=== PATIENT | female | born 1980 | race Caucasian/White ===

== ENCOUNTER → 2016-07-10 | Outpatient (CLI) | payer OTHER ==
[2016-05-03 14:41] VITALS: BP 107/65
[2016-07-10 12:18] LABS: BASOPHILS # (AUTO) 0.1 X10^3/uL (0.0-0.1); BASOPHILS % (AUTO) 0.8 % (0.2-1.0); EOSINOPHILS % (AUTO) 0.5 % (0.9-2.9); HEMOGLOBIN 12.8 g/dL (12.0-16.0); LYMPHOCYTES # (AUTO) 2.6 X10^3/uL (1.3-2.9); LYMPHOCYTES % (AUTO) 39.8 % (21.0-51.0); MEAN CORPUSCULAR HEMOGLOBIN 28.5 pg (27.0-34.0); MEAN CORPUSCULAR HGB CONC 33.6 g/dL (33.0-35.0); MEAN CORPUSCULAR VOLUME 84.9 fL (80.0-100.0); MEAN PLATELET VOLUME 6.7 fL (7.4-11.0); MONOCYTES # (AUTO) 0.6 x10^3/uL (0.3-0.8); MONOCYTES % (AUTO) 9.7 % (0.0-13.0); NEUTROPHILS # (AUTO) 3.2 x10^3/uL (2.2-4.8); NEUTROPHILS % (AUTO) 49.2 % (42.0-75.0); PLATELET COUNT 500 X10^3/uL (150.0-450.0); RED BLOOD COUNT 4.48 X10^6/uL (3.5-5.4); RED CELL DISTRIBUTION WIDTH 14.7 % (11.6-16.5); WHITE BLOOD COUNT 6.5 X10^3/uL (3.6-10.0)
[2016-07-10 12:34] LABS: ALANINE AMINOTRANSFERASE 23 Units/L (12-78); ALKALINE PHOSPHATASE 134 Units/L (46-116); ASPARTATE AMINO TRANSFERASE 22 Units/L (15-37); BLOOD UREA NITROGEN 9 mg/dL (7-18); CALCIUM 8.2 mg/dL (8.5-10.1); CARBON DIOXIDE 27.4 mmol/L (21-32); CHLORIDE 107 mmol/L (98-107); COR CA(FOR HYPOALB) 9.8 mg/dL (8.5-10.1); CREATININE 0.88 mg/dL (0.55-1.02); GLUCOSE 91 mg/dL (65-99); SODIUM 141 mmol/L (136-145); TOTAL PROTEIN 6.9 g/dL (6.4-8.2); eGFR BLACK RACES > 60 (>60); eGFR NON BLACK RACES > 60 (>60)
[2016-07-10 13:44] LABS: ERYTHROCYTE SEDIMENTATION RATE 21 MM/HOUR (0-20)
== END ==
LOC: LAB 12:00
PROVIDERS: ATTEND Internal Medicine Gastroenterology
DX: K50.10 Crohn's disease of large intestine without complications (principal); R63.4 Abnormal weight loss
CPT/HCPCS: 36415; 80053; 85025; 85652; 86140

== ENCOUNTER 2017-10-20 22:00 | Observation (INO) ==
[2017-10-20 22:17] VITALS: BMI 16.6
[2017-10-21] MEDS ORDERED: NS 1000 ML 1,000 ML IV ONE (01:43)
[2017-10-21] MEDS ORDERED: ZOFRAN INJ 4 MG VIAL IVP ONE (01:43)
[2017-10-21] MEDS ORDERED: TORADOL 30 MG VIAL IVP STA (01:45)
--- NOTE | 2017-10-21 01:46 | DR.GENAD ---
HPI - PCP Primary Care Physician: rao - Complaint/Symptoms Chief Complaint Doctors Comments: Patient is complaining or RLQ pain with persistent nausea and vomiting. States she had a colosotomy in 2011 and has had a deficiet since they close it. States she has crohns disease and it taking a shot weekly for it. states her last period was three weeks ago and she is not on any contraceptives. States her pain is 7 of 10. States she has taken ZOfran but is still not eating. States she had a small bowel movement today. Chief Complaint:: THROWING UP AND STOMACH PAINS AND SWELLING, HAS LUIS - Nurses notes reviewed Nurses Notes Review: Yes - Source History Provided: Patient - Mode of Arrival Mode of Arrival: Wheelchair - Timing Onset of Chief Complaint: 10/20/17 Came on: Gradually - Duration Duration: Constant How lon Duration: Days - Location Location: right lower abdominal pain - Severity Severity: Moderate - Modifying Factors Worsens:: nothing Improves:: nothing PMH - PMH Past Medical History: Yes Past Medical History: Arthritis, GERD, Kidney Stones Past Medical History Comment: LUIS Past Surgical History: Yes Surgical History: Cholecystectomy, Lithotripsy, Other Past Surgical History Comment: BOWEL SUGERY. CLOSTOMY PLACEMENT AND REMOVAL. GALLBLADDER REMOVED. KIDNEY STONE REMOVAL. - Family History History of Family Medical Conditions: No Family Medical History: Diabetes Mellitus, Cancer, [place], Coronary Artery Disease, Hypertension - Social History Does patient currently use any type of tobacco product: No Have you used tobacco products in the last 12 months: No Type of Tobacco Use: None Does any household member use tobacco: No Alcohol Use: None Do you use any recreational Drugs:: No Lives With: Spouse, Family Lives Where: Home - infectious screening In the last 2 months have you had wt loss of >10#?: NO Have you had fever, night sweats or hemotysis?: No Have you traveled outside the country in the last 6 months?: No Isolation: Standard ROS - Review of Systems Constitutional: No Symptoms Reported, Fever, Weakness, Loss of Appetite Eyes: No Symptoms Reported. negative: See HPI, Eye Pain, Blurred Vision, Tearing, Discharge, Photophobia, Diplopia, Other ENTM: No Symptoms Reported. negative: See HPI, Ear Pain, Ear Discharge, Pulling on Ears, Hearing Loss, Nose Pain, Nose Discharge, Epistaxis, Nose Congestion, Mouth Pain, Mouth Swelling, Loose Teeth, Drooling, Throat Pain, Throat Swelling, Ear Foreign Body, Tooth/Dental Pain Respiratoy: No Symptoms Reported Cardiovascular: No Symptoms Reported. negative: See HPI, Chest Pain, Edema, Palpitations, Syncope, Cyanosis, Skin Mottling, Other Gastrointestinal/Abdominal: No Symptoms Reported, Abdominal Pain, Nausea, Vomiting Genitourinary: No Symptoms Reported. negative: See HPI, Discharge, Dysuria, Frequency, Hematuria, Pain, Bleeding, Other Neurological: No Symptoms Reported Musculoskeletal: No Symptoms Reported Integumentary: No Symptoms Reported Hematologic/Lymphatic: No Symptoms Reported Endocrine: No Symptoms Reported Psychiatric: No Symptoms Reported. negative: See HPI, Anxiety, Depression, Hallucinations, Excessive crying, Suicidal, Other PE - General Limitations: No Limitations General Appearance: Alert, In Distress (moderate), Cachectic - Head Head Exam: Normal Inspection, Atraumatic, Normocephalic - Eyes Eye exam: Normal Appearance, PERRL, EOMI. negative: Scleral Icterus, Conjunctival Injection, Nystagmus, Miosis, Mydrasis, Periorbital Swelling, Periorbital Tenderness, Other - ENT ENT Exam: Normal Exam, Normal Oropharynx, Normal External Ear Exam, Mucous Membranes Moist, TM's Normal Bilaterally External Ear Exam: Normal External Inspection TM/Canal Exam: Bilateral Normal Nose Exam: Normal Nose Exam Mouth Exam: Normal Inspection. negative: Drooling, Trismus, Lip Swelling, Tongue Elevation, Tongue Swelling, Laceration, Other Throat Exam: Normal Inspection. negative: Tonsillar Erythema, Tonsillomegaly, Tonsillar Exudate, R Peritonsillar Mass, L Peritonsillar Mass, Muffled Voice, Other - Neck Neck Exam: Normal Inspection, Full ROM, Trachea Midline - Chest Chest Inspection: Normal Inspection, Symmetric Chest Wall Rise. negative: Tenderness, Rash, Abscess, Other - Respiratory Respiratory Exam: Normal Lung Sounds Bilat, Accessory Muscle Use. negative: Chest Wall Tenderness, Prolonged Expiratory Phase, Respiratory Distress, Stridor , Other Respiratory Exam: Bilateral Clear to Auscultation, Bilateral Decreased Breath Sounds - Cardiovascular Cardiovascular Exam: Regular Rate, Normal Rhythm, Normal Heart Sounds, Systolic Murmur - Abdominal Exam Abdominal Exam: Normal Inspection, Normal Bowel Sounds, Soft, Tenderness (RLQ tenderness), Guarding, Rebound, Dimnished Bowel Sounds Abdominal Tenderness: RLQ, Suprapubic, Moderate - Extremities Extremities Exam: Normal Inspection, Full ROM, Normal Capillary Refill. negative: Tenderness, Edema, Joint Swelling, Calf Tenderness, Other - Back Back Exam: Normal Inspection, Full ROM. negative: Tenderness, (R) CVA Tenderness, (L) CVA Tenderness, Muscle Spasm, Paraspinal Tenderness, Vertebral Tenderness, Rashes, (R) Sciatic Notch Tenderness, (L) Sciatic Notch Tendern, (R ) Straight Leg Raise, (L) Straight Leg Raise, Other - Neurologic Neurological Exam: Alert, Oriented X3, CN II-XII Intact, Normal Gait, Reflexes Normal - Psychiatric Psychiatric Exam: Normal Affect, Normal Mood. negative: Depressed, Agitated, Anxious, Flat Affect, Manic, Homicidal Ideation, Suicidal Ideation, Other - Skin Skin Exam: Warm, Dry, Intact, Normal Color - Vital Signs Vitals: Temperature 98.6 F Pulse Rate [Left] 84 Pulse Rate 97 Respiratory Rate 22 Blood Pressure [Right Arm] 104/71 Blood Pressure [Left Arm] 98/69 Blood Pressure 126/77 O2 Sat by Pulse Oximetry 99 Course - Consultation Called: 05:46 Call Returned: 05:46 (Dr. Flores to admit) - Education/Counseling Education/Counseling: Patient, Family Educated On: Treatment, Diagnosis, Needs for Follow Up ROR - Labs Reviewed Laboratory Results Reviewed?: Yes (All labs and x-ray results reviewed and discussed with patient) Result Diagrams: 10/21/17 01:53 10/21/17 01:53 - XRAY XRAY Interpreted by: Radiologist (CT abdomen and pelvis: Inflammator change involving the terminal ileum with marked wall thickening suggesting acute inflammatory enteritis likde Crohn's disease. Left ovarian cyst.) - Labs Reviewed Laboratory: WBC 11.4 X10^3/uL (3.6-10.0) H 10/21/17 01:53 RBC 3.93 X10^6/uL (3.5-5.4) 10/21/17 01:53 Hgb 10.9 g/dL (12.0-16.0) L 10/21/17 01:53 Hct 32.1 % (36.0-47.0) L 10/21/17 01:53 MCV 81.8 fL (80.0-100.0) 10/21/17 01:53 MCH 27.7 pg (27.0-34.0) 10/21/17 01:53 MCHC 33.9 g/dL (33.0-35.0) 10/21/17 01:53 RDW 13.6 % (11.6-16.5) 10/21/17 01:53 Plt Count 672 X10^3/uL (150.0-450.0) H 10/21/17 01:53 Plt Count Comment Increased (ADEQUATE) A 10/21/17 01:53 MPV 6.7 fL (7.4-11.0) L 10/21/17 01:53 Neut % (Auto) 65.6 % (42.0-75.0) 10/21/17 01:53 Lymph % (Auto) 28.7 % (21.0-51.0) 10/21/17 01:53 [place] % (Auto) 5.4 % (0.0-13.0) 10/21/17 01:53 Eos % (Auto) 0.1 % (0.9-2.9) L 10/21/17 01:53 Baso % (Auto) 0.2 % (0.2-1.0) 10/21/17 01:53 Neut # (Auto) 7.5 x10^3/uL (2.2-4.8) H 10/21/17 01:53 Lymph # (Auto) 3.3 X10^3/uL (1.3-2.9) H 10/21/17 01:53 [place] # (Auto) 0.6 x10^3/uL (0.3-0.8) 10/21/17 01:53 Eos # (Auto) 0.0 x10^3/uL (0.0-0.2) 10/21/17 01:53 Baso # (Auto) 0.0 X10^3/uL (0.0-0.1) 10/21/17 01:53 Absolute Nucleated RBC 0.0 /100WBC 10/21/17 01:53 Plt Morphology Comment Normal (NORMAL) 10/21/17 01:53 RBC Morphology Normal (NORMAL) 10/21/17 01:53 Sodium 143 mmol/L (136-145) 10/21/17 01:53 Corrected Sodium TNP 10/21/17 01:53 Potassium 3.0 mmol/L (3.5-5.1) L* 10/21/17 01:53 Chloride 105 mmol/L (98-107) 10/21/17 01:53 Carbon Dioxide 32.7 mmol/L (21-32) H 10/21/17 01:53 BUN 12 mg/dL (7-18) 10/21/17 01:53 Creatinine 1.11 mg/dL (0.55-1.02) H 10/21/17 01:53 Est GFR (MDRD) Af Amer > 60 (>60) 10/21/17 01:53 Est GFR (MDRD) Non-Af 59 (>60) 10/21/17 01:53 Glucose 101 mg/dL (65-99) H 10/21/17 01:53 Calcium 7.6 mg/dL (8.5-10.1) L 10/21/17 01:53 Corrected Calcium 9.5 mg/dL (8.5-10.1) 10/21/17 01:53 Total Bilirubin 0.20 mg/dL (0.2-1.0) 10/21/17 01:53 AST 13 Units/L (15-37) L 10/21/17 01:53 ALT 13 Units/L (12-78) 10/21/17 01:53 Alkaline Phosphatase 143 Units/L (46-116) H 10/21/17 01:53 Total Protein 6.7 g/dL (6.4-8.2) 10/21/17 01:53 Albumin 1.6 g/dL (3.4-5.0) L 10/21/17 01:53 Globulin 5.1 g/dL (2.5-4.5) H 10/21/17 01:53 Albumin/Globulin Ratio 0.3 Ratio (1.1-2.1) L 10/21/17 01:53 Amylase 34 Units/L (25-115) 10/21/17 01:53 Lipase 67 Units/L (73-393) L 10/21/17 01:53 HCG, Qual Negative <10 mIU/mL 10/21/17 01:53 Specimen Type Catherized urine 10/21/17 02:45 Urine Color Brown (YELLOW) 10/21/17 02:45 Urine Appearance Hazy (CLEAR) 10/21/17 02:45 Urine pH 6.0 (5.0 - 8.0) 10/21/17 02:45 Ur Specific B[place] 1.030 (1.000-1.030) 10/21/17 02:45 Urine Protein 3+ (NEGATIVE) 10/21/17 02:45 Urine Glucose (UA) Negative (NEGATIVE) 10/21/17 02:45 Urine Ketones Negative (NEGATIVE) 10/21/17 02:45 Urine Occult Blood 5+ (NEGATIVE) 10/21/17 02:45 Urine Nitrite Negative (NEGATIVE) 10/21/17 02:45 Urine Bilirubin 1+ (NEGATIVE) 10/21/17 02:45 Urine Urobilinogen 1+ (NORMAL) 10/21/17 02:45 Ur Leukocyte Esterase 1+ (NEGATIVE) 10/21/17 02:45 Urine RBC 5-10 /HPF (NONE SEEN) 10/21/17 02:45 Urine WBC 20-30 /HPF (NONE SEEN) 10/21/17 02:45 Ur Squamous Epith Cells Many /HPF (NEGATIVE) 10/21/17 02:45 Amorphous Sediment 2+ /HPF (NEGATIVE) 10/21/17 02:45 Urine Bacteria Negative /HPF (NEGATIVE) 10/21/17 02:45 Urine Mucus Few /HPF (NEGATIVE) 10/21/17 02:45 Ur Culture Indicated? No/not indicated 10/21/17 02:45 - Diagnosis Discharge Problem: Abdominal pain, Exacerbation of Crohn's disease, Nausea & vomiting, Hypokalemia , Intractable vomiting with nausea - Discharge Plan Disposition: ADMITTED INPATIENT Condition: Stable - Follow ups/Referrals Follow ups/Referrals: Jack Wright [Primary Care Provider] - 3 days - Instructions
[2017-10-21 02:02] LABS: BASOPHILS % (AUTO) 0.2 % (0.2-1.0); EOSINOPHILS % (AUTO) 0.1 % (0.9-2.9); HEMATOCRIT 32.1 % (36.0-47.0); HEMOGLOBIN 10.9 g/dL (12.0-16.0); LYMPHOCYTES # (AUTO) 3.3 X10^3/uL (1.3-2.9); LYMPHOCYTES % (AUTO) 28.7 % (21.0-51.0); MEAN CORPUSCULAR HEMOGLOBIN 27.7 pg (27.0-34.0); MEAN CORPUSCULAR HGB CONC 33.9 g/dL (33.0-35.0); MEAN CORPUSCULAR VOLUME 81.8 fL (80.0-100.0); MEAN PLATELET VOLUME 6.7 fL (7.4-11.0); MONOCYTES # (AUTO) 0.6 x10^3/uL (0.3-0.8); MONOCYTES % (AUTO) 5.4 % (0.0-13.0); NEUTROPHILS # (AUTO) 7.5 x10^3/uL (2.2-4.8); NEUTROPHILS % (AUTO) 65.6 % (42.0-75.0); PLATELET COUNT 672 X10^3/uL (150.0-450.0); RED BLOOD COUNT 3.93 X10^6/uL (3.5-5.4); RED CELL DISTRIBUTION WIDTH 13.6 % (11.6-16.5); WHITE BLOOD COUNT 11.4 X10^3/uL (3.6-10.0)
[2017-10-21] MEDS ORDERED: NS 1000 ML 1,000 ML ONE (02:07)
[2017-10-21] MEDS ORDERED: TORADOL 30 MG VIAL ONE (02:07)
[2017-10-21] MEDS ORDERED: ZOFRAN INJ 4 MG VIAL ONE (02:07)
[2017-10-21 02:09] LABS: BLOOD UREA NITROGEN 12 mg/dL (7-18); CALCIUM 7.6 mg/dL (8.5-10.1); CARBON DIOXIDE 32.7 mmol/L (21-32); CHLORIDE 105 mmol/L (98-107); CREATININE 1.11 mg/dL (0.55-1.02); SODIUM 143 mmol/L (136-145); eGFR NON BLACK RACES 59 (>60)
[2017-10-21 02:13] LABS: ALANINE AMINOTRANSFERASE 13 Units/L (12-78); ALBUMIN 1.6 g/dL (3.4-5.0); ALKALINE PHOSPHATASE 143 Units/L (46-116); AMYLASE 34 Units/L (25-115); ASPARTATE AMINO TRANSFERASE 13 Units/L (15-37); COR CA(FOR HYPOALB) 9.5 mg/dL (8.5-10.1); LIPASE 67 Units/L (73-393); TOTAL PROTEIN 6.7 g/dL (6.4-8.2)
[2017-10-21 02:14] LABS: SERUM PREGNANCY TEST, QUAL NEGATIVE <10 mIU/mL
[2017-10-21 02:18] LABS: PLATELET MORPHOLOGY COMMENT NORMAL (NORMAL)
[2017-10-21] MEDS ORDERED: K-LYTE EFFERVESCENT PO STA (02:27)
[2017-10-21 02:51] LABS: BILIRUBIN,URINE 1+ (NEGATIVE); BLOOD/HEMOGLOBIN,URINE 5+ (NEGATIVE); GLUCOSE, URINE NEGATIVE (NEGATIVE); KETONES,URINE NEGATIVE (NEGATIVE); LEUKOCYTE ESTERASE ,URINE 1+ (NEGATIVE); NITRITES,URINE NEGATIVE (NEGATIVE); PROTEIN,URINE 3+ (NEGATIVE); UROBILINOGEN,URINE 1+ (NORMAL)
[2017-10-21 02:56] LABS: COLOR,URINE BROWN (YELLOW)
[2017-10-21 02:57] LABS: APPEARANCE,URINE HAZY (CLEAR)
[2017-10-21 03:00] LABS: AMORPHOUS SEDIMENT,UR 2+ /HPF (NEGATIVE); BACTERIA,URINE NEGATIVE /HPF (NEGATIVE); MUCUS,URINE FEW /HPF (NEGATIVE); SQUAMOUS EPITHELIAL CELL,UR MANY /HPF (NEGATIVE)
[2017-10-21] MEDS ORDERED: BENADRYL INJ 50 MG VIAL IVP ONE (04:24)
[2017-10-21] MEDS ORDERED: REGLAN INJ 10 MG VIAL IVP STA (04:24)
[2017-10-21] MEDS ORDERED: REGLAN INJ 10 MG VIAL ONE (04:55)
[2017-10-21] MEDS ORDERED: BENADRYL INJ 50 MG VIAL ONE (04:55)
--- NOTE | 2017-10-21 05:15 | CT ---
CT abdomen and pelvis without contrast Indication: Abdominal pain and vomiting. History of Crohn's disease. History multiple bowel surgeries Comparison: 05/01/2016 Technique: Helical images through the abdomen and pelvis without contrast. Coronal and sagittal refor mats provided. Findings: Limited images the lower chest shows no acute abnormality. Review of bone windows shows no destructive osseous lesion. Postsurgical change at the hips from prior decompression noted. Abdomen: Gallbladder is absent. The liver is fatty. The spleen, pancreas, adrenal glands and stomach are normal. The kidneys are normal without hydronephrosis. Colon is relatively normal. Vasculature is normal. There is stranding in the right lower quadrant with terminal ileum wall thickening and free fluid in the pelvis and in the right lower quadrant. Bowel is mildly dilated. Broad-based abdominal wall herni a noted. Left ovarian cyst noted. Pelvis: Urinary bladder and rectum are normal. Uterus is normal. Right adnexa shows no acute abnormal ity. Left ovarian cyst noted. Impression: 1. Inflammatory change involving the terminal ileum with marked wall thickening and adjacent strandin g and fluid suggesting acute inflammatory enteritis, such as Crohn's disease given history. There is minimal dilatation, without high-grade obstruction. Developing obstruction is not completely excluded . 2. Moderate free fluid in the pericolic gutters and pelvis. Close clinical and imaging follow-up apolonia mmended to document resolution and exclude anastomotic leak is the source of the fluid as well. There is also left ovarian cyst. Cyst rupture could cause fluid as well. 3. Osteonecrosis of the hips and postsurgical change noted. Reported By:
[2017-10-21] MEDS ORDERED: FLAGYL IV PREMIX 500 MG BAG 500 MG/100 ML BAG IV ONE ×2 (05:31→05:46)
[2017-10-21] MEDS ORDERED: SOLU-Medrol 40 MG VIAL IVP ONE (05:32)
[2017-10-21] MEDS ORDERED: SOLU-Medrol 40 MG VIAL ONE (05:46)
[2017-10-21] MEDS: D5 1/2 NS + KCL 20 MEQ/L 1,000 ML IV SCH ×2 (05:57→14:00)
[2017-10-21] MEDS: FLAGYL IV PREMIX 500 MG BAG 500 MG/100 ML BAG IV SCH ×4 (07:51→21:00)
[2017-10-21] MEDS: PROTONIX TAB 40 MG PO SCH (08:02)
[2017-10-21] MEDS ORDERED: POTASSIUM CHLORIDE LIQ 20 MEQ UDC PO PRN (08:04)
[2017-10-21] MEDS ORDERED: K-RIDER 10 MEQ/NS 100 ML 10 MEQ/100 ML BAG IV PRN (08:04)
[2017-10-21] MEDS ORDERED: K-LYTE EFFERVESCENT PO PRN (08:04)
[2017-10-21] MEDS ORDERED: POTASSIUM CHL 40 MEQ/NS 0.45% 500 ML IV PRN (08:04)
[2017-10-21] MEDS: POTASSIUM CHL 60 MEQ/NS 0.45% 500 ML IV PRN (09:04)
[2017-10-21] MEDS: ZOFRAN INJ 4 MG VIAL IVP PRN ×2 (09:11→17:22)
[2017-10-21] MEDS: CIPRO IV 400 MG PREMIX* 400 MG/200 ML IV.SOLN. IV SCH ×2 (12:30→18:52)
--- NOTE | 2017-10-21 14:08 | DR.H&P ---
H&P - History & Physical for Day of: H&P Date: 10/21/17 - Chief Complaint Chief Complaint: ABDOMINAL PAIN, FEVER HX OF CROHNS - History of Present Illness History of Present Illness: 37 [facility] ER ADMISSION AFTER PRESENTING WITH CO RLQ pain with persistent nausea and vomiting. States she had a colosotomy in 2011, then reverse with non healing wound since. States she has crohns disease and it taking a shot weekly for it. PT STATES SHE IS UNDER THE CARE DR [place]. PT HAD CT IN ER WITH RESULTS:nflammatory change involving the terminal ileum with marked wall thickening and adjacent stranding and fluid suggesting acute inflammatory enteritis, such as Crohn's disease given history. There is minimal dilatation, without high-grade obstruction. Developing obstruction is not completely excluded. Moderate free fluid in the pericolic gutters and pelvis. Close clinical and imaging follow-up recommended to document resolution and exclude anastomotic leak is the source of the fluid as well. There is also left ovarian cyst. Cyst rupture could cause fluid as well. PT WAS ADMITTED FOR EVALUATION AND TREATMENT OF ACUTE ILLNESS, IV ATBX THERAPY PAIN CONTROL - Past Medical History Past Medical History: Arthritis, GERD, Kidney Stones Additional Medical History: Crohn's Disease, Abdominal Hernia 2011, Urinary Tract Infections, Ovarian Cysts, Previous Blood Transfusion - Past Surgical History Surgical History: Cholecystectomy, Lithotripsy, Other Additional Surgical History: Bilateral Hip Core Decompression; intestinal tears and had colostomy w reversal 1 year later (2010, 2011); abdominal hernia w mesh placement in 2011 - Family History Family Medical History: Diabetes Mellitus, Cancer, [place], Coronary Artery Disease, Hypertension - Social History Does patient currently use any type of tobacco product: No Have you used tobacco products in the last 12 months: No Type of Tobacco Use: None Does any household member use tobacco: No Alcohol Use: None - Medications Home Medications: No Known Drug Allergies Allergy (Verified 10/21/17 02:08) - Review of Systems Constitutional: Fever, Weakness Eyes: No Symptoms Reported ENT: No Symptoms Reported Respiratory: No Symptoms Reported Cardiovascular: No Symptoms Reported Gastrointestinal: Nausea, Vomiting, Abdominal Pain Genitourinary: No Symptoms Reported Musculoskeletal: No Symptoms Reported Skin: Wound Neurological: No Symptoms Reported - Physical Exam Vital Signs: Temperature 98.6 F Pulse Rate [Left] 65 Pulse Rate 97 Respiratory Rate 22 Blood Pressure [Right Arm] 97/64 Blood Pressure [Left Arm] 98/69 Blood Pressure 126/77 O2 Sat by Pulse Oximetry 97 Oriented: Normal Eyes: Normal Ear: Normal Nose: Normal Throat: Normal Respiratory: Clear Throughout Cardiovascular: Normal, Irregular Palpation: Normal Tenderness: Diffuse, RLQ Skin: Wound (TWO SF OPEN WOUNDS ALONG PERIUMBILCAL SURGICAL SCAR) Musculoskeletal: Normal Psychiatric: Anxiety Affect: Anxious Speech Pattern: Clear, Appropriate - Assessment/Plan (1) Exacerbation of Crohn's disease Status: Acute Plan: ADMIT, IV ATBX, IV HYDRATION ELECTROLYTE REPLACEMENT, PAIN AND NAUSEA CONTROL, WOUND CULTURE. LACTIC ACID LEVEL, ADMISSION LABS, STOOL STUDIES. VERIFY HOME MEDS (2) Hypokalemia Status: Acute (3) Intractable vomiting with nausea Status: Acute (4) Abdominal pain Status: Acute - Allergies Allergies/Adverse Reactions: Allergies Allergy/AdvReac Type Severity Reaction Status Date / Time No Known Drug Allergies Allergy Verified 10/21/17 02:08
[2017-10-21 15:00] LABS: LACTIC ACID 3.6 mmol/L (0.4-2.0)
[2017-10-21 18:20] LABS: STOOL FOR WBC POSITIVE (NEGATIVE)
[2017-10-22] MEDS: CIPRO IV 400 MG PREMIX* 400 MG/200 ML IV.SOLN. IV SCH ×3 (00:29→22:00)
[2017-10-22] MEDS: D5 1/2 NS + KCL 20 MEQ/L 1,000 ML IV SCH ×5 (01:36→22:09)
[2017-10-22] MEDS: ZOFRAN INJ 4 MG VIAL IVP PRN (01:48)
[2017-10-22] MEDS: FLAGYL IV PREMIX 500 MG BAG 500 MG/100 ML BAG IV SCH ×2 (03:03→09:09)
[2017-10-22 05:20] LABS: BASOPHILS % (AUTO) 0.3 % (0.2-1.0); EOSINOPHILS # (AUTO) 0.1 x10^3/uL (0.0-0.2); EOSINOPHILS % (AUTO) 0.8 % (0.9-2.9); HEMATOCRIT 22.8 % (36.0-47.0); HEMOGLOBIN 7.9 g/dL (12.0-16.0); LYMPHOCYTES # (AUTO) 3.2 X10^3/uL (1.3-2.9); LYMPHOCYTES % (AUTO) 34.7 % (21.0-51.0); MEAN CORPUSCULAR HEMOGLOBIN 28.5 pg (27.0-34.0); MEAN CORPUSCULAR HGB CONC 34.5 g/dL (33.0-35.0); MEAN CORPUSCULAR VOLUME 82.6 fL (80.0-100.0); MEAN PLATELET VOLUME 7.1 fL (7.4-11.0); MONOCYTES # (AUTO) 0.7 x10^3/uL (0.3-0.8); MONOCYTES % (AUTO) 7.8 % (0.0-13.0); NEUTROPHILS # (AUTO) 5.2 x10^3/uL (2.2-4.8); NEUTROPHILS % (AUTO) 56.4 % (42.0-75.0); PLATELET COUNT 460 X10^3/uL (150.0-450.0); RED BLOOD COUNT 2.77 X10^6/uL (3.5-5.4); RED CELL DISTRIBUTION WIDTH 13.5 % (11.6-16.5); WHITE BLOOD COUNT 9.2 X10^3/uL (3.6-10.0)
[2017-10-22 05:30] LABS: ALANINE AMINOTRANSFERASE 8 Units/L (12-78); ALBUMIN 1.2 g/dL (3.4-5.0); ALKALINE PHOSPHATASE 97 Units/L (46-116); ASPARTATE AMINO TRANSFERASE 10 Units/L (15-37); BLOOD UREA NITROGEN 12 mg/dL (7-18); CALCIUM 6.5 mg/dL (8.5-10.1); CARBON DIOXIDE 27.3 mmol/L (21-32); CHLORIDE 109 mmol/L (98-107); COR CA(FOR HYPOALB) 8.7 mg/dL (8.5-10.1); CREATININE 1.07 mg/dL (0.55-1.02); SODIUM 142 mmol/L (136-145); TOTAL PROTEIN 4.9 g/dL (6.4-8.2); eGFR NON BLACK RACES > 60 (>60)
[2017-10-22 05:59] LABS: PLATELET MORPHOLOGY COMMENT NORMAL (NORMAL)
[2017-10-22 06:00] LABS: HYPOCHROMASIA SLIGHT
[2017-10-22] MEDS: POTASSIUM CHL 60 MEQ/NS 0.45% 500 ML IV PRN (06:50)
[2017-10-22] MEDS: PROTONIX TAB 40 MG PO SCH (09:06)
[2017-10-22] MEDS ORDERED: NS 100 ML IV 100 ML IV ONE ×3 (11:21→17:37)
[2017-10-22] MEDS ORDERED: MAGNESIUM SULFATE 50% INJ ONE ×3 (11:22→17:37)
[2017-10-22] MEDS: MAGNESIUM SULFATE 1 GRAM/100 mL PREMIX 1 GM/100 ML BAG IV PRN ×2 (11:35→17:40)
[2017-10-22] MEDS ORDERED: MAGNESIUM SULFATE 1 GRAM/100 mL PREMIX 1 G/100 ML BAG IV ONE (14:09)
[2017-10-22] MEDS: VANCOMYCIN HCL PO SCH ×2 (14:29→21:15)
[2017-10-22] MEDS: FLAGYL TAB 500 MG PO SCH ×2 (17:40→22:10)
[2017-10-22] MEDS: PHENERGAN INJ 25 MG IV PRN (21:14)
[2017-10-23] MEDS: VANCOMYCIN HCL PO SCH ×4 (02:24→20:44)
[2017-10-23] MEDS: FLAGYL TAB 500 MG PO SCH ×3 (05:08→22:28)
[2017-10-23] MEDS: PHENERGAN INJ 25 MG IV PRN ×3 (05:08→23:03)
[2017-10-23 05:20] LABS: BASOPHILS % (AUTO) 0.4 % (0.2-1.0); EOSINOPHILS # (AUTO) 0.1 x10^3/uL (0.0-0.2); EOSINOPHILS % (AUTO) 1.1 % (0.9-2.9); HEMATOCRIT 24.2 % (36.0-47.0); HEMOGLOBIN 8.4 g/dL (12.0-16.0); LYMPHOCYTES # (AUTO) 2.2 X10^3/uL (1.3-2.9); LYMPHOCYTES % (AUTO) 28.9 % (21.0-51.0); MEAN CORPUSCULAR HEMOGLOBIN 28.7 pg (27.0-34.0); MEAN CORPUSCULAR HGB CONC 34.9 g/dL (33.0-35.0); MEAN CORPUSCULAR VOLUME 82.3 fL (80.0-100.0); MEAN PLATELET VOLUME 6.9 fL (7.4-11.0); MONOCYTES # (AUTO) 0.5 x10^3/uL (0.3-0.8); MONOCYTES % (AUTO) 6.7 % (0.0-13.0); NEUTROPHILS # (AUTO) 4.8 x10^3/uL (2.2-4.8); NEUTROPHILS % (AUTO) 62.9 % (42.0-75.0); PLATELET COUNT 506 X10^3/uL (150.0-450.0); RED BLOOD COUNT 2.94 X10^6/uL (3.5-5.4); RED CELL DISTRIBUTION WIDTH 13.7 % (11.6-16.5); WHITE BLOOD COUNT 7.6 X10^3/uL (3.6-10.0)
[2017-10-23 05:30] LABS: ALANINE AMINOTRANSFERASE 10 Units/L (12-78); ALBUMIN 1.3 g/dL (3.4-5.0); ALKALINE PHOSPHATASE 96 Units/L (46-116); ASPARTATE AMINO TRANSFERASE 9 Units/L (15-37); BLOOD UREA NITROGEN 4 mg/dL (7-18); CALCIUM 6.6 mg/dL (8.5-10.1); CHLORIDE 112 mmol/L (98-107); COR CA(FOR HYPOALB) 8.8 mg/dL (8.5-10.1); CREATININE 1.01 mg/dL (0.55-1.02); MAGNESIUM 2.1 mg/dL (1.7-2.9); SODIUM 142 mmol/L (136-145); TOTAL PROTEIN 5.1 g/dL (6.4-8.2); eGFR NON BLACK RACES > 60 (>60)
[2017-10-23] MEDS: D5 1/2 NS + KCL 20 MEQ/L 1,000 ML IV SCH ×3 (06:21→23:03)
[2017-10-23] MEDS: PROTONIX TAB 40 MG PO SCH (09:36)
[2017-10-23] MEDS: CIPRO IV 400 MG PREMIX* 400 MG/200 ML IV.SOLN. IV SCH ×2 (09:36→20:44)
[2017-10-23] MEDS ORDERED: PROCALAMINE 3 % 1,000 ML IV SCH (10:00)
[2017-10-23] MEDS: ALBUMIN HUMAN 25%- 100 ML 100 ML IV SCH (15:00)
--- NOTE | 2017-10-23 15:15 | CT ---
HISTORY: Persistent abdominal pain. History of Crohn's disease and partial colonic resection. Study: CT abdomen and pelvis without contrast. Comparison: 10/21/2017. Technique: Multiple axial images of the abdomen and pelvis were obtained from the lung bases to the p ubic symphysis without the administration of IV contrast. Findings: Included portions of the lung bases are clear. The gallbladder is surgically absent. The l iver, pancreas, spleen, adrenal glands and kidneys are unremarkable in their noncontrast CT appearanc e. There are postsurgical changes of the proximal right colon and sigmoid colon. Postsurgical changes of the anterior abdominal wall are noted as well. There is fatty infiltration of the wall of the asc ending colon. There is persistent wall thickening of a segment of the distal ileum with associated in flammatory change. An enteroenteric fistula cannot be excluded. There is no evidence of high-grade mechelle wel obstruction. There is a moderate amount of free fluid within the pelvis and layering within both pericolic gutters, left greater than right, which has slightly increased compared with 2 days earlier . There is no intraperitoneal free air. The uterus is present. There is a 5.5 cm left adnexal cyst w hich is likely ovarian in origin. The urinary bladder is grossly unremarkable. The abdominal aorta is nonaneurysmal. There is no acute bony abnormality. There are postsurgical changes of both hips. IMPRESSION: Limited evaluation of the abdomen and pelvis given the lack of IV and oral contrast. Persistent wall thickening and inflammatory changes within the region of the distal ileum likely refl ecting acute enteritis related to Crohn's disease given the clinical history. Enteroenteric fistula c annot be excluded. MR enterography may be of further diagnostic benefit. Interval increase in volume of free fluid layering within the pelvis and both pericolic gutters mariangel red with 2 days earlier. There is no intraperitoneal free air to suggest visceral perforation. No evidence of high-grade bowel obstruction. Approximately 5.5 cm left adnexal cyst which is likely ovarian in origin. Pelvic ultrasound is sugges bennett for further evaluation. Reported By:
--- NOTE | 2017-10-23 20:32 | PCM.PROG ---
Progress Note - Progress Note for Day of Date of Exam: 10/23/17 - Subjective Subjective: WAS ADMITTED FOR ENTERITIS, HYPOKALEMIA, AND A CROHNS EXACERBATION. SHE WAS ALSO FOUND TO BE POSITIVE FOR C-DIFF AND A URINARY TRACT INFECTION. TODAY, SHE IS ALERT AND ORIENTED, LYING IN BED ON MORNING ROUNDS. SHE CONTINUES WITH COMPLAINTS OF ABDOMINAL PAIN AND NAUSEA. ON EXAMINATION, HEART IS REGULAR IN RATE AND RHYTHM. BILATERAL LUNGS ARE NOTED WITH DIMINISHED LUNG SOUNDS THROUGHOUT. ABDOMEN IS ROUND, SOFT, AND NOTED WITH HYPERACTIVE BOWEL SOUNDS THROUGHOUT. HER VITALS THIS MORNING ARE 98.8-80-18-96%-108/69. LABS WERE OBTAINED. ABNORMAL LAB VALUES INCLUDE THE FOLLOWING: RBC 2.94, HGB 8.4 , HCT 24.2, PLT COUNT 506, CHLORIDE 112, BUN 4, GLUCOSE 105, CALCIUM 6.6, TOTAL BILI 0.10, AST 9, ALT 10, TOTAL PROTEIN 5.1, ALBUMIN 1.3. SHE IS SCHEDULED FOR A REPEAT ABDOMEN/PELVIS CT WITHOUT CONTRAST THIS MONRING. TODAY, WE WILL START ALBUIN, PROCALAMINE, AND OBTAIN A SED RATE AND CRP IN THE MORNING. OTHERWISE, WE WILL FOLLOW UP WITH AM LABS AND CONTINUE TO MONITOR PATIENT. - Past Medical Family Social History Past Med/Fam/Surg Hx: No changes since H&P Allergies: Allergies No Known Drug Allergies Allergy (Verified 10/21/17 02:08) - Review of Systems ROS: No change since H&P - Vital Signs and I&O's Vital Signs: Temperature 98.1 F Pulse Rate [Left Brachial] 82 Pulse Rate [Right Brachial] 82 Pulse Rate [Left] 65 Pulse Rate 97 Respiratory Rate 18 Blood Pressure [Right Arm] 108/69 Blood Pressure [Left Arm] 93/60 Blood Pressure 126/77 O2 Sat by Pulse Oximetry 99 Intake and Output: Intake & Output 10/21/17 10/22/17 10/23/17 10/24/17 11:59 11:59 11:59 11:59 Intake Total 2557 / 2557 3534 / 3534 480 / 480 Balance 2557 / 2557 3534 / 3534 480 / 480 - Physical Exam Oriented: Normal Eyes: Normal Ear: Normal Nose: Normal Throat: Normal Respiratory: Diminished Cardiovascular: Normal : Normal Auscultation: Bowel Sounds: Normal Palpation: Normal Tenderness: Diffuse, RLQ Skin: Wound (TWO SF OPEN WOUNDS ALONG PERIUMBILCAL SURGICAL SCAR) Musculoskeletal: Normal Psychiatric: Anxiety Affect: Anxious Speech Pattern: Clear, Appropriate - Laboratory and Diagnostics Result Diagrams: 10/23/17 04:31 10/23/17 04:31 Labs: 10/21/17 17:50 Stool Stool Culture - Preliminary 10/21/17 17:50 Stool - Final Laboratory WBC 7.6 X10^3/uL (3.6-10.0) 10/23/17 04:31 RBC 2.94 X10^6/uL (3.5-5.4) L 10/23/17 04:31 Hgb 8.4 g/dL (12.0-16.0) L 10/23/17 04:31 Hct 24.2 % (36.0-47.0) L 10/23/17 04:31 MCV 82.3 fL (80.0-100.0) 10/23/17 04:31 MCH 28.7 pg (27.0-34.0) 10/23/17 04:31 MCHC 34.9 g/dL (33.0-35.0) 10/23/17 04:31 RDW 13.7 % (11.6-16.5) 10/23/17 04:31 Plt Count 506 X10^3/uL (150.0-450.0) H 10/23/17 04:31 Plt Count Comment Increased (ADEQUATE) A 10/22/17 04:10 MPV 6.9 fL (7.4-11.0) L 10/23/17 04:31 Neut % (Auto) 62.9 % (42.0-75.0) 10/23/17 04:31 Lymph % (Auto) 28.9 % (21.0-51.0) 10/23/17 04:31 [place] % (Auto) 6.7 % (0.0-13.0) 10/23/17 04:31 Eos % (Auto) 1.1 % (0.9-2.9) 10/23/17 04:31 Baso % (Auto) 0.4 % (0.2-1.0) 10/23/17 04:31 Neut # (Auto) 4.8 x10^3/uL (2.2-4.8) 10/23/17 04:31 Lymph # (Auto) 2.2 X10^3/uL (1.3-2.9) 10/23/17 04:31 [place] # (Auto) 0.5 x10^3/uL (0.3-0.8) 10/23/17 04:31 Eos # (Auto) 0.1 x10^3/uL (0.0-0.2) 10/23/17 04:31 Baso # (Auto) 0.0 X10^3/uL (0.0-0.1) 10/23/17 04:31 Absolute Nucleated RBC 0.0 /100WBC 10/23/17 04:31 Plt Morphology Comment Normal (NORMAL) 10/22/17 04:10 RBC Morphology Abnormal (NORMAL) A 10/22/17 04:10 Hypochromasia Slight A 10/22/17 04:10 ESR 38 MM/HOUR (0-20) H 10/21/17 14:28 Sodium 142 mmol/L (136-145) 10/23/17 04:31 Corrected Sodium TNP 10/23/17 04:31 Potassium 3.7 mmol/L (3.5-5.1) 10/23/17 04:31 Chloride 112 mmol/L (98-107) H 10/23/17 04:31 Carbon Dioxide 25.0 mmol/L (21-32) 10/23/17 04:31 BUN 4 mg/dL (7-18) L 10/23/17 04:31 Creatinine 1.01 mg/dL (0.55-1.02) 10/23/17 04:31 Est GFR (MDRD) Af Amer > 60 (>60) 10/23/17 04:31 Est GFR (MDRD) Non-Af > 60 (>60) 10/23/17 04:31 Glucose 105 mg/dL (65-99) H 10/23/17 04:31 Lactic Acid 3.6 mmol/L (0.4-2.0) H 10/21/17 14:28 Calcium 6.6 mg/dL (8.5-10.1) L 10/23/17 04:31 Corrected Calcium 8.8 mg/dL (8.5-10.1) 10/23/17 04:31 Magnesium 2.1 mg/dL (1.7-2.9) 10/23/17 04:31 Total Bilirubin 0.10 mg/dL (0.2-1.0) L 10/23/17 04:31 AST 9 Units/L (15-37) L 10/23/17 04:31 ALT 10 Units/L (12-78) L 10/23/17 04:31 Alkaline Phosphatase 96 Units/L (46-116) 10/23/17 04:31 C-Reactive Protein 55.40 mg/L (0-3.0) H 10/21/17 14:28 Total Protein 5.1 g/dL (6.4-8.2) L 10/23/17 04:31 Albumin 1.3 g/dL (3.4-5.0) L 10/23/17 04:31 Globulin 3.8 g/dL (2.5-4.5) 10/23/17 04:31 Albumin/Globulin Ratio 0.3 Ratio (1.1-2.1) L 10/23/17 04:31 Amylase 34 Units/L (25-115) 10/21/17 01:53 Lipase 67 Units/L (73-393) L 10/21/17 01:53 HCG, Qual Negative <10 mIU/mL 10/21/17 01:53 Specimen Type Catherized urine 10/21/17 02:45 Urine Color Brown (YELLOW) 10/21/17 02:45 Urine Appearance Hazy (CLEAR) 10/21/17 02:45 Urine pH 6.0 (5.0 - 8.0) 10/21/17 02:45 Ur Specific [place] 1.030 (1.000-1.030) 10/21/17 02:45 Urine Protein 3+ (NEGATIVE) 10/21/17 02:45 Urine Glucose (UA) Negative (NEGATIVE) 10/21/17 02:45 Urine Ketones Negative (NEGATIVE) 10/21/17 02:45 Urine Occult Blood 5+ (NEGATIVE) 10/21/17 02:45 Urine Nitrite Negative (NEGATIVE) 10/21/17 02:45 Urine Bilirubin 1+ (NEGATIVE) 10/21/17 02:45 Urine Urobilinogen 1+ (NORMAL) 10/21/17 02:45 Ur Leukocyte Esterase 1+ (NEGATIVE) 10/21/17 02:45 Urine RBC 5-10 /HPF (NONE SEEN) 10/21/17 02:45 Urine WBC 20-30 /HPF (NONE SEEN) 10/21/17 02:45 Ur Squamous Epith Cells Many /HPF (NEGATIVE) 10/21/17 02:45 Amorphous Sediment 2+ /HPF (NEGATIVE) 10/21/17 02:45 Urine Bacteria Negative /HPF (NEGATIVE) 10/21/17 02:45 Urine Mucus Few /HPF (NEGATIVE) 10/21/17 02:45 Ur Culture Indicated? No/not indicated 10/21/17 02:45 Stool Description 150g,loose,brown 10/21/17 17:50 Stl Occult Blood (IFOB) Positive (NEGATIVE) A 10/21/17 17:50 Stool for White Cells Positive (NEGATIVE) A 10/21/17 17:50 Stl C. diff Tox B Gene Positive (NEGATIVE) A 10/21/17 17:50 Stl C. diff 027-NAP1-BI Negative (NEGATIVE) 10/21/17 17:50 - Plan (1) Exacerbation of Crohn's disease Status: Acute Plan: IV ATBX, IV HYDRATION ELECTROLYTE REPLACEMENT, PAIN AND NAUSEA CONTROL, WOUND CULTURE. LACTIC ACID LEVEL, ADMISSION LABS, STOOL STUDIES. VERIFY HOME MEDS (2) Abdominal pain Status: Acute Qualifiers: Abdominal location: generalized Qualified Code(s): R10.84 - Generalized abdominal pain Plan: REPEAT ABD/PELVIS CT THIS MORNING (3) Intractable vomiting with nausea Status: Acute Qualifiers: Vomiting type: unspecified Qualified Code(s): R11.2 - Nausea with vomiting , unspecified Plan: ZOFRAN IV, PHENERGAN IV, CONTINUE TO MONITOR (4) C. difficile enteritis Status: Acute Plan: VANCOMYCIN PO, CONTINUE TO MONITOR (5) Urinary tract infection Status: Acute Qualifiers: Urinary tract infection type: acute cystitis Hematuria presence: without hematuria Qualified Code(s): N30.00 - Acute cystitis without hematuria Plan: CONTINUE IV ANTIBIOTICS, CONTINUE TO MONITOR
[2017-10-24] MEDS: VANCOMYCIN HCL PO SCH ×3 (02:02→14:54)
[2017-10-24 05:05] LABS: BASOPHILS % (AUTO) 0.4 % (0.2-1.0); EOSINOPHILS # (AUTO) 0.1 x10^3/uL (0.0-0.2); EOSINOPHILS % (AUTO) 0.9 % (0.9-2.9); HEMATOCRIT 23.4 % (36.0-47.0); LYMPHOCYTES # (AUTO) 2.2 X10^3/uL (1.3-2.9); LYMPHOCYTES % (AUTO) 27.5 % (21.0-51.0); MEAN CORPUSCULAR HEMOGLOBIN 28.2 pg (27.0-34.0); MEAN CORPUSCULAR HGB CONC 34.2 g/dL (33.0-35.0); MEAN CORPUSCULAR VOLUME 82.6 fL (80.0-100.0); MEAN PLATELET VOLUME 6.8 fL (7.4-11.0); MONOCYTES # (AUTO) 0.5 x10^3/uL (0.3-0.8); MONOCYTES % (AUTO) 6.3 % (0.0-13.0); NEUTROPHILS # (AUTO) 5.2 x10^3/uL (2.2-4.8); NEUTROPHILS % (AUTO) 64.9 % (42.0-75.0); PLATELET COUNT 484 X10^3/uL (150.0-450.0); RED BLOOD COUNT 2.84 X10^6/uL (3.5-5.4); RED CELL DISTRIBUTION WIDTH 13.8 % (11.6-16.5)
[2017-10-24 05:09] LABS: ALANINE AMINOTRANSFERASE 9 Units/L (12-78); ALBUMIN 1.7 g/dL (3.4-5.0); ALKALINE PHOSPHATASE 81 Units/L (46-116); ASPARTATE AMINO TRANSFERASE 8 Units/L (15-37); BLOOD UREA NITROGEN 2 mg/dL (7-18); CALCIUM 7.3 mg/dL (8.5-10.1); CHLORIDE 110 mmol/L (98-107); COR CA(FOR HYPOALB) 9.1 mg/dL (8.5-10.1); CREATININE 0.96 mg/dL (0.55-1.02); SODIUM 140 mmol/L (136-145); TOTAL PROTEIN 5.4 g/dL (6.4-8.2); eGFR NON BLACK RACES > 60 (>60)
[2017-10-24] MEDS: D5 1/2 NS + KCL 20 MEQ/L 1,000 ML IV SCH (05:17)
[2017-10-24] MEDS: FLAGYL TAB 500 MG PO SCH ×2 (05:18→14:54)
[2017-10-24 05:57] LABS: ERYTHROCYTE SEDIMENTATION RATE 40 MM/HOUR (0-20)
[2017-10-24] MEDS: ALBUMIN HUMAN 25%- 100 ML 100 ML IV SCH (09:21)
[2017-10-24] MEDS: PROTONIX TAB 40 MG PO SCH (09:24)
[2017-10-24] MEDS: CIPRO IV 400 MG PREMIX* 400 MG/200 ML IV.SOLN. IV SCH (11:01)
[2017-10-24] MEDS: PHENERGAN INJ 25 MG IV PRN (12:18)
[2017-10-24 14:11] VITALS: BP 104/69
--- NOTE | 2017-11-12 11:48 | PCM.PROG ---
Progress Note - Progress Note for Day of Date of Exam: 10/22/17 - Subjective Subjective: WAS ADMITTED FOR ENTERITIS, HYPOKALEMIA, AND A CROHNS EXACERBATION. SHE WAS ALSO FOUND TO BE POSITIVE FOR C-DIFF AND A URINARY TRACT INFECTION. CONTINUES WITH COMPLAINTS OF ABDOMINAL PAIN AND NAUSEA. - Past Medical Family Social History Past Med/Fam/Surg Hx: No changes since H&P Allergies: Allergies No Known Drug Allergies Allergy (Verified 10/21/17 02:08) - Review of Systems ROS: No change since H&P - Vital Signs and I&O's Vital Signs: Temperature 98.4 F Pulse Rate [Left Brachial] 81 Pulse Rate [Right Brachial] 86 Pulse Rate [Left] 65 Pulse Rate 97 Respiratory Rate 18 Blood Pressure [Right Arm] 104/69 Blood Pressure [Left Arm] 93/60 Blood Pressure 126/77 O2 Sat by Pulse Oximetry 99 - Physical Exam Oriented: Normal Eyes: Normal Ear: Normal Nose: Normal Throat: Normal Respiratory: Diminished Cardiovascular: Normal : Normal Auscultation: Bowel Sounds: Normal Palpation: Normal Tenderness: Diffuse, RLQ Skin: Wound (TWO SF OPEN WOUNDS ALONG PERIUMBILCAL SURGICAL SCAR) Musculoskeletal: Normal Psychiatric: Anxiety Affect: Anxious Speech Pattern: Clear, Appropriate - Laboratory and Diagnostics Result Diagrams: 10/24/17 04:29 10/24/17 04:29 Labs: 10/21/17 17:50 Stool Stool Culture - Final 10/21/17 17:50 Stool - Final Laboratory WBC 8.0 X10^3/uL (3.6-10.0) 10/24/17 04:29 RBC 2.84 X10^6/uL (3.5-5.4) L 10/24/17 04:29 Hgb 8.0 g/dL (12.0-16.0) L 10/24/17 04:29 Hct 23.4 % (36.0-47.0) L 10/24/17 04:29 MCV 82.6 fL (80.0-100.0) 10/24/17 04:29 MCH 28.2 pg (27.0-34.0) 10/24/17 04:29 MCHC 34.2 g/dL (33.0-35.0) 10/24/17 04:29 RDW 13.8 % (11.6-16.5) 10/24/17 04:29 Plt Count 484 X10^3/uL (150.0-450.0) H 10/24/17 04:29 Plt Count Comment Increased (ADEQUATE) A 10/22/17 04:10 MPV 6.8 fL (7.4-11.0) L 10/24/17 04:29 Neut % (Auto) 64.9 % (42.0-75.0) 10/24/17 04:29 Lymph % (Auto) 27.5 % (21.0-51.0) 10/24/17 04:29 [place]er % (Auto) 6.3 % (0.0-13.0) 10/24/17 04: Eos % (Auto) 0.9 % (0.9-2.9) 10/24/17 04: Baso % (Auto) 0.4 % (0.2-1.0) 10/24/17 04:29 Neut # (Auto) 5.2 x10^3/uL (2.2-4.8) H 10/24/17 04:29 Lymph # (Auto) 2.2 X10^3/uL (1.3-2.9) 10/24/17 04:29 Greer # (Auto) 0.5 x10^3/uL (0.3-0.8) 10/24/17 04:29 Eos # (Auto) 0.1 x10^3/uL (0.0-0.2) 10/24/17 04:29 Baso # (Auto) 0.0 X10^3/uL (0.0-0.1) 10/24/17 04:29 Absolute Nucleated RBC 0.0 /100WBC 10/24/17 04:29 Plt Morphology Comment Normal (NORMAL) 10/22/17 04:10 RBC Morphology Abnormal (NORMAL) A 10/22/17 04:10 Hypochromasia Slight A 10/22/17 04:10 ESR 40 MM/HOUR (0-20) H 10/24/17 04:29 Sodium 140 mmol/L (136-145) 10/24/17 04:29 Corrected Sodium TNP 10/24/17 04:29 Potassium 4.3 mmol/L (3.5-5.1) 10/24/17 04:29 Chloride 110 mmol/L (98-107) H 10/24/17 04:29 Carbon Dioxide 26.0 mmol/L (21-32) 10/24/17 04:29 BUN 2 mg/dL (7-18) L 10/24/17 04:29 Creatinine 0.96 mg/dL (0.55-1.02) 10/24/17 04:29 Est GFR (MDRD) Af Amer > 60 (>60) 10/24/17 04:29 Est GFR (MDRD) Non-Af > 60 (>60) 10/24/17 04:29 Glucose 106 mg/dL (65-99) H 10/24/17 04:29 Lactic Acid 3.6 mmol/L (0.4-2.0) H 10/21/17 14:28 Calcium 7.3 mg/dL (8.5-10.1) L 10/24/17 04:29 Corrected Calcium 9.1 mg/dL (8.5-10.1) 10/24/17 04:29 Magnesium 2.1 mg/dL (1.7-2.9) 10/23/17 04:31 Total Bilirubin 0.20 mg/dL (0.2-1.0) 10/24/17 04:29 AST 8 Units/L (15-37) L 10/24/17 04:29 ALT 9 Units/L (12-78) L 10/24/17 04:29 Alkaline Phosphatase 81 Units/L (46-116) 10/24/17 04:29 C-Reactive Protein 16.60 mg/L (0-3.0) H 10/24/17 04:29 Total Protein 5.4 g/dL (6.4-8.2) L 10/24/17 04:29 Albumin 1.7 g/dL (3.4-5.0) L 10/24/17 04:29 Globulin 3.7 g/dL (2.5-4.5) 10/24/17 04:29 Albumin/Globulin Ratio 0.5 Ratio (1.1-2.1) L 10/24/17 04:29 Amylase 34 Units/L (25-115) 10/21/17 01:53 Lipase 67 Units/L (73-393) L 10/21/17 01:53 HCG, Qual Negative <10 mIU/mL 10/21/17 01:53 Specimen Type Catherized urine 10/21/17 02:45 Urine Color Brown (YELLOW) 10/21/17 02:45 Urine Appearance Hazy (CLEAR) 10/21/17 02:45 Urine pH 6.0 (5.0 - 8.0) 10/21/17 02:45 Ur Specific [place] 1.030 (1.000-1.030) 10/21/17 02:45 Urine Protein 3+ (NEGATIVE) 10/21/17 02:45 Urine Glucose (UA) Negative (NEGATIVE) 10/21/17 02:45 Urine Ketones Negative (NEGATIVE) 10/21/17 02:45 Urine Occult Blood 5+ (NEGATIVE) 10/21/17 02:45 Urine Nitrite Negative (NEGATIVE) 10/21/17 02:45 Urine Bilirubin 1+ (NEGATIVE) 10/21/17 02:45 Urine Urobilinogen 1+ (NORMAL) 10/21/17 02:45 Ur Leukocyte Esterase 1+ (NEGATIVE) 10/21/17 02:45 Urine RBC 5-10 /HPF (NONE SEEN) 10/21/17 02:45 Urine WBC 20-30 /HPF (NONE SEEN) 10/21/17 02:45 Ur Squamous Epith Cells Many /HPF (NEGATIVE) 10/21/17 02:45 Amorphous Sediment 2+ /HPF (NEGATIVE) 10/21/17 02:45 Urine Bacteria Negative /HPF (NEGATIVE) 10/21/17 02:45 Urine Mucus Few /HPF (NEGATIVE) 10/21/17 02:45 Ur Culture Indicated? No/not indicated 10/21/17 02:45 Stool Description 150g,loose,brown 10/21/17 17:50 Stl Occult Blood (IFOB) Positive (NEGATIVE) A 10/21/17 17:50 Stool for White Cells Positive (NEGATIVE) A 10/21/17 17:50 Stl C. diff Tox B Gene Positive (NEGATIVE) A 10/21/17 17:50 Stl C. diff [id number] Negative (NEGATIVE) 10/21/17 17:50 - Plan (1) Nausea & vomiting Status: Acute Qualifiers: (2) Exacerbation of Crohn's disease Status: Acute Qualifiers: Digestive disease complication type: unspecified complication Qualified Code(s): K50.919 - Crohn's disease, unspecified, with unspecified complications Plan: IV ATBX, IV HYDRATION ELECTROLYTE REPLACEMENT, PAIN AND NAUSEA CONTROL, WOUND CULTURE. LACTIC ACID LEVEL, ADMISSION LABS, STOOL STUDIES. VERIFY HOME MEDS (3) Hypokalemia Status: Acute Plan: Supplement as needed (4) Intractable vomiting with nausea Status: Acute Qualifiers: Vomiting type: unspecified Plan: ZOFRAN IV, PHENERGAN IV, CONTINUE TO MONITOR (5) C. difficile enteritis Status: Acute Plan: VANCOMYCIN PO, CONTINUE TO MONITOR
--- NOTE | 2017-12-13 00:09 | DR.CARTERD ---
- Discharge Summary for: Discharge Summary for Date of:: 10/24/17 - Admission Date Date of Admission: 10/21/17 - Admission Diagnoses Admission Diagnosis: (1) Exacerbation of Crohn's disease (2) Abdominal pain (3) Intractable vomiting with nausea (4) C. difficile enteritis (5) Urinary tract infection - Discharge Date Discharge Date: 10/24/17 - Discharge Diagnoses Discharge Diagnosis: (1) Exacerbation of Crohn's disease (2) Abdominal pain (3) Intractable vomiting with nausea (4) C. difficile enteritis (5) Urinary tract infection - Hospital Course Hospital Course: Day one, Ms. Pillai is a 37-year-old white female who presented to the [facility] emergency room with complaints of RLQ pain with persistent nausea and vomiting. She stated she had a colostomy in 2011, then a reversal with a non-healing wound. She stated she had Crohns disease and was taking a shot weekly for it. Patient stated she was under the care of Dr. De La Cruz in [place]. Pt had A CT in the emergency room which revealed: inflammatory change involving the terminal ileum with marked wall thickening and adjacent stranding and fluid suggesting acute inflammatory enteritis, such as Crohn's disease given history. There is minimal dilatation, without high-grade obstruction. Developing obstruction is not completely excluded. Moderate free fluid in the pericolic gutters and pelvis. Close clinical and imaging follow-up recommended to document resolution and exclude anastomotic leak is the source of the fluid as well. There is also left ovarian cyst. Cyst rupture could cause fluid as well. Patient given NS 1000 MLS IV @ 999 MLS/HR once, Zofran 4 MG IVP once, Toradol 30 MG IVP once, and Reglan 10 MG IVP once without success. Pt was admitted for evaluation and treatment of acute illness, IV antibiotic therapy and pain control. We continued to monitor patient. Medical HX: Arthritis, GERD, Kidney Stones, Crohn's Disease, Abdominal Hernia 2011, Urinary Tract Infections, Ovarian Cysts, Previous Blood Transfusion, Cholecystectomy, Lithotripsy, Bilateral Hip Core Decompression; intestinal tears and had colostomy w reversal 1 year later (2010, 2011); abdominal hernia w mesh placement in 2011. Abnormal Labs: WBC 11.4, HGB 10.9, HCT 32.1, PLT Count 672, Carbon Dioxide 32.7, Creatinine 1.11, Glucose 101, Calcium 7.6, AST 13, Alkaline Phosphatase 143, Albumin 1.6, Globulin 5.1, A/G ratio 0.3, Lipase 67, Lactic Acid 3.6, Magnesium 1.1, CRP 55.40, STL C. DIFF TOX B GENE Positive A, STL Occult Blood Positive A, STL for White Cells Positive A. Urinalysis: Appearance Hazy, Protein 3+, Occult Blood 5+, Bilirubin 1+, Urobilinogen 1+, Leukocyte Esterase 1+, RBC 5-10, WBC 20-30, Squamous Epith Cells Many, Amorphous Sediment 2+, Mucous Few. Abdomen/Pelvis CT: 1. Inflammatory change involving the terminal ileum with marked wall thickening and adjacent stranding and fluid suggesting acute inflammatory enteritis, such as Crohn's disease given history. There is minimal dilatation, without high-grade obstruction. Developing obstruction is not completely excluded. 2. Moderate free fluid in the pericolic gutters and pelvis. Close clinical and imaging follow-up recommended to document resolution and exclude anastomotic leak is the source of the fluid as well. There is also left ovarian cyst. Cyst rupture could cause fluid as well. 3. Osteonecrosis of the hips and postsurgical change noted. Day two, stool specimen was collected due to diarrhea and was found to be positive for c-diff. She continued treatment for UTI and was started on flagyl for c- diff. Patient reported abdominal pain and nausea. We continued to monitor. Day three, patient continued with abdominal pain and nausea. She was noted with a poor appetite. We started Albumin and Procalamine. Day four, CT of abd/pelvis was repeated and reported: persistent wall thickening and inflammatory changes within the region of the distal ileum likely reflecting acute enteritis related to Crohn's disease. Enteroenteric fistula cannot be excluded. Interval increase in volume of free fluid layering within the pelvis and both pericolic gutters compared with 2 days earlier. There is no intraperitoneal free air to suggest visceral perforation. No evidence of high-grade bowel obstruction. Patient reported she was feeling better. She reported abdominal pain had improved. Diarrhea slowed. Vital signs stable. Labs wnl. We planned for discharge. Instructions for medications and follow up were discussed with patient and family, both voiced understanding. Patient discharged home in stable condition with family. - Discharge Medications Discharge Medications: Prescriptions: Ambulatory Orders adalimumab [Humira Pen] 40 mg SUBCUT WEEKLY 02/07/14 magnesium citrate 14 g PO QDAY PRN #296 ml 11/04/17 ciprofloxacin HCl 750 mg PO QDAY #7 tab 11/08/17 metronidazole 500 mg PO TID #42 tab 11/08/17 prednisone 20 mg PO BID #60 tab 11/08/17 - Discharge Disposition Discharge Disposition: Patient is to follow up in our office in one week.
== END 2017-10-24 17:20 | disposition home or self-care (01) ==
LOC: ER 22:00 → MED/SURG 22:00
PROVIDERS: ADMIT Internal Medicine; ATTEND Internal Medicine
DX: K21.9 Gastro-esophageal reflux disease without esophagitis; E87.6 Hypokalemia; R10.31 Right lower quadrant pain; R10.84 Generalized abdominal pain; R11.2 Nausea with vomiting, unspecified; R79.82 Elevated C-reactive protein (CRP); A04.72 Enterocolitis due to Clostridium difficile, not specified as recurrent; K50.918 Crohn's disease, unspecified, with other complication; N30.00 Acute cystitis without hematuria
CPT/HCPCS: 36415; 74176; 80053; 81001; 82150; 82270; 83605; 83630; 83690; 83735; 84132; 84703; 85025; 85652; 86140; 87045; 87075; 87427; 87449; 87493; 87899; 96365; 96374; 96375; 99218; 99283; 99284; A4216; A4222; B5200; P9047; S0030; G0378; J0744; J1200; J1885; J2405; J2550; J2765; J2920; J3475; J3480; J7030; J7050

== ENCOUNTER 2017-11-05 12:40 | Inpatient (IN) ==
[2017-11-05 15:34] LABS: BASOPHILS % (AUTO) 0.2 % (0.2-1.0); EOSINOPHILS # (AUTO) 0.1 x10^3/uL (0.0-0.2); EOSINOPHILS % (AUTO) 0.5 % (0.9-2.9); HEMATOCRIT 32.4 % (36.0-47.0); HEMOGLOBIN 10.9 g/dL (12.0-16.0); LYMPHOCYTES # (AUTO) 2.4 X10^3/uL (1.3-2.9); LYMPHOCYTES % (AUTO) 21.9 % (21.0-51.0); MEAN CORPUSCULAR HEMOGLOBIN 28.7 pg (27.0-34.0); MEAN CORPUSCULAR HGB CONC 33.7 g/dL (33.0-35.0); MEAN CORPUSCULAR VOLUME 85.1 fL (80.0-100.0); MEAN PLATELET VOLUME 6.8 fL (7.4-11.0); MONOCYTES # (AUTO) 0.8 x10^3/uL (0.3-0.8); MONOCYTES % (AUTO) 7.4 % (0.0-13.0); NEUTROPHILS # (AUTO) 7.7 x10^3/uL (2.2-4.8); PLATELET COUNT 531 X10^3/uL (150.0-450.0); RED CELL DISTRIBUTION WIDTH 16.4 % (11.6-16.5)
[2017-11-05 15:47] LABS: ALANINE AMINOTRANSFERASE 16 Units/L (12-78); ALBUMIN 2.6 g/dL (3.4-5.0); ALKALINE PHOSPHATASE 63 Units/L (46-116); ASPARTATE AMINO TRANSFERASE 13 Units/L (15-37); BLOOD UREA NITROGEN 23 mg/dL (7-18); CARBON DIOXIDE 35.1 mmol/L (21-32); CHLORIDE 103 mmol/L (98-107); COR CA(FOR HYPOALB) 10.1 mg/dL (8.5-10.1); CREATININE 0.91 mg/dL (0.55-1.02); SODIUM 141 mmol/L (136-145); TOTAL PROTEIN 6.9 g/dL (6.4-8.2); eGFR NON BLACK RACES > 60 (>60)
[2017-11-05 15:49] LABS: BILIRUBIN,URINE 1+ (NEGATIVE); BLOOD/HEMOGLOBIN,URINE 5+ (NEGATIVE); GLUCOSE, URINE NEGATIVE (NEGATIVE); KETONES,URINE 1+ (NEGATIVE); LEUKOCYTE ESTERASE ,URINE 2+ (NEGATIVE); NITRITES,URINE NEGATIVE (NEGATIVE); PROTEIN,URINE 4+ (NEGATIVE); UROBILINOGEN,URINE 1+ (NORMAL)
[2017-11-05 16:19] LABS: APPEARANCE,URINE SLIGHTLY HAZY (CLEAR); COLOR,URINE BROWN (YELLOW)
[2017-11-05 16:20] LABS: AMORPHOUS SEDIMENT,UR 2+ /HPF (NEGATIVE); BACTERIA,URINE 2+ /HPF (NEGATIVE); RBC,URINE TNTC /HPF (NONE SEEN); SQUAMOUS EPITHELIAL CELL,UR FEW /HPF (NEGATIVE)
[2017-11-05] MEDS: NS 1000 ML 1,000 ML IV SCH (16:21)
[2017-11-05] MEDS: FLAGYL IV PREMIX 500 MG BAG 500 MG/100 ML BAG IV SCH ×2 (16:21→22:13)
[2017-11-05] MEDS: ZOFRAN INJ 4 MG VIAL IVP PRN (17:07)
[2017-11-05] MEDS ORDERED: NS 100 ML IV 100 ML IV ONE ×2 (19:04→20:37)
--- NOTE | 2017-11-05 20:05 | CT ---
CT abdomen and pelvis with contrast Indication: Abdominal pain, vomiting, obstruction, history of Crohn's disease Technique: Helical CT images of the abdomen and pelvis were obtained with IV contrast. Reformatted im ages in the coronal and sagittal planes were also generated for review. Comparison: 10/23/2017 Findings: Lung bases are clear. There is stable osteonecrosis of the bilateral femoral heads without evidence for subchondral collapse or significant secondary DJD of either hip. Prior bilateral core de compressions also noted. No aggressive osseous lesions are identified. The gallbladder is surgically absent. The liver, spleen, pancreas, adrenals and kidneys are unremarka ble. Postsurgical changes of the proximal and distal colon again noted. There is marked thickening an d inflammation of the distal ileum, compatible with active Crohn's disease/terminal ileitis. There is also suspected enteroenteric fistula formation within the right lower quadrant, best appreciated on image [id number] series 4 and images 31-35 series 7. There is also wall thickening, edema and mucosal enha ncement of the descending and sigmoid colon as well as rectum. There is no bowel obstruction or free air to suggest hollow viscus perforation. There is small volume abdominal pelvic ascites, unchanged since the prior exam. The IVC, abdominal ao rta and collapsed urinary bladder are normal. The uterus and ovaries are present. No bulky lymphadeno stephen is identified. Impression: Imaging findings compatible with active Crohn's disease, including marked inflammation of the distal ileum, compatible with terminal ileitis with suspected entero-enteric fistula formation within the ri ght lower quadrant as well as colitis of the descending/sigmoid colon and rectum. MR enterography is recommended for further evaluation. Stable likely reactive small volume abdominal pelvic ascites and additional unchanged findings as abo ve. Reported By:
[2017-11-05] MEDS: ROCEPHIN VIAL 1 GRAM IVP SCH (20:41)
[2017-11-05] MEDS: PREDNISONE TAB 10 MG PO SCH (20:41)
[2017-11-06 04:11] VITALS: BMI 15.7
[2017-11-06 06:08] LABS: BASOPHILS % (AUTO) 0.2 % (0.2-1.0); EOSINOPHILS % (AUTO) 0.2 % (0.9-2.9); HEMATOCRIT 28.7 % (36.0-47.0); LYMPHOCYTES % (AUTO) 11.1 % (21.0-51.0); MEAN CORPUSCULAR HEMOGLOBIN 29.6 pg (27.0-34.0); MEAN CORPUSCULAR HGB CONC 34.7 g/dL (33.0-35.0); MEAN CORPUSCULAR VOLUME 85.2 fL (80.0-100.0); MEAN PLATELET VOLUME 7.1 fL (7.4-11.0); MONOCYTES # (AUTO) 0.3 x10^3/uL (0.3-0.8); MONOCYTES % (AUTO) 3.1 % (0.0-13.0); NEUTROPHILS # (AUTO) 7.5 x10^3/uL (2.2-4.8); NEUTROPHILS % (AUTO) 85.4 % (42.0-75.0); PLATELET COUNT 460 X10^3/uL (150.0-450.0); RED BLOOD COUNT 3.37 X10^6/uL (3.5-5.4); RED CELL DISTRIBUTION WIDTH 16.3 % (11.6-16.5); WHITE BLOOD COUNT 8.7 X10^3/uL (3.6-10.0)
[2017-11-06] MEDS: NS 1000 ML 1,000 ML IV SCH (06:32)
[2017-11-06 06:38] LABS: ALANINE AMINOTRANSFERASE 13 Units/L (12-78); ALBUMIN 2.3 g/dL (3.4-5.0); ALKALINE PHOSPHATASE 56 Units/L (46-116); ASPARTATE AMINO TRANSFERASE 12 Units/L (15-37); BLOOD UREA NITROGEN 18 mg/dL (7-18); CARBON DIOXIDE 27.9 mmol/L (21-32); CHLORIDE 104 mmol/L (98-107); COR CA(FOR HYPOALB) 9.4 mg/dL (8.5-10.1); CREATININE 0.83 mg/dL (0.55-1.02); SODIUM 139 mmol/L (136-145); TOTAL PROTEIN 6.2 g/dL (6.4-8.2); eGFR NON BLACK RACES > 60 (>60)
[2017-11-06] MEDS ORDERED: NS 100 ML IV + SPIKE MINIBAG* 100 ML IV ONE ×2 (08:23→13:28)
[2017-11-06] MEDS: FLAGYL IV PREMIX 500 MG BAG 500 MG/100 ML BAG IV SCH ×3 (09:01→22:00)
[2017-11-06] MEDS: PREDNISONE TAB 10 MG PO SCH (09:02)
[2017-11-06] MEDS ORDERED: DEMEROL INJ IVP PRN (09:22)
[2017-11-06] MEDS ORDERED: CITROMA PO PRN (10:04)
--- NOTE | 2017-11-06 10:15 | DR.UPDATE ---
H&P Update History and Physical Update: was seen in the office today. A h&p was completed prior to admission. Patient has been seen and examined with no changes noted to h&p. Changes noted: NO Yes with the following:
[2017-11-06] MEDS: ROCEPHIN VIAL 1 GRAM IVP SCH (10:30)
[2017-11-06] MEDS: SOLU-Medrol 40 MG VIAL IVP SCH ×3 (10:53→22:00)
[2017-11-06] MEDS: ZOFRAN INJ 4 MG VIAL IVP PRN (11:16)
[2017-11-06] MEDS: PROCALAMINE 3 % 1,000 ML IV SCH (11:29)
[2017-11-06] MEDS: ALBUMIN HUMAN 25%- 100 ML 100 ML IV SCH (11:35)
--- NOTE | 2017-11-06 11:55 | DR.CONSULT ---
Consult - Consultation for Day of: Date: 11/06/17 - Chief Complaint Chief Complaint: Patient referred for Crohns exacerbation. Patient with complaints fo abdominal pain and nausea. - History of Present Illness History of Present Illness: Patient is a 37yo female who was referred for Crohns exacerbation. Patient with complaints of lower abdominal pain that started on sunday, nausea x 1 week, she states she vomited on Sunday but has not anymore since. Patient denies dysphagia, dyspepsia, constipation, diarrhea, melena and hematochezia. She states her last colon was over 5 years ago. She had a colon resection wiht colostomy in 2010 and was reversed 1 year later. She has been on humira since 2011. She states she normally see Dr. De La Cruz director of student life in [place] but it has been a year since she has seen him. She states 2 weeks ago she came to the hospital with same complaints but got better and now has reoccured. Hgb is stable at10.0, Hct 28.7, Sedrate 47, CRP 30.70. 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 MR enterography is recommended for further evaluation. - Past Medical History Past Medical History: GERD, Arthritis, Kidney Stones Additional Medical History: Crohn's Disease, Abdominal Hernia 2011, Urinary Tract Infections, Ovarian Cysts, Previous Blood Transfusion - Past Surgical History Surgical History: Cholecystectomy, Lithotripsy, Other Additional Surgical History: Bilateral Hip Core Decompression; intestinal tears and had colostomy w reversal 1 year later (2010, 2011); abdominal hernia w mesh placement in 2011 - Family History Family Medical History: Diabetes Mellitus, Cancer, [place], Coronary Artery Disease, Hypertension - Social History Does any household member use tobacco: No Alcohol Use: None Drug Use: Prescription Drugs - Medications Home Medications: No Known Drug Allergies Allergy (Verified 10/21/17 02:08) - Review of Systems Gastrointestinal: Nausea, Vomiting, Abdominal Pain (lower). denies: Diarrhea, Constipation, Melena, Hematochezia - Physical Exam Vital Signs: Temperature 97.7 F Pulse Rate [Left Brachial] 79 Respiratory Rate 16 Blood Pressure [Right Arm] 149/89 Blood Pressure [Left Arm] 110/68 Blood Pressure 132/83 O2 Sat by Pulse Oximetry 97 Oriented: Normal, Time, Person, Place Eyes: Normal Ear: Normal Nose: Normal Throat: Normal Respiratory: Clear Throughout Cardiovascular: Normal Auscultation: Bowel Sounds: Normal Palpation: Normal, Other (no distention). negative: Spleen Enlarged, Liver Enlarged, Mass Pulsatile Tenderness: RLQ, LLQ, Moderate Skin: Normal Musculoskeletal: Normal Psychiatric: Normal Mood Description: Calm Affect: Normal Speech Pattern: Clear, Appropriate - Plan Plan: Assessment. 1. Crohns exacerbation, Lower abdominal pain, Abn CT imaging. Plan. 1. Cont solumedrol, Stool studies for O&P, C-Diff, Culture, and calprotectin, After solumedrol patient should be started on prednisone 20mg BID, patient needs colonoscopy and may need to change biologic treatment due to multiple exacerbations of crohns. Patient also need to follow up with gas troenterologist after discharge. Plan reviewed with Dr. De Leon - Allergies Allergies/Adverse Reactions: Allergies Allergy/AdvReac Type Severity Reaction Status Date / Time No Known Drug Allergies Allergy Verified 10/21/17 02:08
[2017-11-06] MEDS: ZOSYN VIAL 3.375 GRAMS IV SCH ×2 (14:14→22:00)
[2017-11-06] MEDS ORDERED: PROCALAMINE 3 % 1,000 ML IV SCH (15:00)
[2017-11-06 20:34] LABS: CRYPTOSPORIDIUM PARVUM ANTIGEN NEGATIVE (NEGATIVE); GIARDIA LAMBLIA ANTIGEN NEGATIVE (NEGATIVE)
[2017-11-06 20:35] LABS: STOOL FOR WBC POSITIVE (NEGATIVE)
[2017-11-06] MEDS ORDERED: NS 100 ML IV 100 ML IV ONE (21:38)
[2017-11-07] MEDS ORDERED: NS 100 ML IV 100 ML IV ONE (05:24)
[2017-11-07 06:14] LABS: BASOPHILS % (AUTO) 0.1 % (0.2-1.0); HEMOGLOBIN 8.3 g/dL (12.0-16.0); LYMPHOCYTES # (AUTO) 1.3 X10^3/uL (1.3-2.9); LYMPHOCYTES % (AUTO) 8.9 % (21.0-51.0); MEAN CORPUSCULAR HEMOGLOBIN 29.6 pg (27.0-34.0); MEAN CORPUSCULAR HGB CONC 34.7 g/dL (33.0-35.0); MEAN CORPUSCULAR VOLUME 85.2 fL (80.0-100.0); MEAN PLATELET VOLUME 7.2 fL (7.4-11.0); MONOCYTES # (AUTO) 0.3 x10^3/uL (0.3-0.8); MONOCYTES % (AUTO) 2.3 % (0.0-13.0); NEUTROPHILS % (AUTO) 88.7 % (42.0-75.0); PLATELET COUNT 385 X10^3/uL (150.0-450.0); RED BLOOD COUNT 2.82 X10^6/uL (3.5-5.4); RED CELL DISTRIBUTION WIDTH 16.5 % (11.6-16.5); WHITE BLOOD COUNT 14.7 X10^3/uL (3.6-10.0)
[2017-11-07] MEDS: SOLU-Medrol 40 MG VIAL IVP SCH ×3 (06:16→21:28)
[2017-11-07] MEDS: FLAGYL IV PREMIX 500 MG BAG 500 MG/100 ML BAG IV SCH ×3 (06:16→21:32)
[2017-11-07] MEDS: ZOSYN VIAL 3.375 GRAMS IV SCH ×3 (06:16→21:31)
[2017-11-07 06:18] LABS: ALANINE AMINOTRANSFERASE 11 Units/L (12-78); ALBUMIN 2.5 g/dL (3.4-5.0); ALKALINE PHOSPHATASE 46 Units/L (46-116); ASPARTATE AMINO TRANSFERASE 8 Units/L (15-37); BLOOD UREA NITROGEN 18 mg/dL (7-18); CALCIUM 8.1 mg/dL (8.5-10.1); CARBON DIOXIDE 25.8 mmol/L (21-32); CHLORIDE 106 mmol/L (98-107); COR CA(FOR HYPOALB) 9.3 mg/dL (8.5-10.1); COR NA(FOR HYPERGLY) 140 mmol/L (136-145); CREATININE 0.83 mg/dL (0.55-1.02); SODIUM 139 mmol/L (136-145); TOTAL PROTEIN 5.7 g/dL (6.4-8.2); eGFR NON BLACK RACES > 60 (>60)
[2017-11-07] MEDS: NS 1000 ML 1,000 ML IV SCH ×2 (06:33→21:27)
[2017-11-07] MEDS ORDERED: ADALIMUMAB 40 MG SUBCUT SCH (09:00)
[2017-11-07] MEDS: ALBUMIN HUMAN 25%- 100 ML 100 ML IV SCH (09:23)
--- NOTE | 2017-11-07 11:37 | PCM.PROG ---
Progress Note - Progress Note for Day of Date of Exam: 11/06/17 - Subjective Subjective: WAS ADMITTED FOR INTRACTABLE NAUSEA, VOMITING, AND A CROHNS EXACERBATION. TODAY, SHE IS ALERT AND ORIENTED, LYING IN BED ON MORNING ROUNDS. SHE CONTINUES WITH COMPLAINTS OF ABDOMINAL PAIN, NAUSEA, AND DIARRHEA. ON EXAMINATION, HEART IS REGULAR IN RATE AND RHYTHM. BILATERAL LUNGS ARE CLEAR TO AUSCULTATION. ABDOMEN IS ROUND, SOFT, AND NOTED WITH DIFFUSE TENDERNESS THROUGHOUT. HYPERACTIVE BOWEL SOUNDS ARE NOTED IN ALL QUADRANTS. HER VITALS THIS MORNING ARE 97.9-86-18-98%-165/67. LABS WERE OBTAINED. ABNORMAL LAB VALUES INCLUDE THE FOLLOWING: RBC 3.37, HGB 10.0, HCT 28.7, CALCIUM 8.0, AST 12, CRP 30.70, TOTAL PROTEIN 6.2, ALBUMIN 2.3. ON ADMISSION, AN ABDOMEN/PELVIS CT WITH CONTRAST WAS OBTAINED AND REVEALED: Imaging findings compatible with active Crohn's disease, including marked inflammation of the distal ileum, compatible with terminal ileitis with suspected entero-enteric fistula formation within the right lower quadrant as well as colitis of the descending/sigmoid colon and rectum. MR enterography is recommended for further evaluation. Stable likely reactive small volume abdominal pelvic ascites and additional unchanged findings as above. TODAY, WE PLAN TO START SOLU-MEDROL 40MG IV Q8H, PROCALAMINE , ALBUMIN 25% IV DIALY, AND ZOSYN 3.375GM IV TID. WE WILL OBTAIN STOOL STUDIES AND CONSULT WITH , SHIP LABORER. OTHERWISE, WE WILL FOLLOW UP WITH AM LABS AND CONTINUE TO MONITOR PATIENT. - Past Medical Family Social History Past Med/Fam/Surg Hx: No changes since H&P Allergies: Allergies No Known Drug Allergies Allergy (Verified 10/21/17 02:08) - Review of Systems ROS: No change since H&P - Vital Signs and I&O's Vital Signs: Temperature 97.7 F Pulse Rate [Left Brachial] 69 Respiratory Rate 20 Blood Pressure [Right Arm] 149/89 Blood Pressure [Left Arm] 90/58 Blood Pressure 132/83 O2 Sat by Pulse Oximetry 98 Intake and Output: Intake & Output 11/04/17 11/05/17 11/06/17 11/07/17 11:59 11:59 11:59 11:59 Intake Total 620 / 620 840 / 840 Output Total 40 / 40 Balance 580 / 580 840 / 840 - Physical Exam Oriented: Normal Eyes: Normal Ear: Normal Nose: Normal Throat: Normal Respiratory: Normal Cardiovascular: Normal Auscultation: Bowel Sounds: Normal Palpation: Normal Tenderness: Diffuse, RLQ, LLQ, Moderate Skin: Normal Musculoskeletal: Normal Psychiatric: Normal Mood Description: Calm Affect: Normal Speech Pattern: Clear, Appropriate - Laboratory and Diagnostics Result Diagrams: 11/07/17 05:20 11/07/17 05:20 Labs: 11/06/17 18:51 Stool Stool Culture - Preliminary 11/06/17 18:51 Stool - Final 11/05/17 15:37 Urine,Clean Catch Urine Culture - Final Laboratory WBC 14.7 X10^3/uL (3.6-10.0) H 11/07/17 05:20 RBC 2.82 X10^6/uL (3.5-5.4) L 11/07/17 05:20 Hgb 8.3 g/dL (12.0-16.0) L 11/07/17 05:20 Hct 24.0 % (36.0-47.0) L 11/07/17 05:20 MCV 85.2 fL (80.0-100.0) 11/07/17 05:20 MCH 29.6 pg (27.0-34.0) 11/07/17 05:20 MCHC 34.7 g/dL (33.0-35.0) 11/07/17 05:20 RDW 16.5 % (11.6-16.5) 11/07/17 05:20 Plt Count 385 X10^3/uL (150.0-450.0) 11/07/17 05:20 MPV 7.2 fL (7.4-11.0) L 11/07/17 05:20 Neut % (Auto) 88.7 % (42.0-75.0) H 11/07/17 05:20 Lymph % (Auto) 8.9 % (21.0-51.0) L 11/07/17 05:20 [place] % (Auto) 2.3 % (0.0-13.0) 11/07/17 05:20 Eos % (Auto) 0.0 % (0.9-2.9) L 11/07/17 05:20 Baso % (Auto) 0.1 % (0.2-1.0) L 11/07/17 05:20 Neut # (Auto) 13.0 x10^3/uL (2.2-4.8) H 11/07/17 05:20 Lymph # (Auto) 1.3 X10^3/uL (1.3-2.9) 11/07/17 05:20 [place] # (Auto) 0.3 x10^3/uL (0.3-0.8) 11/07/17 05:20 Eos # (Auto) 0.0 x10^3/uL (0.0-0.2) 11/07/17 05:20 Baso # (Auto) 0.0 X10^3/uL (0.0-0.1) 11/07/17 05:20 Absolute Nucleated RBC 0.0 /100WBC 11/07/17 05:20 ESR 47 MM/HOUR (0-20) H 11/06/17 05:08 Sodium 139 mmol/L (136-145) 11/07/17 05:20 Corrected Sodium 140 mmol/L (136-145) 11/07/17 05:20 Potassium 4.4 mmol/L (3.5-5.1) 11/07/17 05:20 Chloride 106 mmol/L (98-107) 11/07/17 05:20 Carbon Dioxide 25.8 mmol/L (21-32) 11/07/17 05:20 BUN 18 mg/dL (7-18) 11/07/17 05:20 Creatinine 0.83 mg/dL (0.55-1.02) 11/07/17 05:20 Est GFR (MDRD) Af Amer > 60 (>60) 11/07/17 05:20 Est GFR (MDRD) Non-Af > 60 (>60) 11/07/17 05:20 Glucose 130 mg/dL (65-99) H 11/07/17 05:20 Calcium 8.1 mg/dL (8.5-10.1) L 11/07/17 05:20 Corrected Calcium 9.3 mg/dL (8.5-10.1) 11/07/17 05:20 Total Bilirubin 0.30 mg/dL (0.2-1.0) 11/07/17 05:20 AST 8 Units/L (15-37) L 11/07/17 05:20 ALT 11 Units/L (12-78) L 11/07/17 05:20 Alkaline Phosphatase 46 Units/L (46-116) 11/07/17 05:20 C-Reactive Protein 30.70 mg/L (0-3.0) H 11/06/17 05:08 Total Protein 5.7 g/dL (6.4-8.2) L 11/07/17 05:20 Albumin 2.5 g/dL (3.4-5.0) L 11/07/17 05:20 Globulin 3.2 g/dL (2.5-4.5) 11/07/17 05:20 Albumin/Globulin Ratio 0.8 Ratio (1.1-2.1) L 11/07/17 05:20 Prealbumin 33.8 mg/dL (18-35.7) 11/06/17 05:08 Specimen Type Clean catch urine 11/05/17 15:37 Urine Color Brown (YELLOW) 11/05/17 15:37 Urine Appearance Slightly hazy (CLEAR) 11/05/17 15:37 Urine pH 5.0 (5.0 - 8.0) 11/05/17 15:37 Ur Specific [place] 1.025 (1.000-1.030) 11/05/17 15:37 Urine Protein 4+ (NEGATIVE) 11/05/17 15:37 Urine Glucose (UA) Negative (NEGATIVE) 11/05/17 15:37 Urine Ketones 1+ (NEGATIVE) 11/05/17 15:37 Urine Occult Blood 5+ (NEGATIVE) 11/05/17 15:37 Urine Nitrite Negative (NEGATIVE) 11/05/17 15:37 Urine Bilirubin 1+ (NEGATIVE) 11/05/17 15:37 Urine Urobilinogen 1+ (NORMAL) 11/05/17 15:37 Ur Leukocyte Esterase 2+ (NEGATIVE) 11/05/17 15:37 Urine RBC Tntc /HPF (NONE SEEN) 11/05/17 15:37 Urine WBC 5-10 /HPF (NONE SEEN) 11/05/17 15:37 Ur Squamous Epith Cells Few /HPF (NEGATIVE) 11/05/17 15:37 Amorphous Sediment 2+ /HPF (NEGATIVE) 11/05/17 15:37 Urine Bacteria 2+ /HPF (NEGATIVE) 11/05/17 15:37 Ur Culture Indicated? Yes/culture set up 11/05/17 15:37 Stool Description 80g green mucoid 11/06/17 18:51 Stl Occult Blood (IFOB) Negative (NEGATIVE) 11/06/17 18:51 Stool for White Cells Positive (NEGATIVE) A 11/06/17 18:51 Stl C. diff Tox B Gene Negative (NEGATIVE) 11/06/17 18:51 Stl C. diff [id number]-[id number] Negative (NEGATIVE) 11/06/17 18:51 Cryptosporid parvum Ag Negative (NEGATIVE) 11/06/17 18:51 Giardia lamblia Ag Negative (NEGATIVE) 11/06/17 18:51 - Plan (1) Exacerbation of Crohn's disease Status: Acute Qualifiers: Digestive disease complication type: unspecified complication Qualified Code(s): K50.919 - Crohn's disease, unspecified, with unspecified complications Plan: IV ANTIBIOTICS, STEROIDS, IV FLUIDS, OBTAIN STOOL STUDIES, CONSULT GI, CONTINUE TO MONITOR (2) Abdominal pain Status: Acute Qualifiers: Abdominal location: generalized (3) Intractable vomiting with nausea Status: Acute Qualifiers: Vomiting type: unspecified
[2017-11-07] MEDS ORDERED: NS 100 ML IV + SPIKE MINIBAG* 100 ML IV ONE ×2 (15:04→21:22)
[2017-11-07] MEDS: PROCALAMINE 3 % 1,000 ML IV SCH (21:33)
[2017-11-08] MEDS ORDERED: NS 100 ML IV + SPIKE MINIBAG* 100 ML IV ONE (05:18)
[2017-11-08] MEDS: SOLU-Medrol 40 MG VIAL IVP SCH (05:30)
[2017-11-08] MEDS: ZOSYN VIAL 3.375 GRAMS IV SCH (05:30)
[2017-11-08] MEDS: FLAGYL IV PREMIX 500 MG BAG 500 MG/100 ML BAG IV SCH (05:30)
[2017-11-08 06:25] LABS: BASOPHILS % (AUTO) 0.1 % (0.2-1.0); HEMOGLOBIN 8.3 g/dL (12.0-16.0); LYMPHOCYTES # (AUTO) 1.6 X10^3/uL (1.3-2.9); LYMPHOCYTES % (AUTO) 13.2 % (21.0-51.0); MEAN CORPUSCULAR HEMOGLOBIN 29.8 pg (27.0-34.0); MEAN CORPUSCULAR HGB CONC 34.6 g/dL (33.0-35.0); MEAN PLATELET VOLUME 7.4 fL (7.4-11.0); MONOCYTES # (AUTO) 0.3 x10^3/uL (0.3-0.8); MONOCYTES % (AUTO) 2.4 % (0.0-13.0); NEUTROPHILS # (AUTO) 10.1 x10^3/uL (2.2-4.8); NEUTROPHILS % (AUTO) 84.3 % (42.0-75.0); PLATELET COUNT 354 X10^3/uL (150.0-450.0); RED BLOOD COUNT 2.79 X10^6/uL (3.5-5.4); RED CELL DISTRIBUTION WIDTH 16.9 % (11.6-16.5)
[2017-11-08 06:49] LABS: ALANINE AMINOTRANSFERASE 12 Units/L (12-78); ALBUMIN 2.7 g/dL (3.4-5.0); ALKALINE PHOSPHATASE 39 Units/L (46-116); ASPARTATE AMINO TRANSFERASE 7 Units/L (15-37); BLOOD UREA NITROGEN 18 mg/dL (7-18); CALCIUM 8.1 mg/dL (8.5-10.1); CARBON DIOXIDE 24.2 mmol/L (21-32); CHLORIDE 107 mmol/L (98-107); COR CA(FOR HYPOALB) 9.1 mg/dL (8.5-10.1); COR NA(FOR HYPERGLY) 141 mmol/L (136-145); CREATININE 0.82 mg/dL (0.55-1.02); SODIUM 140 mmol/L (136-145); TOTAL PROTEIN 5.6 g/dL (6.4-8.2); eGFR NON BLACK RACES > 60 (>60)
[2017-11-08 08:40] LABS: ERYTHROCYTE SEDIMENTATION RATE 15 MM/HOUR (0-20)
[2017-11-08] MEDS: NS 1000 ML 1,000 ML IV SCH (09:01)
[2017-11-08] MEDS: ALBUMIN HUMAN 25%- 100 ML 100 ML IV SCH (09:02)
[2017-11-08 10:15] VITALS: BP 107/66
[2017-11-09] MEDS ORDERED: PREDNISONE TAB 10 MG PO SCH (09:00)
--- NOTE | 2017-12-18 21:03 | DR.CARTERD ---
- Discharge Summary for: Discharge Summary for Date of:: 11/08/17 - Admission Date Date of Admission: 11/05/17 - Admission Diagnoses Admission Diagnosis: (1) Exacerbation of Crohn's disease (2) Abdominal pain (3) Intractable vomiting with nausea - Discharge Date Discharge Date: 11/08/17 - Discharge Diagnoses Discharge Diagnosis: (1) Exacerbation of Crohn's disease (2) Abdominal pain (3) Intractable vomiting with nausea - Hospital Course Hospital Course: Day one, Ms. Pillai was a direct admit from our office with complaints of nausea, vomiting, abdominal pain. Patient was last seen in ER on 11/04/17 for abdominal pain, and nausea with stomach pressure. Patient also was in hospital 10/21/17-10/24/17 for enteritis: Crohns exacerbation, Hypokalemia. Patient failed out patient treatment. Patient noted with diffuse abdominal pain to right lower quadrant as well as left lower quadrant pain and hyperactive bowel sounds. Stool collected revealed positive for WBC. Urinalysis positive for bacteria, WBC 5- 10, as well as occult blood. Abdominal CT revealed marked thickening and inflammation of the distal ileum, compatible with active Crohn's disease/terminal ileitis as well as fistula. Patient received two doses of Zofran 4 mg IV for nausea as well as started on aggressive IV antibiotic therapy and IV solumedrol. Patient hydrated with Normal Saline and started on parental nutrition with Procalimine and Albumin daily. Labs revealed elevated WBC @ 11.0 decreased HGB of 10.9. Patient was very malnourished with a weight of 114 and was 55. We obtained a consult with GI for further evaluation. Medical HX: Crohns Disease, Colostomy with reversal, GERDS, UTIS, Kidney Stones, Arthritis, Anemia. Medications: Flagil 500mg IV Q 8H, Normal Saline 1000mls @ 75 mls IV, Zofran 4mg IVP Q 6H PRN, Rocephin 1gm IVP Daily, Prednisone 10mg PO BID, Demerol 25mg IVP Q 6H PRN Pain, Albumin 25% IV Daily, Procalamine 3% 1000mls @ 40 mls/hr Q 24H, Solumedrol 40mg IVPQ 8h, Zosyn 3.375mg IV TID. Abnormal Labs: WBC 11.0, HGB 10.9, HCT 32.4, Plt Count 531, MVP 6.8, EOS 0.5, Neut 7.7, Carbon Dioxide 35.1, BUN 23, AST 13, Albumin 2.6. C-Reative Protein 30.70. Urine: Spec Clean Catch, Appearance Slightly Hazy, PH 5.0, Specific [place] 1.025, Protein 4+, Ketones 1+, Occult Blood, 5+, Bilirubin 1+, Urobili 1+, Leukocyte Esterase 2+, RBC TNTC, WBC 5-10, Amorphous Sediment 2+, Bacteria 2+. Day two and three, She was alert and oriented. She continued with complaints of abdominal pain, nausea, and diarrhea. GI consulted and recommended to continue Solumedrol while in hospital and collect stool studies. Her vitals were 97.9-86-18-98%-165/67. Abnormal lab values included: RBC 3.37, HGB 10.0, HCT 28.7, CALCIUM 8.0, AST 12, CRP 30.70, TOTAL PROTEIN 6.2, ALBUMIN 2.3. We started Solumedrol 40mg IV q8h, Procalamine, Albumin, and Zosyn 3.375gm IV tid. Day three, Patient reported she was feeling better. Final stool culture was negative for growth. Patient reported improvement in abdominal pain. She denied vomiting or nausea. On examination, abdomen was noted with only mild tenderness upon palpation. We planned for discharge with po cipro, flagyl, and prednisone. Instructions for medications and follow up were discussed with patient and family, both voiced understanding. Patient discharged home in stable condition with family. - Discharge Medications Discharge Medications: Home Medication List ciprofloxacin HCl 750 mg PO QDAY #7 tab 11/08/17 [Rx] metronidazole 500 mg PO TID #42 tab 11/08/17 [Rx] prednisone 20 mg PO BID #60 tab 11/08/17 [Rx] Prescriptions: ciprofloxacin HCl Jack Wrigth metronidazole Jack Wright prednisone Jack Wright adalimumab [Humira Pen] 40 mg SUBCUT WEEKLY 02/07/14 magnesium citrate 14 g PO QDAY PRN #296 ml 11/04/17 - Discharge Disposition Discharge Disposition: Patient is to follow up in our office in one week and with Dr. Gonzalo De La Cruz in one week.
== END 2017-11-08 12:25 | disposition home or self-care (01) | DRG 386 ==
LOC: MED/SURG → OBSVTOIN 14:11
PROVIDERS: ADMIT Internal Medicine; ATTEND Internal Medicine
DX: R11.2 Nausea with vomiting, unspecified; N39.0 Urinary tract infection, site not specified; R79.82 Elevated C-reactive protein (CRP); R10.84 Generalized abdominal pain; K50.90 Crohn's disease, unspecified, without complications
CPT/HCPCS: 36415; 74177; 80053; 81001; 82270; 83630; 83993; 84134; 85025; 85652; 86140; 87045; 87086; 87328; 87329; 87427; 87449; 87493; 87899; A4216; A4222; B5200; P9047; S0030; J0696; J2405; J2543; J2920; J7030; J7050; J7512

== ENCOUNTER 2018-12-27 10:56 | Observation (INO) ==
--- NOTE | 2018-12-27 11:11 | ED.ABDFE ---
HPI Time Seen Time Seen by Provider: 12/27/18 11:11 PCP Primary Care Physician: MALIHA HPI Comment HPI Comment: PATIENT IS 38YR OLD WHITE FEMALE IN THE EMERGENCY ROOM WITH ABDOMINAL PAIN , NAUSEA AND VOMITING THAT IS WORSE TODAY. PERSISTENT NAUSEA AND VOMITING, NOT HOLDING DOWN FOOD OR MEDICATIONS. NO FEVER OR DYSURIA. HISTORY CHRONS DISEASE. PATIENT PAIN SHARP AND CRAMPING AND DIFFUSE INTERMITTENT 8/10 RADIATING TO THE BACK. NO DIARRHEA. Complaint Doctors Chief Complaint Comments: ABDOMINAL PAIN, NAUSEA AND VOMITING TIMES ONE DAY, Chief Complaint:: PT. C/O ABDOMINAL PAIN THAT BEGAN YESTERDAY ALONG WITH N/V. Reviewed Nurses Notes Review: Yes Source History Provided: Patient Mode of arrival Mode of Arrival: Wheelchair Timing Onset of Chief Complaint: 12/26/18 Came on: Suddenly Duration Since Onset: Constant Duration: Days Location Location: Diffuse Severity Severity: Severe Quality Quality: Cramping, Sharp and Generalized Context History of: Abdominal surgery (BOWEL RESECTION, COLOSTMY AND REVERSE OF COLOSTOLMY.) Modifying factors Worsening Factors: Exertion and Food Improving Factors: Lying Still Associated signs and symptoms Associated Signs and Symptoms: Nausea and Vomiting Other history Other History: HISTORY CROHNS DISEASE. PMH PMH Past Medical History: Yes Past Medical History: Arthritis, GERD and Kidney Stones Past Medical History Comment: CHRON'S Past Surgical History: Yes Surgical History: Cholecystectomy, Lithotripsy and Other Family History History of Family Medical Conditions: Yes Family Medical History: Diabetes Mellitus, Cancer, [place], Coronary Artery Disease and Hypertension Social History Does patient currently use any type of tobacco product: No Have you used tobacco products in the last 12 months: No Type of Tobacco Use: None Does any household member use tobacco: No Alcohol Use: None Do you use any recreational Drugs:: No Lives With: Family Lives Where: Home infectious screening In the last 2 months have you had wt loss of >10#?: NO Have you had fever, night sweats or hemotysis?: No Have you traveled outside the country in the last 6 months?: No Isolation: Standard ROS Review of Systems Constitutional: See HPI, Weakness and Fatigue; negative Fever Eyes: No Symptoms Reported and See HPI ENTM: No Symptoms Reported and See HPI Respiratoy: No Symptoms Reported and See HPI; negative Moist Cough, Short of Breath and Wheezing Cardiovascular: No Symptoms Reported and See HPI; negative Chest Pain and Edema Gastrointestinal/Abdominal: See HPI, Abdominal Pain, Nausea and Vomiting; negative Constipation and Diarrhea Genitourinary: No Symptoms Reported and See HPI; negative Dysuria, Frequency and Hematuria Neurological: See HPI and Weakness; negative Headache and Dizziness Musculoskeletal: See HPI and Muscle Pain; negative Back Pain Integumentary: No Symptoms Reported and See HPI; negative Change in Color, Rash and Juandice Hematologic/Lymphatic: No Symptoms Reported and See HPI; negative Easy Bruising and Swollen Glands Endocrine: See HPI, Increased Thirst and Decreased Appetite; negative Increased Urine Psychiatric: No Symptoms Reported and See HPI All Other Systems: Reviewed and Negative PE Vital Signs Vitals: Temperature 98.2 F Pulse Rate [Left Brachial] 71 Pulse Rate 115 Respiratory Rate 16 Blood Pressure [Right Arm] 113/73 Blood Pressure [Left Arm] 111/73 Blood Pressure 118/81 O2 Sat by Pulse Oximetry 99 General Limitations: No Limitations and Language Barrier General Appearance: Alert and In No Apparent Distress Head Head Exam: Normal Inspection and Atraumatic Eyes Eye exam: Normal Appearance and PERRL; negative Scleral Icterus and Conjunctival Injection ENT ENT Exam: Normal Exam, Normal Oropharynx, Normal External Ear Exam and TM's Normal Bilaterally Neck Neck Exam: Normal Inspection and Trachea Midline; negative Tenderness and Lymphadenopathy Chest Chest Inspection: Normal Inspection and Symmetric Chest Wall Rise; negative Tenderness Respiratory Respiratory Exam: Normal Lung Sounds Bilat; negative Accessory Muscle Use, Chest Wall Tenderness and Respiratory Distress Respiratory Exam: Bilateral: Clear to Auscultation Cardiovascular Cardiovascular Exam: Regular Rate, Normal Rhythm and Normal Heart Sounds; negative Systolic Murmur and Diastolic Murmur Abdominal Exam Abdominal Exam: Normal Bowel Sounds, Soft and Tenderness; negative Organomegaly and Mass Abdominal Tenderness: Diffuse and Moderate Rectal Rectal Exam: Deferred Back Back Exam: Normal Inspection Extremeties Extremities Exam: Normal Inspection and Normal Capillary Refill; negative Tender ness, Edema and Calf Tenderness External Exam: Female: Deferred : Speculum Exam (Female): Deferred : Bimanual Exam (female): Deferred Neurologic Neurological Exam: Alert, Oriented X3 and CN II-XII Intact; negative Motor Sensory Deficit Psychiatric Psychiatric Exam: Normal Affect and Normal Mood Skin Skin Exam: Dry MDM Differential Diagnosis Differential Diagnosis- Considerations may include:: Bowel Obstruction, Constipation, Gastritus/PUD, Gastroenteritis, Hernia, Inflammatory BD, Pancreatitis, Urinary tract infection and Urolithiasis COURSE Treatment Treatment: NS 1L IV BOLUS, DEMOROL 25MG IV AND ZOFRAN 4MG IV. Consultation Consultation Comments: DISCUSSED PATIENT WITH DR. CAZARES AND HE ACCEPTED PATIENT FOR ADMISSION. Education/Counseling Education/Counseling: Patient and Family Educated On: Diagnosis ROR Labs Reviewed Laboratory Results Reviewed?: Yes Result Diagrams: 12/28/18 04:15 12/28/18 08:31 Laboratory: WBC 11.3 X10^3/uL (3.6-10.0) H 12/27/18 11:42 RBC 4.75 X10^6/uL (3.5-5.4) 12/27/18 11:42 Hgb 14.1 g/dL (12.0-16.0) 12/27/18 11:42 Hct 41.4 % (36.0-47.0) 12/27/18 11:42 MCV 87.1 fL (80.0-100.0) 12/27/18 11:42 MCH 29.6 pg (27.0-34.0) 12/27/18 11:42 MCHC 34.0 g/dL (33.0-35.0) 12/27/18 11:42 RDW 15.9 % (11.6-16.5) 12/27/18 11:42 Plt Count 582 X10^3/uL (150.0-450.0) H 12/27/18 11:42 MPV 6.8 fL (7.4-11.0) L 12/27/18 11:42 Neut % (Auto) 72.1 % (42.0-75.0) 12/27/18 11:42 Lymph % (Auto) 21.4 % (21.0-51.0) 12/27/18 11:42 [place] % (Auto) 6.2 % (0.0-13.0) 12/27/18 11:42 Eos % (Auto) 0.0 % (0.9-2.9) L 12/27/18 11:42 Baso % (Auto) 0.3 % (0.2-1.0) 12/27/18 11:42 Neut # (Auto) 8.2 x10^3/uL (2.2-4.8) H 12/27/18 11:42 Lymph # (Auto) 2.4 X10^3/uL (1.3-2.9) 12/27/18 11:42 [place] # (Auto) 0.7 x10^3/uL (0.3-0.8) 12/27/18 11:42 Eos # (Auto) 0.0 x10^3/uL (0.0-0.2) 12/27/18 11:42 Baso # (Auto) 0.0 X10^3/uL (0.0-0.1) 12/27/18 11:42 Absolute Nucleated RBC 0.0 /100WBC 12/27/18 11:42 Sodium 141 mmol/L (136-145) 12/27/18 11:42 Corrected Sodium TNP 12/27/18 11:42 Potassium 3.5 mmol/L (3.5-5.1) 12/27/18 11:42 Chloride 104 mmol/L (98-107) 12/27/18 11:42 Carbon Dioxide 28.1 mmol/L (21-32) 12/27/18 11:42 BUN 12 mg/dL (7-18) 12/27/18 11:42 Creatinine 1.01 mg/dL (0.55-1.02) 12/27/18 11:42 Est GFR (MDRD) Af Amer > 60 (>60) 12/27/18 11:42 Est GFR (MDRD) Non-Af > 60 (>60) 12/27/18 11:42 Glucose 101 mg/dL (65-99) H 12/27/18 11:42 Calcium 7.7 mg/dL (8.5-10.1) L 12/27/18 11:42 Corrected Calcium 9.4 mg/dL (8.5-10.1) 12/27/18 11:42 Total Bilirubin 0.40 mg/dL (0.2-1.0) 12/27/18 11:42 AST 27 Units/L (15-37) 12/27/18 11:42 ALT 25 Units/L (12-78) 12/27/18 11:42 Alkaline Phosphatase 186 Units/L (46-116) H 12/27/18 11:42 Total Protein 6.6 g/dL (6.4-8.2) 12/27/18 11:42 Albumin 1.9 g/dL (3.4-5.0) L 12/27/18 11:42 Globulin 4.7 g/dL (2.5-4.5) H 12/27/18 11:42 Albumin/Globulin Ratio 0.4 Ratio (1.1-2.1) L 12/27/18 11:42 Amylase 26 Units/L (25-115) 12/27/18 11:42 Lipase 34 Units/L (73-393) L 12/27/18 11:42 Specimen Type Clean catch urine 12/27/18 11:41 Urine Color Yellow (YELLOW) 12/27/18 11:41 Urine Appearance Cloudy (CLEAR) 12/27/18 11:41 Urine pH 6.0 (5.0 - 8.0) 12/27/18 11:41 Ur Specific [place] 1.025 (1.000-1.030) 12/27/18 11:41 Urine Protein 2+ (NEGATIVE) 12/27/18 11:41 Urine Glucose (UA) Negative (NEGATIVE) 12/27/18 11:41 Urine Ketones 3+ (NEGATIVE) 12/27/18 11:41 Urine Occult Blood 1+ (NEGATIVE) 12/27/18 11:41 Urine Nitrite Negative (NEGATIVE) 12/27/18 11:41 Urine Bilirubin 1+ (NEGATIVE) 12/27/18 11:41 Urine Urobilinogen Normal (NORMAL) 12/27/18 11:41 Ur Leukocyte Esterase 2+ (NEGATIVE) 12/27/18 11:41 Urine RBC 3-5 /HPF (0-3) A 12/27/18 11:41 Urine WBC 30-50 /HPF (0-5) A 12/27/18 11:41 Ur Squamous Epith Cells Few /HPF (NEGATIVE) 12/27/18 11:41 Urine Bacteria 1+ /HPF (NEGATIVE) 12/27/18 11:41 Ur Culture Indicated? Yes/culture set up 12/27/18 11:41 XRAY XRAY Interpreted by: Radiologist XRAY Findings: REPORT NOTED AND DISCUSSED WITH PATIENT. Opioid Opioid Risk Tool Age (Gonzalo box if 16-45): Yes History of Preadolescent Sexual Abuse: No Total: 1 Total Score Risk Category: Low Risk Copyright: Donavon MENDIOLA predicting aberrant behaviors Diagnosis Discharge Problem: Bowel disease, inflammatory Abdominal pain Qualifiers: Abdominal location: generalized Qualified Code(s): R10.84 - Generalized abdominal pain Crohn disease Qualifiers: Gastrointestinal tract location: small and large intestine Digestive disease complication type: without complication Qualified Code(s): K50.80 - Crohn's disease of both small and large intestine without complications UTI (urinary tract infection) Qualifiers: Urinary tract infection type: site unspecified Hematuria presence: with hematuria Qualified Code(s): N39.0 - Urinary tract infection, site not specified
[2018-12-27] MEDS ORDERED: NS 1000 ML 1,000 ML IV ONE (11:32)
[2018-12-27] MEDS ORDERED: ZOFRAN INJ 4 MG VIAL IVP ONE ×2 (11:35→12:13)
[2018-12-27] MEDS ORDERED: DEMEROL INJ IVP ONE (11:35)
[2018-12-27] MEDS ORDERED: NS 1000 ML 1,000 ML ONE ×2 (11:36→19:55)
[2018-12-27] MEDS ORDERED: ZOFRAN INJ 4 MG VIAL ONE ×2 (11:37→12:26)
[2018-12-27] MEDS ORDERED: DEMEROL INJ ONE (11:38)
[2018-12-27 11:52] LABS: BASOPHILS % (AUTO) 0.3 % (0.2-1.0); HEMATOCRIT 41.4 % (36.0-47.0); HEMOGLOBIN 14.1 g/dL (12.0-16.0); LYMPHOCYTES # (AUTO) 2.4 X10^3/uL (1.3-2.9); LYMPHOCYTES % (AUTO) 21.4 % (21.0-51.0); MEAN CORPUSCULAR HEMOGLOBIN 29.6 pg (27.0-34.0); MEAN CORPUSCULAR VOLUME 87.1 fL (80.0-100.0); MEAN PLATELET VOLUME 6.8 fL (7.4-11.0); MONOCYTES # (AUTO) 0.7 x10^3/uL (0.3-0.8); MONOCYTES % (AUTO) 6.2 % (0.0-13.0); NEUTROPHILS # (AUTO) 8.2 x10^3/uL (2.2-4.8); NEUTROPHILS % (AUTO) 72.1 % (42.0-75.0); PLATELET COUNT 582 X10^3/uL (150.0-450.0); RED BLOOD COUNT 4.75 X10^6/uL (3.5-5.4); RED CELL DISTRIBUTION WIDTH 15.9 % (11.6-16.5); WHITE BLOOD COUNT 11.3 X10^3/uL (3.6-10.0)
[2018-12-27 11:53] LABS: BILIRUBIN,URINE 1+ (NEGATIVE); BLOOD/HEMOGLOBIN,URINE 1+ (NEGATIVE); GLUCOSE, URINE NEGATIVE (NEGATIVE); KETONES,URINE 3+ (NEGATIVE); LEUKOCYTE ESTERASE ,URINE 2+ (NEGATIVE); NITRITES,URINE NEGATIVE (NEGATIVE); PROTEIN,URINE 2+ (NEGATIVE); UROBILINOGEN,URINE NORMAL (NORMAL)
[2018-12-27 12:00] LABS: APPEARANCE,URINE CLOUDY (CLEAR); COLOR,URINE YELLOW (YELLOW); SQUAMOUS EPITHELIAL CELL,UR FEW /HPF (NEGATIVE)
[2018-12-27 12:01] LABS: BACTERIA,URINE 1+ /HPF (NEGATIVE)
[2018-12-27 12:09] LABS: ALANINE AMINOTRANSFERASE 25 Units/L (12-78); ALBUMIN 1.9 g/dL (3.4-5.0); ALKALINE PHOSPHATASE 186 Units/L (46-116); AMYLASE 26 Units/L (25-115); ASPARTATE AMINO TRANSFERASE 27 Units/L (15-37); BLOOD UREA NITROGEN 12 mg/dL (7-18); CALCIUM 7.7 mg/dL (8.5-10.1); CARBON DIOXIDE 28.1 mmol/L (21-32); CHLORIDE 104 mmol/L (98-107); COR CA(FOR HYPOALB) 9.4 mg/dL (8.5-10.1); CREATININE 1.01 mg/dL (0.55-1.02); LIPASE 34 Units/L (73-393); SODIUM 141 mmol/L (136-145); TOTAL PROTEIN 6.6 g/dL (6.4-8.2); eGFR NON BLACK RACES > 60 (>60)
--- NOTE | 2018-12-27 15:27 | CT ---
CT abdomen and pelvis with contrast Indication: Abdominal pain, nausea, vomiting, history of Crohn's disease Technique: Helical CT images of the abdomen and pelvis were obtained with IV contrast. Reformatted images in the coronal and sagittal planes were also generated for review. Comparison: 11/05/2017 Findings: Lung bases are clear. Osteonecrosis of the bilateral femoral heads and previous bilateral core decompressions noted. No acute osseous abnormality. Gallbladder is absent. The liver, spleen, pancreas, adrenals and kidneys are unremarkable apart from a tiny probable cyst within the upper pole the right kidney. Evaluation of the GI tract is slightly limited without IV contrast. Accounting for this, previous postsurgical changes of the proximal and distal colon noted. There is moderate mural thickening and mucosal enhancement of the distal ileum, compatible with active Crohn's disease/terminal ileitis. There is also mild mural thickening and mucosal enhancement of the distal rectum. There are borderline dilated loops of small bowel within the mid lower abdomen with no definite transition point identified. The IVC and abdominal aorta are normal. Urinary bladder is collapsed, limiting evaluation. Uterus and ovaries are present. Bilateral adnexal cysts noted and are likely physiologic. There is small volume lower abdominal pelvic ascites, unchanged since prior. No free air or bulky lymphadenopathy identified Impression: Findings compatible with active inflammatory bowel disease involving the distal ileum and possibly distal rectum as above. Borderline dilated small bowel loops throughout the mid lower abdomen with no definite transition point identified. Findings are favored to be reactive from underlying enteritis, although low-grade distal small bowel obstruction not excluded. Correlate clinically with patient's bowel habits. Stable likely reactive small volume abdominal pelvic ascites. Additional unchanged findings as above. Reported By:
[2018-12-27] MEDS ORDERED: ADALIMUMAB 40 MG SUBCUT SCH (19:51)
[2018-12-27] MEDS ORDERED: SOLU-Medrol 125 MG VIAL IVP ONE (19:51)
[2018-12-27] MEDS ORDERED: CITROMA PO PRN (19:51)
[2018-12-27] MEDS ORDERED: CIPRO IV 400 MG PREMIX* 400 MG/200 ML IV.SOLN. IV ONE (19:51)
[2018-12-27] MEDS ORDERED: PEPCID 20 MG IV PREMIX* 20 MG/50 ML BAG IV PRN (19:51)
[2018-12-27] MEDS: DEMEROL INJ IVP PRN (19:53)
[2018-12-27] MEDS ORDERED: NS 1000 ML 1,000 ML IV SCH (20:00)
[2018-12-27] MEDS: FLAGYL IV PREMIX 500 MG BAG 500 MG/100 ML BAG IV SCH (20:34)
[2018-12-27] MEDS: ZOFRAN INJ 4 MG VIAL IVP PRN (20:35)
[2018-12-27 21:17] VITALS: BMI 16.2
[2018-12-27] MEDS ORDERED: POTASSIUM CHLORIDE LIQ 20 MEQ UDC PO PRN (22:11)
[2018-12-27] MEDS ORDERED: K-RIDER 10 MEQ/NS 100 ML 10 MEQ/100 ML BAG IV PRN (22:11)
[2018-12-27] MEDS ORDERED: KLOR-CON PO PRN (22:11)
[2018-12-27] MEDS ORDERED: POTASSIUM CHL 40 MEQ/NS 0.45% 500 ML IV PRN (22:11)
[2018-12-27] MEDS ORDERED: POTASSIUM CHL 60 MEQ/NS 0.45% 500 ML IV PRN (22:11)
[2018-12-27] MEDS: SOLU-Medrol 40 MG VIAL IVP SCH (23:57)
[2018-12-28] MEDS: FLAGYL IV PREMIX 500 MG BAG 500 MG/100 ML BAG IV SCH ×4 (02:55→20:50)
[2018-12-28] MEDS: ZOFRAN INJ 4 MG VIAL IVP PRN ×2 (02:55→12:06)
[2018-12-28] MEDS: DEMEROL INJ IVP PRN ×2 (02:55→21:10)
[2018-12-28] MEDS: SOLU-Medrol 40 MG VIAL IVP SCH (05:22)
[2018-12-28 05:38] LABS: BASOPHILS % (AUTO) 0.1 % (0.2-1.0); HEMATOCRIT 34.9 % (36.0-47.0); LYMPHOCYTES # (AUTO) 1.1 X10^3/uL (1.3-2.9); LYMPHOCYTES % (AUTO) 20.2 % (21.0-51.0); MEAN CORPUSCULAR HEMOGLOBIN 29.7 pg (27.0-34.0); MEAN CORPUSCULAR HGB CONC 33.6 g/dL (33.0-35.0); MEAN CORPUSCULAR VOLUME 88.5 fL (80.0-100.0); MEAN PLATELET VOLUME 7.5 fL (7.4-11.0); MONOCYTES # (AUTO) 0.1 x10^3/uL (0.3-0.8); MONOCYTES % (AUTO) 1.6 % (0.0-13.0); NEUTROPHILS # (AUTO) 4.1 x10^3/uL (2.2-4.8); NEUTROPHILS % (AUTO) 78.1 % (42.0-75.0); PLATELET COUNT 443 X10^3/uL (150.0-450.0); RED BLOOD COUNT 3.95 X10^6/uL (3.5-5.4); RED CELL DISTRIBUTION WIDTH 15.5 % (11.6-16.5); WHITE BLOOD COUNT 5.2 X10^3/uL (3.6-10.0)
[2018-12-28 05:48] LABS: ALANINE AMINOTRANSFERASE 14 Units/L (12-78); ALBUMIN 1.4 g/dL (3.4-5.0); ALKALINE PHOSPHATASE 134 Units/L (46-116); ASPARTATE AMINO TRANSFERASE 15 Units/L (15-37); BLOOD UREA NITROGEN 10 mg/dL (7-18); CALCIUM 6.9 mg/dL (8.5-10.1); CARBON DIOXIDE 25.7 mmol/L (21-32); CHLORIDE 105 mmol/L (98-107); COR NA(FOR HYPERGLY) 141 mmol/L (136-145); CREATININE 0.78 mg/dL (0.55-1.02); SODIUM 140 mmol/L (136-145); TOTAL PROTEIN 5.2 g/dL (6.4-8.2); eGFR NON BLACK RACES > 60 (>60)
[2018-12-28 06:15] LABS: HEMOGLOBIN 11.7 g/dL (12.0-16.0)
[2018-12-28] MEDS: K-DUR TAB 20 MEQ PO PRN ×2 (06:33→10:12)
[2018-12-28] MEDS: MAGNESIUM SULFATE 1 GRAM/100 mL PREMIX 1 GM/100 ML BAG IV PRN ×4 (06:34→15:57)
[2018-12-28] MEDS ORDERED: SOLU-Medrol 40 MG VIAL IVP SCH (09:00)
[2018-12-28] MEDS ORDERED: SOLU-Medrol 125 MG VIAL IVP SCH (10:00)
[2018-12-28] MEDS ORDERED: NS 1000 ML 1,000 ML ONE (11:16)
[2018-12-28] MEDS ORDERED: ALBUMIN HUMAN 25%- 100 ML 100 ML ONE (11:17)
[2018-12-28] MEDS ORDERED: PROTONIX INJ 40 MG VIAL ONE (11:17)
[2018-12-28] MEDS: ALBUMIN HUMAN 25%- 100 ML 100 ML IV SCH (11:40)
[2018-12-28] MEDS: NS 1000 ML 1,000 ML IV SCH ×2 (11:40→21:10)
[2018-12-28] MEDS: PROTONIX INJ 40 MG VIAL IVP SCH ×2 (11:42→20:58)
[2018-12-28] MEDS: BENTYL CAP 10 MG PO SCH ×3 (13:22→20:57)
[2018-12-28] MEDS: SOLU-Medrol 125 MG VIAL IVP SCH ×2 (13:26→21:01)
[2018-12-29] MEDS: FLAGYL IV PREMIX 500 MG BAG 500 MG/100 ML BAG IV SCH ×4 (02:39→21:15)
[2018-12-29 05:31] LABS: BASOPHILS % (AUTO) 0 % (0.2-1.0); HEMATOCRIT 31.8 % (36.0-47.0); HEMOGLOBIN 10.6 g/dL (12.0-16.0); LYMPHOCYTES # (AUTO) 1.4 X10^3/uL (1.3-2.9); LYMPHOCYTES % (AUTO) 9.4 % (21.0-51.0); MEAN CORPUSCULAR HEMOGLOBIN 29.8 pg (27.0-34.0); MEAN CORPUSCULAR HGB CONC 33.4 g/dL (33.0-35.0); MEAN CORPUSCULAR VOLUME 89.4 fL (80.0-100.0); MEAN PLATELET VOLUME 7.4 fL (7.4-11.0); MONOCYTES # (AUTO) 0.3 x10^3/uL (0.3-0.8); NEUTROPHILS # (AUTO) 12.9 x10^3/uL (2.2-4.8); NEUTROPHILS % (AUTO) 88.6 % (42.0-75.0); PLATELET COUNT 422 X10^3/uL (150.0-450.0); RED BLOOD COUNT 3.55 X10^6/uL (3.5-5.4)
[2018-12-29 05:45] LABS: ALANINE AMINOTRANSFERASE 13 Units/L (12-78); ALBUMIN 2.1 g/dL (3.4-5.0); ALKALINE PHOSPHATASE 110 Units/L (46-116); ASPARTATE AMINO TRANSFERASE 11 Units/L (15-37); BLOOD UREA NITROGEN 2 mg/dL (7-18); CALCIUM 6.8 mg/dL (8.5-10.1); CARBON DIOXIDE 25.3 mmol/L (21-32); CHLORIDE 111 mmol/L (98-107); COR CA(FOR HYPOALB) 8.3 mg/dL (8.5-10.1); COR NA(FOR HYPERGLY) 144 mmol/L (136-145); CREATININE 0.72 mg/dL (0.55-1.02); MAGNESIUM 2.3 mg/dL (1.7-2.9); SODIUM 143 mmol/L (136-145); TOTAL PROTEIN 5.3 g/dL (6.4-8.2); eGFR NON BLACK RACES > 60 (>60)
[2018-12-29 06:04] LABS: WHITE BLOOD COUNT 14.5 X10^3/uL (3.6-10.0)
[2018-12-29] MEDS: SOLU-Medrol 125 MG VIAL IVP SCH ×3 (06:23→21:15)
[2018-12-29] MEDS: NS 1000 ML 1,000 ML IV SCH ×4 (06:23→23:16)
[2018-12-29] MEDS: PROTONIX INJ 40 MG VIAL IVP SCH ×2 (08:48→21:15)
[2018-12-29] MEDS: BENTYL CAP 10 MG PO SCH ×4 (08:48→21:15)
[2018-12-29] MEDS: ALBUMIN HUMAN 25%- 100 ML 100 ML IV SCH (08:52)
[2018-12-29] MEDS: ROCEPHIN VIAL 1 GRAM 1 G in NS 100 ML IV + SPIKE MINIBAG* 100 ML IV SCH ×2 (08:53→13:39)
--- NOTE | 2018-12-29 19:23 | DR.H&P ---
H&P - History & Physical for Day of: H&P Date: 12/27/18 - Chief Complaint Chief Complaint: ABDOMINAL PAIN, NAUSEA, VOMITING - History of Present Illness History of Present Illness: IS A 38 YEAR OLD PATIENT OF OURS WHO PRESENTED TO THE EMERGENCY ROOM WITH COMPLAINTS OF ABDOMINAL PAIN, NAUSEA, AND VOMITING. SYMPTOMS STARTED ONE DAY PRIOR AND HAS PROGRESSIVELY GOTTEN WORSE. SHE HAS A HISTORY OF CHRONS DISEASE. SHE DESCRIBES PAIN SHARP, CRAMPING, AND DIFFUSE. PAIN IS RATED 8/10. ON ARRIVAL TO THE HOSPITAL, VITALS WERE 98.2-115-18-98%-118/81. LABS WERE OBTAINED. ABNORMAL LAB VALUES INCLUDE THE FOLLOWING: WBC 11.3, PLT COUNT 582, GLUCOSE 101, CALCIM 7.7, ALK PHOS 186, ALBUMIN 1.9, GLOBULIN 4.7. A URINALYSIS WAS OBTAINED AND REVEALED: WBC 30-50, RBC 3-5, BACTERIA 1+, LEUKOCYTES 2+. URINE CULTURE WAS SET UP. AN ABDOMEN/PELVIS CT WITH CONTRAST WAS OBTAINED AND REVEALED: Findings compatible with active inflammatory bowel disease involving the distal ileum and possibly distal rectum as above. Borderline dilated small bowel loops throughout the mid lower abdomen with no definite transition point identified. Findings are favored to be reactive from underlying enteritis, although low-grade distal small bowel obstruction not excluded. Correlate clinically with patient's bowel habits. Stable likely reactive small volume abdominal pelvic ascites. Additional unchanged findings as above. SHE WAS GIVEN SOLU-MEDROL 125MG IV X 1 DOSE, CIPRO 200MG IV X 1, ZOFRAN 4MG IV X 1, DEMEROL 25MG IV X 1, AND A NORMAL SALINE BOLUS IN THE ER. SHE WAS ADMITTED FOR FURTHER EVALUATION AND TREATMENT OF INFLAMMATORY BOWEL DISEASE, ABDOMINAL PAIN, AND A URINARY TRACT INFECTION. SHE WAS STARTED ON NORMAL SALINE AT 150ML/HR, POTASSIUM PROTOCOL, FLAGYL 500MG IV Q6H, PEPCID IV, PROTONIX IV, AND CIPRO IV. WE WILL FOLLOW UP WITH AM LABS AND CONTINUE TO MONITOR. - Past Medical History Past Medical History: GERD, Arthritis, Kidney Stones Additional Medical History: Crohn's Disease, Abdominal Hernia 2011, Urinary Tract Infections, Ovarian Cysts, Previous Blood Transfusion - Past Surgical History Surgical History: Cholecystectomy Additional Surgical History: Bilateral Hip Core Decompression; intestinal tears and had colostomy w reversal 1 year later (2010, 2011); abdominal hernia w mesh placement in 2012 - Family History Family Medical History: Coronary Artery Disease, Hypertension - Social History Does patient currently use any type of tobacco product: No Have you used tobacco products in the last 12 months: No Type of Tobacco Use: None Does any household member use tobacco: No Alcohol Use: None Drug Use: None Prescription drug monitoring program results: PDMP was not reviewed - Medications Home Medications: No Known Drug Allergies Allergy (Verified 12/27/18 10:59) - Review of Systems Constitutional: Weakness Eyes: No Symptoms Reported ENT: No Symptoms Reported Respiratory: No Symptoms Reported Cardiovascular: No Symptoms Reported Gastrointestinal: See HPI, Nausea, Vomiting, Abdominal Pain Genitourinary: No Symptoms Reported Musculoskeletal: No Symptoms Reported Skin: No Symptoms Reported Neurological: Weakness - Physical Exam Vital Signs: Temperature 98.4 F Pulse Rate [Left Brachial] 84 Pulse Rate 115 Respiratory Rate 18 Blood Pressure [Right Arm] 105/73 Blood Pressure [Left Arm] 122/79 Blood Pressure 118/81 O2 Sat by Pulse Oximetry 98 Oriented: Normal Eyes: Normal Ear: Normal Nose: Normal Throat: Normal Respiratory: Clear Throughout Cardiovascular: Tachycardia : Normal Auscultation: Bowel Sounds: Normal Palpation: Normal Tenderness: Diffuse, Moderate. negative: Rebound, Guarding, Rigidity Skin: Normal Musculoskeletal: Normal Psychiatric: Normal Mood Description: Calm Affect: Normal Speech Pattern: Clear - Assessment/Plan (1) Exacerbation of Crohn's disease Qualifiers: Digestive disease complication type: unspecified complication Qualified Cod e(s): K50.919 - Crohn's disease, unspecified, with unspecified complications Status: Acute Plan: ADMIT, IV FLAGYL, IV CIPRO, ZOFRAN IV, SOLU-MEDROL IV, DEMEROL IV, IV PEPCID, IV PROTONIX, CONTINUE TO MONITOR (2) Urinary tract infection Qualifiers: Urinary tract infection type: acute cystitis Hematuria presence: without hematuria Qualified Code(s): N30.00 - Acute cystitis without hematuria Status: Acute (3) Nausea & vomiting Qualifiers: Vomiting type: unspecified Vomiting Intractability: intractable Qualified Code(s): R11.2 - Nausea with vomiting, unspecified Status: Acute (4) Hypokalemia Status: Acute Plan: POTASSIUM PROTOCOL, CONTINUE TO MONITOR - Allergies Allergies/Adverse Reactions: Allergies Allergy/AdvReac Type Severity Reaction Status Date / Time No Known Drug Allergies Allergy Verified 12/27/18 10:59
--- NOTE | 2018-12-29 21:29 | PCM.PROG ---
Progress Note - Progress Note for Day of Date of Exam: 12/28/18 - Subjective Subjective: WAS ADMITTED FOR A CROHNS EXACERBATION, UTI, NAUSEA AND VOMITING, AND HYPOKALEMIA. TODAY, SHE IS ALERT AND ORIETED, LYING IN BED ON MORNING ROUNDS. SHE CONTINUES WITH COMPLAINTS OF ABDOMINAL PAIN AND NAUSEA. ON EXAMINATION, HEART IS REGULAR IN RATE AND RHYTHM. BILATERAL LUNGS ARE NOTED WITH DIMINISHED LUNG SOUNDS THROUGHOUT. ABDOMEN IS ROUND, SOFT, AND NOTED WITH DIFFUSE TENDERNESS TO PALPATION. HYPERACTIVE BOWEL SOUNDS ARE NOTED IN ALL QUADRANTS. HER VITALS THIS MORNING ARE 97.8-89-18-98%-116/83. LABS WERE OBTAINED. ABNORMAL LAB VALUES INCLUDE THE FOLLOWING: HGB 11.7, HCT 34.9, POTASSIUM 3.1, GLUCOSE 141, CALCIUM 6.9, MAGNESIUM 1.4, ALK PHOS 134, TOTAL PROTEIN 5.2, ALBUMIN 1.4. A URINE CULTURE IS PENDING. SHE IS CURRENTLY RECEIVING IV FLAGYL, IV CIPRO, IV PEPCID, IV PROTONIX, SOLU-MEDROL, DEMEROL, ZOFRAN, IV FLUIDS, AND THE POTASSIUM AND MAGENSIUM PROTOCOL. WE WILL CONTINUE WITH CURRENT PLAN OF CARE TODAY AND ADD BENTYL 20MG PO QID, ALBUMIN 25% IV DAILY. OTHERWISE, WE PLAN TO FOLLOW UP WITH AM LABS AND CONTINUE TO MONITOR. - Past Medical Family Social History Past Med/Fam/Surg Hx: No changes since H&P Allergies: Allergies No Known Drug Allergies Allergy (Verified 12/27/18 10:59) - Review of Systems ROS: No change since H&P - Vital Signs and I&O's Vital Signs: Temperature 98.4 F Pulse Rate [Left Brachial] 84 Pulse Rate 115 Respiratory Rate 18 Blood Pressure [Right Arm] 105/73 Blood Pressure [Left Arm] 122/79 Blood Pressure 118/81 O2 Sat by Pulse Oximetry 98 Intake and Output: Intake & Output 12/27/18 12/28/18 12/29/18 12/30/18 11:59 11:59 11:59 11:59 Intake Total 1250 / 1250 3670 / 3670 1680 / 1680 Balance 1250 / 1250 3670 / 3670 1680 / 1680 - Physical Exam Oriented: Normal Eyes: Normal Ear: Normal Nose: Normal Throat: Normal Respiratory: Generalized, Diminished Cardiovascular: Tachycardia : Normal Auscultation: Bowel Sounds: Normal Palpation: Normal Tenderness: Diffuse, Moderate. negative: Rebound, Guarding, Rigidity Skin: Normal Musculoskeletal: Normal Psychiatric: Normal Mood Description: Calm Affect: Normal Speech Pattern: Clear - Laboratory and Diagnostics Result Diagrams: 12/29/18 04:25 12/29/18 04:25 Labs: 12/27/18 11:41 Urine,Clean Catch Urine Culture - Final Escherichia Coli Laboratory WBC 14.5 X10^3/uL (3.6-10.0) H D 12/29/18 04:25 RBC 3.55 X10^6/uL (3.5-5.4) 12/29/18 04:25 Hgb 10.6 g/dL (12.0-16.0) L 12/29/18 04:25 Hct 31.8 % (36.0-47.0) L 12/29/18 04:25 MCV 89.4 fL (80.0-100.0) 12/29/18 04:25 MCH 29.8 pg (27.0-34.0) 12/29/18 04:25 MCHC 33.4 g/dL (33.0-35.0) 12/29/18 04:25 RDW 16.0 % (11.6-16.5) 12/29/18 04:25 Plt Count 422 X10^3/uL (150.0-450.0) 12/29/18 04:25 MPV 7.4 fL (7.4-11.0) 12/29/18 04:25 Neut % (Auto) 88.6 % (42.0-75.0) H 12/29/18 04:25 Lymph % (Auto) 9.4 % (21.0-51.0) L 12/29/18 04:25 [place] % (Auto) 2.0 % (0.0-13.0) 12/29/18 04:25 Eos % (Auto) 0.0 % (0.9-2.9) L 12/29/18 04:25 Baso % (Auto) 0 % (0.2-1.0) L 12/29/18 04:25 Neut # (Auto) 12.9 x10^3/uL (2.2-4.8) H 12/29/18 04:25 Lymph # (Auto) 1.4 X10^3/uL (1.3-2.9) 12/29/18 04:25 [place] # (Auto) 0.3 x10^3/uL (0.3-0.8) 12/29/18 04:25 Eos # (Auto) 0.0 x10^3/uL (0.0-0.2) 12/29/18 04:25 Baso # (Auto) 0.0 X10^3/uL (0.0-0.1) 12/29/18 04:25 Absolute Nucleated RBC 0.1 /100WBC 12/29/18 04:25 Sodium 143 mmol/L (136-145) 12/29/18 04:25 Corrected Sodium 144 mmol/L (136-145) 12/29/18 04:25 Potassium 4.0 mmol/L (3.5-5.1) 12/29/18 04:25 Chloride 111 mmol/L (98-107) H 12/29/18 04:25 Carbon Dioxide 25.3 mmol/L (21-32) 12/29/18 04:25 BUN 2 mg/dL (7-18) L 12/29/18 04:25 Creatinine 0.72 mg/dL (0.55-1.02) 12/29/18 04:25 Est GFR (MDRD) Af Amer > 60 (>60) 12/29/18 04:25 Est GFR (MDRD) Non-Af > 60 (>60) 12/29/18 04:25 Glucose 129 mg/dL (65-99) H 12/29/18 04:25 Calcium 6.8 mg/dL (8.5-10.1) L 12/29/18 04:25 Corrected Calcium 8.3 mg/dL (8.5-10.1) L 12/29/18 04:25 Magnesium 2.3 mg/dL (1.7-2.9) 12/29/18 04:25 Total Bilirubin 0.20 mg/dL (0.2-1.0) 12/29/18 04:25 AST 11 Units/L (15-37) L 12/29/18 04:25 ALT 13 Units/L (12-78) 12/29/18 04:25 Alkaline Phosphatase 110 Units/L (46-116) 12/29/18 04:25 Total Protein 5.3 g/dL (6.4-8.2) L 12/29/18 04:25 Albumin 2.1 g/dL (3.4-5.0) L 12/29/18 04:25 Globulin 3.2 g/dL (2.5-4.5) 12/29/18 04:25 Albumin/Globulin Ratio 0.7 Ratio (1.1-2.1) L 12/29/18 04:25 Amylase 26 Units/L (25-115) 12/27/18 11:42 Lipase 34 Units/L (73-393) L 12/27/18 11:42 Specimen Type Clean catch urine 12/27/18 11:41 Urine Color Yellow (YELLOW) 12/27/18 11:41 Urine Appearance Cloudy (CLEAR) 12/27/18 11:41 Urine pH 6.0 (5.0 - 8.0) 12/27/18 11:41 Ur Specific [place] 1.025 (1.000-1.030) 12/27/18 11:41 Urine Protein 2+ (NEGATIVE) 12/27/18 11:41 Urine Glucose (UA) Negative (NEGATIVE) 12/27/18 11:41 Urine Ketones 3+ (NEGATIVE) 12/27/18 11:41 Urine Occult Blood 1+ (NEGATIVE) 12/27/18 11:41 Urine Nitrite Negative (NEGATIVE) 12/27/18 11:41 Urine Bilirubin 1+ (NEGATIVE) 12/27/18 11:41 Urine Urobilinogen Normal (NORMAL) 12/27/18 11:41 Ur Leukocyte Esterase 2+ (NEGATIVE) 12/27/18 11:41 Urine RBC 3-5 /HPF (0-3) A 12/27/18 11:41 Urine WBC 30-50 /HPF (0-5) A 12/27/18 11:41 Ur Squamous Epith Cells Few /HPF (NEGATIVE) 12/27/18 11:41 Urine Bacteria 1+ /HPF (NEGATIVE) 12/27/18 11:41 Ur Culture Indicated? Yes/culture set up 12/27/18 11:41 - Plan (1) Exacerbation of Crohn's disease Status: Acute Qualifiers: Digestive disease complication type: unspecified complication Qualified Code(s): K50.919 - Crohn's disease, unspecified, with unspecified complications Plan: IV FLAGYL, IV CIPRO, ZOFRAN IV, SOLU-MEDROL IV, DEMEROL IV, IV PEPCID, IV PROTONIX, PO BENTYL, CONTINUE TO MONITOR (2) Urinary tract infection Status: Acute Qualifiers: Urinary tract infection type: acute cystitis Hematuria presence: without hematuria Qualified Code(s): N30.00 - Acute cystitis without hematuria (3) Nausea & vomiting Status: Acute Qualifiers: Vomiting type: unspecified Vomiting Intractability: intractable Qualified Code(s): R11.2 - Nausea with vomiting, unspecified (4) Hypokalemia Status: Acute Plan: POTASSIUM PROTOCOL, CONTINUE TO MONITOR
[2018-12-30] MEDS: FLAGYL IV PREMIX 500 MG BAG 500 MG/100 ML BAG IV SCH ×4 (02:21→20:35)
[2018-12-30] MEDS: NS 1000 ML 1,000 ML IV SCH ×4 (02:27→22:44)
[2018-12-30 05:17] LABS: BASOPHILS % (AUTO) 0 % (0.2-1.0); HEMATOCRIT 28.4 % (36.0-47.0); HEMOGLOBIN 9.5 g/dL (12.0-16.0); LYMPHOCYTES # (AUTO) 1.7 X10^3/uL (1.3-2.9); LYMPHOCYTES % (AUTO) 11.4 % (21.0-51.0); MEAN CORPUSCULAR HEMOGLOBIN 30.2 pg (27.0-34.0); MEAN CORPUSCULAR HGB CONC 33.6 g/dL (33.0-35.0); MEAN CORPUSCULAR VOLUME 89.9 fL (80.0-100.0); MEAN PLATELET VOLUME 7.5 fL (7.4-11.0); MONOCYTES # (AUTO) 0.4 x10^3/uL (0.3-0.8); MONOCYTES % (AUTO) 2.3 % (0.0-13.0); NEUTROPHILS # (AUTO) 13.1 x10^3/uL (2.2-4.8); NEUTROPHILS % (AUTO) 86.3 % (42.0-75.0); PLATELET COUNT 369 X10^3/uL (150.0-450.0); RED BLOOD COUNT 3.16 X10^6/uL (3.5-5.4); RED CELL DISTRIBUTION WIDTH 16.2 % (11.6-16.5); WHITE BLOOD COUNT 15.1 X10^3/uL (3.6-10.0)
[2018-12-30] MEDS: SOLU-Medrol 125 MG VIAL IVP SCH (05:30)
[2018-12-30 05:39] LABS: ALANINE AMINOTRANSFERASE 11 Units/L (12-78); ALBUMIN 2.3 g/dL (3.4-5.0); ALKALINE PHOSPHATASE 82 Units/L (46-116); ASPARTATE AMINO TRANSFERASE 9 Units/L (15-37); BLOOD UREA NITROGEN 1 mg/dL (7-18); CALCIUM 6.8 mg/dL (8.5-10.1); CARBON DIOXIDE 22.9 mmol/L (21-32); CHLORIDE 112 mmol/L (98-107); COR CA(FOR HYPOALB) 8.2 mg/dL (8.5-10.1); COR NA(FOR HYPERGLY) 144 mmol/L (136-145); CREATININE 0.68 mg/dL (0.55-1.02); SODIUM 143 mmol/L (136-145); TOTAL PROTEIN 4.8 g/dL (6.4-8.2); eGFR NON BLACK RACES > 60 (>60)
[2018-12-30] MEDS: MICRO K EXTEN CAP 10 MEQ PO PRN (06:25)
[2018-12-30] MEDS ORDERED: PREVNAR 13 IM ONE (08:24)
[2018-12-30] MEDS ORDERED: AFLURIA II4 or FLUARIX II4 IM ONE (08:24)
--- NOTE | 2018-12-30 08:42 | PCM.PROG ---
Progress Note - Progress Note for Day of Date of Exam: 12/29/18 - Subjective Subjective: WAS ADMITTED FOR A CROHNS EXACERBATION, UTI, NAUSEA AND VOMITING, AND HYPOKALEMIA. TODAY, SHE IS ALERT AND ORIETED, LYING IN BED ON MORNING ROUNDS. SHE CONTINUES WITH COMPLAINTS OF ABDOMINAL PAIN AND NAUSEA. ON EXAMINATION, HEART IS REGULAR IN RATE AND RHYTHM. BILATERAL LUNGS ARE NOTED WITH DIMINISHED LUNG SOUNDS THROUGHOUT. ABDOMEN IS ROUND, SOFT, AND NOTED WITH DIFFUSE TENDERNESS TO PALPATION. HYPERACTIVE BOWEL SOUNDS ARE NOTED IN ALL QUADRANTS. HER VITALS THIS MORNING ARE 98.0-76-18-99%-108/72. LABS WERE OBTAINED. ABNORMAL LAB VALUES INCLUDE THE FOLLOWING: WBC 14.5, HGB 10.6, HCT 31.8, CHLORIDE 111, BUN 2, GLUCOSE 129, CALCIUM 6.8, AST 11, TOTAL PROTEIN 5.3, ALBUMIN 2.1. A URINE CULTURE REPORTED GROWTH OF E.COLI. SHE IS CURRENTLY RECEIVING IV FLAGYL, IV PEPCID, IV PROTONIX, SOLU-MEDROL, DEMEROL, ZOFRAN, IV FLUIDS, ALBUMIN, BENTYL, AND THE POTASSIUM AND MAGENSIUM PROTOCOL. WE WILL CHANGE CIPRO TO ROCEPHIN 1G IV DAILY. OTHERWISE, WE PLAN TO FOLLOW UP WITH AM LABS AND CONTINUE TO MONITOR. - Past Medical Family Social History Past Med/Fam/Surg Hx: No changes since H&P Allergies: Allergies No Known Drug Allergies Allergy (Verified 12/27/18 10:59) - Review of Systems ROS: No change since H&P - Vital Signs and I&O's Vital Signs: Temperature 97.9 F Pulse Rate [Left Brachial] 66 Pulse Rate 115 Respiratory Rate 18 Blood Pressure [Right Arm] 105/73 Blood Pressure [Left Arm] 115/77 Blood Pressure 118/81 O2 Sat by Pulse Oximetry 98 Intake and Output: Intake & Output 12/27/18 12/28/18 12/29/18 12/30/18 11:59 11:59 11:59 11:59 Intake Total 1250 / 1250 3670 / 3670 2515 / 2515 Balance 1250 / 1250 3670 / 3670 2515 / 2515 - Physical Exam Oriented: Normal Eyes: Normal Ear: Normal Nose: Normal Throat: Normal Respiratory: Generalized, Diminished Cardiovascular: Tachycardia : Normal Auscultation: Bowel Sounds: Normal Tenderness: Diffuse, Moderate. negative: Rebound, Guarding, Rigidity Skin: Normal Musculoskeletal: Normal Psychiatric: Normal Mood Description: Calm Affect: Normal Speech Pattern: Clear - Laboratory and Diagnostics Result Diagrams: 12/30/18 04:14 12/30/18 04:14 Labs: 12/27/18 11:41 Urine,Clean Catch Urine Culture - Final Escherichia Coli Laboratory WBC 15.1 X10^3/uL (3.6-10.0) H 12/30/18 04:14 RBC 3.16 X10^6/uL (3.5-5.4) L 12/30/18 04:14 Hgb 9.5 g/dL (12.0-16.0) L 12/30/18 04:14 Hct 28.4 % (36.0-47.0) L 12/30/18 04:14 MCV 89.9 fL (80.0-100.0) 12/30/18 04:14 MCH 30.2 pg (27.0-34.0) 12/30/18 04:14 MCHC 33.6 g/dL (33.0-35.0) 12/30/18 04:14 RDW 16.2 % (11.6-16.5) 12/30/18 04:14 Plt Count 369 X10^3/uL (150.0-450.0) 12/30/18 04:14 MPV 7.5 fL (7.4-11.0) 12/30/18 04:14 Neut % (Auto) 86.3 % (42.0-75.0) H 12/30/18 04:14 Lymph % (Auto) 11.4 % (21.0-51.0) L 12/30/18 04:14 [place] % (Auto) 2.3 % (0.0-13.0) 12/30/18 04:14 Eos % (Auto) 0.0 % (0.9-2.9) L 12/30/18 04:14 Baso % (Auto) 0 % (0.2-1.0) L 12/30/18 04:14 Neut # (Auto) 13.1 x10^3/uL (2.2-4.8) H 12/30/18 04:14 Lymph # (Auto) 1.7 X10^3/uL (1.3-2.9) 12/30/18 04:14 [place] # (Auto) 0.4 x10^3/uL (0.3-0.8) 12/30/18 04:14 Eos # (Auto) 0.0 x10^3/uL (0.0-0.2) 12/30/18 04:14 Baso # (Auto) 0.0 X10^3/uL (0.0-0.1) 12/30/18 04:14 Absolute Nucleated RBC 0.0 /100WBC 12/30/18 04:14 Sodium 143 mmol/L (136-145) 12/30/18 04:14 Corrected Sodium 144 mmol/L (136-145) 12/30/18 04:14 Potassium 3.5 mmol/L (3.5-5.1) 12/30/18 04:14 Chloride 112 mmol/L (98-107) H 12/30/18 04:14 Carbon Dioxide 22.9 mmol/L (21-32) 12/30/18 04:14 BUN 1 mg/dL (7-18) L 12/30/18 04:14 Creatinine 0.68 mg/dL (0.55-1.02) 12/30/18 04:14 Est GFR (MDRD) Af Amer > 60 (>60) 12/30/18 04:14 Est GFR (MDRD) Non-Af > 60 (>60) 12/30/18 04:14 Glucose 138 mg/dL (65-99) H 12/30/18 04:14 Calcium 6.8 mg/dL (8.5-10.1) L 12/30/18 04:14 Corrected Calcium 8.2 mg/dL (8.5-10.1) L 12/30/18 04:14 Magnesium 2.3 mg/dL (1.7-2.9) 12/29/18 04:25 Total Bilirubin 0.10 mg/dL (0.2-1.0) L 12/30/18 04:14 AST 9 Units/L (15-37) L 12/30/18 04:14 ALT 11 Units/L (12-78) L 12/30/18 04:14 Alkaline Phosphatase 82 Units/L (46-116) 12/30/18 04:14 Total Protein 4.8 g/dL (6.4-8.2) L 12/30/18 04:14 Albumin 2.3 g/dL (3.4-5.0) L 12/30/18 04:14 Globulin 2.5 g/dL (2.5-4.5) 12/30/18 04:14 Albumin/Globulin Ratio 0.9 Ratio (1.1-2.1) L 12/30/18 04:14 Amylase 26 Units/L (25-115) 12/27/18 11:42 Lipase 34 Units/L (73-393) L 12/27/18 11:42 Specimen Type Clean catch urine 12/27/18 11:41 Urine Color Yellow (YELLOW) 12/27/18 11:41 Urine Appearance Cloudy (CLEAR) 12/27/18 11:41 Urine pH 6.0 (5.0 - 8.0) 12/27/18 11:41 Ur Specific [place] 1.025 (1.000-1.030) 12/27/18 11:41 Urine Protein 2+ (NEGATIVE) 12/27/18 11:41 Urine Glucose (UA) Negative (NEGATIVE) 12/27/18 11:41 Urine Ketones 3+ (NEGATIVE) 12/27/18 11:41 Urine Occult Blood 1+ (NEGATIVE) 12/27/18 11:41 Urine Nitrite Negative (NEGATIVE) 12/27/18 11:41 Urine Bilirubin 1+ (NEGATIVE) 12/27/18 11:41 Urine Urobilinogen Normal (NORMAL) 12/27/18 11:41 Ur Leukocyte Esterase 2+ (NEGATIVE) 12/27/18 11:41 Urine RBC 3-5 /HPF (0-3) A 12/27/18 11:41 Urine WBC 30-50 /HPF (0-5) A 12/27/18 11:41 Ur Squamous Epith Cells Few /HPF (NEGATIVE) 12/27/18 11:41 Urine Bacteria 1+ /HPF (NEGATIVE) 12/27/18 11:41 Ur Culture Indicated? Yes/culture set up 12/27/18 11:41 - Plan (1) Exacerbation of Crohn's disease Status: Acute Qualifiers: Digestive disease complication type: unspecified complication Qualified Code(s): K50.919 - Crohn's disease, unspecified, with unspecified complications Plan: IV FLAGYL, IV CIPRO, ZOFRAN IV, SOLU-MEDROL IV, DEMEROL IV, IV PEPCID, IV PROTONIX, PO BENTYL, CONTINUE TO MONITOR (2) Urinary tract infection Status: Acute Qualifiers: Urinary tract infection type: acute cystitis Hematuria presence: without hematuria Qualified Code(s): N30.00 - Acute cystitis without hematuria Plan: ROCEPHIN 1G IV DAILY, CONTINUE TO MONITOR (3) Nausea & vomiting Status: Acute Qualifiers: Vomiting type: unspecified Vomiting Intractability: intractable Qualified Code(s): R11.2 - Nausea with vomiting, unspecified (4) Hypokalemia Status: Acute Plan: POTASSIUM PROTOCOL, CONTINUE TO MONITOR
[2018-12-30] MEDS: BENTYL CAP 10 MG PO SCH ×4 (09:17→20:34)
[2018-12-30] MEDS: ROCEPHIN VIAL 1 GRAM 1 G in NS 100 ML IV + SPIKE MINIBAG* 100 ML IV SCH (09:17)
[2018-12-30] MEDS: ALBUMIN HUMAN 25%- 100 ML 100 ML IV SCH (09:18)
[2018-12-30] MEDS: PROTONIX INJ 40 MG VIAL IVP SCH ×2 (09:20→20:35)
--- NOTE | 2018-12-30 11:00 | PCM.PROG ---
Progress Note - Progress Note for Day of Date of Exam: 12/30/18 - Subjective Subjective: WAS ADMITTED FOR A CROHNS EXACERBATION, UTI, NAUSEA AND VOMITING, AND HYPOKALEMIA. TODAY, SHE IS ALERT AND ORIETED, LYING IN BED ON MORNING ROUNDS. SHE CONTINUES WITH COMPLAINTS OF MILD ABDOMINAL CRAMPING, BUT DENIES NAUSEA. ON EXAMINATION, HEART IS REGULAR IN RATE AND RHYTHM. BILATERAL LUNGS ARE NOTED WITH DIMINISHED LUNG SOUNDS THROUGHOUT. ABDOMEN IS ROUND, SOFT, AND NOTED WITH DIFFUSE TENDERNESS TO PALPATION. HYPERACTIVE BOWEL SOUNDS ARE NOTED IN ALL QUADRANTS. HER VITALS THIS MORNING ARE 98.1-55-18-98%-112/73. LABS WERE OBTAINED. ABNORMAL LAB VALUES INCLUDE THE FOLLOWING: WBC 15.1, RBC 3.16, HCT 9.5, HCT 28.4, CHLORIDE 112, BUN 1, GLUCOSE 138, CALCIUM 6.8, TOTAL BILI 0 .10, AST 9, ALT 11, TOTAL PROTEIN 4.8, ALBUMIN 2.3. A URINE CULTURE REPORTED GROWTH OF E.COLI. SHE IS CURRENTLY RECEIVING IV FLAGYL, IV ROCEPHIN, IV PEPCID, IV PROTONIX, SOLU-MEDROL, DEMEROL, ZOFRAN, IV FLUIDS, ALBUMIN, BENTYL, AND THE POTASSIUM AND MAGENSIUM PROTOCOL. WE WILL DECREASE HER SOLU-MEDROL TO 40MG IV Q8H TODAY. OTHERWISE, WE PLAN TO FOLLOW UP WITH AM LABS AND CONTINUE TO MONITOR. - Past Medical Family Social History Past Med/Fam/Surg Hx: No changes since H&P Allergies: Allergies No Known Drug Allergies Allergy (Verified 12/27/18 10:59) - Review of Systems ROS: No change since H&P - Vital Signs and I&O's Vital Signs: Temperature 98.1 F Pulse Rate [Left Brachial] 55 Pulse Rate 115 Respiratory Rate 18 Blood Pressure [Right Arm] 112/73 Blood Pressure [Left Arm] 115/77 Blood Pressure 118/81 O2 Sat by Pulse Oximetry 98 Intake and Output: Intake & Output 12/27/18 12/28/18 12/29/18 12/30/18 11:59 11:59 11:59 11:59 Intake Total 1250 / 1250 3670 / 3670 2515 / 2515 Balance 1250 / 1250 3670 / 3670 2515 / 2515 - Physical Exam Oriented: Normal Eyes: Normal Ear: Normal Nose: Normal Throat: Normal Respiratory: Generalized, Diminished Cardiovascular: Tachycardia : Normal Auscultation: Bowel Sounds: Normal Tenderness: Diffuse, Moderate. negative: Rebound, Guarding, Rigidity Skin: Normal Musculoskeletal: Normal Psychiatric: Normal Mood Description: Calm Affect: Normal Speech Pattern: Clear, Appropriate - Laboratory and Diagnostics Result Diagrams: 12/30/18 04:14 12/30/18 04:14 Labs: 12/27/18 11:41 Urine,Clean Catch Urine Culture - Final Escherichia Coli Laboratory WBC 15.1 X10^3/uL (3.6-10.0) H 12/30/18 04:14 RBC 3.16 X10^6/uL (3.5-5.4) L 12/30/18 04:14 Hgb 9.5 g/dL (12.0-16.0) L 12/30/18 04:14 Hct 28.4 % (36.0-47.0) L 12/30/18 04:14 MCV 89.9 fL (80.0-100.0) 12/30/18 04:14 MCH 30.2 pg (27.0-34.0) 12/30/18 04:14 MCHC 33.6 g/dL (33.0-35.0) 12/30/18 04:14 RDW 16.2 % (11.6-16.5) 12/30/18 04:14 Plt Count 369 X10^3/uL (150.0-450.0) 12/30/18 04:14 MPV 7.5 fL (7.4-11.0) 12/30/18 04:14 Neut % (Auto) 86.3 % (42.0-75.0) H 12/30/18 04:14 Lymph % (Auto) 11.4 % (21.0-51.0) L 12/30/18 04:14 [place] % (Auto) 2.3 % (0.0-13.0) 12/30/18 04:14 Eos % (Auto) 0.0 % (0.9-2.9) L 12/30/18 04:14 Baso % (Auto) 0 % (0.2-1.0) L 12/30/18 04:14 Neut # (Auto) 13.1 x10^3/uL (2.2-4.8) H 12/30/18 04:14 Lymph # (Auto) 1.7 X10^3/uL (1.3-2.9) 12/30/18 04:14 [place] # (Auto) 0.4 x10^3/uL (0.3-0.8) 12/30/18 04:14 Eos # (Auto) 0.0 x10^3/uL (0.0-0.2) 12/30/18 04:14 Baso # (Auto) 0.0 X10^3/uL (0.0-0.1) 12/30/18 04:14 Absolute Nucleated RBC 0.0 /100WBC 12/30/18 04:14 Sodium 143 mmol/L (136-145) 12/30/18 04:14 Corrected Sodium 144 mmol/L (136-145) 12/30/18 04:14 Potassium 3.5 mmol/L (3.5-5.1) 12/30/18 04:14 Chloride 112 mmol/L (98-107) H 12/30/18 04:14 Carbon Dioxide 22.9 mmol/L (21-32) 12/30/18 04:14 BUN 1 mg/dL (7-18) L 12/30/18 04:14 Creatinine 0.68 mg/dL (0.55-1.02) 12/30/18 04:14 Est GFR (MDRD) Af Amer > 60 (>60) 12/30/18 04:14 Est GFR (MDRD) Non-Af > 60 (>60) 12/30/18 04:14 Glucose 138 mg/dL (65-99) H 12/30/18 04:14 Calcium 6.8 mg/dL (8.5-10.1) L 12/30/18 04:14 Corrected Calcium 8.2 mg/dL (8.5-10.1) L 12/30/18 04:14 Magnesium 2.3 mg/dL (1.7-2.9) 12/29/18 04:25 Total Bilirubin 0.10 mg/dL (0.2-1.0) L 12/30/18 04:14 AST 9 Units/L (15-37) L 12/30/18 04:14 ALT 11 Units/L (12-78) L 12/30/18 04:14 Alkaline Phosphatase 82 Units/L (46-116) 12/30/18 04:14 Total Protein 4.8 g/dL (6.4-8.2) L 12/30/18 04:14 Albumin 2.3 g/dL (3.4-5.0) L 12/30/18 04:14 Globulin 2.5 g/dL (2.5-4.5) 12/30/18 04:14 Albumin/Globulin Ratio 0.9 Ratio (1.1-2.1) L 12/30/18 04:14 Amylase 26 Units/L (25-115) 12/27/18 11:42 Lipase 34 Units/L (73-393) L 12/27/18 11:42 Specimen Type Clean catch urine 12/27/18 11:41 Urine Color Yellow (YELLOW) 12/27/18 11:41 Urine Appearance Cloudy (CLEAR) 12/27/18 11:41 Urine pH 6.0 (5.0 - 8.0) 12/27/18 11:41 Ur Specific [place] 1.025 (1.000-1.030) 12/27/18 11:41 Urine Protein 2+ (NEGATIVE) 12/27/18 11:41 Urine Glucose (UA) Negative (NEGATIVE) 12/27/18 11:41 Urine Ketones 3+ (NEGATIVE) 12/27/18 11:41 Urine Occult Blood 1+ (NEGATIVE) 12/27/18 11:41 Urine Nitrite Negative (NEGATIVE) 12/27/18 11:41 Urine Bilirubin 1+ (NEGATIVE) 12/27/18 11:41 Urine Urobilinogen Normal (NORMAL) 12/27/18 11:41 Ur Leukocyte Esterase 2+ (NEGATIVE) 12/27/18 11:41 Urine RBC 3-5 /HPF (0-3) A 12/27/18 11:41 Urine WBC 30-50 /HPF (0-5) A 12/27/18 11:41 Ur Squamous Epith Cells Few /HPF (NEGATIVE) 12/27/18 11:41 Urine Bacteria 1+ /HPF (NEGATIVE) 12/27/18 11:41 Ur Culture Indicated? Yes/culture set up 12/27/18 11:41 - Plan (1) Exacerbation of Crohn's disease Status: Acute Qualifiers: Digestive disease complication type: unspecified complication Qualified Code(s): K50.919 - Crohn's disease, unspecified, with unspecified complications Plan: IV FLAGYL, IV CIPRO, ZOFRAN IV, SOLU-MEDROL IV, DEMEROL IV, IV PEPCID, IV PROTONIX, PO BENTYL, CONTINUE TO MONITOR (2) Urinary tract infection Status: Acute Qualifiers: Urinary tract infection type: acute cystitis Hematuria presence: without hematuria Qualified Code(s): N30.00 - Acute cystitis without hematuria Plan: ROCEPHIN 1G IV DAILY, CONTINUE TO MONITOR (3) Nausea & vomiting Status: Acute Qualifiers: Vomiting type: unspecified Vomiting Intractability: intractable Qualified Code(s): R11.2 - Nausea with vomiting, unspecified (4) Hypokalemia Status: Acute Plan: POTASSIUM PROTOCOL, CONTINUE TO MONITOR
[2018-12-30] MEDS ORDERED: SOLU-Medrol 125 MG VIAL IVP SCH (14:00)
[2018-12-30] MEDS: SOLU-Medrol 40 MG VIAL IVP SCH ×2 (14:00→21:55)
[2018-12-30] MEDS: DEMEROL INJ IVP PRN (22:07)
[2018-12-31] MEDS: FLAGYL IV PREMIX 500 MG BAG 500 MG/100 ML BAG IV SCH ×2 (02:43→08:46)
[2018-12-31] MEDS: NS 1000 ML 1,000 ML IV SCH (02:43)
[2018-12-31 05:37] LABS: BASOPHILS % (AUTO) 0.1 % (0.2-1.0); HEMATOCRIT 29.9 % (36.0-47.0); HEMOGLOBIN 9.9 g/dL (12.0-16.0); LYMPHOCYTES # (AUTO) 1.8 X10^3/uL (1.3-2.9); LYMPHOCYTES % (AUTO) 14.2 % (21.0-51.0); MEAN CORPUSCULAR HEMOGLOBIN 29.5 pg (27.0-34.0); MEAN CORPUSCULAR HGB CONC 33.1 g/dL (33.0-35.0); MEAN CORPUSCULAR VOLUME 89.3 fL (80.0-100.0); MEAN PLATELET VOLUME 7.2 fL (7.4-11.0); MONOCYTES # (AUTO) 0.5 x10^3/uL (0.3-0.8); MONOCYTES % (AUTO) 3.7 % (0.0-13.0); NEUTROPHILS # (AUTO) 10.6 x10^3/uL (2.2-4.8); PLATELET COUNT 399 X10^3/uL (150.0-450.0); RED BLOOD COUNT 3.34 X10^6/uL (3.5-5.4); RED CELL DISTRIBUTION WIDTH 16.7 % (11.6-16.5); WHITE BLOOD COUNT 12.9 X10^3/uL (3.6-10.0)
[2018-12-31 05:41] LABS: ALANINE AMINOTRANSFERASE 7 Units/L (12-78); ALBUMIN 2.6 g/dL (3.4-5.0); ALKALINE PHOSPHATASE 66 Units/L (46-116); ASPARTATE AMINO TRANSFERASE 8 Units/L (15-37); BLOOD UREA NITROGEN 1 mg/dL (7-18); CALCIUM 7.2 mg/dL (8.5-10.1); CHLORIDE 114 mmol/L (98-107); COR CA(FOR HYPOALB) 8.3 mg/dL (8.5-10.1); COR NA(FOR HYPERGLY) 145 mmol/L (136-145); CREATININE 0.72 mg/dL (0.55-1.02); SODIUM 145 mmol/L (136-145); TOTAL PROTEIN 4.9 g/dL (6.4-8.2); eGFR NON BLACK RACES > 60 (>60)
[2018-12-31] MEDS: SOLU-Medrol 40 MG VIAL IVP SCH (05:46)
[2018-12-31] MEDS: MICRO K EXTEN CAP 10 MEQ PO PRN (06:40)
[2018-12-31] MEDS: ROCEPHIN VIAL 1 GRAM 1 G in NS 100 ML IV + SPIKE MINIBAG* 100 ML IV SCH (08:46)
[2018-12-31] MEDS: PROTONIX INJ 40 MG VIAL IVP SCH (08:46)
[2018-12-31] MEDS: ALBUMIN HUMAN 25%- 100 ML 100 ML IV SCH (08:47)
[2018-12-31] MEDS: BENTYL CAP 10 MG PO SCH (08:47)
[2018-12-31 10:56] VITALS: BP 124/74
[2018-12-31] MEDS ORDERED: AFLURIA II4 or FLUARIX II4 IM ONE (11:00)
== END 2018-12-31 11:50 | disposition home or self-care (01) ==
LOC: ER 10:56 → MED/SURG 10:56
PROVIDERS: ADMIT Family Medicine; ATTEND Internal Medicine
CPT/HCPCS: 36415; 74177; 80053; 81001; 82150; 83690; 83735; 84132; 85025; 87086; 87088; 87186; 90674; 90686; 96360; 96361; 96365; 96372; 96374; 96375; 99284; A4222; C9113; P9047; S0030; G0378; J0696; J0744; J2175; J2405; J2920; J2930; J3475; J7030; J7050

== ENCOUNTER 2019-06-15 16:17 | Inpatient (IN) ==
[2019-06-15 16:27] VITALS: BMI 19.1
--- NOTE | 2019-06-15 17:06 | ED.ABDFE ---
HPI Time Seen Time Seen by Provider: 06/15/19 17:06 PCP Primary Care Physician: dr yeh HPI Comment HPI Comment: PATIENT IS 38YR OLD FEMALE WITH HISTORY OF CROHNS DISEASE IN ER WITH GENERALIZED ABDOMINAL PAIN, NAUSEA AND VOMITING THAT IS WORSE TODAY. DENIES FEVER OR DYSURIA. NO REGULAR BM FOR 5 DAYS. PAIN IS CRAMPING AND RADIATES TO THE BACK AND IS 5/10. Complaint Doctors Chief Complaint Comments: ABDOMINAL PAIN WITH NAUSEA AND VOMITING WITH HISTORY OF CROHNS DISEASE. Chief Complaint:: PT C/O INTERMITTENT GENERALIZED ABDOMINAL PAIN DESCRIBED SHARP CRAMPING ASSOCIATED WITH NAUSEA AND VOMITING. PT STATES SHE HAS HISTORY OF CROHNS AND HASN'T HAD REGULAR BM IN 5 DAYS. COVID-19 Coronavirus risk:travel/contact w/high risk person: No Has patient experienced Coronavirus symptoms: No Reviewed Nurses Notes Review: Yes Source History Provided: Patient Mode of arrival Mode of Arrival: Ambulatory Timing Onset of Chief Complaint: 06/15/19 Came on: Suddenly Duration Since Onset: Constant Duration: Days Location Location: Diffuse Severity Severity: Moderate Quality Quality: Generalized Context History of: Abdominal surgery Modifying factors Worsening Factors: Exertion Improving Factors: Lying Still Associated signs and symptoms Associated Signs and Symptoms: Nausea, Vomiting and Constipation PMH PMH Past Medical History: Yes Past Medical History: Kidney Stones Past Medical History Comment: CROHNS Past Surgical History: Yes Surgical History: Cholecystectomy and Ortho Surgery Past Surgical History Comment: COLOSTOMY WITH REVERSAL Family History History of Family Medical Conditions: Yes Family Medical History: Coronary Artery Disease and Hypertension Family Medical History Comment: CROHNS Social History Does patient currently use any type of tobacco product: No Have you used tobacco products in the last 12 months: No Type of Tobacco Use: None Does any household member use tobacco: No Alcohol Use: None Do you use any recreational Drugs:: No Lives With: Family Lives Where: Home Infectious screening In the last 2 months have you had wt loss of >10#?: NO Have you had fever, night sweats or hemotysis?: No Have you traveled outside the country in the last 6 months?: No Isolation: Standard ROS Review of Systems Constitutional: See HPI, Weakness and Fatigue; negative Fever Eyes: No Symptoms Reported and See HPI ENTM: No Symptoms Reported and See HPI; negative Ear Pain, Nose Discharge, Nose Congestion and Throat Pain Respiratoy: No Symptoms Reported and See HPI; negative Moist Cough, Short of Breath and Wheezing Cardiovascular: No Symptoms Reported and See HPI; negative Chest Pain, Edema and Palpitations Gastrointestinal/Abdominal: See HPI, Abdominal Pain, Nausea and Vomiting; negative Constipation and Diarrhea Genitourinary: No Symptoms Reported, See HPI and Dysuria; negative Frequency and Hematuria Neurological: See HPI and Weakness; negative Headache, Paresthesia and Dizziness Musculoskeletal: No Symptoms Reported and See HPI; negative Back Pain and Muscle Pain Integumentary: No Symptoms Reported and See HPI; negative Change in Color, Rash and Juandice Hematologic/Lymphatic: No Symptoms Reported and See HPI; negative Easy Bruising and Swollen Glands Endocrine: No Symptoms Reported and See HPI; negative Increased Thirst and Increased Urine Psychiatric: No Symptoms Reported and See HPI All Other Systems: Reviewed and Negative PE Vital Signs Vitals: Temperature 98.2 F Pulse Rate [Radial] 99 Pulse Rate 118 Respiratory Rate 20 Blood Pressure [Right Arm] 124/74 Blood Pressure [Left Arm] 135/70 Blood Pressure 112/88 O2 Sat by Pulse Oximetry 99 General Limitations: No Limitations General Appearance: Alert and In No Apparent Distress Head Head Exam: Normal Inspection and Atraumatic Eyes Eye exam: Normal Appearance and PERRL; negative Scleral Icterus and Conjunctival Injection ENT ENT Exam: Normal Exam, Normal Oropharynx, Normal External Ear Exam and TM's Normal Bilaterally Neck Neck Exam: Normal Inspection and Trachea Midline; negative Tenderness and Lymphadenopathy Chest Chest Inspection: Normal Inspection and Symmetric Chest Wall Rise; negative Tenderness Respiratory Respiratory Exam: Normal Lung Sounds Bilat; negative Accessory Muscle Use, Chest Wall Tenderness and Respiratory Distress Respiratory Exam: Bilateral: Clear to Auscultation Cardiovascular Cardiovascular Exam: Regular Rate, Normal Rhythm and Normal Heart Sounds; negative Systolic Murmur and Diastolic Murmur Abdominal Exam Abdominal Exam: Normal Inspection, Normal Bowel Sounds, Soft and Tenderness Abdominal Tenderness: Diffuse and Moderate Rectal Rectal Exam: Deferred Back Back Exam: Normal Inspection; negative (R) CVA Tenderness and (L) CVA Tenderness Extremeties Extremities Exam: Normal Inspection and Normal Capillary Refill; negative Tenderness, Edema and Calf Tenderness External Exam: Female: Deferred : Speculum Exam (Female): Deferred : Bimanual Exam (female): Deferred Neurologic Neurological Exam: Alert, Oriented X3 and CN II-XII Intact; negative Motor Sensory Deficit Psychiatric Psychiatric Exam: Normal Affect and Normal Mood Skin Skin Exam: Warm, Dry, Intact and Normal Color MDM Differential Diagnosis Differential Diagnosis- Considerations may include:: Bowel Obstruction, Constipation, Diverticular disease, Gastritus/PUD, Gastroenteritis, Inflammatory BD, Ovarian cyst/torsion, Pancreatitis, PID, Urinary tract infection and Urolithiasis COURSE Treatment Treatment: SEE ORDERS. Consultation Consultation Comments: DISCUSSED PATIENT WITH DR. SORENSEN SERVICE. PATIENT IS TO BE ADMITTED TO DR. MALIHA FELIX. Education/Counseling Education/Counseling: Patient Educated On: Diagnosis and Needs for Follow Up ROR Labs Reviewed Laboratory Results Reviewed?: Yes Result Diagrams: 06/17/19 04:46 06/17/19 04:46 Laboratory: WBC 11.6 X10^3/uL (3.6-10.0) H 06/15/19 17:35 RBC 4.85 X10^6/uL (3.5-5.4) 06/15/19 17:35 Hgb 13.6 g/dL (12.0-16.0) 06/15/19 17:35 Hct 41.2 % (36.0-47.0) 06/15/19 17:35 MCV 85.0 fL (80.0-100.0) 06/15/19 17:35 MCH 28.1 pg (27.0-34.0) 06/15/19 17:35 MCHC 33.1 g/dL (33.0-35.0) 06/15/19 17:35 RDW 15.4 % (11.6-16.5) 06/15/19 17:35 Plt Count 416 X10^3/uL (150.0-450.0) 06/15/19 17:35 MPV 6.7 fL (7.4-11.0) L 06/15/19 17:35 Neut % (Auto) 66.2 % (42.0-75.0) 06/15/19 17:35 Lymph % (Auto) 24.9 % (21.0-51.0) 06/15/19 17:35 [place] % (Auto) 8.5 % (0.0-13.0) 06/15/19 17:35 Eos % (Auto) 0.1 % (0.9-2.9) L 06/15/19 17:35 Baso % (Auto) 0.3 % (0.2-1.0) 06/15/19 17:35 Neut # (Auto) 7.7 x10^3/uL (2.2-4.8) H 06/15/19 17:35 Lymph # (Auto) 2.9 X10^3/uL (1.3-2.9) 06/15/19 17:35 [place] # (Auto) 1.0 x10^3/uL (0.3-0.8) H 06/15/19 17:35 Eos # (Auto) 0.0 x10^3/uL (0.0-0.2) 06/15/19 17:35 Baso # (Auto) 0.0 X10^3/uL (0.0-0.1) 06/15/19 17:35 Absolute Nucleated RBC 0.0 /100WBC 06/15/19 17:35 Sodium 140 mmol/L (136-145) 06/15/19 17:35 Corrected Sodium TNP 06/15/19 17:35 Potassium 3.6 mmol/L (3.5-5.1) 06/15/19 17:35 Chloride 103 mmol/L (98-107) 06/15/19 17:35 Carbon Dioxide 28.5 mmol/L (21-32) 06/15/19 17:35 BUN 10 mg/dL (7-18) 06/15/19 17:35 Creatinine 0.87 mg/dL (0.55-1.02) 06/15/19 17:35 Est GFR (MDRD) Af Amer > 60 (>60) 06/15/19 17:35 Est GFR (MDRD) Non-Af > 60 (>60) 06/15/19 17:35 Glucose 104 mg/dL (65-99) H 06/15/19 17:35 Calcium 9.0 mg/dL (8.5-10.1) 06/15/19 17:35 Corrected Calcium 9.9 mg/dL (8.5-10.1) 06/15/19 17:35 Total Bilirubin 0.30 mg/dL (0.2-1.0) 06/15/19 17:35 AST 18 Units/L (15-37) 06/15/19 17:35 ALT 26 Units/L (12-78) 06/15/19 17:35 Alkaline Phosphatase 97 Units/L (46-116) 06/15/19 17:35 Total Protein 7.2 g/dL (6.4-8.2) 06/15/19 17:35 Albumin 2.9 g/dL (3.4-5.0) L 06/15/19 17:35 Globulin 4.3 g/dL (2.5-4.5) 06/15/19 17:35 Albumin/Globulin Ratio 0.7 Ratio (1.1-2.1) L 06/15/19 17:35 Amylase 34 Units/L (25-115) 06/15/19 17:35 Lipase 84 Units/L (73-393) 06/15/19 17:35 XRAY XRAY Interpreted by: Radiologist (REPORT NOTED AND DISCUSSED WITH PATIENT.) Opioid Opioid Risk Tool Age (Gonzalo box if 16-45): Yes History of Preadolescent Sexual Abuse: No Total: 1 Total Score Risk Category: Low Risk Copyright: Raphael predicting aberrant behaviors Diagnosis Discharge Problem: Hypokalemia, PID (acute pelvic inflammatory disease) Abdominal pain Qualifiers: Abdominal location: right lower quadrant Qualified Code(s): R10.31 - Right lower quadrant pain Crohn's disease Qualifiers: Gastrointestinal tract location: unspecified location Digestive disease complication type: unspecified complication Qualified Code(s): K50.919 - Crohn's disease, unspecified, with unspecified complications Instructions Instructions: Small Bowel Obstruction, [id number] Abdominal Pain, Adult, [id number] Nausea and Vomiting, Adult, [id number] Pelvic Inflammatory Disease, [id number] Crohn's Disease Forms: Excuse From Work Precautions for COVID19 Patient Portal Social Distancing Excuse From Work or School
[2019-06-15] MEDS ORDERED: NS 1000 ML 1,000 ML IV ONE (17:13)
[2019-06-15] MEDS ORDERED: ZOFRAN INJ 4 MG VIAL IVP ONE ×2 (17:16→22:19)
[2019-06-15] MEDS ORDERED: NS 1000 ML 1,000 ML ONE ×2 (17:18→22:02)
[2019-06-15] MEDS ORDERED: ZOFRAN INJ 4 MG VIAL ONE ×2 (17:18→22:20)
[2019-06-15 17:42] LABS: BASOPHILS % (AUTO) 0.3 % (0.2-1.0); EOSINOPHILS % (AUTO) 0.1 % (0.9-2.9); HEMATOCRIT 41.2 % (36.0-47.0); HEMOGLOBIN 13.6 g/dL (12.0-16.0); LYMPHOCYTES # (AUTO) 2.9 X10^3/uL (1.3-2.9); LYMPHOCYTES % (AUTO) 24.9 % (21.0-51.0); MEAN CORPUSCULAR HEMOGLOBIN 28.1 pg (27.0-34.0); MEAN CORPUSCULAR HGB CONC 33.1 g/dL (33.0-35.0); MEAN PLATELET VOLUME 6.7 fL (7.4-11.0); MONOCYTES % (AUTO) 8.5 % (0.0-13.0); NEUTROPHILS # (AUTO) 7.7 x10^3/uL (2.2-4.8); NEUTROPHILS % (AUTO) 66.2 % (42.0-75.0); PLATELET COUNT 416 X10^3/uL (150.0-450.0); RED BLOOD COUNT 4.85 X10^6/uL (3.5-5.4); RED CELL DISTRIBUTION WIDTH 15.4 % (11.6-16.5); WHITE BLOOD COUNT 11.6 X10^3/uL (3.6-10.0)
[2019-06-15 17:53] LABS: ALANINE AMINOTRANSFERASE 26 Units/L (12-78); ALBUMIN 2.9 g/dL (3.4-5.0); ALKALINE PHOSPHATASE 97 Units/L (46-116); AMYLASE 34 Units/L (25-115); ASPARTATE AMINO TRANSFERASE 18 Units/L (15-37); BLOOD UREA NITROGEN 10 mg/dL (7-18); CARBON DIOXIDE 28.5 mmol/L (21-32); CHLORIDE 103 mmol/L (98-107); COR CA(FOR HYPOALB) 9.9 mg/dL (8.5-10.1); CREATININE 0.87 mg/dL (0.55-1.02); LIPASE 84 Units/L (73-393); SODIUM 140 mmol/L (136-145); TOTAL PROTEIN 7.2 g/dL (6.4-8.2); eGFR NON BLACK RACES > 60 (>60)
[2019-06-15] MEDS ORDERED: NS 100 ML IV 100 ML IV ONE (20:10)
--- NOTE | 2019-06-15 21:26 | CT ---
STUDY: CT ABDOMEN AND PELVIS WITH IV CONTRASTCOMPARISON: NoneTECHNIQUE: Axial images were acquired of the abdomen and pelvis with IV contrast. Sagittal and coronal reformatted images were provided. All images were reviewed in a variety of windows and levels.RADIATION REDUCTION TECHNIQUE: Automated exposure control, adjustment of the mA and/or kV according to patient size, or iterative reconstruction techniques were used.HISTORY: ABDOMINAL PAIN WITH N/V, CROHNSFINDINGS:LOWER THORAX: The visualized lower lung zones are clear. The heart size is within normal limits. There is no evidence of a pericardial effusion.LIVER: No intrahepatic focal lesions are seen. No evidence of intrahepatic or extrahepatic duct dilation.GALLBLADDER: The gallbladder has been surgically removed.SPLEEN: The spleen enhances homogenously and is unremarkable.PANCREAS: The pancreas enhances homogenously and is unremarkable.AGRENAL GLANDS: The adrenal glands enhance homogenously and are unremarkable.: The kidneys enhance homogenously. Their collecting system is of normal caliber.The uterus is grossly unremarkable. There are multiple connecting rim enhancing fluid collection seen in the posterior cul-de-sac and around the uterus extending to the right side that could represent abscesses or possible infected fallopian tube. This is difficult to delineate on this exam.URINARY BLADDER: The urinary bladder is unremarkable. There are no soft tissue masses seen in the urinary bladder.VESSELS: The abdominal aorta is normal in size without evidence of aneurysm or dissection. The celiac artery, superior mesenteric artery, [place] renal arteries, and inferior mesenteric artery are patent.GI: The stomach is filled with enteric contrast and is unremarkable. There are dilated fluid-filled loops of small bowel located in the mid abdomen and lower pelvic region. Scattered portions of the small bowel shows hyperenhancement of the wall that suggest active inflammatory bowel disease given the patient's history of Crohn's disease. There is a moderate amount of surrounding free fluid near the small bowel. This could represent a moderate grade partial small bowel obstruction as there appears to be fecal material in the distal portion of the small bowel referred to as the small bowel feces sign.LYMPHNODES AND MESSENTERY: There is no evidence of retroperitoneal lymphadenopathy.BONES: The visualized bones demonstrate degenerative changes. There are no concerning lytic or blastic lesions identified.IMPRESSION:1. There are multiple connecting rim enhancing fluid collections seen in the posterior cul-de-sac and along the right side of the uterus. This is worrisome for infected fluid collection such as abscess. This may be associated with the fallopian tube. Please note that this is difficult to delineate on this examination.2. Dilated fluid-filled loops of small bowel are noted throughout the mid and lower pelvic region of which scattered areas show hyperenhancement of the small bowel wall. This hyperenhancement suggest active inflammatory bowel disease (patient has history of Crohn's disease).3. There is a moderate amount of free fluid surrounding the loops of small bowel4. Loops of small bowel are dilated and contain fecal material which is worrisome for a moderate grade partial small bowel obstruction (small bowel feces sign). It appears that the transition point is in the region of hyperenhancement within the distal small bowel at the site of active inflammatory bowel disease.Electronically signed by: Sherif Steele (Jun 15, 2019 21:25:02)
[2019-06-15] MEDS ORDERED: DEMEROL INJ IVP ONE (21:44)
[2019-06-15] MEDS ORDERED: ROCEPHIN VIAL 1 GRAM IV ONE (21:47)
[2019-06-15] MEDS ORDERED: FLAGYL IV PREMIX 500 MG BAG 500 MG/100 ML BAG IV ONE ×2 (21:47→22:02)
[2019-06-15] MEDS ORDERED: ROCEPHIN VIAL 1 GRAM ONE (22:03)
[2019-06-15] MEDS ORDERED: DEMEROL INJ ONE (22:03)
[2019-06-15] MEDS ORDERED: NS 100 ML IV + SPIKE MINIBAG* 100 ML IV ONE (22:03)
[2019-06-15] MEDS: NS 1000 ML 1,000 ML IV SCH (22:16)
[2019-06-16] MEDS ORDERED: DEMEROL INJ IVP ONE (03:50)
[2019-06-16] MEDS ORDERED: ZOFRAN INJ 4 MG VIAL ONE (03:52)
[2019-06-16] MEDS ORDERED: DEMEROL INJ ONE (03:53)
[2019-06-16] MEDS: ZOFRAN INJ 4 MG VIAL IVP PRN ×2 (04:14→13:13)
[2019-06-16] MEDS: NS 1000 ML 1,000 ML IV SCH ×4 (06:19→09:49)
[2019-06-16 06:41] LABS: BASOPHILS % (AUTO) 0.2 % (0.2-1.0); EOSINOPHILS % (AUTO) 0.2 % (0.9-2.9); LYMPHOCYTES # (AUTO) 2.2 X10^3/uL (1.3-2.9); LYMPHOCYTES % (AUTO) 19.9 % (21.0-51.0); MEAN CORPUSCULAR HEMOGLOBIN 28.7 pg (27.0-34.0); MEAN CORPUSCULAR HGB CONC 33.4 g/dL (33.0-35.0); MEAN CORPUSCULAR VOLUME 85.8 fL (80.0-100.0); MEAN PLATELET VOLUME 6.9 fL (7.4-11.0); MONOCYTES % (AUTO) 9.1 % (0.0-13.0); NEUTROPHILS # (AUTO) 7.8 x10^3/uL (2.2-4.8); NEUTROPHILS % (AUTO) 70.6 % (42.0-75.0); PLATELET COUNT 417 X10^3/uL (150.0-450.0); RED BLOOD COUNT 4.55 X10^6/uL (3.5-5.4); RED CELL DISTRIBUTION WIDTH 15.7 % (11.6-16.5); WHITE BLOOD COUNT 11.1 X10^3/uL (3.6-10.0)
[2019-06-16 06:58] LABS: ALANINE AMINOTRANSFERASE 21 Units/L (12-78); ALBUMIN 2.5 g/dL (3.4-5.0); ALKALINE PHOSPHATASE 86 Units/L (46-116); AMYLASE 29 Units/L (25-115); ASPARTATE AMINO TRANSFERASE 15 Units/L (15-37); BLOOD UREA NITROGEN 8 mg/dL (7-18); CALCIUM 8.2 mg/dL (8.5-10.1); CARBON DIOXIDE 25.6 mmol/L (21-32); CHLORIDE 106 mmol/L (98-107); COR CA(FOR HYPOALB) 9.4 mg/dL (8.5-10.1); COR NA(FOR HYPERGLY) 140 mmol/L (136-145); LIPASE 95 Units/L (73-393); SODIUM 140 mmol/L (136-145); TOTAL PROTEIN 6.5 g/dL (6.4-8.2); eGFR NON BLACK RACES > 60 (>60)
[2019-06-16] MEDS ORDERED: PATIENT'S HOME MEDICATION (Iron-Folic Acid-Mv, Min Cmb#15 [Hemocyte-Plus] 1 CAP) PO SCH (09:00)
[2019-06-16] MEDS ORDERED: DILAUDID INJ IVP PRN (09:15)
[2019-06-16] MEDS: HEMOCYTE-PLUS PO SCH (09:47)
[2019-06-16] MEDS: PHENERGAN INJ 25 MG IM PRN ×2 (09:48→20:54)
[2019-06-16] MEDS: FLAGYL IV PREMIX 500 MG BAG 500 MG/100 ML BAG IV SCH ×3 (09:48→21:01)
[2019-06-16 09:52] LABS: BILIRUBIN,URINE NEGATIVE (NEGATIVE); BLOOD/HEMOGLOBIN,URINE 2+ (NEGATIVE); GLUCOSE, URINE NEGATIVE (NEGATIVE); KETONES,URINE 3+ (NEGATIVE); LEUKOCYTE ESTERASE ,URINE 1+ (NEGATIVE); NITRITES,URINE NEGATIVE (NEGATIVE); PH,URINE 6.5 (5.0 - 8.0); PROTEIN,URINE 2+ (NEGATIVE); UROBILINOGEN,URINE 2+ (NORMAL)
[2019-06-16] MEDS ORDERED: PROCALAMINE 3 % 1,000 ML IV SCH (10:00)
[2019-06-16 10:04] LABS: APPEARANCE,URINE SLIGHTLY HAZY (CLEAR); COLOR,URINE DARK YELLOW (YELLOW)
[2019-06-16 10:12] LABS: BACTERIA,URINE TRACE /HPF (NEGATIVE); SQUAMOUS EPITHELIAL CELL,UR NUMEROUS /HPF (NEGATIVE)
--- NOTE | 2019-06-16 11:00 | DR.H&P ---
H&P - History & Physical for Day of: H&P Date: 06/15/19 - Chief Complaint Chief Complaint: ABDOMINAL PAIN, NAUSEA, VOMITING - History of Present Illness History of Present Illness: IS A 38 YEAR OLD PATIENT OF OURS WHO PRESENTED TO THE ER WITH COMPLAINTS OF INTERMITTENT ABDOMINAL PAIN THAT STARTED EARLIER IN THE DAY. SHE DESCRIBES PAIN DIFFUSE AND CRAMPING AND IS ASSOCIATED WITH NAUSEA AND VOMITING. SHE REPORTS A HISTORY OF CROHNS DISEASE AND DENIES A REGULAR BOWEL MOVEMENT IN THE PAST FIVE DAYS. SHE HAS HAD A COLOSTOMY WITH REVERSAL IN THE PAST. SHE IS CURRENTLY ON HUMIRA 40MG SC WEEKLY. ON ARRIVAL TO THE ER, VITALS WERE 98.0-118-22-94%-112/88. LABS WERE OBTAINED. ABNORMAL LAB VALUES INCLUDE THE FOLLOWING: WBC 11.6, GLUCOSE 104, ALBUMIN 2.9. A URINALYSIS WAS OBTAINED AND REVEALED: WBC 5-10, RBC 5-10, BACTERIA TRACE, LEUKOCYTES 1+. AN ABDOMEN/PELVIS CT WITH CONTRAST WAS OBTAINED AND REVEALED: 1. There are multiple connecting rim enhancing fluid collections seen in the posterior cul-de-sac and along the right side of the uterus. This is worrisome for infected fluid collection such as abscess. This may be associated with the fallopian tube. Please note that this is difficult to delineate on this examination. 2. Dilated fluid-filled loops of small bowel are noted throughout the mid and lower pelvic region of which scattered areas show hyperenhancement of the small bowel wall. This hyperenhancement suggest active inflammatory bowel disease (patient has history of Crohn's disease). 3. There is a moderate amount of free fluid surrounding the loops of small bowel 4. Loops of small bowel are dilated and contain fecal material which is worrisome for a moderate grade partial small bowel obstruction (small bowel feces sign). It appears that the transition point is in the region of hyperenhancement within the distal small bowel at the site of active inflammatory bowel disease. SHE WAS GIVEN ZOFRAN 4MG IV X 1, ROCEPHIN 1G IV X 1, FLAGYL 500MG IV X 1, DEMEROL 25MG IV X 1, AND A NORMAL SALINE BOLUS. SHE ONLY REPORTED SLIGHT IMPROVEMENT IN SYMPTOMS. SHE WAS ADMITTED FOR FURTHER EVALUATION AND TREATMENT OF SMALL BOWEL OBSTRUCTION, PID, AND RLQ ABSCESS. SHE WAS STARTED ON CIPRO 500MG IV Q12H, FLAGYL 500MG IV Q6H, PHENERGAN 25MG IM Q6H PRN, DILAUDID 1MG IV Q4H PRN, PROCALAMINE AT 40ML/HR, AND NS AT 60 ML/HR. WE WILL CONSULT WITH , GENERAL SURGEON. OTHERWISE, WE WILL FOLLOW UP WITH AM LABS AND CONTINUE TO MONITOR. - Past Medical History Past Medical History: Kidney Stones Additional Medical History: Crohn's Disease, Abdominal Hernia 2011, Urinary Tract Infections, Ovarian Cysts, Previous Blood Transfusion - Past Surgical History Surgical History: Cholecystectomy, Ortho Surgery Additional Surgical History: Bilateral Hip Core Decompression; intestinal tears and had colostomy w reversal 1 year later (2010, 2011); abdominal hernia w mesh placement in 2011 - Family History Family Medical History: PR, Coronary Artery Disease, Hypertension - Social History Does patient currently use any type of tobacco product: No Have you used tobacco products in the last 12 months: No Type of Tobacco Use: None Does any household member use tobacco: No Alcohol Use: None Drug Use: None - Medications Home Medications: No Known Drug Allergies Allergy (Verified 03/25/19 14:57) - Review of Systems Constitutional: See HPI Eyes: No Symptoms Reported ENT: No Symptoms Reported Respiratory: No Symptoms Reported Cardiovascular: No Symptoms Reported Gastrointestinal: See HPI, Nausea, Vomiting, Abdominal Pain Genitourinary: No Symptoms Reported Musculoskeletal: No Symptoms Reported Skin: No Symptoms Reported Neurological: No Symptoms Reported - Physical Exam Vital Signs: Temperature 98.1 F Pulse Rate [Radial] 100 Pulse Rate 118 Respiratory Rate 18 Blood Pressure [Right Arm] 124/74 Blood Pressure [Left Arm] 131/78 Blood Pressure 112/88 O2 Sat by Pulse Oximetry 98 Oriented: Normal Eyes: Normal Ear: Normal Nose: Normal Throat: Normal Respiratory: Diminished Throughout Cardiovascular: Tachycardia. negative: S3, S4, Murmur : Normal Auscultation: Bowel Sounds: Decreased Palpation: Normal Tenderness: Diffuse, Moderate. negative: Rebound, Guarding, Rigidity Skin: Normal Musculoskeletal: Normal Psychiatric: Normal Mood Description: Calm Affect: Normal Speech Pattern: Clear - Assessment/Plan (1) Small bowel obstruction Status: Acute Plan: ADMIT, NPO, SURGICAL CONSULT, CIPRO 500MG IV Q12H, FLAGYL 500MG IV Q6H, PHENERGAN 25MG IM Q6H PRN, DILAUDID 1MG IV Q4H PRN, PROCALAMINE AT 40ML/HR, AND NS AT 60 ML/HR (2) Right lower quadrant abdominal abscess Status: Acute (3) PID (pelvic inflammatory disease) Status: Acute (4) Inflammatory bowel disease (Crohn's disease) Qualifiers: Gastrointestinal tract location: unspecified location Digestive disease complication type: with intestinal obstruction Qualified Code(s): K50.912 - Crohn's disease, unspecified, with intestinal obstruction Status: Chronic - Allergies Allergies/Adverse Reactions: Allergies Allergy/AdvReac Type Severity Reaction Status Date / Time No Known Drug Allergies Allergy Verified 03/25/19 14:57
[2019-06-16] MEDS: CIPRO IV 400 MG PREMIX* 400 MG/200 ML IV.SOLN. IV SCH ×2 (11:01→22:04)
[2019-06-16] MEDS: ELAVIL PO SCH (20:51)
[2019-06-16] MEDS ORDERED: CIPRO TAB 500 MG PO SCH (21:00)
[2019-06-17] MEDS: NS 1000 ML 1,000 ML IV SCH ×2 (02:32→05:55)
[2019-06-17] MEDS: FLAGYL IV PREMIX 500 MG BAG 500 MG/100 ML BAG IV SCH ×4 (02:33→21:53)
[2019-06-17 05:36] LABS: BASOPHILS % (AUTO) 0.3 % (0.2-1.0); EOSINOPHILS % (AUTO) 0.6 % (0.9-2.9); HEMATOCRIT 34.5 % (36.0-47.0); HEMOGLOBIN 11.6 g/dL (12.0-16.0); LYMPHOCYTES # (AUTO) 2.3 X10^3/uL (1.3-2.9); LYMPHOCYTES % (AUTO) 31.6 % (21.0-51.0); MEAN CORPUSCULAR HEMOGLOBIN 28.8 pg (27.0-34.0); MEAN CORPUSCULAR HGB CONC 33.6 g/dL (33.0-35.0); MEAN CORPUSCULAR VOLUME 85.7 fL (80.0-100.0); MEAN PLATELET VOLUME 7.4 fL (7.4-11.0); MONOCYTES # (AUTO) 0.7 x10^3/uL (0.3-0.8); MONOCYTES % (AUTO) 9.4 % (0.0-13.0); NEUTROPHILS # (AUTO) 4.3 x10^3/uL (2.2-4.8); NEUTROPHILS % (AUTO) 58.1 % (42.0-75.0); PLATELET COUNT 352 X10^3/uL (150.0-450.0); RED BLOOD COUNT 4.02 X10^6/uL (3.5-5.4); RED CELL DISTRIBUTION WIDTH 15.4 % (11.6-16.5); WHITE BLOOD COUNT 7.4 X10^3/uL (3.6-10.0)
[2019-06-17 05:39] LABS: ALANINE AMINOTRANSFERASE 20 Units/L (12-78); ALBUMIN 2.3 g/dL (3.4-5.0); ALKALINE PHOSPHATASE 72 Units/L (46-116); ASPARTATE AMINO TRANSFERASE 14 Units/L (15-37); BLOOD UREA NITROGEN 6 mg/dL (7-18); CARBON DIOXIDE 24.7 mmol/L (21-32); CHLORIDE 104 mmol/L (98-107); COR CA(FOR HYPOALB) 9.4 mg/dL (8.5-10.1); CREATININE 0.85 mg/dL (0.55-1.02); SODIUM 139 mmol/L (136-145); TOTAL PROTEIN 5.8 g/dL (6.4-8.2); eGFR NON BLACK RACES > 60 (>60)
--- NOTE | 2019-06-17 05:48 | RAD ---
STUDY: ACUTE ABDOMEN SERIESCOMPARISON: NoneHISTORY: SBOFINDINGS:CHEST:Elevation the right hemidiaphragm is noted.There is no focal consolidation seen.The heart size is normal.The mediastinum is unremarkable.There is no evidence of pleural effusion or gross pneumothorax.ABDOMEN:The bowel gas pattern is nonobstructive.There is no gross evidence of free air.There are no abnormal masses or calcification seen.The visualized bones are unremarkable.Surgical clips in the right upper quadrant most likely from prior cholecystectomy. Scattered clips are also seen in the right mid abdomen the left lower pelvic region.IMPRESSION:1. THE LUNGS ARE CLEAR AND THE HEART SIZE IS NORMAL.2. THE BOWEL GAS PATTERN IS NONOBSTRUCTIVE.Electronically signed by: Sherif Steele (Jun 17, 2019 05:47:22)
[2019-06-17] MEDS ORDERED: POTASSIUM CHLORIDE LIQ 20 MEQ UDC PO PRN (06:34)
[2019-06-17] MEDS ORDERED: K-DUR TAB 20 MEQ PO PRN (06:34)
[2019-06-17] MEDS ORDERED: KLOR-CON PO PRN (06:34)
[2019-06-17] MEDS ORDERED: K-RIDER 10 MEQ/NS 100 ML 10 MEQ/100 ML BAG IV PRN (06:34)
[2019-06-17] MEDS ORDERED: POTASSIUM CHL 60 MEQ/NS 0.45% 500 ML IV PRN (06:34)
[2019-06-17] MEDS ORDERED: POTASSIUM CHL 40 MEQ/NS 0.45% 500 ML IV PRN (06:34)
[2019-06-17] MEDS: HEMOCYTE-PLUS PO SCH (08:47)
[2019-06-17] MEDS: MAGNESIUM SULFATE 1 GRAM/100 mL PREMIX 1 GM/100 ML BAG IV PRN ×2 (08:47→10:05)
[2019-06-17] MEDS: CIPRO IV 400 MG PREMIX* 400 MG/200 ML IV.SOLN. IV SCH ×2 (08:48→20:25)
[2019-06-17] MEDS: MICRO K EXTEN CAP 10 MEQ PO PRN ×2 (09:09→14:27)
[2019-06-17] MEDS ORDERED: REGLAN INJ 10 MG VIAL IVP PRN (09:10)
[2019-06-17] MEDS: PHENERGAN INJ 25 MG IM PRN ×2 (09:30→20:37)
--- NOTE | 2019-06-17 09:47 | DR.PROGNOT ---
Hospital Progress Notes - Progress Note for Day of: Progress Note Date: 06/17/19 - Chief Complaint Chief Complaint: c/o nausea , no vomiting ..had normal bowel movement , no bleeding . repreated xray showed no bowel obstruction . CBC and CMP were normal . afebrile today . - Past Medical Family Social History Past Med/Fam/Surg Hx: No changes since H&P Allergies: Allergies No Known Drug Allergies Allergy (Verified 03/25/19 14:57) - Review Of Systems ROS: No change since H&P - Vital Signs Vital Signs: Temperature 98.9 F Pulse Rate [Radial] 87 Pulse Rate 118 Respiratory Rate 18 Blood Pressure [Right Arm] 134/78 Blood Pressure [Left Arm] 116/75 Blood Pressure 112/88 O2 Sat by Pulse Oximetry 98 - Physical Exam Oriented: Normal Eyes: Normal Ear: Normal Nose: Normal Throat: Normal Cardiovascular: Tachycardia. negative: S3, S4, Murmur : Normal GI:Auscultation: Decreased GI:Palpation: Normal GI: Tenderness: Diffuse, Moderate. negative: Rebound, Guarding, Rigidity Skin: Normal Musculoskeletal: Normal Psychiatric: Normal Mood Description: Calm Affect: Normal Speech Pattern: Clear, Appropriate - Laboratory and Diagnostics Result Diagrams: 06/17/19 04:46 06/17/19 04:46 Labs: Laboratory WBC 7.4 X10^3/uL (3.6-10.0) 06/17/19 04:46 RBC 4.02 X10^6/uL (3.5-5.4) 06/17/19 04:46 Hgb 11.6 g/dL (12.0-16.0) L 06/17/19 04:46 Hct 34.5 % (36.0-47.0) L 06/17/19 04:46 MCV 85.7 fL (80.0-100.0) 06/17/19 04:46 MCH 28.8 pg (27.0-34.0) 06/17/19 04:46 MCHC 33.6 g/dL (33.0-35.0) 06/17/19 04:46 RDW 15.4 % (11.6-16.5) 06/17/19 04:46 Plt Count 352 X10^3/uL (150.0-450.0) 06/17/19 04:46 MPV 7.4 fL (7.4-11.0) 06/17/19 04:46 Neut % (Auto) 58.1 % (42.0-75.0) 06/17/19 04:46 Lymph % (Auto) 31.6 % (21.0-51.0) 06/17/19 04:46 [place] % (Auto) 9.4 % (0.0-13.0) 06/17/19 04:46 Eos % (Auto) 0.6 % (0.9-2.9) L 06/17/19 04:46 Baso % (Auto) 0.3 % (0.2-1.0) 06/17/19 04:46 Neut # (Auto) 4.3 x10^3/uL (2.2-4.8) 06/17/19 04:46 Lymph # (Auto) 2.3 X10^3/uL (1.3-2.9) 06/17/19 04:46 [place] # (Auto) 0.7 x10^3/uL (0.3-0.8) 06/17/19 04:46 Eos # (Auto) 0.0 x10^3/uL (0.0-0.2) 06/17/19 04:46 Baso # (Auto) 0.0 X10^3/uL (0.0-0.1) 06/17/19 04:46 Absolute Nucleated RBC 0.0 /100WBC 06/17/19 04:46 Sodium 139 mmol/L (136-145) 06/17/19 04:46 Corrected Sodium TNP 06/17/19 04:46 Potassium 3.3 mmol/L (3.5-5.1) L 06/17/19 04:46 Chloride 104 mmol/L (98-107) 06/17/19 04:46 Carbon Dioxide 24.7 mmol/L (21-32) 06/17/19 04:46 BUN 6 mg/dL (7-18) L 06/17/19 04:46 Creatinine 0.85 mg/dL (0.55-1.02) 06/17/19 04:46 Est GFR (MDRD) Af Amer > 60 (>60) 06/17/19 04:46 Est GFR (MDRD) Non-Af > 60 (>60) 06/17/19 04:46 Glucose 92 mg/dL (65-99) 06/17/19 04:46 Calcium 8.0 mg/dL (8.5-10.1) L 06/17/19 04:46 Corrected Calcium 9.4 mg/dL (8.5-10.1) 06/17/19 04:46 Magnesium 1.5 mg/dL (1.7-2.9) L 06/17/19 04:46 Total Bilirubin 0.40 mg/dL (0.2-1.0) 06/17/19 04:46 AST 14 Units/L (15-37) L 06/17/19 04:46 ALT 20 Units/L (12-78) 06/17/19 04:46 Alkaline Phosphatase 72 Units/L (46-116) 06/17/19 04:46 Total Protein 5.8 g/dL (6.4-8.2) L 06/17/19 04:46 Albumin 2.3 g/dL (3.4-5.0) L 06/17/19 04:46 Globulin 3.5 g/dL (2.5-4.5) 06/17/19 04:46 Albumin/Globulin Ratio 0.7 Ratio (1.1-2.1) L 06/17/19 04:46 Amylase 29 Units/L (25-115) 06/16/19 06:23 Lipase 95 Units/L (73-393) 06/16/19 06:23 Specimen Type Clean catch urine 06/16/19 09:28 Urine Color Dark yellow (YELLOW) 06/16/19 09:28 Urine Appearance Slightly hazy (CLEAR) 06/16/19 09:28 Urine pH 6.5 (5.0 - 8.0) 06/16/19 09:28 Ur Specific [place] 1.015 (1.000-1.030) 06/16/19 09:28 Urine Protein 2+ (NEGATIVE) 06/16/19 09:28 Urine Glucose (UA) Negative (NEGATIVE) 06/16/19 09:28 Urine Ketones 3+ (NEGATIVE) 06/16/19 09:28 Urine Occult Blood 2+ (NEGATIVE) 06/16/19 09:28 Urine Nitrite Negative (NEGATIVE) 06/16/19 09: Urine Bilirubin Negative (NEGATIVE) 04/27/20 09:28 Urine Urobilinogen 2+ (NORMAL) 06/16/19 09:28 Ur Leukocyte Esterase 1+ (NEGATIVE) 06/16/19 09:28 Urine RBC 5-10 /HPF (0-3) A 06/16/19 09:28 Urine WBC 5-10 /HPF (0-5) A 06/16/19 09:28 Ur Squamous Epith Cells Numerous /HPF (NEGATIVE) 06/16/19 09:28 Urine Bacteria Trace /HPF (NEGATIVE) 06/16/19 09:28 Ur Culture Indicated? No/not indicated 06/16/19 09:28 - Assessment and Plan 1: improving enteritis and Crohn's disease . no obstruction now . will advance diet and arrange for GI endoscopy as Out Pt . will follow in the office in one week .. - Problem Patient Problems: Patient Problems Small bowel obstruction (Acute) K56.609 PID (pelvic inflammatory disease) (Acute) N73.9 Right lower quadrant abdominal abscess (Acute) K65.1 Abdominal pain (Acute) R10.9 Crohn's disease (Acute) K50.90 Hypokalemia (Acute) E87.6 PID (acute pelvic inflammatory disease) (Acute) N73.0
[2019-06-17] MEDS: ELAVIL PO SCH (20:25)
[2019-06-18] MEDS: NS 1000 ML 1,000 ML IV SCH ×2 (03:44→09:24)
[2019-06-18] MEDS: FLAGYL IV PREMIX 500 MG BAG 500 MG/100 ML BAG IV SCH ×2 (03:44→08:19)
[2019-06-18] MEDS: PHENERGAN INJ 25 MG IM PRN (04:17)
[2019-06-18 05:48] LABS: BASOPHILS % (AUTO) 0.3 % (0.2-1.0); EOSINOPHILS % (AUTO) 0.6 % (0.9-2.9); HEMATOCRIT 34.5 % (36.0-47.0); HEMOGLOBIN 11.7 g/dL (12.0-16.0); LYMPHOCYTES # (AUTO) 1.7 X10^3/uL (1.3-2.9); LYMPHOCYTES % (AUTO) 29.4 % (21.0-51.0); MEAN CORPUSCULAR HEMOGLOBIN 29.1 pg (27.0-34.0); MEAN CORPUSCULAR HGB CONC 33.8 g/dL (33.0-35.0); MEAN CORPUSCULAR VOLUME 86.2 fL (80.0-100.0); MEAN PLATELET VOLUME 7.1 fL (7.4-11.0); MONOCYTES # (AUTO) 0.6 x10^3/uL (0.3-0.8); MONOCYTES % (AUTO) 10.2 % (0.0-13.0); NEUTROPHILS # (AUTO) 3.4 x10^3/uL (2.2-4.8); NEUTROPHILS % (AUTO) 59.5 % (42.0-75.0); PLATELET COUNT 356 X10^3/uL (150.0-450.0); RED BLOOD COUNT 4.01 X10^6/uL (3.5-5.4); RED CELL DISTRIBUTION WIDTH 15.2 % (11.6-16.5); WHITE BLOOD COUNT 5.7 X10^3/uL (3.6-10.0)
--- NOTE | 2019-06-18 05:57 | RAD ---
STUDY: ACUTE ABDOMEN SERIESCOMPARISON: Chest x-ray dated June 17, 2019HISTORY: SBOFINDINGS:CHEST:There is elevation of the right hemidiaphragm. This is stable when compared to the prior chest x-ray dated June 17, 2019There is no focal consolidation seen.The heart size is normal.The mediastinum is unremarkable.There is no evidence of pleural effusion or gross pneumothorax.ABDOMEN:The bowel gas pattern is nonobstructive.There is no gross evidence of free air.There are no abnormal masses or calcification seen.The visualized bones are unremarkable.Surgical clips are seen in the abdomen and pelvis.IMPRESSION:1. THE LUNGS ARE CLEAR AND THE HEART SIZE IS NORMAL.2. THE BOWEL GAS PATTERN IS NONOBSTRUCTIVE.Electronically signed by: Sherif Steele (Jun 18, 2019 05:56:09)
[2019-06-18 06:00] LABS: ALANINE AMINOTRANSFERASE 18 Units/L (12-78); ALBUMIN 2.4 g/dL (3.4-5.0); ALKALINE PHOSPHATASE 67 Units/L (46-116); ASPARTATE AMINO TRANSFERASE 17 Units/L (15-37); BLOOD UREA NITROGEN 5 mg/dL (7-18); CALCIUM 7.8 mg/dL (8.5-10.1); CARBON DIOXIDE 22.9 mmol/L (21-32); CHLORIDE 104 mmol/L (98-107); COR CA(FOR HYPOALB) 9.1 mg/dL (8.5-10.1); CREATININE 0.79 mg/dL (0.55-1.02); SODIUM 138 mmol/L (136-145); TOTAL PROTEIN 6.1 g/dL (6.4-8.2); eGFR NON BLACK RACES > 60 (>60)
[2019-06-18] MEDS: MAGNESIUM SULFATE 1 GRAM/100 mL PREMIX 1 GM/100 ML BAG IV PRN (06:28)
[2019-06-18] MEDS: MICRO K EXTEN CAP 10 MEQ PO PRN (06:40)
[2019-06-18 06:49] LABS: ERYTHROCYTE SEDIMENTATION RATE 31 MM/HOUR (0-20)
[2019-06-18 07:55] VITALS: BP 112/68
[2019-06-18] MEDS: HEMOCYTE-PLUS PO SCH (08:19)
[2019-06-18] MEDS: CIPRO IV 400 MG PREMIX* 400 MG/200 ML IV.SOLN. IV SCH (08:19)
[2019-06-18] MEDS ORDERED: ADALIMUMAB 40 MG SUBCUT SCH (09:00)
[2019-06-18] MEDS: ZOFRAN INJ 4 MG VIAL IVP PRN (09:04)
--- NOTE | 2019-07-20 23:17 | PCM.PROG ---
Progress Note - Progress Note for Day of Date of Exam: 06/17/19 - Subjective Subjective: IS BEING TREATED FOR A SMALL BOWEL OBSTRUCTION, PID, RLQ ABDOMINAL MASS, AND CROHNS DISEASE. TODAY, SHE IS ALERT AND OREINTED, LYING IN BED ON MORNING ROUNDS. SHE CONTINUES WITH COMPLAINTS OF NAUSEA AND ABDOMINAL PAIN TODAY. ON EXAMINATION, HEART IS REGULAR IN RATE AND RHYTHM. BILATERAL LUNGS ARE NOTED WITH DIMINISHED LUNG SOUNDS THROUGHOUT. ABDOMEN IS FLAT, SOFT, AND NOTED WITH DIFFUSE TENDERNESS. HER VITALS THIS MORNING ARE: 98.2-93-20-98%-113/60. LABS WERE OBTAINED. ABNORMAL LAB VALUES INCLUDE THE FOLLOWING: HGB 11.6, HCT 34.5, POTASSIUM 3.3, BUN 6, CALCIUM 8.0, MAGNESIUM 1.5, AST 14, TOTAL PROTEIN 5.8, ALBUMIN 2.3, CRP 55.70. AN ABDOMEN XRAY WAS OBTAINED AND REVEALED: THE LUNGS ARE CLEAR AND THE HEART SIZE IS NORMAL. 2. THE BOWEL GAS PATTERN IS NONOBSTRUCTIVE. SHE IS CURRENTLY RECEIVING CIPRO 500MG IV Q12H, FLAGYL 500MG IV Q6H, PHENERGAN 25MG IM Q6H PRN, DILAUDID 1MG IV Q4H PRN, PROCALAMINE AT 40ML/HR, AND NS AT 60 ML/HR. WE WILL CONTINUE WITH CURRENT PLAN OF CARE TODAY AND START THE POTASSIUM AND MAGNESIUM PROTOCOLS. OTHERWISE, WE WILL FOLLOW UP WITH AM LABS AND CONTINUE TO MONITOR. - Past Medical Family Social History Past Med/Fam/Surg Hx: No changes since H&P Allergies: Allergies No Known Drug Allergies Allergy (Verified 06/25/19 10:39) - Review of Systems ROS: No change since H&P - Vital Signs and I&O's Vital Signs: Temperature 98.8 F Pulse Rate [Left Brachial] 107 Pulse Rate [Radial] 87 Pulse Rate 118 Respiratory Rate 18 Blood Pressure [Right Arm] 112/68 Blood Pressure [Left Arm] 111/72 Blood Pressure 112/88 O2 Sat by Pulse Oximetry 98 - Physical Exam Oriented: Normal Eyes: Normal Ear: Normal Nose: Normal Throat: Normal Respiratory: Generalized, Diminished Cardiovascular: Normal. negative: S3, S4, Murmur : Normal Auscultation: Bowel Sounds: Decreased Palpation: Normal Tenderness: Diffuse, Moderate. negative: Rebound, Guarding, Rigidity Skin: Normal Musculoskeletal: Normal Psychiatric: Normal Mood Description: Calm Affect: Normal Speech Pattern: Clear, Appropriate - Laboratory and Diagnostics Result Diagrams: 06/18/19 05:15 06/18/19 05:15 Labs: Laboratory WBC 5.7 X10^3/uL (3.6-10.0) 06/18/19 05:15 RBC 4.01 X10^6/uL (3.5-5.4) 06/18/19 05:15 Hgb 11.7 g/dL (12.0-16.0) L 06/18/19 05:15 Hct 34.5 % (36.0-47.0) L 06/18/19 05:15 MCV 86.2 fL (80.0-100.0) 06/18/19 05:15 MCH 29.1 pg (27.0-34.0) 06/18/19 05:15 MCHC 33.8 g/dL (33.0-35.0) 06/18/19 05:15 RDW 15.2 % (11.6-16.5) 06/18/19 05:15 Plt Count 356 X10^3/uL (150.0-450.0) 06/18/19 05:15 MPV 7.1 fL (7.4-11.0) L 06/18/19 05:15 Neut % (Auto) 59.5 % (42.0-75.0) 06/18/19 05:15 Lymph % (Auto) 29.4 % (21.0-51.0) 06/18/19 05:15 [place] % (Auto) 10.2 % (0.0-13.0) 06/18/19 05:15 Eos % (Auto) 0.6 % (0.9-2.9) L 06/18/19 05:15 Baso % (Auto) 0.3 % (0.2-1.0) 06/18/19 05:15 Neut # (Auto) 3.4 x10^3/uL (2.2-4.8) 06/18/19 05:15 Lymph # (Auto) 1.7 X10^3/uL (1.3-2.9) 06/18/19 05:15 [place] # (Auto) 0.6 x10^3/uL (0.3-0.8) 06/18/19 05:15 Eos # (Auto) 0.0 x10^3/uL (0.0-0.2) 06/18/19 05:15 Baso # (Auto) 0.0 X10^3/uL (0.0-0.1) 06/18/19 05:15 Absolute Nucleated RBC 0.0 /100WBC 06/18/19 05:15 ESR 31 MM/HOUR (0-20) H 06/18/19 05:15 Sodium 138 mmol/L (136-145) 06/18/19 05:15 Corrected Sodium TNP 06/18/19 05:15 Potassium 3.4 mmol/L (3.5-5.1) L 06/18/19 05:15 Chloride 104 mmol/L (98-107) 06/18/19 05:15 Carbon Dioxide 22.9 mmol/L (21-32) 06/18/19 05:15 BUN 5 mg/dL (7-18) L 06/18/19 05:15 Creatinine 0.79 mg/dL (0.55-1.02) 06/18/19 05:15 Est GFR (MDRD) Af Amer > 60 (>60) 06/18/19 05:15 Est GFR (MDRD) Non-Af > 60 (>60) 06/18/19 05:15 Glucose 94 mg/dL (65-99) 06/18/19 05:15 Calcium 7.8 mg/dL (8.5-10.1) L 06/18/19 05:15 Corrected Calcium 9.1 mg/dL (8.5-10.1) 06/18/19 05:15 Magnesium 1.7 mg/dL (1.7-2.9) 06/18/19 05:15 Total Bilirubin 0.20 mg/dL (0.2-1.0) 06/18/19 05:15 AST 17 Units/L (15-37) 06/18/19 05:15 ALT 18 Units/L (12-78) 06/18/19 05:15 Alkaline Phosphatase 67 Units/L (46-116) 06/18/19 05:15 C-Reactive Protein 33.10 mg/L (0-3.0) H 06/18/19 05:15 Total Protein 6.1 g/dL (6.4-8.2) L 06/18/19 05:15 Albumin 2.4 g/dL (3.4-5.0) L 06/18/19 05:15 Globulin 3.7 g/dL (2.5-4.5) 06/18/19 05:15 Albumin/Globulin Ratio 0.6 Ratio (1.1-2.1) L 06/18/19 05:15 Amylase 29 Units/L (25-115) 06/16/19 06:23 Lipase 95 Units/L (73-393) 06/16/19 06:23 Specimen Type Clean catch urine 06/16/19 09:28 Urine Color Dark yellow (YELLOW) 06/16/19 09:28 Urine Appearance Slightly hazy (CLEAR) 06/16/19 09:28 Urine pH 6.5 (5.0 - 8.0) 06/16/19 09:28 Ur Specific [place] 1.015 (1.000-1.030) 06/16/19 09:28 Urine Protein 2+ (NEGATIVE) 06/16/19 09:28 Urine Glucose (UA) Negative (NEGATIVE) 06/16/19 09:28 Urine Ketones 3+ (NEGATIVE) 06/16/19 09:28 Urine Occult Blood 2+ (NEGATIVE) 06/16/19 09:28 Urine Nitrite Negative (NEGATIVE) 06/16/19 09:28 Urine Bilirubin Negative (NEGATIVE) 06/16/19 09:28 Urine Urobilinogen 2+ (NORMAL) 06/16/19 09:28 Ur Leukocyte Esterase 1+ (NEGATIVE) 06/16/19 09:28 Urine RBC 5-10 /HPF (0-3) A 06/16/19 09:28 Urine WBC 5-10 /HPF (0-5) A 06/16/19 09:28 Ur Squamous Epith Cells Numerous /HPF (NEGATIVE) 06/16/19 09:28 Urine Bacteria Trace /HPF (NEGATIVE) 06/16/19 09:28 Ur Culture Indicated? No/not indicated 06/16/19 09:28 - Plan (1) Small bowel obstruction Status: Inactive Plan: NPO, SURGICAL CONSULT, CIPRO 500MG IV Q12H, FLAGYL 500MG IV Q6H, PHENERGAN 25MG IM Q6H PRN, DILAUDID 1MG IV Q4H PRN, PROCALAMINE AT 40ML/HR, AND NS AT 60 ML/HR (2) Right lower quadrant abdominal abscess Status: Inactive (3) PID (pelvic inflammatory disease) Status: Inactive (4) Inflammatory bowel disease (Crohn's disease) Status: Inactive Qualifiers: Gastrointestinal tract location: unspecified location Digestive disease complication type: with intestinal obstruction Qualified Code(s): K50.912 - Cr ohn's disease, unspecified, with intestinal obstruction (5) Hypokalemia Status: Acute Plan: POTASSIUM AND MAGNESIUM PROTOCOL
== END 2019-06-18 10:30 | disposition home or self-care (01) | DRG 388 ==
LOC: ER 16:20 → OBS 22:39 → MED/SURG 06-16 15:43
PROVIDERS: ADMIT Family Medicine; ATTEND Internal Medicine
DX: K65.1 Peritoneal abscess; K50.90 Crohn's disease, unspecified, without complications; E87.6 Hypokalemia; R10.31 Right lower quadrant pain; K56.690 Other partial intestinal obstruction

== ENCOUNTER 2019-06-25 10:36 | Observation (INO) ==
[2019-06-25 10:44] VITALS: BMI 19.1
[2019-06-25] MEDS ORDERED: ZOFRAN INJ 4 MG VIAL IVP ONE (11:10)
[2019-06-25] MEDS ORDERED: NS 1000 ML 1,000 ML IV ONE (11:10)
--- NOTE | 2019-06-25 11:13 | ED.ABDFE ---
HPI Time Seen Time Seen by Provider: 06/25/19 11:05 PCP Primary Care Physician: rao Complaint Doctors Chief Complaint Comments: A 39 y/o female presenting with c/o diffuse abdominal pain x 5 days now. The pain is steady, constant and gets worse with meals. She states there is associated nausea and vomiting. She was in the hospital here early last week for similar symptoms and was discharged home on 06/18/2019 with a dx. of Ileus. She has a hx. Crohn's disease with complications that has required multiple surgeries. Chief Complaint:: pt was discharged from the hospital 7 days ago with abd pain. pt stated she was told she had abcess, small blockage and she has a hx of chrons dx. she stated the pain started back [address] yeh called in gi Evri but that has not worked. COVID-19 Coronavirus risk:travel/contact w/high risk person: No Has patient experienced Coronavirus symptoms: No Source History Provided: Patient Mode of arrival Mode of Arrival: Ambulatory Timing Onset of Chief Complaint: 06/18/19 Came on: Suddenly Duration How lon Duration: Days Location Location: Diffuse Severity Severity: Moderate Context History of: Abdominal surgery Modifying factors Worsening Factors: Nothing Improving Factors: Nothing Associated signs and symptoms Associated Signs and Symptoms: Nausea and Vomiting PMH PMH Past Medical History: Yes Past Medical History: Kidney Stones Past Surgical History: Yes Surgical History: Cholecystectomy and Ortho Surgery Family History History of Family Medical Conditions: Yes Family Medical History: [place], Coronary Artery Disease and Hypertension Social History Does patient currently use any type of tobacco product: No Have you used tobacco products in the last 12 months: No Type of Tobacco Use: None Does any household member use tobacco: No Alcohol Use: None Do you use any recreational Drugs:: No Lives With: Alone Lives Where: Home Travel Risk Coronavirus risk:travel/contact w/high risk person: No Has patient experienced Coronavirus symptoms: No Infectious screening In the last 2 months have you had wt loss of >10#?: NO Have you had fever, night sweats or hemotysis?: No Have you traveled outside the country in the last 6 months?: No Isolation: Standard ROS Review of Systems Constitutional: No Symptoms Reported Eyes: No Symptoms Reported ENTM: No Symptoms Reported Respiratoy: No Symptoms Reported Cardiovascular: No Symptoms Reported Gastrointestinal/Abdominal: Abdominal Pain, Nausea and Vomiting Genitourinary: No Symptoms Reported Neurological: No Symptoms Reported Musculoskeletal: No Symptoms Reported Integumentary: No Symptoms Reported Hematologic/Lymphatic: No Symptoms Reported Endocrine: No Symptoms Reported Psychiatric: No Symptoms Reported PE Vital Signs Vitals: Temperature 98.1 F Pulse Rate 106 Respiratory Rate 18 Blood Pressure [Right Arm] 112/68 Blood Pressure 120/85 O2 Sat by Pulse Oximetry 99 General Limitations: No Limitations and Physical Limitation General Appearance: Alert and In No Apparent Distress Head Head Exam: Normal Inspection, Atraumatic and Normocephalic Eyes Eye exam: Normal Appearance and EOMI ENT ENT Exam: Normal Exam, Normal Oropharynx and Mucous Membranes Moist Neck Neck Exam: Normal Inspection, Full ROM and Trachea Midline Chest Chest Inspection: Normal Inspection and Symmetric Chest Wall Rise Respiratory Respiratory Exam: Normal Lung Sounds Bilat Cardiovascular Cardiovascular Exam: Regular Rate, Normal Rhythm, Normal Heart Sounds, +S1 and +S2 Abdominal Exam Abdominal Exam: Normal Bowel Sounds, Soft and Tenderness Abdominal Tenderness: Diffuse (mild) Rectal Rectal Exam: Deferred Back Back Exam: Normal Inspection and Full ROM Extremeties Extremities Exam: Normal Inspection and Full ROM External Exam: Female: Deferred : Bimanual Exam (female): Deferred Neurologic Neurological Exam: Alert and Oriented X3 Psychiatric Psychiatric Exam: Normal Affect and Normal Mood Skin Skin Exam: Dry and Normal Color COURSE Reevaluation 1st: Improved Education/Counseling Education/Counseling: Patient, Education and Counseling Educated On: Treatment, Diagnosis, Prognosis and Needs for Follow Up ROR Labs Reviewed Laboratory Results Reviewed?: Yes Result Diagrams: 06/25/19 11:20 06/25/19 11:20 Laboratory: WBC 7.4 X10^3/uL (3.6-10.0) 06/25/19 11:20 RBC 5.03 X10^6/uL (3.5-5.4) 06/25/19 11:20 Hgb 14.3 g/dL (12.0-16.0) 06/25/19 11:20 Hct 43.0 % (36.0-47.0) 06/25/19 11:20 MCV 85.4 fL (80.0-100.0) 06/25/19 11:20 MCH 28.4 pg (27.0-34.0) 06/25/19 11:20 MCHC 33.3 g/dL (33.0-35.0) 06/25/19 11:20 RDW 14.9 % (11.6-16.5) 06/25/19 11:20 Plt Count 559 X10^3/uL (150.0-450.0) H 06/25/19 11:20 MPV 6.9 fL (7.4-11.0) L 06/25/19 11:20 Neut % (Auto) 46.6 % (42.0-75.0) 06/25/19 11:20 Lymph % (Auto) 43.9 % (21.0-51.0) 06/25/19 11:20 [place] % (Auto) 8.6 % (0.0-13.0) 06/25/19 11:20 Eos % (Auto) 0.5 % (0.9-2.9) L 06/25/19 11:20 Baso % (Auto) 0.4 % (0.2-1.0) 06/25/19 11:20 Neut # (Auto) 3.4 x10^3/uL (2.2-4.8) 06/25/19 11:20 Lymph # (Auto) 3.2 X10^3/uL (1.3-2.9) H 06/25/19 11:20 [place] # (Auto) 0.6 x10^3/uL (0.3-0.8) 06/25/19 11:20 Eos # (Auto) 0.0 x10^3/uL (0.0-0.2) 06/25/19 11:20 Baso # (Auto) 0.0 X10^3/uL (0.0-0.1) 06/25/19 11:20 Absolute Nucleated RBC 0.0 /100WBC 06/25/19 11:20 Sodium 141 mmol/L (136-145) 06/25/19 11:20 Corrected Sodium TNP 06/25/19 11:20 Potassium 3.4 mmol/L (3.5-5.1) L 06/25/19 11:20 Chloride 104 mmol/L (98-107) 06/25/19 11:20 Carbon Dioxide 28.7 mmol/L (21-32) 06/25/19 11:20 BUN 6 mg/dL (7-18) L 06/25/19 11:20 Creatinine 1.11 mg/dL (0.55-1.02) H 06/25/19 11:20 Est GFR (MDRD) Af Amer > 60 (>60) 06/25/19 11:20 Est GFR (MDRD) Non-Af 59 (>60) 06/25/19 11:20 Glucose 103 mg/dL (65-99) H 06/25/19 11:20 Calcium 8.6 mg/dL (8.5-10.1) 06/25/19 11:20 Corrected Calcium 9.6 mg/dL (8.5-10.1) 06/25/19 11:20 Total Bilirubin 0.10 mg/dL (0.2-1.0) L 06/25/19 11:20 AST 17 Units/L (15-37) 06/25/19 11:20 ALT 18 Units/L (12-78) 06/25/19 11:20 Alkaline Phosphatase 74 Units/L (46-116) 06/25/19 11:20 Total Protein 7.0 g/dL (6.4-8.2) 06/25/19 11:20 Albumin 2.8 g/dL (3.4-5.0) L 06/25/19 11:20 Globulin 4.2 g/dL (2.5-4.5) 06/25/19 11:20 Albumin/Globulin Ratio 0.7 Ratio (1.1-2.1) L 06/25/19 11:20 HCG, Qual Negative <10 mIU/mL 06/25/19 11:20 Opioid Opioid Risk Tool Age (Gonzalo box if 16-45): Yes History of Preadolescent Sexual Abuse: No Total: 1 Total Score Risk Category: Low Risk Copyright: [facility] predicting aberrant behaviors Diagnosis Discharge Problem: Partial small bowel obstruction, Hypokalemia Crohn disease Qualifiers: Gastrointestinal tract location: unspecified location Digestive disease complication type: with intestinal obstruction Qualified Code(s): K50.912 - Crohn's disease, unspecified, with intestinal obstruction ADDITIONAL NOTES Additional Notes Additional Notes: Name: HERBER FAN Riya Hughes#: [id number] : 1980 Sex: F Location: ER Order Number(s): [id number] Procedure(s):ABDOMEN/PELVIS WITH CON Ordering Physician: ADAL AGEE Primary Care: Jack Yeh Service Date: 06/25/19 Service Time: 1110 HISTORY:Nausea, vomiting, history of Crohn's disease, colostomy reversal Study: CT abdomen and pelvis with contrast Comparison:06/15/2019 Technique: Multiple axial images of the abdomen and pelvis were obtained with IV contrast. Oral contrast was not administered. Dose reduction techniques including Automated Exposure Control (AEC) and adjustment of mA and kV were utilized. FINDINGS: The lung bases are clear. The liver, spleen, pancreas, and adrenal glands are unremarkable in their CT appearance. Gallbladder is removed.No renal calculi or obstructive uropathy. No free intraperitoneal air. Again noted are multiple dilated small bowel loops measuring up to 4.7 cm with scattered air-fluid levels. There is a transition point at the distal where there is severe luminal narrowing and mucosal enhancement with bowel thickening suggestive of an underlying Crohn's stricture (see axial images 60-64). This is seen proximal to the ileocolic anastomosis. An additional short segment stricture may be present on axial image 66. Colon is mostly decompressed with scattered air-fluid levels present. Anastomosis also seen at the sigmoid colon. There is a small amount of ascites in the pelvis. No abscess. There is chronic rectus diastasis. No bony abnormality identified. The vascular structures are unremarkable . No pathologically enlarged lymph nodes are identified.Again noted are cystic changes of the bilateral ovaries with peripherally enhancing cyst on the left measuring 2.8 cm, possibly a corpus luteum. IMPRESSION ABDOMEN/PELVIS: Findings compatible with partial distal small bowel obstruction with transition point at the distal ileum where there is segmental bowel wall thickening with mucosal enhancement and luminal narrowing suspicious for underlying Crohn's stricture. Active inflammation may also be present in this region. The suspected stricture is seen just proximal to an ileocolic anastomosis. There is an additional focal area of bowel narrowing on axial image 66 that could represent a short-segment stricture. Moderate free fluid in the pelvis that may be reactive. There are cystic changes of the bilateral ovaries again noted, greater on the left measuring up to 2.8 cm. Additional chronic findings as described. Electronically signed by: OSIRIS WESLEY (June 25, 2019 15:49:09)
[2019-06-25] MEDS ORDERED: ZOFRAN INJ 4 MG VIAL ONE ×2 (11:18→17:17)
[2019-06-25] MEDS ORDERED: NS 1000 ML 1,000 ML ONE ×2 (11:18→17:07)
[2019-06-25 11:42] LABS: BASOPHILS % (AUTO) 0.4 % (0.2-1.0); EOSINOPHILS % (AUTO) 0.5 % (0.9-2.9); HEMOGLOBIN 14.3 g/dL (12.0-16.0); LYMPHOCYTES # (AUTO) 3.2 X10^3/uL (1.3-2.9); LYMPHOCYTES % (AUTO) 43.9 % (21.0-51.0); MEAN CORPUSCULAR HEMOGLOBIN 28.4 pg (27.0-34.0); MEAN CORPUSCULAR HGB CONC 33.3 g/dL (33.0-35.0); MEAN CORPUSCULAR VOLUME 85.4 fL (80.0-100.0); MEAN PLATELET VOLUME 6.9 fL (7.4-11.0); MONOCYTES # (AUTO) 0.6 x10^3/uL (0.3-0.8); MONOCYTES % (AUTO) 8.6 % (0.0-13.0); NEUTROPHILS # (AUTO) 3.4 x10^3/uL (2.2-4.8); NEUTROPHILS % (AUTO) 46.6 % (42.0-75.0); PLATELET COUNT 559 X10^3/uL (150.0-450.0); RED BLOOD COUNT 5.03 X10^6/uL (3.5-5.4); RED CELL DISTRIBUTION WIDTH 14.9 % (11.6-16.5); WHITE BLOOD COUNT 7.4 X10^3/uL (3.6-10.0)
[2019-06-25 11:50] LABS: ALANINE AMINOTRANSFERASE 18 Units/L (12-78); ALBUMIN 2.8 g/dL (3.4-5.0); ALKALINE PHOSPHATASE 74 Units/L (46-116); ASPARTATE AMINO TRANSFERASE 17 Units/L (15-37); BLOOD UREA NITROGEN 6 mg/dL (7-18); CALCIUM 8.6 mg/dL (8.5-10.1); CARBON DIOXIDE 28.7 mmol/L (21-32); CHLORIDE 104 mmol/L (98-107); COR CA(FOR HYPOALB) 9.6 mg/dL (8.5-10.1); CREATININE 1.11 mg/dL (0.55-1.02); SODIUM 141 mmol/L (136-145); eGFR NON BLACK RACES 59 (>60)
[2019-06-25 12:05] LABS: SERUM PREGNANCY TEST, QUAL NEGATIVE <10 mIU/mL
[2019-06-25] MEDS ORDERED: PHENERGAN INJ 25 MG IM ONE ×2 (14:01→14:02)
--- NOTE | 2019-06-25 15:50 | CT ---
HISTORY:Nausea, vomiting, history of Crohn's disease, colostomy reversalStudy: CT abdomen and pelvis with contrastComparison:06/15/2019Technique: Multiple axial images of the abdomen and pelvis were obtained with IV contrast. Oral contrast was not administered. Dose reduction techniques including Automated Exposure Control (AEC) and adjustment of mA and kV were utilized.FINDINGS:The lung bases are clear. The liver, spleen, pancreas, and adrenal glands are unremarkable in their CT appearance. Gallbladder is removed.No renal calculi or obstructive uropathy.No free intraperitoneal air. Again noted are multiple dilated small bowel loops measuring up to 4.7 cm with scattered air-fluid levels. There is a transition point at the distal where there is severe luminal narrowing and mucosal enhancement with bowel thickening suggestive of an underlying Crohn's stricture (see axial images 60-64). This is seen proximal to the ileocolic anastomosis. An additional short segment stricture may be present on axial image 66. Colon is mostly decompressed with scattered air-fluid levels present. Anastomosis also seen at the sigmoid colon. There is a small amount of ascites in the pelvis. No abscess.There is chronic rectus diastasis. No bony abnormality identified. The vascular structures are unremarkable . No pathologically enlarged lymph nodes are identified.Again noted are cystic changes of the bilateral ovaries with peripherally enhancing cyst on the left measuring 2.8 cm, possibly a corpus luteum.IMPRESSION ABDOMEN/PELVIS:Findings compatible with partial distal small bowel obstruction with transition point at the distal ileum where there is segmental bowel wall thickening with mucosal enhancement and luminal narrowing suspicious for underlying Crohn's stricture. Active inflammation may also be present in this region. The suspected stricture is seen just proximal to an ileocolic anastomosis. There is an additional focal area of bowel narrowing on axial image 66 that could represent a short-segment stricture.Moderate free fluid in the pelvis that may be reactive. There are cystic changes of the bilateral ovaries again noted, greater on the left measuring up to 2.8 cm.Additional chronic findings as described.Electronically signed by: OSIRIS WESLEY (June 25, 2019 15:49:09)
[2019-06-25] MEDS ORDERED: MILK OF MAGNESIA PO PRN (16:54)
[2019-06-25] MEDS ORDERED: K-DUR TAB 20 MEQ PO ONE (16:54)
[2019-06-25] MEDS ORDERED: DILAUDID INJ ONE (17:17)
[2019-06-25] MEDS: DILAUDID INJ IVP PRN ×2 (17:24→22:03)
[2019-06-25] MEDS: ZOFRAN INJ 4 MG VIAL IVP PRN (17:25)
[2019-06-25] MEDS: D5 NS 1000 ML 1,000 ML IV SCH (17:26)
[2019-06-25 19:11] LABS: ALANINE AMINOTRANSFERASE 16 Units/L (12-78); ALBUMIN 2.4 g/dL (3.4-5.0); ALKALINE PHOSPHATASE 59 Units/L (46-116); ASPARTATE AMINO TRANSFERASE 20 Units/L (15-37); BLOOD UREA NITROGEN 5 mg/dL (7-18); CALCIUM 7.8 mg/dL (8.5-10.1); CARBON DIOXIDE 28.1 mmol/L (21-32); CHLORIDE 106 mmol/L (98-107); COR CA(FOR HYPOALB) 9.1 mg/dL (8.5-10.1); CREATININE 0.83 mg/dL (0.55-1.02); SODIUM 140 mmol/L (136-145); TOTAL PROTEIN 5.8 g/dL (6.4-8.2); eGFR NON BLACK RACES > 60 (>60)
[2019-06-25] MEDS ORDERED: POTASSIUM CHL 40 MEQ/NS 0.45% 500 ML IV PRN (19:27)
[2019-06-25] MEDS ORDERED: KLOR-CON PO PRN (19:27)
[2019-06-25] MEDS ORDERED: POTASSIUM CHL 60 MEQ/NS 0.45% 500 ML IV PRN (19:27)
[2019-06-25] MEDS ORDERED: POTASSIUM CHLORIDE LIQ 20 MEQ UDC PO PRN (19:27)
[2019-06-25] MEDS ORDERED: MICRO K EXTEN CAP 10 MEQ PO PRN (19:27)
[2019-06-25] MEDS ORDERED: PHENERGAN INJ 25 MG IM PRN (21:45)
[2019-06-25] MEDS: ELAVIL PO SCH (21:51)
[2019-06-25] MEDS: CIPRO TAB 500 MG PO SCH (21:51)
[2019-06-25] MEDS: COLACE CAP 100 MG PO SCH (21:51)
[2019-06-25] MEDS: MAGNESIUM SULFATE 1 GRAM/100 mL PREMIX 1 GM/100 ML BAG IV PRN ×2 (21:52→23:08)
[2019-06-26] MEDS: K-RIDER 10 MEQ/NS 100 ML 10 MEQ/100 ML BAG IV PRN ×4 (00:10→03:14)
[2019-06-26] MEDS: D5 NS 1000 ML 1,000 ML IV SCH ×4 (01:17→18:00)
[2019-06-26] MEDS: ZOFRAN INJ 4 MG VIAL IVP PRN ×3 (05:06→22:45)
[2019-06-26 05:15] LABS: BASOPHILS % (AUTO) 0.5 % (0.2-1.0); EOSINOPHILS # (AUTO) 0.1 x10^3/uL (0.0-0.2); EOSINOPHILS % (AUTO) 1.4 % (0.9-2.9); HEMATOCRIT 39.2 % (36.0-47.0); HEMOGLOBIN 12.9 g/dL (12.0-16.0); LYMPHOCYTES # (AUTO) 3.1 X10^3/uL (1.3-2.9); LYMPHOCYTES % (AUTO) 40.5 % (21.0-51.0); MEAN CORPUSCULAR HEMOGLOBIN 28.3 pg (27.0-34.0); MEAN CORPUSCULAR VOLUME 85.8 fL (80.0-100.0); MEAN PLATELET VOLUME 6.9 fL (7.4-11.0); MONOCYTES # (AUTO) 0.5 x10^3/uL (0.3-0.8); MONOCYTES % (AUTO) 6.9 % (0.0-13.0); NEUTROPHILS # (AUTO) 3.8 x10^3/uL (2.2-4.8); NEUTROPHILS % (AUTO) 50.7 % (42.0-75.0); PLATELET COUNT 479 X10^3/uL (150.0-450.0); RED BLOOD COUNT 4.57 X10^6/uL (3.5-5.4); RED CELL DISTRIBUTION WIDTH 14.8 % (11.6-16.5); WHITE BLOOD COUNT 7.6 X10^3/uL (3.6-10.0)
[2019-06-26 05:29] LABS: ALANINE AMINOTRANSFERASE 15 Units/L (12-78); ALBUMIN 2.3 g/dL (3.4-5.0); ALKALINE PHOSPHATASE 61 Units/L (46-116); ASPARTATE AMINO TRANSFERASE 20 Units/L (15-37); BLOOD UREA NITROGEN 2 mg/dL (7-18); CALCIUM 7.5 mg/dL (8.5-10.1); CARBON DIOXIDE 26.9 mmol/L (21-32); CHLORIDE 107 mmol/L (98-107); COR CA(FOR HYPOALB) 8.9 mg/dL (8.5-10.1); CREATININE 0.79 mg/dL (0.55-1.02); MAGNESIUM 2.2 mg/dL (1.7-2.9); SODIUM 139 mmol/L (136-145); TOTAL PROTEIN 5.7 g/dL (6.4-8.2); eGFR NON BLACK RACES > 60 (>60)
--- NOTE | 2019-06-26 06:18 | RAD ---
HISTORY:Partial small bowel obstruction, Crohn's diseaseStudy: Acute abdominal seriesComparison:CT yesterdayFindings:There is chronic elevation of the right hemidiaphragm. The lungs are clear without consolidation, effusion or pneumothorax. The cardiac and mediastinal contours are within normal limits.Flat and upright views demonstrate dilated distal small bowel loops in the mid to lower abdomen with air-fluid levels compatible with partial small bowel obstruction. Scattered gas is seen in the colon. Cholecystectomy clips are noted. Additional surgical changes of the bowel seen in the right lower abdomen. No gross free air or abnormal calcifications are seen.IMPRESSION:1. No acute cardiopulmonary abnormality.2. Stable findings of partial small bowel obstruction.Electronically signed by: OSIRIS WESLEY (June 26, 2019 06:16:38)
[2019-06-26] MEDS: CIPRO TAB 500 MG PO SCH ×2 (08:00→20:31)
[2019-06-26] MEDS: COLACE CAP 100 MG PO SCH ×2 (08:00→20:31)
[2019-06-26] MEDS ORDERED: HEMOCYTE-PLUS PO SCH (09:00)
[2019-06-26] MEDS ORDERED: PATIENT'S HOME MEDICATION (Iron-Folic Acid-Mv, Min Cmb#15 [Hemocyte-Plus] 1 CAP) PO SCH (09:00)
--- NOTE | 2019-06-26 11:02 | DR.UPDATE ---
H&P Update History and Physical Update: History and Physical reviewed and patient examined. Changes noted: Yes with the following: WAS ADMITTED TO THE HOSPITAL ON 06/15/19 FOR TREATMENT OF A SMALL BOWEL OBSTRUCTION, PID, AND A RLQ ABSCESS. SHE WAS PLACED ON IV CIPRO, IV FLAGYL, AND IV HYDRATION. SYMPTOMS IMPROVED AND SHE WAS DISCHARGED HOME ON 06/18/19 ON CIPRO AND FLAGYL FOR 10 DAYS. SHE RETURNED TO THE ER YESTERDAY WITH COMPLAINTS OF PERSISTENT, DIFFUSE ABDOMINAL PAIN. PAIN IS RATED 7/10. SHE REPORTS THAT PAIN IS CONSTANT AND IS WORSE AFTER EATING. PATIENT HAS A HISTORY OF CROHNS DISEASE. THERE IS ASSOCIATED NAUSEA AND VOMITING. ON ARRIVAL TO THE ER, VITALS WERE 98.1-106-18-99%-120/85. LABS WERE OBTAINED. ABNORMAL LAB VALUES INCLUDE THE FOLLOWING: PLT COUNT 559, POTASSIUM 3.4, BUN 6, CREATININE 1.11, GLUCOSE 103, TOTAL BILI 0.10, ALBUMIN 2.8. AN ABDOMEN/PELVIS CT WITH CONTRAST WAS OBTAINED AND REVEALED: dings compatible with partial distal small bowel obstruction with transition point at the distal ileum where there is segmental bowel wall thickening with mucosal enhancement and luminal narrowing suspicious for underlying Crohn's stricture. Active inflammation may also be present in this region. The suspected stricture is seen just proximal to an ileocolic anastomosis. There is an additional focal area of bowel narrowing on axial image 66 that could represent a short-segment stricture. Moderate free fluid in the pelvis that may be reactive. There are cystic changes of the bilateral ovaries again noted, greater on the left measuring up to 2.8 cm. SHE WAS GIVEN DILAUDID 2MG IV X 1, PHENERGAN 25MG IM X 1, ZOFRAN 4MG IV X 1, AND A NORMAL SALINE BOLUS. SHE REPORTED ONLY SLIGHT IMPROVEMENT IN SYMPTOMS. SHE WAS ADMITTED FOR FURTHER EVALUATION AND TREATMENT OF SMALL BOWEL OBSTRUCTION AND CROHNS DISEASE. SHE WAS STARTED ON D5NS AT 125ML/HR, CIPRO 500MG PO BID, DILAUDID 2MG IV Q4H PRN PAIN, THE POTASSIUM AND MAGNESIUM PROTOCOLS, AND PHENERGAN 25MG IM Q6H PRN NAUSEA. WE WILL CONSULT , GENERAL SURGEON. OTHERWISE, WE WILL FOLLOW UP WITH AM LABS AND CONTINUE TO MONITOR. Prescription drug monitoring program results: PDMP was not reviewed H&P Reviewed: Yes Patient was examined?: Yes
[2019-06-26] MEDS: LOVENOX INJ 40 MG SYR SC SCH (11:36)
[2019-06-26] MEDS: SOLU-Medrol 125 MG VIAL IVP SCH ×2 (11:37→22:19)
[2019-06-26] MEDS: PROTONIX INJ 40 MG VIAL IVP SCH (11:37)
[2019-06-26] MEDS: DILAUDID INJ IVP PRN ×2 (11:38→22:43)
[2019-06-26] MEDS: ELAVIL PO SCH (20:31)
[2019-06-27] MEDS: D5 NS 1000 ML 1,000 ML IV SCH ×5 (01:51→20:45)
[2019-06-27] MEDS: SOLU-Medrol 125 MG VIAL IVP SCH ×3 (06:07→21:16)
[2019-06-27 06:30] LABS: BASOPHILS # (AUTO) 0.1 X10^3/uL (0.0-0.1); BASOPHILS % (AUTO) 0.7 % (0.2-1.0); HEMATOCRIT 34.5 % (36.0-47.0); HEMOGLOBIN 11.5 g/dL (12.0-16.0); LYMPHOCYTES # (AUTO) 1.7 X10^3/uL (1.3-2.9); LYMPHOCYTES % (AUTO) 15.2 % (21.0-51.0); MEAN CORPUSCULAR HEMOGLOBIN 28.3 pg (27.0-34.0); MEAN CORPUSCULAR HGB CONC 33.4 g/dL (33.0-35.0); MEAN CORPUSCULAR VOLUME 84.6 fL (80.0-100.0); MEAN PLATELET VOLUME 6.9 fL (7.4-11.0); MONOCYTES # (AUTO) 0.3 x10^3/uL (0.3-0.8); MONOCYTES % (AUTO) 2.3 % (0.0-13.0); NEUTROPHILS # (AUTO) 9.1 x10^3/uL (2.2-4.8); NEUTROPHILS % (AUTO) 81.8 % (42.0-75.0); PLATELET COUNT 433 X10^3/uL (150.0-450.0); RED BLOOD COUNT 4.08 X10^6/uL (3.5-5.4); WHITE BLOOD COUNT 11.1 X10^3/uL (3.6-10.0)
[2019-06-27 06:47] LABS: ALANINE AMINOTRANSFERASE 15 Units/L (12-78); ALKALINE PHOSPHATASE 64 Units/L (46-116); ASPARTATE AMINO TRANSFERASE 16 Units/L (15-37); BLOOD UREA NITROGEN 1 mg/dL (7-18); CALCIUM 7.4 mg/dL (8.5-10.1); CARBON DIOXIDE 24.2 mmol/L (21-32); CHLORIDE 111 mmol/L (98-107); COR NA(FOR HYPERGLY) 143 mmol/L (136-145); CREATININE 0.73 mg/dL (0.55-1.02); SODIUM 142 mmol/L (136-145); TOTAL PROTEIN 5.2 g/dL (6.4-8.2); eGFR NON BLACK RACES > 60 (>60)
[2019-06-27] MEDS: CIPRO TAB 500 MG PO SCH ×2 (08:52→20:44)
[2019-06-27] MEDS: LOVENOX INJ 40 MG SYR SC SCH (08:52)
[2019-06-27] MEDS: COLACE CAP 100 MG PO SCH ×2 (08:52→20:44)
[2019-06-27] MEDS: PROTONIX INJ 40 MG VIAL IVP SCH (08:53)
--- NOTE | 2019-06-27 12:16 | RAD ---
HISTORYABD PAIN, HX CHROHN'S, SBO Relevant Clinical InformationSTUDYKUBCOMPARISONNoneFINDINGSThere are multiple mildly dilated loops of small bowel along the mid abdomen extending inferiorly which are slightly less prominent. There are small air-fluid le vels throughout which appear less prominent. There are surgical clips along the mid abdomen and right upper quadrant. There is minimal air scattered in the colon. There is no free air. No abnormal calci fications are seen.IMPRESSIONProbable distal partial small bowel obstruction which appears slightly l ess prominent.Electronically signed by: ELLA MICHEL (June 27, 2019 11:58:02)
[2019-06-27] MEDS: DILAUDID INJ IVP PRN ×2 (14:50→21:16)
[2019-06-27] MEDS: ZOFRAN INJ 4 MG VIAL IVP PRN ×2 (14:51→20:53)
--- NOTE | 2019-06-27 17:50 | DR.PROGNOT ---
Hospital Progress Notes - Progress Note for Day of: Progress Note Date: 06/27/19 - Chief Complaint Chief Complaint: feeling better today with less abdominal pain .( had several BM ). WBC 11.1. Hgb 11.5. afebrile - Past Medical Family Social History Allergies: Allergies No Known Drug Allergies Allergy (Verified 06/25/19 10:39) - Review Of Systems ROS: No change since H&P - Vital Signs Vital Signs: Temperature 98.1 F Pulse Rate [Left Brachial] 95 Pulse Rate 106 Respiratory Rate 20 Blood Pressure [Right Arm] 124/77 Blood Pressure 120/85 O2 Sat by Pulse Oximetry 95 - Physical Exam Oriented: Normal Eyes: Normal Ear: Normal Nose: Normal Respiratory: Normal Cardiovascular: Normal GI:Auscultation: Normal GI:Palpation: Normal GI: Tenderness: Diffuse (moderate diffuse tenderness , with soft abdomen .. BS+) Skin: Normal Musculoskeletal: Normal Psychiatric: Normal Mood Description: Calm Speech Pattern: Clear, Appropriate - Laboratory and Diagnostics Result Diagrams: 06/27/19 05:57 06/27/19 05:57 Labs: Laboratory WBC 11.1 X10^3/uL (3.6-10.0) H 06/27/19 05:57 RBC 4.08 X10^6/uL (3.5-5.4) 06/27/19 05:57 Hgb 11.5 g/dL (12.0-16.0) L 06/27/19 05:57 Hct 34.5 % (36.0-47.0) L 06/27/19 05:57 MCV 84.6 fL (80.0-100.0) 06/27/19 05:57 MCH 28.3 pg (27.0-34.0) 06/27/19 05:57 MCHC 33.4 g/dL (33.0-35.0) 06/27/19 05:57 RDW 15.0 % (11.6-16.5) 06/27/19 05:57 Plt Count 433 X10^3/uL (150.0-450.0) 06/27/19 05:57 MPV 6.9 fL (7.4-11.0) L 06/27/19 05:57 Neut % (Auto) 81.8 % (42.0-75.0) H 06/27/19 05:57 Lymph % (Auto) 15.2 % (21.0-51.0) L 06/27/19 05:57 [place] % (Auto) 2.3 % (0.0-13.0) 06/27/19 05:57 Eos % (Auto) 0.0 % (0.9-2.9) L 06/27/19 05:57 Baso % (Auto) 0.7 % (0.2-1.0) 06/27/19 05:57 Neut # (Auto) 9.1 x10^3/uL (2.2-4.8) H 06/27/19 05:57 Lymph # (Auto) 1.7 X10^3/uL (1.3-2.9) 06/27/19 05:57 [place] # (Auto) 0.3 x10^3/uL (0.3-0.8) 06/27/19 05:57 Eos # (Auto) 0.0 x10^3/uL (0.0-0.2) 06/27/19 05:57 Baso # (Auto) 0.1 X10^3/uL (0.0-0.1) 06/27/19 05:57 Absolute Nucleated RBC 0.0 /100WBC 06/27/19 05:57 Sodium 142 mmol/L (136-145) 06/27/19 05:57 Corrected Sodium 143 mmol/L (136-145) 06/27/19 05:57 Potassium 3.6 mmol/L (3.5-5.1) 06/27/19 05:57 Chloride 111 mmol/L (98-107) H 06/27/19 05:57 Carbon Dioxide 24.2 mmol/L (21-32) 06/27/19 05:57 BUN 1 mg/dL (7-18) L 06/27/19 05:57 Creatinine 0.73 mg/dL (0.55-1.02) 06/27/19 05:57 Est GFR (MDRD) Af Amer > 60 (>60) 06/27/19 05:57 Est GFR (MDRD) Non-Af > 60 (>60) 06/27/19 05:57 Glucose 157 mg/dL (65-99) H 06/27/19 05:57 Calcium 7.4 mg/dL (8.5-10.1) L 06/27/19 05:57 Corrected Calcium 9.0 mg/dL (8.5-10.1) 06/27/19 05:57 Magnesium 2.2 mg/dL (1.7-2.9) 06/26/19 04:52 Total Bilirubin 0.10 mg/dL (0.2-1.0) L 06/27/19 05:57 AST 16 Units/L (15-37) 06/27/19 05:57 ALT 15 Units/L (12-78) 06/27/19 05:57 Alkaline Phosphatase 64 Units/L (46-116) 06/27/19 05:57 Total Protein 5.2 g/dL (6.4-8.2) L 06/27/19 05:57 Albumin 2.0 g/dL (3.4-5.0) L 06/27/19 05:57 Globulin 3.2 g/dL (2.5-4.5) 06/27/19 05:57 Albumin/Globulin Ratio 0.6 Ratio (1.1-2.1) L 06/27/19 05:57 HCG, Qual Negative <10 mIU/mL 06/25/19 11:20 - Assessment and Plan 1: subsiding SBO . Crohn's disease . s/p multiple abdominal surgeries . same IVF and steroids . advance diet . repeat abdominal xray . GI endoscopy as out Pt - Problem Patient Problems: Patient Problems Partial small bowel obstruction (Acute) K56.600 Hypokalemia (Acute) E87.6 Crohn disease (Chronic) K50.90
[2019-06-27] MEDS: ELAVIL PO SCH (20:44)
[2019-06-28] MEDS: D5 NS 1000 ML 1,000 ML IV SCH ×3 (03:59→20:57)
[2019-06-28 05:20] LABS: BASOPHILS % (AUTO) 0.1 % (0.2-1.0); HEMATOCRIT 31.6 % (36.0-47.0); HEMOGLOBIN 10.5 g/dL (12.0-16.0); LYMPHOCYTES # (AUTO) 1.6 X10^3/uL (1.3-2.9); LYMPHOCYTES % (AUTO) 9.4 % (21.0-51.0); MEAN CORPUSCULAR HEMOGLOBIN 28.4 pg (27.0-34.0); MEAN CORPUSCULAR HGB CONC 33.4 g/dL (33.0-35.0); MEAN CORPUSCULAR VOLUME 85.2 fL (80.0-100.0); MEAN PLATELET VOLUME 7.1 fL (7.4-11.0); MONOCYTES # (AUTO) 0.4 x10^3/uL (0.3-0.8); NEUTROPHILS # (AUTO) 15.3 x10^3/uL (2.2-4.8); NEUTROPHILS % (AUTO) 88.5 % (42.0-75.0); PLATELET COUNT 422 X10^3/uL (150.0-450.0); RED BLOOD COUNT 3.71 X10^6/uL (3.5-5.4); RED CELL DISTRIBUTION WIDTH 14.9 % (11.6-16.5); WHITE BLOOD COUNT 17.3 X10^3/uL (3.6-10.0)
[2019-06-28 05:27] LABS: ALANINE AMINOTRANSFERASE 12 Units/L (12-78); ALKALINE PHOSPHATASE 56 Units/L (46-116); ASPARTATE AMINO TRANSFERASE 11 Units/L (15-37); BLOOD UREA NITROGEN 2 mg/dL (7-18); CALCIUM 7.6 mg/dL (8.5-10.1); CARBON DIOXIDE 22.9 mmol/L (21-32); CHLORIDE 112 mmol/L (98-107); COR CA(FOR HYPOALB) 9.2 mg/dL (8.5-10.1); COR NA(FOR HYPERGLY) 147 mmol/L (136-145); SODIUM 145 mmol/L (136-145); eGFR NON BLACK RACES > 60 (>60)
[2019-06-28] MEDS: SOLU-Medrol 125 MG VIAL IVP SCH ×3 (06:18→21:00)
[2019-06-28] MEDS: PROTONIX INJ 40 MG VIAL IVP SCH (09:32)
[2019-06-28] MEDS: K-RIDER 10 MEQ/NS 100 ML 10 MEQ/100 ML BAG IV PRN ×2 (09:47→11:00)
--- NOTE | 2019-06-28 13:37 | CT ---
ABDOMEN/PELVIS WITH CONHISTORY: SMALL BOWELL OBSTRUCTIONComparison:CT June 25, 2019 and radiographs June 25 and June 27, 2019Technique:Multiple axial images of the abdomen and pelvis were obtained from the lung bases to the pubic symphysis following the administration of IV contrast as well as oral contrast . Dose reduction techniques including Automated Exposure Control (AEC) and adjustment of mA and kV were utlized.Findings:The heart is normal in size. There is no pericardial effusion. Lung bases are clear without focal consolidation, pleural effusion or pneumothorax.Liver and spleen are normal in size, enhancement characteristics and contour. No focal lesions. The portal vein is patent. No ductal dilitation. Gallbladder absent. The pancreas is unremarkable. Adrenal glands are normal. Kidneys enhance symmetrically without hydronephrosis or nephrolithiasis.Patient appears to have had proximal hemicolectomy with ileocolic anastomosis. There is some inflammation of the distal ileum without evidence of persistent dilated small bowel. No abnormal appearing mesenteric or retroperitoneal lymph nodes. Moderate volume free fluid pooling within the pelvis which is similar to recent prior CT.The bladder is normal in appearance. Uterus present. No free fluid or abnormal pelvic lymph nodes.No aggressive osseous lesions.IMPRESSION:1. No definite evidence of obstruction. There is some persistent inflammation of the distal ileum for which inflammatory bowel disease or enteritis cannot be excluded. There is a significant amount of free fluid within the abdomen and pelvis which has not changed significantly from prior.Electronically signed by: WILBER HIGH (June 28, 2019 13:35:56)
[2019-06-28] MEDS: CIPRO TAB 500 MG PO SCH ×2 (13:47→20:57)
[2019-06-28] MEDS: COLACE CAP 100 MG PO SCH ×2 (13:47→20:57)
[2019-06-28] MEDS: LOVENOX INJ 40 MG SYR SC SCH (13:47)
[2019-06-28] MEDS: ELAVIL PO SCH (20:57)
[2019-06-28] MEDS: ZOFRAN INJ 4 MG VIAL IVP PRN (20:58)
[2019-06-28] MEDS: DILAUDID INJ IVP PRN (20:58)
[2019-06-29] MEDS: D5 NS 1000 ML 1,000 ML IV SCH ×4 (05:27→21:04)
[2019-06-29] MEDS: SOLU-Medrol 125 MG VIAL IVP SCH ×2 (05:27→21:04)
[2019-06-29 06:16] LABS: BASOPHILS % (AUTO) 0.3 % (0.2-1.0); HEMATOCRIT 32.8 % (36.0-47.0); LYMPHOCYTES # (AUTO) 1.8 X10^3/uL (1.3-2.9); LYMPHOCYTES % (AUTO) 13.2 % (21.0-51.0); MEAN CORPUSCULAR HEMOGLOBIN 28.6 pg (27.0-34.0); MEAN CORPUSCULAR HGB CONC 33.5 g/dL (33.0-35.0); MEAN CORPUSCULAR VOLUME 85.4 fL (80.0-100.0); MEAN PLATELET VOLUME 7.1 fL (7.4-11.0); MONOCYTES # (AUTO) 0.3 x10^3/uL (0.3-0.8); MONOCYTES % (AUTO) 2.3 % (0.0-13.0); NEUTROPHILS # (AUTO) 11.3 x10^3/uL (2.2-4.8); NEUTROPHILS % (AUTO) 84.2 % (42.0-75.0); PLATELET COUNT 415 X10^3/uL (150.0-450.0); RED BLOOD COUNT 3.84 X10^6/uL (3.5-5.4); RED CELL DISTRIBUTION WIDTH 15.1 % (11.6-16.5); WHITE BLOOD COUNT 13.4 X10^3/uL (3.6-10.0)
[2019-06-29 06:27] LABS: ALANINE AMINOTRANSFERASE 14 Units/L (12-78); ALKALINE PHOSPHATASE 40 Units/L (46-116); ASPARTATE AMINO TRANSFERASE 8 Units/L (15-37); BLOOD UREA NITROGEN 3 mg/dL (7-18); CALCIUM 7.7 mg/dL (8.5-10.1); CARBON DIOXIDE 21.5 mmol/L (21-32); CHLORIDE 113 mmol/L (98-107); COR CA(FOR HYPOALB) 9.3 mg/dL (8.5-10.1); COR NA(FOR HYPERGLY) 146 mmol/L (136-145); CREATININE 0.89 mg/dL (0.55-1.02); SODIUM 145 mmol/L (136-145); eGFR NON BLACK RACES > 60 (>60)
[2019-06-29] MEDS: COLACE CAP 100 MG PO SCH ×2 (09:18→21:04)
[2019-06-29] MEDS: PROTONIX INJ 40 MG VIAL IVP SCH (09:18)
[2019-06-29] MEDS: CIPRO TAB 500 MG PO SCH ×2 (09:18→21:04)
[2019-06-29] MEDS: LOVENOX INJ 40 MG SYR SC SCH (09:19)
--- NOTE | 2019-06-29 10:47 | RAD ---
KUBHISTORY: ABD PAINStudy: Single flat views of the abdomenComparison:NoneFindings:There is a normal bowel gas pattern.No free air..No abnormal calcifications or abnormal soft tissue shadows. No acute bony abnormalities.IMPRESSION:1. No evidence for acute abdominal pathology.Electronically signed by: WILBER HIGH (June 29, 2019 10:45:54)
[2019-06-29] MEDS: ZOFRAN INJ 4 MG VIAL IVP PRN ×2 (14:01→21:05)
[2019-06-29] MEDS: DILAUDID INJ IVP PRN ×2 (14:02→21:05)
[2019-06-29] MEDS: K-DUR TAB 20 MEQ PO PRN (15:30)
[2019-06-29] MEDS: ELAVIL PO SCH (21:04)
[2019-06-30] MEDS: D5 NS 1000 ML 1,000 ML IV SCH ×3 (02:20→09:10)
[2019-06-30 05:08] LABS: BASOPHILS % (AUTO) 0.2 % (0.2-1.0); HEMATOCRIT 34.2 % (36.0-47.0); HEMOGLOBIN 11.3 g/dL (12.0-16.0); LYMPHOCYTES # (AUTO) 1.2 X10^3/uL (1.3-2.9); LYMPHOCYTES % (AUTO) 11.5 % (21.0-51.0); MEAN CORPUSCULAR HEMOGLOBIN 28.6 pg (27.0-34.0); MEAN CORPUSCULAR HGB CONC 33.1 g/dL (33.0-35.0); MEAN CORPUSCULAR VOLUME 86.5 fL (80.0-100.0); MEAN PLATELET VOLUME 7.5 fL (7.4-11.0); MONOCYTES # (AUTO) 0.3 x10^3/uL (0.3-0.8); MONOCYTES % (AUTO) 2.3 % (0.0-13.0); NEUTROPHILS # (AUTO) 9.3 x10^3/uL (2.2-4.8); PLATELET COUNT 454 X10^3/uL (150.0-450.0); RED BLOOD COUNT 3.96 X10^6/uL (3.5-5.4); RED CELL DISTRIBUTION WIDTH 14.7 % (11.6-16.5); WHITE BLOOD COUNT 10.8 X10^3/uL (3.6-10.0)
[2019-06-30 05:21] LABS: ALANINE AMINOTRANSFERASE 23 Units/L (12-78); ALBUMIN 2.2 g/dL (3.4-5.0); ALKALINE PHOSPHATASE 45 Units/L (46-116); ASPARTATE AMINO TRANSFERASE 22 Units/L (15-37); BLOOD UREA NITROGEN 6 mg/dL (7-18); CALCIUM 7.4 mg/dL (8.5-10.1); CARBON DIOXIDE 23.3 mmol/L (21-32); CHLORIDE 111 mmol/L (98-107); COR CA(FOR HYPOALB) 8.8 mg/dL (8.5-10.1); COR NA(FOR HYPERGLY) 145 mmol/L (136-145); CREATININE 0.91 mg/dL (0.55-1.02); SODIUM 144 mmol/L (136-145); TOTAL PROTEIN 5.3 g/dL (6.4-8.2); eGFR NON BLACK RACES > 60 (>60)
--- NOTE | 2019-06-30 07:35 | RAD ---
HISTORYsbo, chrohns COLOSTOMY REVERSAL, ORTHOSTUDYKUBCOMPARISONCT scan June 28, 2019FINDINGSEvaluation of the abdomen demonstrates a normal bowel gas pattern other than a single mildly dilated small-bowel loop in the right lower quadrant. The other distended bowel loops have resolved and air is passed into the colon. Surgical clips are seen in the right upper quadrant and in the right mid abdomen. There is no free air. Lung bases are clear.. No pathological soft tissue mass or calcification can be observed. The bony structures are grossly intact.IMPRESSIONSingle short mildly distended small bowel loop in the right lower quadrant probably the terminal ileum lying just medial to the surgical suture line. This loop is slightly less distended than it was on the . The single loop has a diameter 3.16 cm.Electronically signed by: LANE GREEN (June 30, 2019 07:34:03)
[2019-06-30 08:07] VITALS: BP 155/84
[2019-06-30] MEDS: SOLU-Medrol 125 MG VIAL IVP SCH (08:57)
[2019-06-30] MEDS: PROTONIX INJ 40 MG VIAL IVP SCH (08:58)
[2019-06-30] MEDS: LOVENOX INJ 40 MG SYR SC SCH (08:59)
[2019-06-30] MEDS: CIPRO TAB 500 MG PO SCH (08:59)
[2019-06-30] MEDS: COLACE CAP 100 MG PO SCH (09:02)
[2019-06-30] MEDS: K-DUR TAB 20 MEQ PO PRN (09:08)
[2019-07-02] MEDS ORDERED: ADALIMUMAB 40 MG SUBCUT SCH (09:00)
== END 2019-06-30 11:52 | disposition home or self-care (01) ==
LOC: ER 10:39 → MED/SURG 10:39
PROVIDERS: ADMIT Internal Medicine; ATTEND Internal Medicine
DX: Z79.899 Other long term (current) drug therapy; R11.2 Nausea with vomiting, unspecified; E87.6 Hypokalemia; K50.912 Crohn's disease, unspecified, with intestinal obstruction; R07.89 Other chest pain
CPT/HCPCS: 36415; 74000; 74018; 74022; 74177; 80053; 83735; 84703; 85025; 85652; 96360; 96361; 96365; 96372; 96374; 99284; A4222; C9113; G0378; J1170; J1650; J2405; J2550; J2930; J3475; J3480; J7030; J7042

== ENCOUNTER 2019-09-12 20:15 | Observation (INO) ==
[2019-09-12 20:29] VITALS: BMI 20.7
--- NOTE | 2019-09-12 22:01 | DR.GENAD ---
HPI Time Seen Time Seen by Provider: 09/12/19 21:44 PCP Primary Care Physician: MALIHA Complaint/Symptoms Chief Complaint Doctors Comments: symptoms reoccurred last night. Chief Complaint:: NAUSEA, THROWING UP, CROHN'S DISEASE, "HERE 2 WEEKS AGO DEHYDRATED, SAW PARTIAL BOWEL BLOCKAGE. I WAS SICK THEN AND IT STARTED AGAIN LA ST NIGHT." Self Treatment fo Chief Complaint: ZOFRAN 1200 Nurses notes reviewed Nurses Notes Review: Yes Source History Provided: Patient Mode of Arrival Mode of Arrival: Ambulatory Timing Onset of Chief Complaint: 09/11/19 Came on: Gradually Duration Duration: Since Onset Duration: Hours Severity Severity: Moderate Modifying Factors Worsens:: food Improves:: npo Associated Signs and Symptoms Associated Signs and Symptoms: vomiting and abdominal pain PMH PMH Past Medical History: Yes Past Medical History: Kidney Stones Past Medical History Comment: CROHNS DISEASE Past Surgical History: Yes Surgical History: Cholecystectomy Past Surgical History Comment: INTESTINAL REPAIRS 2011 WITH COLOSTOMY. COLOSTOMY REVERSAL IN 2012 Family History History of Family Medical Conditions: Yes Family Medical History: Diabetes Mellitus, Cancer and [place] Social History Alcohol Use: None Do you use any recreational Drugs:: No Infectious screening Have you traveled outside the country in the last 6 months?: No Isolation: Standard ROS Review of Systems Constitutional: No Symptoms Reported Eyes: No Symptoms Reported ENTM: No Symptoms Reported Respiratoy: No Symptoms Reported Cardiovascular: No Symptoms Reported Gastrointestinal/Abdominal: Abdominal Pain and Vomiting Genitourinary: No Symptoms Reported Neurological: No Symptoms Reported Musculoskeletal: No Symptoms Reported Integumentary: No Symptoms Reported Hematologic/Lymphatic: No Symptoms Reported Endocrine: No Symptoms Reported Psychiatric: No Symptoms Reported All Other Systems: Reviewed and Negative PE Vital Signs Vitals: Temperature 98.3 F Pulse Rate 150 Respiratory Rate 20 Blood Pressure [Right Arm] 155/84 Blood Pressure [Left Arm] 111/72 Blood Pressure 133/90 O2 Sat by Pulse Oximetry 96 General Limitations: No Limitations General Appearance: Alert and In No Apparent Distress Head Head Exam: Normal Inspection, Atraumatic and Normocephalic Eyes Eye exam: Normal Appearance and EOMI ENT ENT Exam: Normal Exam and Normal Oropharynx External Ear Exam: Normal External Inspection Nose Exam: Normal Nose Exam Mouth Exam: Normal Inspection Throat Exam: Normal Inspection Neck Neck Exam: Normal Inspection, Full ROM and Trachea Midline Chest Chest Inspection: Normal Inspection Respiratory Respiratory Exam: Normal Lung Sounds Bilat; negative Respiratory Distress Respiratory Exam: Bilateral: Clear to Auscultation Cardiovascular Cardiovascular Exam: Tachycardia Abdominal Exam Abdominal Exam: Normal Inspection, Soft, Tenderness (sdiffuse) and Hyperactive Bowel Sounds; negative Normal Bowel Sounds and Distention Abdominal Tenderness: Diffuse Extremities Extremities Exam: Normal Inspection and Full ROM Back Back Exam: Normal Inspection Neurologic Neurological Exam: Alert, Oriented X3, CN II-XII Intact and Normal Gait Psychiatric Psychiatric Exam: Flat Affect Skin Skin Exam: Normal Color ROR Labs Reviewed Result Diagrams: 09/12/19 22:20 09/12/19 22:20 Laboratory: WBC 32.4 X10^3/uL (3.6-10.0) H* 09/12/19 22:20 RBC 5.03 X10^6/uL (3.5-5.4) 09/12/19 22:20 Hgb 14.2 g/dL (12.0-16.0) 09/12/19 22:20 Hct 42.8 % (36.0-47.0) 09/12/19 22:20 MCV 85.2 fL (80.0-100.0) 09/12/19 22:20 MCH 28.2 pg (27.0-34.0) 09/12/19 22:20 MCHC 33.1 g/dL (33.0-35.0) 09/12/19 22:20 RDW 14.8 % (11.6-16.5) 09/12/19 22:20 Plt Count 485 X10^3/uL (150.0-450.0) H 09/12/19 22:20 Plt Count Comment Increased (ADEQUATE) A 09/12/19:20 MPV 7.1 fL (7.4-11.0) L 09/12/19 22:20 Neut % (Auto) 93.9 % (42.0-75.0) H 09/12/19 22:20 Lymph % (Auto) 1.6 % (21.0-51.0) L 09/12/19 22:20 [place] % (Auto) 4.1 % (0.0-13.0) 09/12/19 22:20 Eos % (Auto) 0.1 % (0.9-2.9) L 09/12/19 22:20 Baso % (Auto) 0.3 % (0.2-1.0) 09/12/19 22:20 Neut # (Auto) 30.4 x10^3/uL (2.2-4.8) H 09/12/19 22:20 Lymph # (Auto) 0.5 X10^3/uL (1.3-2.9) L 09/12/19 22:20 [place] # (Auto) 1.3 x10^3/uL (0.3-0.8) H 09/12/19 22:20 Eos # (Auto) 0.0 x10^3/uL (0.0-0.2) 09/12/19 22:20 Baso # (Auto) 0.1 X10^3/uL (0.0-0.1) 09/12/19 22:20 Absolute Nucleated RBC 0.0 /100WBC 09/12/19 22:20 Total Counted 100 09/12/19 22:20 Neutrophils % (Manual) 91 % (39-76) H 09/12/19 22:20 Lymphocytes % (Manual) 7 % (13-43) L 09/12/19 22:20 Monocytes % (Manual) 2 % (4-9) L 09/12/19 22:20 Plt Morphology Comment Normal (NORMAL) 09/12/19 22:20 RBC Morphology Normal (NORMAL) 09/12/19 22:20 Sodium 137 mmol/L (136-145) 09/12/19 22:20 Corrected Sodium 139 mmol/L (136-145) 09/12/19 22:20 Potassium 3.0 mmol/L (3.5-5.1) L* 09/12/19 22:20 Chloride 100 mmol/L (98-107) 09/12/19 22:20 Carbon Dioxide 24.4 mmol/L (21-32) 09/12/19 22:20 BUN 8 mg/dL (7-18) 09/12/19 22:20 Creatinine 1.21 mg/dL (0.55-1.02) H 09/12/19 22:20 Est GFR (MDRD) Af Amer > 60 (>60) 09/12/19 22:20 Est GFR (MDRD) Non-Af 53 (>60) L 09/12/19 22:20 Glucose 169 mg/dL (65-99) H 09/12/19 22:20 Calcium 8.8 mg/dL (8.5-10.1) 09/12/19 22:20 Corrected Calcium 9.9 mg/dL (8.5-10.1) 09/12/19 22:20 Total Bilirubin 0.40 mg/dL (0.2-1.0) 09/12/19 22:20 AST 40 Units/L (15-37) H 09/12/19 22:20 ALT 60 Units/L (12-78) 09/12/19 22:20 Alkaline Phosphatase 115 Units/L (46-116) 09/12/19 22:20 Total Protein 6.7 g/dL (6.4-8.2) 09/12/19 22:20 Albumin 2.6 g/dL (3.4-5.0) L 09/12/19 22:20 Globulin 4.1 g/dL (2.5-4.5) 09/12/19 22:20 Albumin/Globulin Ratio 0.6 Ratio (1.1-2.1) L 09/12/19 22:20 Lipase 50 Units/L (73-393) L 09/12/19 22:20 Opioid Opioid Risk Tool Age (Gonzalo box if 16-45): Yes History of Preadolescent Sexual Abuse: No Total: 1 Total Score Risk Category: Low Risk Copyright: Donavon MENDIOLA predicting aberrant behaviors Diagnosis Discharge Problem: Partial small bowel obstruction, Crohn disease Instructions Forms: Excuse From Work Precautions for COVID19 Patient Portal Social Distancing
[2019-09-12] MEDS ORDERED: NS 1000 ML 1,000 ML IV ONE (22:04)
[2019-09-12] MEDS ORDERED: DEMEROL INJ IVP ONE (22:06)
[2019-09-12] MEDS ORDERED: ZOFRAN INJ 4 MG VIAL ONE (22:13)
[2019-09-12] MEDS ORDERED: NS 1000 ML 1,000 ML ONE (22:13)
[2019-09-12] MEDS ORDERED: DEMEROL INJ ONE (22:13)
[2019-09-12] MEDS ORDERED: PEPCID 20 MG IV PREMIX* 20 MG/50 ML BAG IV ONE (22:14)
[2019-09-12 22:28] LABS: BASOPHILS # (AUTO) 0.1 X10^3/uL (0.0-0.1); HEMOGLOBIN 14.2 g/dL (12.0-16.0); MEAN PLATELET VOLUME 7.1 fL (7.4-11.0); RED CELL DISTRIBUTION WIDTH 14.8 % (11.6-16.5)
[2019-09-12] MEDS: ZOFRAN INJ 4 MG VIAL IVP PRN (22:35)
[2019-09-12] MEDS: PEPCID 20 MG IV PREMIX* 20 MG/50 ML BAG IV PRN (22:35)
[2019-09-12 22:40] LABS: ALANINE AMINOTRANSFERASE 60 Units/L (12-78); ALBUMIN 2.6 g/dL (3.4-5.0); ALKALINE PHOSPHATASE 115 Units/L (46-116); ASPARTATE AMINO TRANSFERASE 40 Units/L (15-37); BASOPHILS % (AUTO) 0.3 % (0.2-1.0); BLOOD UREA NITROGEN 8 mg/dL (7-18); CALCIUM 8.8 mg/dL (8.5-10.1); CARBON DIOXIDE 24.4 mmol/L (21-32); CHLORIDE 100 mmol/L (98-107); COR CA(FOR HYPOALB) 9.9 mg/dL (8.5-10.1); COR NA(FOR HYPERGLY) 139 mmol/L (136-145); CREATININE 1.21 mg/dL (0.55-1.02); EOSINOPHILS % (AUTO) 0.1 % (0.9-2.9); HEMATOCRIT 42.8 % (36.0-47.0); LIPASE 50 Units/L (73-393); LYMPHOCYTES # (AUTO) 0.5 X10^3/uL (1.3-2.9); LYMPHOCYTES % (AUTO) 1.6 % (21.0-51.0); MEAN CORPUSCULAR HEMOGLOBIN 28.2 pg (27.0-34.0); MEAN CORPUSCULAR HGB CONC 33.1 g/dL (33.0-35.0); MEAN CORPUSCULAR VOLUME 85.2 fL (80.0-100.0); MONOCYTES # (AUTO) 1.3 x10^3/uL (0.3-0.8); MONOCYTES % (AUTO) 4.1 % (0.0-13.0); NEUTROPHILS # (AUTO) 30.4 x10^3/uL (2.2-4.8); NEUTROPHILS % (AUTO) 93.9 % (42.0-75.0); PLATELET COUNT 485 X10^3/uL (150.0-450.0); RED BLOOD COUNT 5.03 X10^6/uL (3.5-5.4); SODIUM 137 mmol/L (136-145); TOTAL PROTEIN 6.7 g/dL (6.4-8.2); eGFR NON BLACK RACES 53 (>60)
[2019-09-12 22:42] LABS: WHITE BLOOD COUNT 32.4 X10^3/uL (3.6-10.0)
[2019-09-12 23:03] LABS: PLATELET MORPHOLOGY COMMENT NORMAL (NORMAL)
--- NOTE | 2019-09-12 23:46 | CT ---
HISTORYHX SBO AND CROHNS, NO PO CONTRAST PER ER DRSTUDYABDOMEN/PELVIS WITH [id number] axial images of the abdomen and pelvis were obtained from the lung bases to the pubic symphysis with IV contrast. Coronal and sagittal reformats obtained. Dose reduction techniques including Automated Exposure Control (AEC) and adjustment of mA and kV were utilized.FINDINGSThoracic: Included images of the lower chest demonstrate no abnormalities.Hepatobiliary: The liver is unremarkable without focal lesion. Status post cholecystectomy with mild prominence of the common duct.Pancreas: No abnormality identified in the pancreas.Spleen: No abnormality identified in the spleen.Adrenals: No abnormality identified in either adrenal glandGenitourinary: No parenchymal abnormality identified in either kidney. No hydronephrosis or nephrolithiasis. Evaluation of the bladder is limited, but no obvious bladder abnormality is present. Uterus is present. Probable 3.7 cm right ovarian versus paraovarian cyst. Question dilated tubular structure in the region of the right adnexa, raises concern for hydrosalpinx. No significant inflammatory changes.Gastrointestinal: Colon is diffusely decompressed with wall thickening. Postsurgical changes of the right lower quadrant involving the distal ileum. Long segment of ileal wall thickening with multifocal stricture and dilatation, measuring up to 4.7 cm in diameter in the lower abdomen. There is prominent mucosal enhancement. Small bowel feces sign as well as perienteric fluid also present. The appendix is not identified with certainty.Vascular/Lymphatics: No enlarged lymph nodes by CT size criteria. Abdominal aorta is normal in caliber. No significant atherosclerotic calcification.Nonspecific mild mesenteric stranding.Peritoneum/Other: [No extraluminal air.] [Small amount of free fluid in the lower abdomen and pelvis.]MSK/Body Wall: Question bilateral femoral head avascular necrosis and screw tracts possibly related to prior core decompression.IMPRESSIONFindings again suggest recurrent early versus partial small bowel obstruction involving the distal ileum, where there is a long segment of wall thickening and multifocal strictures. Mucosal enhancement on current exam suggest acute flare of known inflammatory bowel disease.Colon is decompressed with nonspecific wall thickening. Evidence of prior partial right and left hemicolectomy.Right ovarian cyst, decreased in size with question of adjacent dilated tubular structures potentially represent hydrosalpinx. 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
[2019-09-13] MEDS ORDERED: MIRALAX POWDER (255 GRAMS BTL) PO PRN (01:53)
[2019-09-13] MEDS: NS 1000 ML 1,000 ML IV SCH ×3 (02:20→17:20)
[2019-09-13] MEDS: DEMEROL INJ IVP SCH ×4 (02:28→19:40)
[2019-09-13] MEDS: ZOFRAN INJ 4 MG VIAL IVP PRN ×4 (02:29→21:00)
[2019-09-13] MEDS ORDERED: PATIENT'S HOME MEDICATION (Iron-Folic Acid-Mv, Min Cmb#15 [Hemocyte-Plus] 1 CAP) PO SCH (09:00)
[2019-09-13] MEDS: COLACE CAP 100 MG PO SCH ×3 (09:28→21:08)
[2019-09-13 15:45] LABS: BILIRUBIN,URINE NEGATIVE (NEGATIVE); BLOOD/HEMOGLOBIN,URINE 3+ (NEGATIVE); GLUCOSE, URINE NEGATIVE (NEGATIVE); KETONES,URINE 2+ (NEGATIVE); LEUKOCYTE ESTERASE ,URINE NEGATIVE (NEGATIVE); NITRITES,URINE POSITIVE (NEGATIVE); PROTEIN,URINE NEGATIVE (NEGATIVE); UROBILINOGEN,URINE NORMAL (NORMAL)
[2019-09-13 15:56] LABS: APPEARANCE,URINE CLOUDY (CLEAR); COLOR,URINE YELLOW (YELLOW)
[2019-09-13 15:57] LABS: BACTERIA,URINE 4+ /HPF (NEGATIVE); SQUAMOUS EPITHELIAL CELL,UR FEW /HPF (NEGATIVE)
[2019-09-13] MEDS: PEPCID 20 MG IV PREMIX* 20 MG/50 ML BAG IV PRN (17:28)
[2019-09-13] MEDS: ROCEPHIN VIAL 1 GRAM 1 G in NS 100 ML IV + SPIKE MINIBAG* 100 ML IV SCH (17:58)
[2019-09-13] MEDS ORDERED: K-DUR TAB 20 MEQ PO PRN (18:14)
[2019-09-13] MEDS ORDERED: MICRO K EXTEN CAP 10 MEQ PO PRN (18:14)
[2019-09-13] MEDS ORDERED: KLOR-CON PO PRN (18:14)
[2019-09-13] MEDS ORDERED: POTASSIUM CHL 40 MEQ/NS 0.45% 500 ML IV PRN (18:14)
[2019-09-13] MEDS ORDERED: POTASSIUM CHLORIDE LIQ 20 MEQ UDC PO PRN (18:14)
[2019-09-13] MEDS ORDERED: POTASSIUM CHL 60 MEQ/NS 0.45% 500 ML IV PRN (18:14)
[2019-09-13] MEDS: MAGNESIUM SULFATE 1 GRAM/100 mL PREMIX 1 GM/100 ML BAG IV PRN ×4 (19:41→23:10)
[2019-09-13] MEDS: ELAVIL PO SCH (22:08)
[2019-09-14] MEDS: K-RIDER 10 MEQ/NS 100 ML 10 MEQ/100 ML BAG IV PRN ×6 (00:12→05:15)
[2019-09-14] MEDS: DEMEROL INJ IVP SCH ×4 (01:31→19:30)
[2019-09-14] MEDS: NS 1000 ML 1,000 ML IV SCH ×3 (01:32→18:03)
[2019-09-14] MEDS: ZOFRAN INJ 4 MG VIAL IVP PRN ×2 (01:33→09:06)
[2019-09-14 07:04] LABS: BASOPHILS % (AUTO) 0.3 % (0.2-1.0); EOSINOPHILS % (AUTO) 0.2 % (0.9-2.9); HEMATOCRIT 38.1 % (36.0-47.0); HEMOGLOBIN 12.4 g/dL (12.0-16.0); LYMPHOCYTES # (AUTO) 2.3 X10^3/uL (1.3-2.9); MEAN CORPUSCULAR HGB CONC 32.5 g/dL (33.0-35.0); MEAN CORPUSCULAR VOLUME 86.2 fL (80.0-100.0); MEAN PLATELET VOLUME 7.5 fL (7.4-11.0); MONOCYTES # (AUTO) 0.8 x10^3/uL (0.3-0.8); MONOCYTES % (AUTO) 6.7 % (0.0-13.0); NEUTROPHILS # (AUTO) 9.4 x10^3/uL (2.2-4.8); NEUTROPHILS % (AUTO) 74.8 % (42.0-75.0); PLATELET COUNT 387 X10^3/uL (150.0-450.0); RED BLOOD COUNT 4.42 X10^6/uL (3.5-5.4); RED CELL DISTRIBUTION WIDTH 15.1 % (11.6-16.5); WHITE BLOOD COUNT 12.6 X10^3/uL (3.6-10.0)
[2019-09-14 07:12] LABS: ALANINE AMINOTRANSFERASE 39 Units/L (12-78); ALBUMIN 2.1 g/dL (3.4-5.0); ALKALINE PHOSPHATASE 108 Units/L (46-116); ASPARTATE AMINO TRANSFERASE 24 Units/L (15-37); BLOOD UREA NITROGEN 7 mg/dL (7-18); CALCIUM 7.6 mg/dL (8.5-10.1); CARBON DIOXIDE 25.4 mmol/L (21-32); CHLORIDE 104 mmol/L (98-107); COR CA(FOR HYPOALB) 9.1 mg/dL (8.5-10.1); CREATININE 0.85 mg/dL (0.55-1.02); MAGNESIUM 2.1 mg/dL (1.7-2.9); SODIUM 137 mmol/L (136-145); TOTAL PROTEIN 5.6 g/dL (6.4-8.2); eGFR NON BLACK RACES > 60 (>60)
--- NOTE | 2019-09-14 07:55 | RAD ---
HISTORYSBO BOWEL RESEC, COLOSTOMY W REVERSAL, [id number] of the abdomen demonstrates a nonobstructive b owel gas pattern. Surgical clips overlying the abdomen. No pathological soft tissue mass or calcifica tion can be observed. The bony structures are grossly intact.IMPRESSIONNo evidence for acute abdomin al pathology identified.Electronically signed by: PETER BILLINGS (Sep 14, 2019 07:54:56)
--- NOTE | 2019-09-14 08:59 | DR.PROGNOT ---
Hospital Progress Notes - Progress Note for Day of: Progress Note Date: 09/14/19 - Chief Complaint Chief Complaint: less abdominal pain . mild nausea , no vomiting . abdominal Xray showed resolved SBO. WBC is down to 12.6. LFT normal , BUN, Creatine normal , Albumin 2.1. afebrile . - Past Medical Family Social History Past Med/Fam/Surg Hx: No changes since H&P Allergies: Allergies No Known Drug Allergies Allergy (Verified 06/25/19 10:39) - Review Of Systems ROS: No change since H&P - Vital Signs Vital Signs: Temperature 98.8 F Pulse Rate [Right] 89 Pulse Rate 150 Respiratory Rate 18 Blood Pressure [Right Arm] 108/74 Blood Pressure [Left Arm] 111/72 Blood Pressure 133/90 O2 Sat by Pulse Oximetry 97 - Physical Exam Oriented: Normal Eyes: Normal Ear: Normal Nose: Normal Throat: Normal Respiratory: Normal Cardiovascular: Normal : Normal GI:Auscultation: Normal GI: Tenderness: Diffuse (soft, flat abdomen with mild diffuse tenderness ..BS+) Speech Pattern: Clear, Appropriate - Laboratory and Diagnostics Result Diagrams: 09/14/19 05:30 09/14/19 05:30 Labs: 09/13/19 15:30 Urine,Clean Catch Urine Culture - Preliminary Laboratory WBC 12.6 X10^3/uL (3.6-10.0) H D 09/14/19 05:30 RBC 4.42 X10^6/uL (3.5-5.4) 09/14/19 05:30 Hgb 12.4 g/dL (12.0-16.0) 09/14/19 05:30 Hct 38.1 % (36.0-47.0) 09/14/19 05:30 MCV 86.2 fL (80.0-100.0) 09/14/19 05:30 MCH 28.0 pg (27.0-34.0) 09/14/19 05:30 MCHC 32.5 g/dL (33.0-35.0) L 09/14/19 05:30 RDW 15.1 % (11.6-16.5) 09/14/19 05:30 Plt Count 387 X10^3/uL (150.0-450.0) 09/14/19 05:30 Plt Count Comment Increased (ADEQUATE) A 09/12/19 22:20 MPV 7.5 fL (7.4-11.0) 09/14/19 05:30 Neut % (Auto) 74.8 % (42.0-75.0) 09/14/19 05:30 Lymph % (Auto) 18.0 % (21.0-51.0) L 09/14/19 05:30 [place] % (Auto) 6.7 % (0.0-13.0) 09/14/19 05:30 Eos % (Auto) 0.2 % (0.9-2.9) L 09/14/19 05:30 Baso % (Auto) 0.3 % (0.2-1.0) 09/14/19 05:30 Neut # (Auto) 9.4 x10^3/uL (2.2-4.8) H 09/14/19 05:30 Lymph # (Auto) 2.3 X10^3/uL (1.3-2.9) 09/14/19 05:30 [place] # (Auto) 0.8 x10^3/uL (0.3-0.8) 09/14/19 05:30 Eos # (Auto) 0.0 x10^3/uL (0.0-0.2) 09/14/19 05:30 Baso # (Auto) 0.0 X10^3/uL (0.0-0.1) 09/14/19 05:30 Absolute Nucleated RBC 0.0 /100WBC 09/14/19 05:30 Total Counted 100 09/12/19 22:20 Neutrophils % (Manual) 91 % (39-76) H 09/12/19 22:20 Lymphocytes % (Manual) 7 % (13-43) L 09/12/19 22:20 Monocytes % (Manual) 2 % (4-9) L 09/12/19 22:20 Plt Morphology Comment Normal (NORMAL) 09/12/19 22:20 RBC Morphology Normal (NORMAL) 09/12/19 22:20 Sodium 137 mmol/L (136-145) 09/14/19 05:30 Corrected Sodium TNP 09/14/19 05:30 Potassium 3.9 mmol/L (3.5-5.1) 09/14/19 05:30 Chloride 104 mmol/L (98-107) 09/14/19 05:30 Carbon Dioxide 25.4 mmol/L (21-32) 09/14/19 05:30 BUN 7 mg/dL (7-18) 09/14/19 05:30 Creatinine 0.85 mg/dL (0.55-1.02) 09/14/19 05:30 Est GFR (MDRD) Af Amer > 60 (>60) 09/14/19 05:30 Est GFR (MDRD) Non-Af > 60 (>60) 09/14/19 05:30 Glucose 74 mg/dL (65-99) 09/14/19 05:30 Calcium 7.6 mg/dL (8.5-10.1) L 09/14/19 05:30 Corrected Calcium 9.1 mg/dL (8.5-10.1) 09/14/19 05:30 Magnesium 2.1 mg/dL (1.7-2.9) 09/14/19 05:30 Total Bilirubin 0.30 mg/dL (0.2-1.0) 09/14/19 05:30 AST 24 Units/L (15-37) 09/14/19 05:30 ALT 39 Units/L (12-78) 09/14/19 05:30 Alkaline Phosphatase 108 Units/L (46-116) 09/14/19 05:30 Total Protein 5.6 g/dL (6.4-8.2) L 09/14/19 05:30 Albumin 2.1 g/dL (3.4-5.0) L 09/14/19 05:30 Globulin 3.5 g/dL (2.5-4.5) 09/14/19 05:30 Albumin/Globulin Ratio 0.6 Ratio (1.1-2.1) L 09/14/19 05:30 Lipase 50 Units/L (73-393) L 09/12/19 22:20 Specimen Type Clean catch urine 09/13/19 15:30 Urine Color Yellow (YELLOW) 09/13/19 15:30 Urine Appearance Cloudy (CLEAR) 09/13/19 15:30 Urine pH 7.0 (5.0 - 8.0) 09/13/19 15:30 Ur Specific [place] 1.015 (1.000-1.030) 09/13/19 15:30 Urine Protein Negative (NEGATIVE) 09/13/19 15:30 Urine Glucose (UA) Negative (NEGATIVE) 09/13/19 15:30 Urine Ketones 2+ (NEGATIVE) 09/13/19 15:30 Urine Occult Blood 3+ (NEGATIVE) 09/13/19 15:30 Urine Nitrite Positive (NEGATIVE) 09/13/19 15:30 Urine Bilirubin Negative (NEGATIVE) 09/13/19 15:30 Urine Urobilinogen Normal (NORMAL) 09/13/19 15:30 Ur Leukocyte Esterase Negative (NEGATIVE) 09/13/19 15:30 Urine RBC 3-5 /HPF (0-3) A 09/13/19 15:30 Urine WBC 5-10 /HPF (0-5) A 09/13/19 15:30 Ur Squamous Epith Cells Few /HPF (NEGATIVE) 09/13/19 15:30 Urine Bacteria 4+ /HPF (NEGATIVE) 09/13/19 15:30 Ur Culture Indicated? Yes/culture set up 09/13/19 15:30 SARS-CoV-2 (PCR) Negative (NEGATIVE) 09/13/19 00:05 - Assessment and Plan 1: subsiding SBO . recurrent Crohn's disease with strictures . hypokalemia and hypoalbumenemia . abdominal adhesions and incisional hernia . to advance diet . - Problem Patient Problems: Patient Problems Crohn disease (Acute) K50.90 Partial small bowel obstruction (Acute) K56.600
[2019-09-14] MEDS: ROCEPHIN VIAL 1 GRAM 1 G in NS 100 ML IV + SPIKE MINIBAG* 100 ML IV SCH (09:05)
[2019-09-14] MEDS: PEPCID 20 MG IV PREMIX* 20 MG/50 ML BAG IV PRN (09:06)
[2019-09-14] MEDS: COLACE CAP 100 MG PO SCH ×2 (09:48→20:43)
[2019-09-14] MEDS: HEMOCYTE-PLUS PO SCH (09:48)
[2019-09-14] MEDS ORDERED: PHENERGAN INJ 25 MG IM PRN (11:04)
[2019-09-14] MEDS: ELAVIL PO SCH (20:44)
--- NOTE | 2019-09-14 22:40 | DR.H&P ---
H&P - History & Physical for Day of: H&P Date: 09/13/19 - Chief Complaint Chief Complaint: ABDOMINAL PAIN, NAUSEA, VOMITING - History of Present Illness History of Present Illness: IS A 39 YEAR OLD PATIENT OF OURS WHO PRESENTED TO THE ER WITH COMPLAINTS OF INTERMITTENT ABDOMINAL PAIN, NAUSEA, AND VOMITING THAT STARTED ONE DAY PRIOR. SHE DESCRIBES PAIN DIFFUSE AND CRAMPING. SHE REPORTS A HISTORY OF CROHNS DISEASE AND DENIES A REGULAR BOWEL MOVEMENT IN THE PAST FEW DAYS. SHE HAS HAD A COLOSTOMY WITH REVERSAL IN THE PAST. SHE IS CURRENTLY ON HUMIRA 40MG SC WEEKLY. ON ARRIVAL TO THE ER, VITALS WERE 98.3-150-18-96%-133/90. LABS WERE OBTAINED. ABNORMAL LAB VALUES INCLUDE THE FOLLOWING: WBC 32.4, PLT COUNT 485, POTASSIUM 3.0, CREATININE 1.21, GLUCOSE 169, AST 40, ALBUMIN 2.6, LIPASE 50. A URINALYSIS WAS OBTAINED AND REVEALED: WBC 5- 10, RBC 3-5, BACTERIA 4+, LEUKOCYTES NEGATIVE, OCCULT BLOOD 3+, NITRITE POSITIVE, KETONES 2+. AN ABDOMEN/PELVIS CT WITH CONTRAST WAS OBTAINED AND REVEALED: Findings again suggest recurrent early versus partial small bowel obstruction involving the distal ileum, where there is a long segment of wall thickening and multifocal strictures. Mucosal enhancement on current exam suggest acute flare of known inflammatory bowel disease. Colon is decompressed with nonspecific wall thickening. Evidence of prior partial right and left hemicolectomy. Right ovarian cyst, decreased in size with question of adjacent dilated tubular structures potentially represent hydrosalpinx. This may be further assessed with nonemergent pelvic ultrasound when clinically appropriate. 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 SHE WAS GIVEN ZOFRAN 4MG IV X 1, DEMEROL 25MG IV X 1, AND A NORMAL SALINE BOLUS. SHE ONLY REPORTED SLIGHT IMPROVEMENT IN SYMPTOMS. SHE WAS ADMITTED FOR FURTHER EVALUATION AND TREATMENT OF A PARTIAL SMALL BOWEL OBSTRUCTION, CROHNS DISEASE. SHE WAS STARTED ON ROCEPHIN 1G IV DAILY, PEPCID 20MG IV BID PRN, DEMEROL 25MG IV Q6H PRN, ZOFRAN 4MG IV Q6H PRN, PHENERGAN 25MG IM Q8H PRN, MIRALAX 17G IV DAILY, COLACE 100MG PO BID, NS AT 125ML/HR, AND THE POTASSIUM AND MAGNESIUM PROTOCOLS. HER HOME MEDICATIONS WERE RESUMED. WE WILL CONSULT WITH , GENERAL SURGEON. OTHERWISE, WE WILL FOLLOW UP WITH AM LABS AND CONTINUE TO MONITOR. - Past Medical History Past Medical History: Kidney Stones Additional Medical History: Crohn's Disease, Abdominal Hernia 2011, Urinary Tract Infections, Ovarian Cysts, Previous Blood Transfusion - Past Surgical History Surgical History: Cholecystectomy, Ortho Surgery Additional Surgical History: Bilateral Hip Core Decompression; intestinal tears and had colostomy w reversal 1 year later (2010, 2011); abdominal hernia w mesh placement in 2011 - Family History Family Medical History: Diabetes Mellitus, Cancer, [place] - Social History Does patient currently use any type of tobacco product: No Have you used tobacco products in the last 12 months: No Type of Tobacco Use: None Does any household member use tobacco: No Alcohol Use: None - Medications Home Medications: No Known Drug Allergies Allergy (Verified 06/25/19 10:39) CONTINUE taking the following medications adalimumab [Humira] 40 mg SUBCUT WEEKLY 09/13/19 [History] potassium chloride 10 meq PO DAILY 09/13/19 [History] - Review of Systems Constitutional: Weakness Eyes: No Symptoms Reported ENT: No Symptoms Reported Cardiovascular: No Symptoms Reported Gastrointestinal: See HPI, Nausea, Vomiting, Abdominal Pain Genitourinary: No Symptoms Reported Musculoskeletal: No Symptoms Reported Skin: No Symptoms Reported Neurological: Weakness - Physical Exam Vital Signs: Temperature 98.0 F Pulse Rate [Right] 90 Pulse Rate 150 Respiratory Rate 18 Blood Pressure [Right Arm] 136/86 Blood Pressure [Left Arm] 111/72 Blood Pressure 133/90 O2 Sat by Pulse Oximetry 98 Oriented: Normal Eyes: Normal Ear: Normal Nose: Normal Throat: Normal Respiratory: Diminished Throughout Cardiovascular: Tachycardia : Normal Auscultation: Bowel Sounds: Normal Palpation: Normal Tenderness: Diffuse, Moderate Skin: Normal Musculoskeletal: Normal Psychiatric: Normal Mood Description: Calm Affect: Normal Speech Pattern: Clear - Assessment/Plan (1) Partial small bowel obstruction Status: Acute Plan: ADMIT, ROCEPHIN 1G IV DAILY, PEPCID 20MG IV BID PRN, DEMEROL 25MG IV Q6H PRN, ZOFRAN 4MG IV Q6H PRN, PHENERGAN 25MG IM Q8H PRN, MIRALAX 17G IV DAILY, COLACE 100MG PO BID, NS AT 125ML/HR, AND THE POTASSIUM AND MAGNESIUM PROTOCOLS, SURGICAL CONSULT (2) Abdominal pain Qualifiers: Abdominal location: generalized Qualified Code(s): R10.84 - Generalized abdominal pain Status: Acute (3) Crohn disease Qualifiers: Gastrointestinal tract location: unspecified location Digestive disease complication type: with intestinal obstruction Qualified Code(s): K50.912 - Crohn's disease, unspecified, with intestinal obstruction Status: Chronic - Allergies Allergies/Adverse Reactions: Allergies Allergy/AdvReac Type Severity Reaction Status Date / Time No Known Drug Allergies Allergy Verified 06/25/19 10:39
[2019-09-15] MEDS: DEMEROL INJ IVP SCH ×2 (01:20→09:35)
[2019-09-15] MEDS: NS 1000 ML 1,000 ML IV SCH ×2 (01:21→09:44)
[2019-09-15 06:39] LABS: BASOPHILS % (AUTO) 0.6 % (0.2-1.0); EOSINOPHILS # (AUTO) 0.1 x10^3/uL (0.0-0.2); EOSINOPHILS % (AUTO) 0.9 % (0.9-2.9); HEMATOCRIT 35.6 % (36.0-47.0); HEMOGLOBIN 11.9 g/dL (12.0-16.0); LYMPHOCYTES # (AUTO) 2.3 X10^3/uL (1.3-2.9); LYMPHOCYTES % (AUTO) 37.7 % (21.0-51.0); MEAN CORPUSCULAR HEMOGLOBIN 28.5 pg (27.0-34.0); MEAN CORPUSCULAR HGB CONC 33.3 g/dL (33.0-35.0); MEAN CORPUSCULAR VOLUME 85.6 fL (80.0-100.0); MEAN PLATELET VOLUME 6.7 fL (7.4-11.0); MONOCYTES # (AUTO) 0.7 x10^3/uL (0.3-0.8); MONOCYTES % (AUTO) 12.3 % (0.0-13.0); NEUTROPHILS # (AUTO) 2.9 x10^3/uL (2.2-4.8); NEUTROPHILS % (AUTO) 48.5 % (42.0-75.0); PLATELET COUNT 365 X10^3/uL (150.0-450.0); RED BLOOD COUNT 4.16 X10^6/uL (3.5-5.4); WHITE BLOOD COUNT 6.1 X10^3/uL (3.6-10.0)
[2019-09-15 06:48] LABS: ALANINE AMINOTRANSFERASE 28 Units/L (12-78); ALBUMIN 1.9 g/dL (3.4-5.0); ALKALINE PHOSPHATASE 99 Units/L (46-116); ASPARTATE AMINO TRANSFERASE 20 Units/L (15-37); BLOOD UREA NITROGEN 5 mg/dL (7-18); CALCIUM 7.4 mg/dL (8.5-10.1); CARBON DIOXIDE 22.5 mmol/L (21-32); CHLORIDE 109 mmol/L (98-107); COR CA(FOR HYPOALB) 9.1 mg/dL (8.5-10.1); CREATININE 0.82 mg/dL (0.55-1.02); SODIUM 140 mmol/L (136-145); TOTAL PROTEIN 5.1 g/dL (6.4-8.2); eGFR NON BLACK RACES > 60 (>60)
--- NOTE | 2019-09-15 06:48 | RAD ---
HISTORYFollow-up small bowel [id number] abdominal gas pattern is nonspecific and nonobstru ctive. No abnormal masses or abnormal calcifications are identified. Surgical clips are present in th e right upper and left lower quadrant. Regional skeleton is intact.IMPRESSIONNo significant abnormali ty identified and no significant change from the prior examinationElectronically signed by: PETER MERIDA (Sep 15, 2019 06:47:29)
[2019-09-15] MEDS ORDERED: ALBUMIN HUMAN 25%- 100 ML 100 ML IV SCH (09:00)
[2019-09-15] MEDS: ROCEPHIN VIAL 1 GRAM 1 G in NS 100 ML IV + SPIKE MINIBAG* 100 ML IV SCH (09:47)
[2019-09-15] MEDS: COLACE CAP 100 MG PO SCH (09:49)
[2019-09-15] MEDS: HEMOCYTE-PLUS PO SCH (09:49)
[2019-09-15 11:19] VITALS: BP 126/87
== END 2019-09-15 12:05 | disposition home or self-care (01) ==
LOC: MED/SURG 20:22 → ER 20:22 → MED/SURG 09-13 01:42
PROVIDERS: ADMIT Internal Medicine; ATTEND Internal Medicine
DX: K21.9 Gastro-esophageal reflux disease without esophagitis; K50.912 Crohn's disease, unspecified, with intestinal obstruction; B96.29 Other Escherichia coli [E. coli] as the cause of diseases classified elsewhere; R10.84 Generalized abdominal pain; D72.828 Other elevated white blood cell count; Z11.59 Encounter for screening for other viral diseases; K56.690 Other partial intestinal obstruction
CPT/HCPCS: 36415; 74000; 74018; 74177; 80053; 81001; 83690; 83735; 85025; 86140; 87086; 87088; 87186; 87635; 96360; 96361; 96365; 96367; 96374; 96375; 99284; A4216; A4222; G0378; J0696; J2175; J2405; J2550; J3475; J3480; J7030; J7050; P9047; S0028

== ENCOUNTER 2023-10-24 09:26 | Inpatient (IN) ==
--- NOTE | 2023-10-24 09:43 | DR.NAUSEAF ---
HPI Time Seen Time Seen by Provider: 10/24/23 09:38 Complaints Chief Complaint Doctors Comments: 43-year-old female, presents for evaluation. Patient started feeling poorly last p.m., developed abdominal pain. Pain has persisted, located in the lower abdomen. Worse right lower quadrant, radiates t o the left lower quadrant. Associated with nausea and vomiting. Has felt cold, but no known fever. Moved her bowels yesterday normally. No urinary complaints. Has a history of bowel surgeries in the past, also history of Crohn's disease. Abdominal pain worse with movement and palpitation. Nothing makes it better. Denies upper respiratory symptoms. Reviewed Nurses Notes Reviewed: Yes Source History Provided: Patient Mode of Arrival Mode of Arrival: Ambulatory PMH PMH Past Medical History: Kidney Stones Past Surgical History: Yes Surgical History: Cholecystectomy and Ortho Surgery Family History Family Medical History: Diabetes Mellitus, Cancer and [place] Social History Does patient currently use any type of tobacco product: No Alcohol Use: None Do you use any recreational Drugs:: No ROS Review of Systems Constitutional: Weakness Eyes: No Symptoms Reported ENTM: No Symptoms Reported Respiratoy: No Symptoms Reported Cardiovascular: No Symptoms Reported Gastrointestinal/Abdominal: See HPI Genitourinary: No Symptoms Reported Neurological: No Symptoms Reported Musculoskeletal: No Symptoms Reported Integumentary: No Symptoms Reported Hematologic/Lymphatic: No Symptoms Reported All Other Systems: Reviewed and Negative PE Vital Signs Vitals: Vital Signs Temperature 97.6 F Pulse Rate 118 Pulse Rate 114 Pulse Rate 114 Pulse Rate 119 Pulse Rate 113 Pulse Rate 114 Pulse Rate 114 Pulse Rate 117 Pulse Rate 113 Pulse Rate 108 Respiratory Rate 16 Respiratory Rate 18 Respiratory Rate 16 Blood Pressure 108/62 Blood Pressure 108/62 Blood Pressure 109/57 Blood Pressure 122/71 Blood Pressure 128/73 O2 Sat by Pulse Oximetry 97 O2 Sat by Pulse Oximetry 96 O2 Sat by Pulse Oximetry 96 O2 Sat by Pulse Oximetry 98 O2 Sat by Pulse Oximetry 95 O2 Sat by Pulse Oximetry 97 O2 Sat by Pulse Oximetry 98 O2 Sat by Pulse Oximetry 99 O2 Sat by Pulse Oximetry 99 O2 Sat by Pulse Oximetry 99 General General Appearance: Alert and Other (Appears uncomfortable) Eyes Eye exam: PERRL and EOMI ENT ENT Exam: Mucous Membranes Moist Neck Neck Exam: Normal Inspection and Full ROM Respiratory Respiratory Exam: Normal Lung Sounds Bilat; negative Accessory Muscle Use or Respiratory Distress Cardiovascular Cardiovascular Exam: Regular Rate, Normal Rhythm and Normal Heart Sounds Abdominal Exam Abdominal Exam: Normal Bowel Sounds, Soft and Tenderness (All quadrants, worse across lower quadrants, with guarding, degree of rebound) Extremities Extremities Exam: Normal Inspection Back Back Exam: Normal Inspection; negative (R) CVA Tenderness or (L) CVA Tenderness Neurologic Neurological Exam: Alert, Oriented X3 and CN II-XII Intact; negative Motor Sensory Deficit Skin Skin Exam: Warm and Dry COURSE Treatment Treatment: 43-year-old female with diffuse abdominal pain, nausea, vomiting since last p.m. Workup initiated. Patient given IV fluids, IV Protonix/Zofran/toradol. 1247 -labs show elevated white count of 26,800. Has a left shift with 77% neutrophils, 8% bands. Given IV Zosyn for antibiotic coverage chemistry showed low potassium at 2.7. Patient given IV potassium. Lactic acid was elevated at 5.5, was given additional IV fluids plus the IV antibiotic. CT abdomen pelvis was obtained.. CT shows changes consistent with exacerbation of Crohn's, with possible small bowel obstruction, with probable anterior bowel abscess. Consult with surgery, Dr. Diallo, will admit to medicine, discussed with Dr. Diggs. [facility]OR Labs Reviewed Laboratory Results Reviewed?: Yes 10/24/23 09:48 10/24/23 09:48 Laboratory: WBC 26.8 X10^3/uL (3.6-10.0) H 10/24/23 09:48 RBC 4.44 X10^6/uL (3.5-5.4) 10/24/23 09:48 Hgb 13.2 g/dL (12.0-16.0) 10/24/23 09:48 Hct 40.2 % (36.0-47.0) 10/24/23 09:48 MCV 90.5 fL (80.0-100.0) 10/24/23 09:48 MCH 29.6 pg (27.0-34.0) 10/24/23 09:48 MCHC 32.7 g/dL (33.0-35.0) L 10/24/23 09:48 RDW 14.3 % (11.6-16.5) 10/24/23 09:48 Plt Count 453 X10^3/uL (150.0-450.0) H 10/24/23 09:48 Plt Count Comment Increased (ADEQUATE) A 10/24/23 09:48 MPV 6.9 fL (7.4-11.0) L 10/24/23 09:48 Neut % (Auto) 90.6 % (42.0-75.0) H 10/24/23 09:48 Lymph % (Auto) 3.5 % (21.0-51.0) L 10/24/23 09:48 [place] % (Auto) 5.4 % (0.0-13.0) 10/24/23 09:48 Eos % (Auto) 0.0 % (0.9-2.9) L 10/24/23 09:48 Baso % (Auto) 0.5 % (0.2-1.0) 10/24/23 09:48 Neut # (Auto) 24.3 x10^3/uL (2.2-4.8) H 10/24/23 09:48 Lymph # (Auto) 0.9 X10^3/uL (1.3-2.9) L 10/24/23 09:48 [place] # (Auto) 1.4 x10^3/uL (0.3-0.8) H 10/24/23 09:48 Eos # (Auto) 0.0 x10^3/uL (0.0-0.2) 10/24/23 09:48 Baso # (Auto) 0.1 X10^3/uL (0.0-0.1) 10/24/23 09:48 Absolute Nucleated RBC 0.0 /100WBC 10/24/23 09:48 Total Counted 100 10/24/23 09:48 Neutrophils % (Manual) 77 % (39-76) H 10/24/23 09:48 Band Neutrophils % 8 % (0-10) 10/24/23 09:48 Lymphocytes % (Manual) 11 % (13-43) L 10/24/23 09:48 Monocytes % (Manual) 4 % (4-9) 10/24/23 09:48 Plt Morphology Comment Normal (NORMAL) 10/24/23 09:48 RBC Morphology Normal (NORMAL) 10/24/23 09:48 Sodium 132 mmol/L (136-145) L 10/24/23 09:48 Corrected Sodium 134 mmol/L (136-145) L 10/24/23 09:48 Potassium 2.7 mmol/L (3.5-5.1) L* 10/24/23 09:48 Chloride 97 mmol/L (98-107) L 10/24/23 09:48 Carbon Dioxide 20.9 mmol/L (21-32) L 10/24/23 09:48 BUN 13 mg/dL (7-18) 10/24/23 09:48 Creatinine 1.09 mg/dL (0.55-1.02) H 10/24/23 09:48 Est GFR (MDRD) Af Amer > 60 (>60) 10/24/23 09:48 Est GFR (MDRD) Non-Af 59 (>60) 10/24/23 09:48 Glucose 185 mg/dL (65-99) H 10/24/23 09:48 Lactic Acid 0.7 mmol/L (0.4-2.0) 10/24/23 11:50 Calcium 8.3 mg/dL (8.5-10.1) L 10/24/23 09:48 Corrected Calcium 9.4 mg/dL (8.5-10.1) 10/24/23 09:48 Total Bilirubin 0.40 mg/dL (0.2-1.0) 10/24/23 09:48 AST 9 Units/L (15-37) L 10/24/23 09:48 ALT 15 Units/L (12-78) 10/24/23 09:48 Alkaline Phosphatase 86 Units/L (46-116) 10/24/23 09:48 Total Protein 6.5 g/dL (6.4-8.2) 10/24/23 09:48 Albumin 2.6 g/dL (3.4-5.0) L 10/24/23 09:48 Globulin 3.9 g/dL (2.5-4.5) 10/24/23 09:48 Albumin/Globulin Ratio 0.7 Ratio (1.1-2.1) L 10/24/23 09:48 Lipase 27 Units/L (16-77) 10/24/23 09:48 Specimen Type Clean catch urine 10/24/23 10:40 Urine Color Bloody (YELLOW) 10/24/23 10:40 Urine Appearance Hazy (CLEAR) 10/24/23 10:40 Urine pH 7.0 (5.0 - 8.0) 10/24/23 10:40 Ur Specific [place] 1.010 (1.000-1.030) 10/24/23 10:40 Urine Protein 3+ (NEGATIVE) 10/24/23 10:40 Urine Glucose (UA) 3+ (NEGATIVE) 10/24/23 10:40 Urine Ketones 1+ (NEGATIVE) 10/24/23 10:40 Urine Blood 5+ (NEGATIVE) 10/24/23 10:40 Urine Nitrite Negative (NEGATIVE) 10/24/23 10:40 Urine Bilirubin Negative (NEGATIVE) 10/24/23 10:40 Urine Urobilinogen Normal (NORMAL) 10/24/23 10:40 Ur Leukocyte Esterase 1+ (NEGATIVE) 10/24/23 10:40 Urine RBC Tntc /HPF (0-3) A 10/24/23 10:40 Urine WBC 0-2 /HPF (0-5) 10/24/23 10:40 Ur Squamous Epith Cells Rare /HPF (NEGATIVE) 10/24/23 10:40 Urine Bacteria Negative /HPF (NEGATIVE) 10/24/23 10:40 Ur Culture Indicated? No/not indicated 10/24/23 10:40 XRAY XRAY Interpreted by: Radiologist X-ray Results: EXAMINATION: ABDCMEN/PELVIS WITH CON HISTORY: LOWER ABD PAIN, H/O CROHN'S; . COMPARISON: Report CT abdomen and pelvis 06/25/2019 TECHNIQUE: Postcontrast CT abdomen and pelvis was performed. Reformatted images were obtained as well. Lack of oral contrast limits diagnostic sensitivity The above CT scan was done with automated exposure control and the mA and kV was adjusted to obtain quality images according to patient size. FINDINGS: Lung bases: No acute findings. Liver: No acute finding or focal lesion. GB/Biliary: Cholecystectomy. No dilated duct Spleen: Normal size and density Pancreas: No acute findings. No pseudocyst or dilated duct Adrenal Glands: No mass Kidneys: No obstructing stone, hydronephrosis or solid lesion. Abdominal aorta: Tapers and enhances normally. Mesenteric vessels are patent. Retroperitoneum: No pathologically enlarged lymph nodes. Bowel: No free air or pneumatosis. Ileocolic anastomosis within the mid abdomen. There is mucosal hyperemia and enhancement suggesting active Crohn's disease. Mildly distended proximal small bowel is noted and partial SBO is not excluded. Areas of stricture previously described distally again noted. Anterior in the pelvis there is a fluid collection measuring 8.2 x 3.2 cm which may represent abscess. Chronic rectus diastasis. Fluid-filled decompressed colon is noted. There is however some mucosal enhancement in the colon. Bladder/: Ureters and bladder unremarkable. Right ovarian cyst measuring 3.1 x 2.9 cm. Osseous: Degenerative changes in the thoracolumbar spine. No acute findings. IMPRESSION: Findings suggest partial small bowel obstruction. Zone of transition in the distal small bowel. Mucosal hyperemia and enhancement suggesting active Crohn's disease. No free air or pneumatosis. Ill-defined fluid collection in the anterior pelvis at the level of the uterus which may represent an abscess. Previously described Crohn's related strictures again noted. Right ovarian cyst THIS IS AN ELECTRONICALLY VERIFIED FINAL REPORT 10/24/2023 11:56 AM - Electronically signed by Negro Jorgensen MD Opioid Opioid Risk Tool Age ([place] box if 16-45): Yes History of Preadolescent Sexual Abuse: No Total: 1 Total Score Risk Category: Low Risk Copyright: Donavon MENDIOLA predicting aberrant behaviors Discharge Plan Diagnosis Discharge Problem: Partial small bowel obstruction, Crohn disease, Intra-abdominal abscess, Acute hypokalemia Discharge Plan Patient Disposition: 09 ADMITTED INPATIENT Condition: Stable Prescriptions: No Action Humira 40 mg/0.8 mL Syringe Kit 40 mg SUBCUT Q2W amitriptyline 10 mg tablet 20 mg PO QPM Health Concerns: Post Hospitalization: new medications and changes needed to prevent readmission or further decline. Pt educated and given instructions on all concerns. Plan of Treatment: Continue with present treatment and follow up plan. Pt is to keep follow up appointment as instructed and take medications as ordered. Orders to Discharge Patient Discharge Orders: Transfer (Routine); Ordered 10/24/23 Ordered By: Misael Lima Follow ups/Referrals Follow ups/Referrals: Jack Wright [Primary Care Provider] - 3 days
[2023-10-24] MEDS: ZOFRAN INJ 4 MG VIAL IVP ONE ×2 (09:51→13:07)
[2023-10-24] MEDS: NS 1,000 ML IV 1,000 ML IV ONE ×2 (09:51→10:39)
[2023-10-24] MEDS: PROTONIX INJ 40 MG VIAL IVP ONE (09:53)
[2023-10-24] MEDS: TORADOL 30 MG VIAL IVP ONE (09:59)
[2023-10-24 10:19] LABS: BASOPHILS # (AUTO) 0.1 X10^3/uL (0.0-0.1); BASOPHILS % (AUTO) 0.5 % (0.2-1.0); HEMATOCRIT 40.2 % (36.0-47.0); HEMOGLOBIN 13.2 g/dL (12.0-16.0); LYMPHOCYTES # (AUTO) 0.9 X10^3/uL (1.3-2.9); LYMPHOCYTES % (AUTO) 3.5 % (21.0-51.0); MEAN CORPUSCULAR HEMOGLOBIN 29.6 pg (27.0-34.0); MEAN CORPUSCULAR HGB CONC 32.7 g/dL (33.0-35.0); MEAN CORPUSCULAR VOLUME 90.5 fL (80.0-100.0); MEAN PLATELET VOLUME 6.9 fL (7.4-11.0); MONOCYTES # (AUTO) 1.4 x10^3/uL (0.3-0.8); MONOCYTES % (AUTO) 5.4 % (0.0-13.0); NEUTROPHILS # (AUTO) 24.3 x10^3/uL (2.2-4.8); NEUTROPHILS % (AUTO) 90.6 % (42.0-75.0); PLATELET COUNT 453 X10^3/uL (150.0-450.0); RED BLOOD COUNT 4.44 X10^6/uL (3.5-5.4); RED CELL DISTRIBUTION WIDTH 14.3 % (11.6-16.5); WHITE BLOOD COUNT 26.8 X10^3/uL (3.6-10.0)
[2023-10-24 10:28] LABS: ALANINE AMINOTRANSFERASE 15 Units/L (12-78); ALBUMIN 2.6 g/dL (3.4-5.0); ALKALINE PHOSPHATASE 86 Units/L (46-116); ASPARTATE AMINO TRANSFERASE 9 Units/L (15-37); BLOOD UREA NITROGEN 13 mg/dL (7-18); CALCIUM 8.3 mg/dL (8.5-10.1); CARBON DIOXIDE 20.9 mmol/L (21-32); CHLORIDE 97 mmol/L (98-107); COR CA(FOR HYPOALB) 9.4 mg/dL (8.5-10.1); COR NA(FOR HYPERGLY) 134 mmol/L (136-145); CREATININE 1.09 mg/dL (0.55-1.02); GLUCOSE 185 mg/dL (65-99); LIPASE 27 Units/L (16-77); SODIUM 132 mmol/L (136-145); TOTAL PROTEIN 6.5 g/dL (6.4-8.2); eGFR NON BLACK RACES 59 (>60)
[2023-10-24 10:30] LABS: POTASSIUM 2.7 mmol/L (3.5-5.1)
[2023-10-24] MEDS ORDERED: NS 250 ML IV 25 ML IV PRN (10:31)
[2023-10-24] MEDS: ZOSYN VIAL 3.375 GRAMS 3.375 G in NS 100 ML IV 100 ML IV ONE (10:39)
[2023-10-24] MEDS: K-RIDER 10 MEQ/100 ML WATER 10 MEQ/100 ML BAG IV ONE (10:40)
[2023-10-24 10:59] LABS: BILIRUBIN,URINE NEGATIVE (NEGATIVE); BLOOD/HEMOGLOBIN,URINE 5+ (NEGATIVE); GLUCOSE, URINE 3+ (NEGATIVE); KETONES,URINE 1+ (NEGATIVE); LEUKOCYTE ESTERASE ,URINE 1+ (NEGATIVE); NITRITES,URINE NEGATIVE (NEGATIVE); PROTEIN,URINE 3+ (NEGATIVE); UROBILINOGEN,URINE NORMAL (NORMAL)
[2023-10-24 11:07] LABS: APPEARANCE,URINE HAZY (CLEAR); BACTERIA,URINE NEGATIVE /HPF (NEGATIVE); COLOR,URINE BLOODY (YELLOW); RBC,URINE TNTC /HPF (0-3); SQUAMOUS EPITHELIAL CELL,UR RARE /HPF (NEGATIVE)
[2023-10-24 11:10] LABS: BAND NEUTROPHILS % 8 % (0-10); PLATELET MORPHOLOGY COMMENT NORMAL (NORMAL)
--- NOTE | 2023-10-24 12:05 | CT ---
EXAMINATION: ABDCMEN/PELVIS WITH CON HISTORY: LOWER ABD PAIN, H/O CROHN'S; . COMPARISON: Report CT abdomen and pelvis 06/25/2019 TECHNIQUE: Postcontrast CT abdomen and pelvis was performed. Reformatted images were obtained as well. Lack of oral contrast limits diagnostic sensitivity The above CT scan was done with automated exposure control and the mA and kV was adjusted to obtain q uality images according to patient size. FINDINGS: Lung bases: No acute findings. Liver: No acute finding or focal lesion. GB/Biliary: Cholecystectomy. No dilated duct Spleen: Normal size and density Pancreas: No acute findings. No pseudocyst or dilated duct Adrenal Glands: No mass Kidneys: No obstructing stone, hydronephrosis or solid lesion. Abdominal aorta: Tapers and enhances normally. Mesenteric vessels are patent. Retroperitoneum: No pathologically enlarged lymph nodes. Bowel: No free air or pneumatosis. Ileocolic anastomosis within the mid abdomen. There is mucosal h yperemia and enhancement suggesting active Crohn's disease. Mildly distended proximal small bowel is noted and partial SBO is not excluded. Areas of stricture previously described distally again noted . Anterior in the pelvis there is a fluid collection measuring 8.2 x 3.2 cm which may represent absc ess. Chronic rectus diastasis. Fluid-filled decompressed colon is noted. There is however some muc osal enhancement in the colon. Bladder/: Ureters and bladder unremarkable. Right ovarian cyst measuring 3.1 x 2.9 cm. Osseous: Degenerative changes in the thoracolumbar spine. No acute findings. IMPRESSION: Findings suggest partial small bowel obstruction. Zone of transition in the distal small bowel. Mucosal hyperemia and enhancement suggesting active Crohn's disease. No free air or pneumatosis. Il l-defined fluid collection in the anterior pelvis at the level of the uterus which may represent an a bscess. Previously described Crohn's related strictures again noted. Right ovarian cyst THIS IS AN ELECTRONICALLY VERIFIED FINAL REPORT 10/24/2023 11:56 AM - Electronically signed by Negro Jorgensen MD
[2023-10-24] MEDS: MORPHINE SULFATE INJ 4 MG IVP ONE (13:02)
[2023-10-24] MEDS: SOLU-Medrol 125 MG VIAL IVP ONE (13:12)
[2023-10-24] MEDS ORDERED: D5 NS 1,000 ML IV 1,000 ML IV SCH (14:00)
[2023-10-24] MEDS ORDERED: CONSULT PHARMACY - POTASSIUM & MAGNESIUM XX SCH (14:00)
[2023-10-24] MEDS: ZOFRAN INJ 4 MG VIAL ONE (14:18)
[2023-10-24] MEDS: OMNIPAQUE 350 mg/mL 100 mL BTL 100 ML ONE (14:18)
[2023-10-24] MEDS: SOLU-Medrol 125 MG VIAL ONE (14:19)
[2023-10-24] MEDS: SOLU-Medrol 40 MG VIAL IVP SCH (14:21)
[2023-10-24] MEDS: D5 NS + KCL 20 MEQ/L 1,000 ML IV SCH (14:32)
[2023-10-24 14:33] VITALS: BMI 14.5
[2023-10-24] MEDS: ZOFRAN INJ 4 MG VIAL IVP PRN (15:52)
[2023-10-24] MEDS: MORPHINE SULFATE INJ 4 MG IVP PRN (15:53)
[2023-10-24] MEDS: ZOSYN VIAL 3.375 GRAMS 3.375 G in NS 100 ML IV 100 ML IV SCH (22:38)
[2023-10-24] MEDS: ELAVIL PO SCH (22:42)
[2023-10-25 05:59] LABS: BASOPHILS # (AUTO) 0.1 X10^3/uL (0.0-0.1); BASOPHILS % (AUTO) 0.2 % (0.2-1.0); HEMATOCRIT 34.8 % (36.0-47.0); HEMOGLOBIN 11.3 g/dL (12.0-16.0); LYMPHOCYTES # (AUTO) 1.3 X10^3/uL (1.3-2.9); LYMPHOCYTES % (AUTO) 4.4 % (21.0-51.0); MEAN CORPUSCULAR HEMOGLOBIN 29.3 pg (27.0-34.0); MEAN CORPUSCULAR HGB CONC 32.4 g/dL (33.0-35.0); MEAN CORPUSCULAR VOLUME 90.4 fL (80.0-100.0); MEAN PLATELET VOLUME 6.8 fL (7.4-11.0); MONOCYTES # (AUTO) 0.6 x10^3/uL (0.3-0.8); NEUTROPHILS # (AUTO) 27.7 x10^3/uL (2.2-4.8); NEUTROPHILS % (AUTO) 93.4 % (42.0-75.0); PLATELET COUNT 390 X10^3/uL (150.0-450.0); RED BLOOD COUNT 3.85 X10^6/uL (3.5-5.4); RED CELL DISTRIBUTION WIDTH 14.6 % (11.6-16.5); WHITE BLOOD COUNT 29.6 X10^3/uL (3.6-10.0)
[2023-10-25 06:21] LABS: ALANINE AMINOTRANSFERASE 13 Units/L (12-78); ALKALINE PHOSPHATASE 76 Units/L (46-116); ASPARTATE AMINO TRANSFERASE 7 Units/L (15-37); BLOOD UREA NITROGEN 14 mg/dL (7-18); CALCIUM 7.2 mg/dL (8.5-10.1); CARBON DIOXIDE 23.9 mmol/L (21-32); CHLORIDE 107 mmol/L (98-107); COR CA(FOR HYPOALB) 8.8 mg/dL (8.5-10.1); COR NA(FOR HYPERGLY) 141 mmol/L (136-145); CREATININE 0.92 mg/dL (0.55-1.02); GLUCOSE 152 mg/dL (65-99); MAGNESIUM 1.8 mg/dL (2.0-2.9); SODIUM 140 mmol/L (136-145); TOTAL PROTEIN 5.7 g/dL (6.4-8.2); eGFR NON BLACK RACES > 60 (>60)
[2023-10-25 06:44] LABS: BAND NEUTROPHILS % 13 % (0-10); PLATELET MORPHOLOGY COMMENT NORMAL (NORMAL)
--- NOTE | 2023-10-25 10:51 | DR.H&P ---
H&P History & Physical for Day of: H&P Date: 10/25/23 Chief Complaint Chief Complaint: abdominal pain History of Present Illness History of Present Illness: Pt is a 43-year-old female with a medical history of Crohn's disease presenting with abdominal pain. She reports that the pain is located in her lower abdomen and is persistent. She also reports more pain in the right lower quadrant and left lower quadrant. She does have some nausea and vomiting. Denies fevers. Normal bowel movements. On exam this morning patient does feel a little better. She continues to have lower abdominal pain and nausea. Labs/imaging: WBC 29, hemoglobin 11.3, platelets 390, sodium 140, potassium 4.0, creatinine 0.92, glucose 152, lactic acid 5.50.7, UA negative, CT abdomen and pelvis was obtained that revealed a partial small bowel obstruction and Crohn's flareup. Also a possible pelvic abscess. Patient was admitted for partial small bowel obstruction, Crohn's flareup, and possible pelvic abscess. General surgeryDr. Diallo was consulted. Order IVF NS@125ml/h, clear liquid diet, Stat KUB. She is currently receiving IV anti biotics Zosyn, and IV Solu-Medrol 40 mg every 8 hours. Replete electrolytes per protocol. Will continue with current treatment plan. Continue closely monitor and follow-up labs/imaging. Past Medical History Past Medical History: Kidney Stones Additional Medical History: Crohn's Disease, Abdominal Hernia 2011, Urinary Tract Infections, Ovarian Cysts, Previous Blood Transfusion Past Surgical History Surgical History: Cholecystectomy and Ortho Surgery Additional Surgical History: Bilateral Hip Core Decompression; intestinal tears and had colostomy w reversal 1 year later (2010, 2011); abdominal hernia w mesh placement in 2011 Family History Family Medical History: Diabetes Mellitus, Cancer and [place] Social History Does patient currently use any type of tobacco product: No Have you used tobacco products in the last 12 months: No Type of Tobacco Use: None Does any household member use tobacco: No Alcohol Use: None Drug Use: None Medications Home Medications: Home Medications Medication Instructions Recorded Confirmed Type adalimumab 40 mg/0.8 mL 40 mg subcut Q2W 09/13/19 10/24/23 History subcutaneous syringe kit (Humira) amitriptyline 10 mg tablet 20 mg PO QPM 10/24/23 10/24/23 History Allergies Allergies Allergy/AdvReac Type Severity Reaction Status Date / Time metoclopramide [From Reglan] Allergy Verified 10/24/23 10:21 metronidazole [From Flagyl] Allergy Verified 10/24/23 10:21 Labs 10/25/23 05:20 10/25/23 05:20 Labs: Laboratory WBC 29.6 X10^3/uL (3.6-10.0) H 10/25/23 05:20 RBC 3.85 X10^6/uL (3.5-5.4) 10/25/23 05:20 Hgb 11.3 g/dL (12.0-16.0) L 10/25/23 05:20 Hct 34.8 % (36.0-47.0) L 10/25/23 05:20 MCV 90.4 fL (80.0-100.0) 10/25/23 05:20 MCH 29.3 pg (27.0-34.0) 10/25/23 05:20 MCHC 32.4 g/dL (33.0-35.0) L 10/25/23 05:20 RDW 14.6 % (11.6-16.5) 10/25/23 05:20 Plt Count 390 X10^3/uL (150.0-450.0) 10/25/23 05:20 Plt Count Comment Adequate (ADEQUATE) 10/25/23 05:20 MPV 6.8 fL (7.4-11.0) L 10/25/23 05:20 Neut % (Auto) 93.4 % (42.0-75.0) H 10/25/23 05:20 Lymph % (Auto) 4.4 % (21.0-51.0) L 10/25/23 05:20 [place] % (Auto) 2.0 % (0.0-13.0) 10/25/23 05:20 Eos % (Auto) 0.0 % (0.9-2.9) L 10/25/23 05:20 Baso % (Auto) 0.2 % (0.2-1.0) 10/25/23 05:20 Neut # (Auto) 27.7 x10^3/uL (2.2-4.8) H 10/25/23 05:20 Lymph # (Auto) 1.3 X10^3/uL (1.3-2.9) 10/25/23 05:20 [place] # (Auto) 0.6 x10^3/uL (0.3-0.8) 10/25/23 05:20 Eos # (Auto) 0.0 x10^3/uL (0.0-0.2) 10/25/23 05:20 Baso # (Auto) 0.1 X10^3/uL (0.0-0.1) 10/25/23 05:20 Absolute Nucleated RBC 0.0 /100WBC 10/25/23 05:20 Total Counted 100 10/25/23 05:20 Neutrophils % (Manual) 81 % (39-76) H 10/25/23 05:20 Band Neutrophils % 13 % (0-10) H 10/25/23 05:20 Lymphocytes % (Manual) 4 % (13-43) L 10/25/23 05:20 Monocytes % (Manual) 2 % (4-9) L 10/25/23 05:20 Plt Morphology Comment Normal (NORMAL) 10/25/23 05:20 RBC Morphology Normal (NORMAL) 10/25/23 05:20 Sodium 140 mmol/L (136-145) 10/25/23 05:20 Corrected Sodium 141 mmol/L (136-145) 10/25/23 05:20 Potassium 4.0 mmol/L (3.5-5.1) 10/25/23 05:20 Chloride 107 mmol/L (98-107) 10/25/23 05:20 Carbon Dioxide 23.9 mmol/L (21-32) 10/25/23 05:20 BUN 14 mg/dL (7-18) 10/25/23 05:20 Creatinine 0.92 mg/dL (0.55-1.02) 10/25/23 05:20 Est GFR (MDRD) Af Amer > 60 (>60) 10/25/23 05:20 Est GFR (MDRD) Non-Af > 60 (>60) 10/25/23 05:20 Glucose 152 mg/dL (65-99) H 10/25/23 05:20 Lactic Acid 0.7 mmol/L (0.4-2.0) 10/24/23 11:50 Calcium 7.2 mg/dL (8.5-10.1) L 10/25/23 05:20 Corrected Calcium 8.8 mg/dL (8.5-10.1) 10/25/23 05:20 Magnesium 1.8 mg/dL (2.0-2.9) L 10/25/23 05:20 Total Bilirubin 0.50 mg/dL (0.2-1.0) 10/25/23 05:20 AST 7 Units/L (15-37) L 10/25/23 05:20 ALT 13 Units/L (12-78) 10/25/23 05:20 Alkaline Phosphatase 76 Units/L (46-116) 10/25/23 05:20 Total Protein 5.7 g/dL (6.4-8.2) L 10/25/23 05:20 Albumin 2.0 g/dL (3.4-5.0) L 10/25/23 05:20 Globulin 3.7 g/dL (2.5-4.5) 10/25/23 05:20 Albumin/Globulin Ratio 0.5 Ratio (1.1-2.1) L 10/25/23 05:20 Lipase 27 Units/L (16-77) 10/24/23 09:48 Specimen Type Clean catch urine 10/24/23 10:40 Urine Color Bloody (YELLOW) 10/24/23 10:40 Urine Appearance Hazy (CLEAR) 10/24/23 10:40 Urine pH 7.0 (5.0 - 8.0) 10/24/23 10:40 Ur Specific [place] 1.010 (1.000-1.030) 10/24/23 10:40 Urine Protein 3+ (NEGATIVE) 10/24/23 10:40 Urine Glucose (UA) 3+ (NEGATIVE) 10/24/23 10:40 Urine Ketones 1+ (NEGATIVE) 10/24/23 10:40 Urine Blood 5+ (NEGATIVE) 10/24/23 10:40 Urine Nitrite Negative (NEGATIVE) 10/24/23 10:40 Urine Bilirubin Negative (NEGATIVE) 10/24/23 10:40 Urine Urobilinogen Normal (NORMAL) 10/24/23 10:40 Ur Leukocyte Esterase 1+ (NEGATIVE) 10/24/23 10:40 Urine RBC Tntc /HPF (0-3) A 10/24/23 10:40 Urine WBC 0-2 /HPF (0-5) 10/24/23 10:40 Ur Squamous Epith Cells Rare /HPF (NEGATIVE) 10/24/23 10:40 Urine Bacteria Negative /HPF (NEGATIVE) 10/24/23 10:40 Ur Culture Indicated? No/not indicated 10/24/23 10:40 Review of Systems Constitutional: Weakness Eyes: No Symptoms Reported ENT: No Symptoms Reported Respiratory: No Symptoms Reported Cardiovascular: No Symptoms Reported Gastrointestinal: Nausea and Abdominal Pain Genitourinary: No Symptoms Reported Musculoskeletal: No Symptoms Reported Skin: No Symptoms Reported Neurological: No Symptoms Reported Physical Exam Vital Signs: Vital Signs Temperature 97.9 F Pulse Rate [Brachial] 88 Respiratory Rate 20 Respiratory Rate 20 Respiratory Rate 18 Blood Pressure [Left Arm] 96/53 O2 Sat by Pulse Oximetry 98 Oriented: Normal Eyes: Normal Ear: Normal Nose: Normal Throat: Normal Respiratory: Clear Throughout Cardiovascular: Normal : Normal Auscultation: Bowel Sounds: Normal Palpation: Normal Tenderness: RLQ, LLQ, Mild and Moderate Skin: Normal Musculoskeletal: Normal Psychiatric: Normal Mood Description: Calm and Appropriate Affect: Normal Speech Pattern: Clear and Appropriate Assessment/Plan (1) Partial small bowel obstruction: Status: Acute Plan: IVF, CLD, General surgery consulted (2) Acute hypokalemia: Status: Acute Plan: Replete per protocol. (3) Intra-abdominal abscess: Status: Acute (4) Crohn disease: Status: Chronic Plan: Takes Humira at home Review H&P Reviewed: Yes Patient was examined?: Yes
--- NOTE | 2023-10-25 14:21 | RAD ---
EXAMINATION:KUBHISTORY:CROHNS DISEASE /ABD PAIN; .COMPARISON STUDY:KUB 09/15/2019TECHNIQUE:Single supine AP view of the abdomen and pelvisFINDINGS:Minimal to mild gaseous distention of the colon and loops of small bowel. Multiple surgical clips in the right abdomen. Soft tissue outlines appear intact. Subtle bony sclerotic changes of the femoral heads/necks.IMPRESSION:Normal bowel-gas pattern for the supine view.THIS IS AN ELECTRONICALLY VERIFIED FINAL REPORT10/25/2023 2:18 PM - Electronically signed by Rosy Jorge MD
[2023-10-25] MEDS: D5 NS + KCL 20 MEQ/L 1,000 ML with MAGNESIUM SULFATE 50% INJ VIAL 1 G IV SCH (14:39)
--- NOTE | 2023-10-25 17:23 | DR.PROGNOT ---
HOSPITAL PROGRESS NOTE Progress Note for Day of: Progress Note Date: 10/25/23 Chief Complaint Chief Complaint: Still having abdominal pain but less than yesterday, no nausea or vomiting. KUB was reported as normal, no evidence of bowel obstruction. White count still elevated 29.6 with shift to the left, albumin is 2. Magnesium is 1.8. Patient is afebrile. Past Medical Family Social History Allergies: Allergies metoclopramide [From Reglan] Allergy (Verified 10/24/23 10:21) metronidazole [From Flagyl] Allergy (Verified 10/24/23 10:21) Vital Signs Vital Signs: Vital Signs Temperature 98.1 F Temperature 98.2 F Pulse Rate [Brachial] 94 Pulse Rate [Brachial] 92 Respiratory Rate 18 Respiratory Rate 18 Respiratory Rate 20 Respiratory Rate 18 Respiratory Rate 18 Blood Pressure [Left Arm] 138/74 Blood Pressure [Left Arm] 118/77 O2 Sat by Pulse Oximetry 100 O2 Sat by Pulse Oximetry 98 Physical Exam Oriented: Normal Eyes: Normal Ear: Normal Nose: Normal Throat: Normal Cardiovascular: Normal : Normal GI:Auscultation: Normal GI:Palpation: Normal GI: Tenderness: RLQ, LLQ, Mild and Moderate Skin: Normal Musculoskeletal: Normal Psychiatric: Normal Mood Description: Calm and Appropriate Affect: Normal Speech Pattern: Clear and Appropriate Laboratory and Diagnostics 10/25/23 05:20 10/25/23 05:20 Labs: Laboratory WBC 29.6 X10^3/uL (3.6-10.0) H 10/25/23 05:20 RBC 3.85 X10^6/uL (3.5-5.4) 10/25/23 05:20 Hgb 11.3 g/dL (12.0-16.0) L 10/25/23 05:20 Hct 34.8 % (36.0-47.0) L 10/25/23 05:20 MCV 90.4 fL (80.0-100.0) 10/25/23 05:20 MCH 29.3 pg (27.0-34.0) 10/25/23 05:20 MCHC 32.4 g/dL (33.0-35.0) L 10/25/23 05:20 RDW 14.6 % (11.6-16.5) 10/25/23 05:20 Plt Count 390 X10^3/uL (150.0-450.0) 10/25/23 05:20 Plt Count Comment Adequate (ADEQUATE) 10/25/23 05:20 MPV 6.8 fL (7.4-11.0) L 10/25/23 05:20 Neut % (Auto) 93.4 % (42.0-75.0) H 10/25/23 05:20 Lymph % (Auto) 4.4 % (21.0-51.0) L 10/25/23 05:20 [place] % (Auto) 2.0 % (0.0-13.0) 10/25/23 05:20 Eos % (Auto) 0.0 % (0.9-2.9) L 10/25/23 05:20 Baso % (Auto) 0.2 % (0.2-1.0) 10/25/23 05:20 Neut # (Auto) 27.7 x10^3/uL (2.2-4.8) H 10/25/23 05:20 Lymph # (Auto) 1.3 X10^3/uL (1.3-2.9) 10/25/23 05:20 [place] # (Auto) 0.6 x10^3/uL (0.3-0.8) 10/25/23 05:20 Eos # (Auto) 0.0 x10^3/uL (0.0-0.2) 10/25/23 05:20 Baso # (Auto) 0.1 X10^3/uL (0.0-0.1) 10/25/23 05:20 Absolute Nucleated RBC 0.0 /100WBC 10/25/23 05:20 Total Counted 100 10/25/23 05:20 Neutrophils % (Manual) 81 % (39-76) H 10/25/23 05:20 Band Neutrophils % 13 % (0-10) H 10/25/23 05:20 Lymphocytes % (Manual) 4 % (13-43) L 10/25/23 05:20 Monocytes % (Manual) 2 % (4-9) L 10/25/23 05:20 Plt Morphology Comment Normal (NORMAL) 10/25/23 05:20 RBC Morphology Normal (NORMAL) 10/25/23 05:20 Sodium 140 mmol/L (136-145) 10/25/23 05:20 Corrected Sodium 141 mmol/L (136-145) 10/25/23 05:20 Potassium 4.0 mmol/L (3.5-5.1) 10/25/23 05:20 Chloride 107 mmol/L (98-107) 10/25/23 05:20 Carbon Dioxide 23.9 mmol/L (21-32) 10/25/23 05:20 BUN 14 mg/dL (7-18) 10/25/23 05:20 Creatinine 0.92 mg/dL (0.55-1.02) 10/25/23 05:20 Est GFR (MDRD) Af Amer > 60 (>60) 10/25/23 05:20 Est GFR (MDRD) Non-Af > 60 (>60) 10/25/23 05:20 Glucose 152 mg/dL (65-99) H 10/25/23 05:20 Lactic Acid 0.7 mmol/L (0.4-2.0) 10/24/23 11:50 Calcium 7.2 mg/dL (8.5-10.1) L 10/25/23 05:20 Corrected Calcium 8.8 mg/dL (8.5-10.1) 10/25/23 05:20 Magnesium 1.8 mg/dL (2.0-2.9) L 10/25/23 05:20 Total Bilirubin 0.50 mg/dL (0.2-1.0) 10/25/23 05:20 AST 7 Units/L (15-37) L 10/25/23 05:20 ALT 13 Units/L (12-78) 10/25/23 05:20 Alkaline Phosphatase 76 Units/L (46-116) 10/25/23 05:20 Total Protein 5.7 g/dL (6.4-8.2) L 10/25/23 05:20 Albumin 2.0 g/dL (3.4-5.0) L 10/25/23 05:20 Globulin 3.7 g/dL (2.5-4.5) 10/25/23 05:20 Albumin/Globulin Ratio 0.5 Ratio (1.1-2.1) L 10/25/23 05:20 Lipase 27 Units/L (16-77) 10/24/23 09:48 Specimen Type Clean catch urine 10/24/23 10:40 Urine Color Bloody (YELLOW) 10/24/23 10:40 Urine Appearance Hazy (CLEAR) 10/24/23 10:40 Urine pH 7.0 (5.0 - 8.0) 10/24/23 10:40 Ur Specific [place] 1.010 (1.000-1.030) 10/24/23 10:40 Urine Protein 3+ (NEGATIVE) 10/24/23 10:40 Urine Glucose (UA) 3+ (NEGATIVE) 10/24/23 10:40 Urine Ketones 1+ (NEGATIVE) 10/24/23 10:40 Urine Blood 5+ (NEGATIVE) 10/24/23 10:40 Urine Nitrite Negative (NEGATIVE) 10/24/23 10:40 Urine Bilirubin Negative (NEGATIVE) 10/24/23 10:40 Urine Urobilinogen Normal (NORMAL) 10/24/23 10:40 Ur Leukocyte Esterase 1+ (NEGATIVE) 10/24/23 10:40 Urine RBC Tntc /HPF (0-3) A 10/24/23 10:40 Urine WBC 0-2 /HPF (0-5) 10/24/23 10:40 Ur Squamous Epith Cells Rare /HPF (NEGATIVE) 10/24/23 10:40 Urine Bacteria Negative /HPF (NEGATIVE) 10/24/23 10:40 Ur Culture Indicated? No/not indicated 10/24/23 10:40 Assessment and Plan 1: Active Crohn disease with partial bowel obstruction. Will start on clear liquid today 2: Intra-abdominal abscess secondary to Crohn disease Continue IV antibiotics and close observation.. 4: Large ventral hernia. To observe. Problem Patient Problems: Patient Problems (Updated 10/24/23 @ 13:01 by Misael Lima) Intra-abdominal abscess (Acute) K65.1 Acute hypokalemia (Acute) E87.6 Partial small bowel obstruction (Acute) K56.600 Crohn disease (Chronic) K50.90
[2023-10-25] MEDS: K-RIDER 10 MEQ/100 ML WATER 10 MEQ/100 ML BAG IV SCH (21:46)
[2023-10-26 07:15] LABS: BASOPHILS % (AUTO) 0.1 % (0.2-1.0); HEMATOCRIT 32.7 % (36.0-47.0); HEMOGLOBIN 10.7 g/dL (12.0-16.0); LYMPHOCYTES # (AUTO) 1.2 X10^3/uL (1.3-2.9); LYMPHOCYTES % (AUTO) 5.2 % (21.0-51.0); MEAN CORPUSCULAR HEMOGLOBIN 29.4 pg (27.0-34.0); MEAN CORPUSCULAR HGB CONC 32.6 g/dL (33.0-35.0); MEAN PLATELET VOLUME 7.5 fL (7.4-11.0); MONOCYTES # (AUTO) 0.7 x10^3/uL (0.3-0.8); MONOCYTES % (AUTO) 2.9 % (0.0-13.0); NEUTROPHILS # (AUTO) 21.9 x10^3/uL (2.2-4.8); NEUTROPHILS % (AUTO) 91.8 % (42.0-75.0); PLATELET COUNT 365 X10^3/uL (150.0-450.0); RED BLOOD COUNT 3.63 X10^6/uL (3.5-5.4); RED CELL DISTRIBUTION WIDTH 14.6 % (11.6-16.5); WHITE BLOOD COUNT 23.9 X10^3/uL (3.6-10.0)
[2023-10-26 07:29] LABS: ALANINE AMINOTRANSFERASE 14 Units/L (12-78); ALBUMIN 1.8 g/dL (3.4-5.0); ALKALINE PHOSPHATASE 80 Units/L (46-116); ASPARTATE AMINO TRANSFERASE 9 Units/L (15-37); BLOOD UREA NITROGEN 13 mg/dL (7-18); CALCIUM 7.3 mg/dL (8.5-10.1); CARBON DIOXIDE 22.8 mmol/L (21-32); CHLORIDE 108 mmol/L (98-107); COR CA(FOR HYPOALB) 9.1 mg/dL (8.5-10.1); CREATININE 0.75 mg/dL (0.55-1.02); GLUCOSE 108 mg/dL (65-99); SODIUM 139 mmol/L (136-145); TOTAL PROTEIN 5.6 g/dL (6.4-8.2); eGFR NON BLACK RACES > 60 (>60)
[2023-10-26 07:37] LABS: BAND NEUTROPHILS % 5 % (0-10); PLATELET MORPHOLOGY COMMENT NORMAL (NORMAL)
--- NOTE | 2023-10-26 15:48 | DR.PROGNOT ---
HOSPITAL PROGRESS NOTE Progress Note for Day of: Progress Note Date: 10/26/23 Chief Complaint Chief Complaint: Still having abdominal pain but less than yesterday, no nausea or vomiting. KUB was reported as normal, no evidence of bowel obstruction. White count still elevated 23.9 with shift to the left, albumin is 2. Magnesium is 1.8. Patient is afebrile. Past Medical Family Social History Allergies: Allergies metoclopramide [From Reglan] Allergy (Verified 10/24/23 10:21) metronidazole [From Flagyl] Allergy (Verified 10/24/23 10:21) Vital Signs Vital Signs: Vital Signs Temperature 98.1 F Temperature 97.9 F Pulse Rate [Brachial] 82 Pulse Rate [Brachial] 82 Respiratory Rate 18 Respiratory Rate 18 Blood Pressure [Left Arm] 108/69 Blood Pressure [Left Arm] 114/73 O2 Sat by Pulse Oximetry 98 O2 Sat by Pulse Oximetry 99 Physical Exam Oriented: Normal Eyes: Normal Ear: Normal Nose: Normal Throat: Normal Cardiovascular: Normal : Normal GI:Auscultation: Normal GI:Palpation: Normal GI: Tenderness: RLQ, LLQ, Mild and Moderate Skin: Normal Musculoskeletal: Normal Psychiatric: Normal Mood Description: Calm and Appropriate Affect: Normal Speech Pattern: Clear and Appropriate Laboratory and Diagnostics 10/26/23 05:57 10/26/23 05:57 Labs: Laboratory WBC 23.9 X10^3/uL (3.6-10.0) H 10/26/23 05:57 RBC 3.63 X10^6/uL (3.5-5.4) 10/26/23 05:57 Hgb 10.7 g/dL (12.0-16.0) L 10/26/23 05:57 Hct 32.7 % (36.0-47.0) L 10/26/23 05:57 MCV 90.0 fL (80.0-100.0) 10/26/23 05:57 MCH 29.4 pg (27.0-34.0) 10/26/23 05:57 MCHC 32.6 g/dL (33.0-35.0) L 10/26/23 05:57 RDW 14.6 % (11.6-16.5) 10/26/23 05:57 Plt Count 365 X10^3/uL (150.0-450.0) 10/26/23 05:57 Plt Count Comment Adequate (ADEQUATE) 10/26/23 05:57 MPV 7.5 fL (7.4-11.0) 10/26/23 05:57 Neut % (Auto) 91.8 % (42.0-75.0) H 10/26/23 05:57 Lymph % (Auto) 5.2 % (21.0-51.0) L 10/26/23 05:57 [place] % (Auto) 2.9 % (0.0-13.0) 10/26/23 05:57 Eos % (Auto) 0.0 % (0.9-2.9) L 10/26/23 05:57 Baso % (Auto) 0.1 % (0.2-1.0) L 10/26/23 05:57 Neut # (Auto) 21.9 x10^3/uL (2.2-4.8) H 10/26/23 05:57 Lymph # (Auto) 1.2 X10^3/uL (1.3-2.9) L 10/26/23 05:57 [facility] # (Auto) 0.7 x10^3/uL (0.3-0.8) 10/26/23 05:57 Eos # (Auto) 0.0 x10^3/uL (0.0-0.2) 10/26/23 05:57 Baso # (Auto) 0.0 X10^3/uL (0.0-0.1) 10/26/23 05:57 Absolute Nucleated RBC 0.0 /100WBC 10/26/23 05:57 Total Counted 100 10/26/23 05:57 Neutrophils % (Manual) 86 % (39-76) H 10/26/23 05:57 Band Neutrophils % 5 % (0-10) 10/26/23 05:57 Lymphocytes % (Manual) 8 % (13-43) L 10/26/23 05:57 Monocytes % (Manual) 1 % (4-9) L 10/26/23 05:57 Plt Morphology Comment Normal (NORMAL) 10/26/23 05:57 RBC Morphology Normal (NORMAL) 10/26/23 05:57 Sodium 139 mmol/L (136-145) 10/26/23 05:57 Corrected Sodium TNP 10/26/23 05:57 Potassium 4.0 mmol/L (3.5-5.1) 10/26/23 05:57 Chloride 108 mmol/L (98-107) H 10/26/23 05:57 Carbon Dioxide 22.8 mmol/L (21-32) 10/26/23 05:57 BUN 13 mg/dL (7-18) 10/26/23 05:57 Creatinine 0.75 mg/dL (0.55-1.02) 10/26/23 05:57 Est GFR (MDRD) Af Amer > 60 (>60) 10/26/23 05:57 Est GFR (MDRD) Non-Af > 60 (>60) 10/26/23 05:57 Glucose 108 mg/dL (65-99) H 10/26/23 05:57 Lactic Acid 0.7 mmol/L (0.4-2.0) 10/24/23 11:50 Calcium 7.3 mg/dL (8.5-10.1) L 10/26/23 05:57 Corrected Calcium 9.1 mg/dL (8.5-10.1) 10/26/23 05:57 Magnesium 1.8 mg/dL (2.0-2.9) L 10/25/23 05:20 Total Bilirubin 0.40 mg/dL (0.2-1.0) 10/26/23 05:57 AST 9 Units/L (15-37) L 10/26/23 05:57 ALT 14 Units/L (12-78) 10/26/23 05:57 Alkaline Phosphatase 80 Units/L (46-116) 10/26/23 05:57 Total Protein 5.6 g/dL (6.4-8.2) L 10/26/23 05:57 Albumin 1.8 g/dL (3.4-5.0) L 10/26/23 05:57 Globulin 3.8 g/dL (2.5-4.5) 10/26/23 05:57 Albumin/Globulin Ratio 0.5 Ratio (1.1-2.1) L 10/26/23 05:57 Lipase 27 Units/L (16-77) 10/24/23 09:48 Specimen Type Clean catch urine 10/24/23 10:40 Urine Color Bloody (YELLOW) 10/24/23 10:40 Urine Appearance Hazy (CLEAR) 10/24/23 10:40 Urine pH 7.0 (5.0 - 8.0) 10/24/23 10:40 Ur Specific [place] 1.010 (1.000-1.030) 10/24/23 10:40 Urine Protein 3+ (NEGATIVE) 10/24/23 10:40 Urine Glucose (UA) 3+ (NEGATIVE) 10/24/23 10:40 Urine Ketones 1+ (NEGATIVE) 10/24/23 10:40 Urine Blood 5+ (NEGATIVE) 10/24/23 10:40 Urine Nitrite Negative (NEGATIVE) 10/24/23 10:40 Urine Bilirubin Negative (NEGATIVE) 10/24/23 10:40 Urine Urobilinogen Normal (NORMAL) 10/24/23 10:40 Ur Leukocyte Esterase 1+ (NEGATIVE) 10/24/23 10:40 Urine RBC Tntc /HPF (0-3) A 10/24/23 10:40 Urine WBC 0-2 /HPF (0-5) 10/24/23 10:40 Ur Squamous Epith Cells Rare /HPF (NEGATIVE) 10/24/23 10:40 Urine Bacteria Negative /HPF (NEGATIVE) 10/24/23 10:40 Ur Culture Indicated? No/not indicated 10/24/23 10:40 Assessment and Plan 1: Active Crohn disease with subsiding partial bowel obstruction. Will advance to full liquid today. 2: Intra-abdominal abscess secondary to Crohn disease Continue IV antibiotics and close observation.. CT in am 4: Large ventral hernia. To observe. Problem Patient Problems: Patient Problems (Updated 10/24/23 @ 13:01 by Misael Lima) Intra-abdominal abscess (Acute) K65.1 Acute hypokalemia (Acute) E87.6 Partial small bowel obstruction (Acute) K56.600 Crohn disease (Chronic) K50.90
[2023-10-26] MEDS: NS 250 ML IV 25 ML IV PRN (21:04)
--- NOTE | 2023-10-27 05:49 | CT ---
EXAMINATION: ABDCMEN/PELVIS WITH CON HISTORY: ABDOMINAL PAIN, ? ABCESS ; KIDNEY STONES, CROHN'S SX: COLON, MARLEY COMPARISON: CT abdomen 10/24/2023 TECHNIQUE: Contiguous axial CT images abdomen and pelvis following intravenous contrast. Images reviewed in the axial imaging plane with reformatted sagittal and coronal images.The above CT scan was done with aut omated exposure control and the mA and kV was adjusted to obtain quality images according to patient size. FINDINGS: The liver is normal size. Nonspecific 4 mm hypodensity posterior segment right hepatic lobe.. Cholecystectomy. No bile duct dilatation. Pancreas, spleen, adrenal glands appear intact. The abdominal aorta tapers normally. Kidneys normal size and position. No hydronephrosis. Details of the GI tract are limited since oral contrast was not used. There is moderate amount of li quid stool within the rectum. Postsurgical changes of the sigmoid colon. Postsurgical changes of th e colon anterior right mid abdomen. Moderate gaseous distention of the transverse colon. Mild bowel wall thickening segments of small bowel in the central lower abdomen. Stomach contains a trace amou nt of fluid. Nonspecific large collection of fluid central pelvis containing an air-fluid level measuring 15 by 8 by 10 cm. This fluid collection is contiguous with the uterus and cul-de-sac having a central densit y of 15 Hounsfield units. 3.5 by 3.2 by 4.4 cm cystic structure along the right adnexa probably related to the right ovary havi ng a central density of 13 Hounsfield units. Homogeneous enhancement of the uterus. Mild distention of the urinary bladder with urine. Mild spondylosis. Pulmonary bases are clear. IMPRESSION: Nonspecific large collection of fluid central pelvis containing an air-fluid level. The fluid collec tions contiguous with the uterus and cul-de-sac. Cystic structure right adnexa probably related to the right ovary. Moderate amount of liquid stool within the rectum. Postsurgical changes of the colon. Mild bowel wa ll thickening segments of the small bowel in the central lower abdomen. THIS IS AN ELECTRONICALLY VERIFIED FINAL REPORT 10/27/2023 5:45 AM - Electronically signed by Rosy Jorge MD
[2023-10-27 06:50] LABS: BASOPHILS % (AUTO) 0.1 % (0.2-1.0); HEMATOCRIT 31.1 % (36.0-47.0); HEMOGLOBIN 10.1 g/dL (12.0-16.0); LYMPHOCYTES # (AUTO) 1.3 X10^3/uL (1.3-2.9); LYMPHOCYTES % (AUTO) 7.5 % (21.0-51.0); MEAN CORPUSCULAR HEMOGLOBIN 29.3 pg (27.0-34.0); MEAN CORPUSCULAR HGB CONC 32.5 g/dL (33.0-35.0); MEAN CORPUSCULAR VOLUME 90.2 fL (80.0-100.0); MEAN PLATELET VOLUME 7.1 fL (7.4-11.0); MONOCYTES # (AUTO) 0.5 x10^3/uL (0.3-0.8); MONOCYTES % (AUTO) 2.9 % (0.0-13.0); NEUTROPHILS # (AUTO) 15.3 x10^3/uL (2.2-4.8); NEUTROPHILS % (AUTO) 89.5 % (42.0-75.0); PLATELET COUNT 382 X10^3/uL (150.0-450.0); RED BLOOD COUNT 3.44 X10^6/uL (3.5-5.4); RED CELL DISTRIBUTION WIDTH 14.6 % (11.6-16.5); WHITE BLOOD COUNT 17.1 X10^3/uL (3.6-10.0)
[2023-10-27 07:07] LABS: ALANINE AMINOTRANSFERASE 13 Units/L (12-78); ALBUMIN 1.8 g/dL (3.4-5.0); ALKALINE PHOSPHATASE 68 Units/L (46-116); ASPARTATE AMINO TRANSFERASE 7 Units/L (15-37); BLOOD UREA NITROGEN 11 mg/dL (7-18); CALCIUM 7.3 mg/dL (8.5-10.1); CARBON DIOXIDE 23.2 mmol/L (21-32); CHLORIDE 107 mmol/L (98-107); COR CA(FOR HYPOALB) 9.1 mg/dL (8.5-10.1); CREATININE 0.76 mg/dL (0.55-1.02); GLUCOSE 90 mg/dL (65-99); MAGNESIUM 2.7 mg/dL (2.0-2.9); POTASSIUM 4.1 mmol/L (3.5-5.1); SODIUM 137 mmol/L (136-145); TOTAL PROTEIN 5.3 g/dL (6.4-8.2); eGFR NON BLACK RACES > 60 (>60)
--- NOTE | 2023-10-27 09:11 | DR.PROGNOT ---
HOSPITAL PROGRESS NOTE Progress Note for Day of: Progress Note Date: 10/27/23 Chief Complaint Chief Complaint: moderate abdominal pain but less than yesterday, no nausea or vomiting. having several small BM, no bleeding . tolerating liquid diet . abdominal ct showed moderate collection in he pelvis and thick wall of SB KUB was reported as normal, no evidence of bowel obstruction. White count still elevated 17.1 a with shift to the left, albumin is 2. Magnesium is 1.8. Patient is afebrile. Past Medical Family Social History Allergies: Allergies metoclopramide [From Reglan] Allergy (Verified 10/24/23 10:21) metronidazole [From Flagyl] Allergy (Verified 10/24/23 10:21) Vital Signs Vital Signs: Vital Signs Temperature 97.6 F Pulse Rate [Brachial] 62 Respiratory Rate 20 Blood Pressure [Left Arm] 107/55 O2 Sat by Pulse Oximetry 97 Physical Exam Oriented: Normal Eyes: Normal Ear: Normal Nose: Normal Throat: Normal Cardiovascular: Normal : Normal GI:Auscultation: Normal GI:Palpation: Normal GI: Tenderness: RLQ, LLQ, Mild and Moderate Skin: Normal Musculoskeletal: Normal Psychiatric: Normal Mood Description: Calm and Appropriate Affect: Normal Speech Pattern: Clear and Appropriate Laboratory and Diagnostics 10/27/23 05:28 10/27/23 05:28 Labs: Laboratory WBC 17.1 X10^3/uL (3.6-10.0) H 10/27/23 05:28 RBC 3.44 X10^6/uL (3.5-5.4) L 10/27/23 05:28 Hgb 10.1 g/dL (12.0-16.0) L 10/27/23 05:28 Hct 31.1 % (36.0-47.0) L 10/27/23 05:28 MCV 90.2 fL (80.0-100.0) 10/27/23 05:28 MCH 29.3 pg (27.0-34.0) 10/27/23 05:28 MCHC 32.5 g/dL (33.0-35.0) L 10/27/23 05:28 RDW 14.6 % (11.6-16.5) 10/27/23 05:28 Plt Count 382 X10^3/uL (150.0-450.0) 10/27/23 05:28 Plt Count Comment Adequate (ADEQUATE) 10/26/23 05:57 MPV 7.1 fL (7.4-11.0) L 10/27/23 05:28 Neut % (Auto) 89.5 % (42.0-75.0) H 10/27/23 05:28 Lymph % (Auto) 7.5 % (21.0-51.0) L 10/27/23 05:28 [place] % (Auto) 2.9 % (0.0-13.0) 10/27/23 05:28 Eos % (Auto) 0.0 % (0.9-2.9) L 10/27/23 05:28 Baso % (Auto) 0.1 % (0.2-1.0) L 10/27/23 05:28 Neut # (Auto) 15.3 x10^3/uL (2.2-4.8) H 10/27/23 05:28 Lymph # (Auto) 1.3 X10^3/uL (1.3-2.9) 10/27/23 05:28 [place] # (Auto) 0.5 x10^3/uL (0.3-0.8) 10/27/23 05:28 Eos # (Auto) 0.0 x10^3/uL (0.0-0.2) 10/27/23 05:28 Baso # (Auto) 0.0 X10^3/uL (0.0-0.1) 10/27/23 05:28 Absolute Nucleated RBC 0.0 /100WBC 10/27/23 05:28 Total Counted 100 10/26/23 05:57 Neutrophils % (Manual) 86 % (39-76) H 10/26/23 05:57 Band Neutrophils % 5 % (0-10) 10/26/23 05:57 Lymphocytes % (Manual) 8 % (13-43) L 10/26/23 05:57 Monocytes % (Manual) 1 % (4-9) L 10/26/23 05:57 Plt Morphology Comment Normal (NORMAL) 10/26/23 05:57 RBC Morphology Normal (NORMAL) 10/26/23 05:57 Sodium 137 mmol/L (136-145) 10/27/23 05:28 Corrected Sodium TNP 10/27/23 05:28 Potassium 4.1 mmol/L (3.5-5.1) 10/27/23 05:28 Chloride 107 mmol/L (98-107) 10/27/23 05:28 Carbon Dioxide 23.2 mmol/L (21-32) 10/27/23 05:28 BUN 11 mg/dL (7-18) 10/27/23 05:28 Creatinine 0.76 mg/dL (0.55-1.02) 10/27/23 05:28 Est GFR (MDRD) Af Amer > 60 (>60) 10/27/23 05:28 Est GFR (MDRD) Non-Af > 60 (>60) 10/27/23 05:28 Glucose 90 mg/dL (65-99) 10/27/23 05:28 Lactic Acid 0.7 mmol/L (0.4-2.0) 10/24/23 11:50 Calcium 7.3 mg/dL (8.5-10.1) L 10/27/23 05:28 Corrected Calcium 9.1 mg/dL (8.5-10.1) 10/27/23 05:28 Magnesium 2.7 mg/dL (2.0-2.9) 10/27/23 05:28 Total Bilirubin 0.30 mg/dL (0.2-1.0) 10/27/23 05:28 AST 7 Units/L (15-37) L 10/27/23 05:28 ALT 13 Units/L (12-78) 10/27/23 05:28 Alkaline Phosphatase 68 Units/L (46-116) 10/27/23 05:28 Total Protein 5.3 g/dL (6.4-8.2) L 10/27/23 05:28 Albumin 1.8 g/dL (3.4-5.0) L 10/27/23 05:28 Globulin 3.5 g/dL (2.5-4.5) 10/27/23 05:28 Albumin/Globulin Ratio 0.5 Ratio (1.1-2.1) L 10/27/23 05:28 Lipase 27 Units/L (16-77) 10/24/23 09:48 Specimen Type Clean catch urine 10/24/23 10:40 Urine Color Bloody (YELLOW) 10/24/23 10:40 Urine Appearance Hazy (CLEAR) 10/24/23 10:40 Urine pH 7.0 (5.0 - 8.0) 10/24/23 10:40 Ur Specific [place] 1.010 (1.000-1.030) 10/24/23 10:40 Urine Protein 3+ (NEGATIVE) 10/24/23 10:40 Urine Glucose (UA) 3+ (NEGATIVE) 10/24/23 10:40 Urine Ketones 1+ (NEGATIVE) 10/24/23 10:40 Urine Blood 5+ (NEGATIVE) 10/24/23 10:40 Urine Nitrite Negative (NEGATIVE) 10/24/23 10:40 Urine Bilirubin Negative (NEGATIVE) 10/24/23 10:40 Urine Urobilinogen Normal (NORMAL) 10/24/23 10:40 Ur Leukocyte Esterase 1+ (NEGATIVE) 10/24/23 10:40 Urine RBC Tntc /HPF (0-3) A 10/24/23 10:40 Urine WBC 0-2 /HPF (0-5) 10/24/23 10:40 Ur Squamous Epith Cells Rare /HPF (NEGATIVE) 10/24/23 10:40 Urine Bacteria Negative /HPF (NEGATIVE) 10/24/23 10:40 Ur Culture Indicated? No/not indicated 10/24/23 10:40 Assessment and Plan 1: Active Crohn disease with subsiding partial bowel obstruction. on full liquid today. 2: Intra-abdominal abscess secondary to Crohn disease Continue IV antibiotics and close observation.. 4: Large ventral hernia. To observe. Problem Patient Problems: Patient Problems Intra-abdominal abscess (Acute) K65.1 Acute hypokalemia (Acute) E87.6 Partial small bowel obstruction (Acute) K56.600 Crohn disease (Chronic) K50.90
[2023-10-27 09:25] LABS: BILIRUBIN,URINE NEGATIVE (NEGATIVE); BLOOD/HEMOGLOBIN,URINE 5+ (NEGATIVE); GLUCOSE, URINE NEGATIVE (NEGATIVE); KETONES,URINE NEGATIVE (NEGATIVE); LEUKOCYTE ESTERASE ,URINE NEGATIVE (NEGATIVE); NITRITES,URINE NEGATIVE (NEGATIVE); PH,URINE 6.5 (5.0 - 8.0); PROTEIN,URINE 1+ (NEGATIVE); UROBILINOGEN,URINE NORMAL (NORMAL)
[2023-10-27 09:26] LABS: APPEARANCE,URINE CLEAR (CLEAR); COLOR,URINE PALE YELLOW (YELLOW)
[2023-10-27 09:33] LABS: BACTERIA,URINE TRACE /HPF (NEGATIVE); SQUAMOUS EPITHELIAL CELL,UR RARE /HPF (NEGATIVE)
[2023-10-27] MEDS: OMNIPAQUE 350 mg/mL 100 mL BTL 100 ML ONE (09:41)
[2023-10-27] MEDS: NS 500 ML IV 500 ML IV ONE (09:41)
[2023-10-27] MEDS: ALBUMIN HUMAN 25%- 100 ML 100 ML IV SCH (09:49)
--- NOTE | 2023-10-27 11:56 | PCM.PROG ---
Progress Note Progress Note for Day of Date of Exam: 10/26/23 Subjective Subjective: Pt is a 43-year-old female with a medical history of Crohn's disease admitted for active Crohn's disease with subsiding partial bowel obstruction and intra-abdominal abscess secondary to Crohn disease. This morning she reports feeling better. Nausea and vomiting has subsided. No acute events overnight. She still has some lower abdominal tenderness. Labs/imaging: WBC 23, hemoglobin 10.7, platelets 365, sodium 139, potassium 4.0, creatinine 0.75, glucose 108. KUB negative. General surgeryDr. Yoel following. Continue IVF NS@125ml/h, clear liquid diet. Continue IV antibiotics Zosyn, and IV Solu-Medrol 40 mg every 8 hours. Replete electrolytes per protocol. Otherwise, continue with c urrent treatment plan. Continue closely monitor and follow-up labs/imaging. Past Medical Family Social History Allergies: Allergies metoclopramide [From Reglan] Allergy (Verified 10/24/23 10:21) metronidazole [From Flagyl] Allergy (Verified 10/24/23 10:21) Review of Systems ROS changes noted: see HPI Vital Signs and I&O's Vital Signs: Vital Signs Temperature 97.7 F Temperature 97.6 F Pulse Rate [Brachial] 72 Pulse Rate [Brachial] 62 Respiratory Rate 21 Respiratory Rate 20 Blood Pressure [Left Arm] 118/74 Blood Pressure [Left Arm] 107/55 O2 Sat by Pulse Oximetry 99 O2 Sat by Pulse Oximetry 97 Intake and Output: Intake & Output 10/24/23 10/25/23 10/26/23 10/27/23 23:59 23:59 23:59 23:59 Intake Total 120 / 120 2847 / 2847 2585 / 2585 1230 / 1230 Balance 120 / 120 2847 / 2847 2585 / 2585 1230 / 1230 Physical Exam Oriented: Normal Eyes: Normal Ear: Normal Nose: Normal Throat: Normal Respiratory: Normal Cardiovascular: Normal : Normal Auscultation: Bowel Sounds: Normal Tenderness: RLQ, LLQ and Mild Skin: Normal Musculoskeletal: Normal Psychiatric: Normal Mood Description: Calm and Appropriate Affect: Normal Speech Pattern: Clear and Appropriate Laboratory and Diagnostics 10/27/23 05:28 10/27/23 05:28 Labs: Laboratory WBC 17.1 X10^3/uL (3.6-10.0) H 10/27/23 05:28 RBC 3.44 X10^6/uL (3.5-5.4) L 10/27/23 05:28 Hgb 10.1 g/dL (12.0-16.0) L 10/27/23 05:28 Hct 31.1 % (36.0-47.0) L 10/27/23 05:28 MCV 90.2 fL (80.0-100.0) 10/27/23 05:28 MCH 29.3 pg (27.0-34.0) 10/27/23 05:28 MCHC 32.5 g/dL (33.0-35.0) L 10/27/23 05:28 RDW 14.6 % (11.6-16.5) 10/27/23 05:28 Plt Count 382 X10^3/uL (150.0-450.0) 10/27/23 05:28 Plt Count Comment Adequate (ADEQUATE) 10/26/23 05:57 MPV 7.1 fL (7.4-11.0) L 10/27/23 05:28 Neut % (Auto) 89.5 % (42.0-75.0) H 10/27/23 05:28 Lymph % (Auto) 7.5 % (21.0-51.0) L 10/27/23 05:28 [place] % (Auto) 2.9 % (0.0-13.0) 10/27/23 05:28 Eos % (Auto) 0.0 % (0.9-2.9) L 10/27/23 05:28 Baso % (Auto) 0.1 % (0.2-1.0) L 10/27/23 05:28 Neut # (Auto) 15.3 x10^3/uL (2.2-4.8) H 10/27/23 05:28 Lymph # (Auto) 1.3 X10^3/uL (1.3-2.9) 10/27/23 05:28 [place] # (Auto) 0.5 x10^3/uL (0.3-0.8) 10/27/23 05:28 Eos # (Auto) 0.0 x10^3/uL (0.0-0.2) 10/27/23 05:28 Baso # (Auto) 0.0 X10^3/uL (0.0-0.1) 10/27/23 05:28 Absolute Nucleated RBC 0.0 /100WBC 10/27/23 05:28 Total Counted 100 10/26/23 05:57 Neutrophils % (Manual) 86 % (39-76) H 10/26/23 05:57 Band Neutrophils % 5 % (0-10) 10/26/23 05:57 Lymphocytes % (Manual) 8 % (13-43) L 10/26/23 05:57 Monocytes % (Manual) 1 % (4-9) L 10/26/23 05:57 Plt Morphology Comment Normal (NORMAL) 10/26/23 05:57 RBC Morphology Normal (NORMAL) 10/26/23 05:57 Sodium 137 mmol/L (136-145) 10/27/23 05:28 Corrected Sodium TNP 10/27/23 05:28 Potassium 4.1 mmol/L (3.5-5.1) 10/27/23 05:28 Chloride 107 mmol/L (98-107) 10/27/23 05:28 Carbon Dioxide 23.2 mmol/L (21-32) 10/27/23 05:28 BUN 11 mg/dL (7-18) 10/27/23 05:28 Creatinine 0.76 mg/dL (0.55-1.02) 10/27/23 05:28 Est GFR (MDRD) Af Amer > 60 (>60) 10/27/23 05:28 Est GFR (MDRD) Non-Af > 60 (>60) 10/27/23 05:28 Glucose 90 mg/dL (65-99) 10/27/23 05:28 Lactic Acid 0.7 mmol/L (0.4-2.0) 10/24/23 11:50 Calcium 7.3 mg/dL (8.5-10.1) L 10/27/23 05:28 Corrected Calcium 9.1 mg/dL (8.5-10.1) 10/27/23 05:28 Magnesium 2.7 mg/dL (2.0-2.9) 10/27/23 05:28 Total Bilirubin 0.30 mg/dL (0.2-1.0) 10/27/23 05:28 AST 7 Units/L (15-37) L 10/27/23 05:28 ALT 13 Units/L (12-78) 10/27/23 05:28 Alkaline Phosphatase 68 Units/L (46-116) 10/27/23 05:28 Total Protein 5.3 g/dL (6.4-8.2) L 10/27/23 05:28 Albumin 1.8 g/dL (3.4-5.0) L 10/27/23 05:28 Globulin 3.5 g/dL (2.5-4.5) 10/27/23 05:28 Albumin/Globulin Ratio 0.5 Ratio (1.1-2.1) L 10/27/23 05:28 Lipase 27 Units/L (16-77) 10/24/23 09:48 Specimen Type Clean catch urine 10/27/23 09:15 Urine Color Pale yellow (YELLOW) 10/27/23 09:15 Urine Appearance Clear (CLEAR) 10/27/23 09:15 Urine pH 6.5 (5.0 - 8.0) 10/27/23 09:15 Ur Specific [place] 1.010 (1.000-1.030) 10/27/23 09:15 Urine Protein 1+ (NEGATIVE) 10/27/23 09:15 Urine Glucose (UA) Negative (NEGATIVE) 10/27/23 09:15 Urine Ketones Negative (NEGATIVE) 10/27/23 09:15 Urine Blood 5+ (NEGATIVE) 10/27/23 09:15 Urine Nitrite Negative (NEGATIVE) 10/27/23 09:15 Urine Bilirubin Negative (NEGATIVE) 10/27/23 09:15 Urine Urobilinogen Normal (NORMAL) 10/27/23 09:15 Ur Leukocyte Esterase Negative (NEGATIVE) 10/27/23 09:15 Urine RBC 10-20 /HPF (0-3) A 10/27/23 09:15 Urine WBC 0-2 /HPF (0-5) 10/27/23 09:15 Ur Squamous Epith Cells Rare /HPF (NEGATIVE) 10/27/23 09:15 Urine Bacteria Trace /HPF (NEGATIVE) 10/27/23 09:15 Ur Culture Indicated? No/not indicated 10/27/23 09:15 Plan (1) Partial small bowel obstruction: Status: Acute Plan: IVF, CLD, General surgery consulted (2) Acute hypokalemia: Status: Acute Plan: Replete per protocol. (3) Intra-abdominal abscess: Status: Acute (4) Crohn disease: Status: Chronic Plan: Takes Humira at home
--- NOTE | 2023-10-27 13:27 | PCM.PROG ---
Progress Note Progress Note for Day of Date of Exam: 10/27/23 Subjective Subjective: Pt is a 43-year-old female with a medical history of Crohn's disease admitted for active Crohn's disease with subsiding partial bowel obstruction and intra-abdominal abscess secondary to Crohn disease. This morning she continues to improve and has had a bowel movement. No acute events overnight. She has some mild lower abdominal tenderness. Labs/imaging: WBC 17.1, hemoglobin 10.1, platelets 382, sodium 137, potassium 4.1, creatinine 0.76, glucose 90. CT abdomen and pelvis was obtained that revealed: Nonspecific large collection of fluid central pelvis containing an air-fluid level. The fluid collections contiguous with the uterus and cul-de-sac. Cystic structure right adnexa probabl y related to the right ovary. Moderate amount of liquid stool within the rectum. Postsurgical changes of the colon. Mild bowel wall thickening segments of the small bowel in the central lower abdomen. . General surgeryDr. Yoel following. Continue IVF NS@125ml/h and add albumin, advance to full liquid diet. Continue IV antibiotics Zosyn, and IV Solu-Medrol 40 mg every 8 hours. Replete electrolytes per protocol. Otherwise, continue with current treatment plan. Continue closely monitor and follow-up labs/imaging. Past Medical Family Social History Allergies: Allergies metoclopramide [From Reglan] Allergy (Verified 10/24/23 10:21) metronidazole [From Flagyl] Allergy (Verified 10/24/23 10:21) Review of Systems ROS changes noted: see HPI Vital Signs and I&O's Vital Signs: Vital Signs Temperature 98.1 F Temperature 97.7 F Pulse Rate [Brachial] 71 Pulse Rate [Brachial] 72 Respiratory Rate 21 Respiratory Rate 21 Blood Pressure [Left Arm] 139/73 Blood Pressure [Left Arm] 118/74 O2 Sat by Pulse Oximetry 100 O2 Sat by Pulse Oximetry 99 Intake and Output: Intake & Output 10/24/23 10/25/23 10/26/23 10/27/23 23:59 23:59 23:59 23:59 Intake Total 120 / 120 2847 / 2847 2585 / 2585 1230 / 1230 Balance 120 / 120 2847 / 2847 2585 / 2585 1230 / 1230 Physical Exam Oriented: Normal Eyes: Normal Ear: Normal Nose: Normal Throat: Normal Respiratory: Normal Cardiovascular: Normal : Normal Auscultation: Bowel Sounds: Normal Tenderness: RLQ, LLQ and Mild Skin: Normal Musculoskeletal: Normal Psychiatric: Normal Mood Description: Calm and Appropriate Affect: Normal Speech Pattern: Clear and Appropriate Laboratory and Diagnostics 10/27/23 05:28 10/27/23 05:28 Labs: Laboratory WBC 17.1 X10^3/uL (3.6-10.0) H 10/27/23 05:28 RBC 3.44 X10^6/uL (3.5-5.4) L 10/27/23 05:28 Hgb 10.1 g/dL (12.0-16.0) L 10/27/23 05:28 Hct 31.1 % (36.0-47.0) L 10/27/23 05:28 MCV 90.2 fL (80.0-100.0) 10/27/23 05:28 MCH 29.3 pg (27.0-34.0) 10/27/23 05:28 MCHC 32.5 g/dL (33.0-35.0) L 10/27/23 05:28 RDW 14.6 % (11.6-16.5) 10/27/23 05:28 Plt Count 382 X10^3/uL (150.0-450.0) 10/27/23 05:28 Plt Count Comment Adequate (ADEQUATE) 10/26/23 05:57 MPV 7.1 fL (7.4-11.0) L 10/27/23 05:28 Neut % (Auto) 89.5 % (42.0-75.0) H 10/27/23 05:28 Lymph % (Auto) 7.5 % (21.0-51.0) L 10/27/23 05:28 [place] % (Auto) 2.9 % (0.0-13.0) 10/27/23 05:28 Eos % (Auto) 0.0 % (0.9-2.9) L 10/27/23 05:28 Baso % (Auto) 0.1 % (0.2-1.0) L 10/27/23 05:28 Neut # (Auto) 15.3 x10^3/uL (2.2-4.8) H 10/27/23 05:28 Lymph # (Auto) 1.3 X10^3/uL (1.3-2.9) 10/27/23 05:28 [place] # (Auto) 0.5 x10^3/uL (0.3-0.8) 10/27/23 05:28 Eos # (Auto) 0.0 x10^3/uL (0.0-0.2) 10/27/23 05:28 Baso # (Auto) 0.0 X10^3/uL (0.0-0.1) 10/27/23 05:28 Absolute Nucleated RBC 0.0 /100WBC 10/27/23 05:28 Total Counted 100 10/26/23 05:57 Neutrophils % (Manual) 86 % (39-76) H 10/26/23 05:57 Band Neutrophils % 5 % (0-10) 10/26/23 05:57 Lymphocytes % (Manual) 8 % (13-43) L 10/26/23 05:57 Monocytes % (Manual) 1 % (4-9) L 10/26/23 05:57 Plt Morphology Comment Normal (NORMAL) 10/26/23 05:57 RBC Morphology Normal (NORMAL) 10/26/23 05:57 Sodium 137 mmol/L (136-145) 10/27/23 05:28 Corrected Sodium TNP 10/27/23 05:28 Potassium 4.1 mmol/L (3.5-5.1) 10/27/23 05:28 Chloride 107 mmol/L (98-107) 10/27/23 05:28 Carbon Dioxide 23.2 mmol/L (21-32) 10/27/23 05:28 BUN 11 mg/dL (7-18) 10/27/23 05:28 Creatinine 0.76 mg/dL (0.55-1.02) 10/27/23 05:28 Est GFR (MDRD) Af Amer > 60 (>60) 10/27/23 05:28 Est GFR (MDRD) Non-Af > 60 (>60) 10/27/23 05:28 Glucose 90 mg/dL (65-99) 10/27/23 05:28 Lactic Acid 0.7 mmol/L (0.4-2.0) 10/24/23 11:50 Calcium 7.3 mg/dL (8.5-10.1) L 10/27/23 05:28 Corrected Calcium 9.1 mg/dL (8.5-10.1) 10/27/23 05:28 Magnesium 2.7 mg/dL (2.0-2.9) 10/27/23 05:28 Total Bilirubin 0.30 mg/dL (0.2-1.0) 10/27/23 05:28 AST 7 Units/L (15-37) L 10/27/23 05:28 ALT 13 Units/L (12-78) 10/27/23 05:28 Alkaline Phosphatase 68 Units/L (46-116) 10/27/23 05:28 Total Protein 5.3 g/dL (6.4-8.2) L 10/27/23 05:28 Albumin 1.8 g/dL (3.4-5.0) L 10/27/23 05:28 Globulin 3.5 g/dL (2.5-4.5) 10/27/23 05:28 Albumin/Globulin Ratio 0.5 Ratio (1.1-2.1) L 10/27/23 05:28 Lipase 27 Units/L (16-77) 10/24/23 09:48 Specimen Type Clean catch urine 10/27/23 09:15 Urine Color Pale yellow (YELLOW) 10/27/23 09:15 Urine Appearance Clear (CLEAR) 10/27/23 09:15 Urine pH 6.5 (5.0 - 8.0) 10/27/23 09:15 Ur Specific [place] 1.010 (1.000-1.030) 10/27/23 09:15 Urine Protein 1+ (NEGATIVE) 10/27/23 09:15 Urine Glucose (UA) Negative (NEGATIVE) 10/27/23 09:15 Urine Ketones Negative (NEGATIVE) 10/27/23 09:15 Urine Blood 5+ (NEGATIVE) 10/27/23 09:15 Urine Nitrite Negative (NEGATIVE) 10/27/23 09:15 Urine Bilirubin Negative (NEGATIVE) 10/27/23 09:15 Urine Urobilinogen Normal (NORMAL) 10/27/23 09:15 Ur Leukocyte Esterase Negative (NEGATIVE) 10/27/23 09:15 Urine RBC 10-20 /HPF (0-3) A 10/27/23 09:15 Urine WBC 0-2 /HPF (0-5) 10/27/23 09:15 Ur Squamous Epith Cells Rare /HPF (NEGATIVE) 10/27/23 09:15 Urine Bacteria Trace /HPF (NEGATIVE) 10/27/23 09:15 Ur Culture Indicated? No/not indicated 10/27/23 09:15 Plan (1) Partial small bowel obstruction: Status: Acute Plan: IVF, CLD, General surgery consulted (2) Acute hypokalemia: Status: Acute Plan: Replete per protocol. (3) Intra-abdominal abscess: Status: Acute (4) Crohn disease: Status: Chronic Plan: Takes Humira at home
[2023-10-27] MEDS: PROTONIX INJ 40 MG VIAL IVP SCH (21:02)
[2023-10-28 05:54] LABS: BASOPHILS % (AUTO) 0 % (0.2-1.0); HEMATOCRIT 31.4 % (36.0-47.0); HEMOGLOBIN 10.3 g/dL (12.0-16.0); LYMPHOCYTES # (AUTO) 1.5 X10^3/uL (1.3-2.9); MEAN CORPUSCULAR HEMOGLOBIN 29.7 pg (27.0-34.0); MEAN CORPUSCULAR HGB CONC 32.8 g/dL (33.0-35.0); MEAN CORPUSCULAR VOLUME 90.5 fL (80.0-100.0); MEAN PLATELET VOLUME 7.1 fL (7.4-11.0); MONOCYTES # (AUTO) 0.6 x10^3/uL (0.3-0.8); MONOCYTES % (AUTO) 3.7 % (0.0-13.0); NEUTROPHILS % (AUTO) 86.3 % (42.0-75.0); PLATELET COUNT 374 X10^3/uL (150.0-450.0); RED BLOOD COUNT 3.47 X10^6/uL (3.5-5.4); RED CELL DISTRIBUTION WIDTH 14.7 % (11.6-16.5); WHITE BLOOD COUNT 15.1 X10^3/uL (3.6-10.0)
[2023-10-28 06:13] LABS: ALANINE AMINOTRANSFERASE 16 Units/L (12-78); ALBUMIN 2.2 g/dL (3.4-5.0); ALKALINE PHOSPHATASE 57 Units/L (46-116); ASPARTATE AMINO TRANSFERASE < 6 Units/L (15-37); BLOOD UREA NITROGEN 9 mg/dL (7-18); CALCIUM 7.5 mg/dL (8.5-10.1); CARBON DIOXIDE 23.6 mmol/L (21-32); CHLORIDE 111 mmol/L (98-107); COR CA(FOR HYPOALB) 8.9 mg/dL (8.5-10.1); COR NA(FOR HYPERGLY) 141 mmol/L (136-145); CREATININE 0.77 mg/dL (0.55-1.02); GLUCOSE 135 mg/dL (65-99); POTASSIUM 4.4 mmol/L (3.5-5.1); SODIUM 140 mmol/L (136-145); TOTAL PROTEIN 5.4 g/dL (6.4-8.2); eGFR NON BLACK RACES > 60 (>60)
--- NOTE | 2023-10-28 10:05 | DR.PROGNOT ---
HOSPITAL PROGRESS NOTE Progress Note for Day of: Progress Note Date: 10/28/23 Chief Complaint Chief Complaint: moderate abdominal pain but less than yesterday, no nausea or vomiting. having several small BM, no bleeding . tolerating liquid diet . abdominal ct showed moderate collection in he pelvis and thick wall of SB White count still elevated 15 with shift to the left, albumin is 2. Magnesium is 1.8. Patient is afebrile, to [place] diet, out of bed ambulatory, obtain ALICE and sed rate, Past Medical Family Social History Allergies: Allergies metoclopramide [From Reglan] Allergy (Verified 10/24/23 10:21) metronidazole [From Flagyl] Allergy (Verified 10/24/23 10:21) Review Of Systems Changes in ROS: see HPI Vital Signs Vital Signs: Vital Signs Temperature 98.0 F Temperature 97.7 F Pulse Rate [Brachial] 53 Pulse Rate [Brachial] 61 Respiratory Rate 20 Respiratory Rate 20 Blood Pressure [Left Arm] 136/75 Blood Pressure [Left Arm] 123/71 O2 Sat by Pulse Oximetry 97 O2 Sat by Pulse Oximetry 97 Physical Exam Oriented: Normal Eyes: Normal Ear: Normal Nose: Normal Throat: Normal Respiratory: Normal Cardiovascular: Normal : Normal GI:Auscultation: Normal GI:Palpation: Normal GI: Tenderness: RLQ, LLQ and Mild Skin: Normal Musculoskeletal: Normal Psychiatric: Normal Mood Description: Calm and Appropriate Affect: Normal Speech Pattern: Clear and Appropriate Laboratory and Diagnostics 10/28/23 05:13 10/28/23 05:13 Labs: Laboratory WBC 15.1 X10^3/uL (3.6-10.0) H 10/28/23 05:13 RBC 3.47 X10^6/uL (3.5-5.4) L 10/28/23 05:13 Hgb 10.3 g/dL (12.0-16.0) L 10/28/23 05:13 Hct 31.4 % (36.0-47.0) L 10/28/23 05:13 MCV 90.5 fL (80.0-100.0) 10/28/23 05:13 MCH 29.7 pg (27.0-34.0) 10/28/23 05:13 MCHC 32.8 g/dL (33.0-35.0) L 10/28/23 05:13 RDW 14.7 % (11.6-16.5) 10/28/23 05:13 Plt Count 374 X10^3/uL (150.0-450.0) 10/28/23 05:13 Plt Count Comment Adequate (ADEQUATE) 10/26/23 05:57 MPV 7.1 fL (7.4-11.0) L 10/28/23 05:13 Neut % (Auto) 86.3 % (42.0-75.0) H 10/28/23 05:13 Lymph % (Auto) 10.0 % (21.0-51.0) L 10/28/23 05:13 [place] % (Auto) 3.7 % (0.0-13.0) 10/28/23 05:13 Eos % (Auto) 0.0 % (0.9-2.9) L 10/28/23 05:13 Baso % (Auto) 0 % (0.2-1.0) L 10/28/23 05:13 Neut # (Auto) 13.0 x10^3/uL (2.2-4.8) H 10/28/23 05:13 Lymph # (Auto) 1.5 X10^3/uL (1.3-2.9) 10/28/23 05:13 [place] # (Auto) 0.6 x10^3/uL (0.3-0.8) 10/28/23 05:13 Eos # (Auto) 0.0 x10^3/uL (0.0-0.2) 10/28/23 05:13 Baso # (Auto) 0.0 X10^3/uL (0.0-0.1) 10/28/23 05:13 Absolute Nucleated RBC 0.0 /100WBC 10/28/23 05:13 Total Counted 100 10/26/23 05:57 Neutrophils % (Manual) 86 % (39-76) H 10/26/23 05:57 Band Neutrophils % 5 % (0-10) 10/26/23 05:57 Lymphocytes % (Manual) 8 % (13-43) L 10/26/23 05:57 Monocytes % (Manual) 1 % (4-9) L 10/26/23 05:57 Plt Morphology Comment Normal (NORMAL) 10/26/23 05:57 RBC Morphology Normal (NORMAL) 10/26/23 05:57 ESR 10 MM/HOUR (0-20) 10/28/23 05:13 Sodium 140 mmol/L (136-145) 10/28/23 05:13 Corrected Sodium 141 mmol/L (136-145) 10/28/23 05:13 Potassium 4.4 mmol/L (3.5-5.1) 10/28/23 05:13 Chloride 111 mmol/L (98-107) H 10/28/23 05:13 Carbon Dioxide 23.6 mmol/L (21-32) 10/28/23 05:13 BUN 9 mg/dL (7-18) 10/28/23 05:13 Creatinine 0.77 mg/dL (0.55-1.02) 10/28/23 05:13 Est GFR (MDRD) Af Amer > 60 (>60) 10/28/23 05:13 Est GFR (MDRD) Non-Af > 60 (>60) 10/28/23 05:13 Glucose 135 mg/dL (65-99) H 10/28/23 05:13 Lactic Acid 0.7 mmol/L (0.4-2.0) 10/24/23 11:50 Calcium 7.5 mg/dL (8.5-10.1) L 10/28/23 05:13 Corrected Calcium 8.9 mg/dL (8.5-10.1) 10/28/23 05:13 Magnesium 2.7 mg/dL (2.0-2.9) 10/27/23 05:28 Total Bilirubin 0.30 mg/dL (0.2-1.0) 10/28/23 05:13 AST < 6 Units/L (15-37) L 10/28/23 05:13 ALT 16 Units/L (12-78) 10/28/23 05:13 Alkaline Phosphatase 57 Units/L (46-116) 10/28/23 05:13 Total Protein 5.4 g/dL (6.4-8.2) L 10/28/23 05:13 Albumin 2.2 g/dL (3.4-5.0) L 10/28/23 05:13 Globulin 3.2 g/dL (2.5-4.5) 10/28/23 05:13 Albumin/Globulin Ratio 0.7 Ratio (1.1-2.1) L 10/28/23 05:13 Lipase 27 Units/L (16-77) 10/24/23 09:48 Specimen Type Clean catch urine 10/27/23 09:15 Urine Color Pale yellow (YELLOW) 10/27/23 09:15 Urine Appearance Clear (CLEAR) 10/27/23 09:15 Urine pH 6.5 (5.0 - 8.0) 10/27/23 09:15 Ur Specific [place] 1.010 (1.000-1.030) 10/27/23 09:15 Urine Protein 1+ (NEGATIVE) 10/27/23 09:15 Urine Glucose (UA) Negative (NEGATIVE) 10/27/23 09:15 Urine Ketones Negative (NEGATIVE) 10/27/23 09:15 Urine Blood 5+ (NEGATIVE) 10/27/23 09:15 Urine Nitrite Negative (NEGATIVE) 10/27/23 09:15 Urine Bilirubin Negative (NEGATIVE) 10/27/23 09:15 Urine Urobilinogen Normal (NORMAL) 10/27/23 09:15 Ur Leukocyte Esterase Negative (NEGATIVE) 10/27/23 09:15 Urine RBC 10-20 /HPF (0-3) A 10/27/23 09:15 Urine WBC 0-2 /HPF (0-5) 10/27/23 09:15 Ur Squamous Epith Cells Rare /HPF (NEGATIVE) 10/27/23 09:15 Urine Bacteria Trace /HPF (NEGATIVE) 10/27/23 09:15 Ur Culture Indicated? No/not indicated 10/27/23 09:15 Assessment and Plan 1: Active Crohn disease with subsiding partial bowel obstruction. on soft diet today 2: Intra-abdominal abscess secondary to Crohn disease Continue IV antibiotics and close observation.. 4: Large ventral hernia. To observe. Problem Patient Problems: Patient Problems Intra-abdominal abscess (Acute) K65.1 Acute hypokalemia (Acute) E87.6 Partial small bowel obstruction (Acute) K56.600 Crohn disease (Chronic) K50.90
--- NOTE | 2023-10-28 11:04 | PCM.PROG ---
Progress Note Progress Note for Day of Date of Exam: 10/28/23 Subjective Subjective: Pt is a 43-year-old female with a medical history of Crohn's disease admitted for active Crohn's disease with subsiding partial bowel obstruction and intra-abdominal abscess secondary to Crohn disease. She is resting in bed this morning and is doing well. No acute events overnight. Labs/imaging: WBC 15.1, hemoglobin 10.3, platelets 374, sodium 140, potassium 4.4, creatinine 0.77, glucose 135. General surgeryDr. Yoel following. Continue IVF NS@125ml/h and add albumin, advance diet to soft. Continue IV antibiotics Zosyn, and IV Solu- Medrol 40 mg every 8 hours. Replete electrolytes per protocol. Otherwise, continue with current treatment plan. Continue closely monitor and follow-up labs/imaging. Past Medical Family Social History Allergies: Allergies metoclopramide [From Reglan] Allergy (Verified 10/24/23 10:21) metronidazole [From Flagyl] Allergy (Verified 10/24/23 10:21) Review of Systems ROS changes noted: see HPI Vital Signs and I&O's Vital Signs: Vital Signs Temperature 98.0 F Temperature 97.7 F Pulse Rate [Brachial] 53 Pulse Rate [Brachial] 61 Respiratory Rate 20 Respiratory Rate 20 Blood Pressure [Left Arm] 136/75 Blood Pressure [Left Arm] 123/71 O2 Sat by Pulse Oximetry 97 O2 Sat by Pulse Oximetry 97 Intake and Output: Intake & Output 10/25/23 10/26/23 10/27/23 10/28/23 23:59 23:59 23:59 23:59 Intake Total 2847 / 2847 2585 / 2585 2846 / 2846 1945 Balance 2847 / 2847 2585 / 2585 2846 / 2846 1945 Physical Exam Oriented: Normal Eyes: Normal Ear: Normal Nose: Normal Throat: Normal Respiratory: Normal Cardiovascular: Normal : Normal Auscultation: Bowel Sounds: Normal Tenderness: RLQ, LLQ and Mild Skin: Normal Musculoskeletal: Normal Psychiatric: Normal Mood Description: Calm and Appropriate Affect: Normal Speech Pattern: Clear and Appropriate Laboratory and Diagnostics 10/28/23 05:13 10/28/23 05:13 Labs: Laboratory WBC 15.1 X10^3/uL (3.6-10.0) H 10/28/23 05:13 RBC 3.47 X10^6/uL (3.5-5.4) L 10/28/23 05:13 Hgb 10.3 g/dL (12.0-16.0) L 10/28/23 05:13 Hct 31.4 % (36.0-47.0) L 10/28/23 05:13 MCV 90.5 fL (80.0-100.0) 10/28/23 05:13 MCH 29.7 pg (27.0-34.0) 10/28/23 05:13 MCHC 32.8 g/dL (33.0-35.0) L 10/28/23 05:13 RDW 14.7 % (11.6-16.5) 10/28/23 05:13 Plt Count 374 X10^3/uL (150.0-450.0) 10/28/23 05:13 Plt Count Comment Adequate (ADEQUATE) 10/26/23 05:57 MPV 7.1 fL (7.4-11.0) L 10/28/23 05:13 Neut % (Auto) 86.3 % (42.0-75.0) H 10/28/23 05:13 Lymph % (Auto) 10.0 % (21.0-51.0) L 10/28/23 05:13 [place] % (Auto) 3.7 % (0.0-13.0) 10/28/23 05:13 Eos % (Auto) 0.0 % (0.9-2.9) L 10/28/23 05:13 Baso % (Auto) 0 % (0.2-1.0) L 10/28/23 05:13 Neut # (Auto) 13.0 x10^3/uL (2.2-4.8) H 10/28/23 05:13 Lymph # (Auto) 1.5 X10^3/uL (1.3-2.9) 10/28/23 05:13 [place] # (Auto) 0.6 x10^3/uL (0.3-0.8) 10/28/23 05:13 Eos # (Auto) 0.0 x10^3/uL (0.0-0.2) 10/28/23 05:13 Baso # (Auto) 0.0 X10^3/uL (0.0-0.1) 10/28/23 05:13 Absolute Nucleated RBC 0.0 /100WBC 10/28/23 05:13 Total Counted 100 10/26/23 05:57 Neutrophils % (Manual) 86 % (39-76) H 10/26/23 05:57 Band Neutrophils % 5 % (0-10) 10/26/23 05:57 Lymphocytes % (Manual) 8 % (13-43) L 10/26/23 05:57 Monocytes % (Manual) 1 % (4-9) L 10/26/23 05:57 Plt Morphology Comment Normal (NORMAL) 10/26/23 05:57 RBC Morphology Normal (NORMAL) 10/26/23 05:57 ESR 10 MM/HOUR (0-20) 10/28/23 05:13 Sodium 140 mmol/L (136-145) 10/28/23 05:13 Corrected Sodium 141 mmol/L (136-145) 10/28/23 05:13 Potassium 4.4 mmol/L (3.5-5.1) 10/28/23 05:13 Chloride 111 mmol/L (98-107) H 10/28/23 05:13 Carbon Dioxide 23.6 mmol/L (21-32) 10/28/23 05:13 BUN 9 mg/dL (7-18) 10/28/23 05:13 Creatinine 0.77 mg/dL (0.55-1.02) 10/28/23 05:13 Est GFR (MDRD) Af Amer > 60 (>60) 10/28/23 05:13 Est GFR (MDRD) Non-Af > 60 (>60) 10/28/23 05:13 Glucose 135 mg/dL (65-99) H 10/28/23 05:13 Lactic Acid 0.7 mmol/L (0.4-2.0) 10/24/23 11:50 Calcium 7.5 mg/dL (8.5-10.1) L 10/28/23 05:13 Corrected Calcium 8.9 mg/dL (8.5-10.1) 10/28/23 05:13 Magnesium 2.7 mg/dL (2.0-2.9) 10/27/23 05:28 Total Bilirubin 0.30 mg/dL (0.2-1.0) 10/28/23 05:13 AST < 6 Units/L (15-37) L 10/28/23 05:13 ALT 16 Units/L (12-78) 10/28/23 05:13 Alkaline Phosphatase 57 Units/L (46-116) 10/28/23 05:13 Total Protein 5.4 g/dL (6.4-8.2) L 10/28/23 05:13 Albumin 2.2 g/dL (3.4-5.0) L 10/28/23 05:13 Globulin 3.2 g/dL (2.5-4.5) 10/28/23 05:13 Albumin/Globulin Ratio 0.7 Ratio (1.1-2.1) L 10/28/23 05:13 Lipase 27 Units/L (16-77) 10/24/23 09:48 Specimen Type Clean catch urine 10/27/23 09:15 Urine Color Pale yellow (YELLOW) 10/27/23 09:15 Urine Appearance Clear (CLEAR) 10/27/23 09:15 Urine pH 6.5 (5.0 - 8.0) 10/27/23 09:15 Ur Specific [place] 1.010 (1.000-1.030) 10/27/23 09:15 Urine Protein 1+ (NEGATIVE) 10/27/23 09:15 Urine Glucose (UA) Negative (NEGATIVE) 10/27/23 09:15 Urine Ketones Negative (NEGATIVE) 10/27/23 09:15 Urine Blood 5+ (NEGATIVE) 10/27/23 09:15 Urine Nitrite Negative (NEGATIVE) 10/27/23 09:15 Urine Bilirubin Negative (NEGATIVE) 10/27/23 09:15 Urine Urobilinogen Normal (NORMAL) 10/27/23 09:15 Ur Leukocyte Esterase Negative (NEGATIVE) 10/27/23 09:15 Urine RBC 10-20 /HPF (0-3) A 10/27/23 09:15 Urine WBC 0-2 /HPF (0-5) 10/27/23 09:15 Ur Squamous Epith Cells Rare /HPF (NEGATIVE) 10/27/23 09:15 Urine Bacteria Trace /HPF (NEGATIVE) 10/27/23 09:15 Ur Culture Indicated? No/not indicated 10/27/23 09:15 Plan (1) Partial small bowel obstruction: Status: Acute Plan: IVF, CLD, General surgery consulted (2) Acute hypokalemia: Status: Acute Plan: Replete per protocol. (3) Intra-abdominal abscess: Status: Acute (4) Crohn disease: Status: Chronic Plan: Takes Humira at home
[2023-10-28] MEDS ORDERED: MAGNESIUM SULFATE 50% INJ VIAL ONE (14:25)
[2023-10-28] MEDS: 1/2 NS IV ONE ×2 (15:13→15:14)
[2023-10-28] MEDS: D5 IV ONE ×2 (15:13→15:14)
[2023-10-28] MEDS: KCL IV ONE ×2 (15:13→15:14)
[2023-10-28] MEDS: D5 NS 1,000 ML IV 1,000 ML IV SCH (15:14)
[2023-10-29 06:27] LABS: BASOPHILS % (AUTO) 0.1 % (0.2-1.0); HEMOGLOBIN 10.4 g/dL (12.0-16.0); LYMPHOCYTES # (AUTO) 1.5 X10^3/uL (1.3-2.9); LYMPHOCYTES % (AUTO) 9.4 % (21.0-51.0); MEAN CORPUSCULAR HEMOGLOBIN 29.4 pg (27.0-34.0); MEAN CORPUSCULAR HGB CONC 32.6 g/dL (33.0-35.0); MEAN PLATELET VOLUME 7.4 fL (7.4-11.0); MONOCYTES # (AUTO) 0.7 x10^3/uL (0.3-0.8); MONOCYTES % (AUTO) 4.6 % (0.0-13.0); NEUTROPHILS # (AUTO) 13.5 x10^3/uL (2.2-4.8); NEUTROPHILS % (AUTO) 85.9 % (42.0-75.0); PLATELET COUNT 367 X10^3/uL (150.0-450.0); RED BLOOD COUNT 3.55 X10^6/uL (3.5-5.4); RED CELL DISTRIBUTION WIDTH 15.1 % (11.6-16.5); WHITE BLOOD COUNT 15.7 X10^3/uL (3.6-10.0)
[2023-10-29 06:38] LABS: ALANINE AMINOTRANSFERASE 46 Units/L (12-78); ALBUMIN 2.6 g/dL (3.4-5.0); ALKALINE PHOSPHATASE 53 Units/L (46-116); ASPARTATE AMINO TRANSFERASE 34 Units/L (15-37); BLOOD UREA NITROGEN 11 mg/dL (7-18); CALCIUM 7.6 mg/dL (8.5-10.1); CARBON DIOXIDE 21.8 mmol/L (21-32); CHLORIDE 111 mmol/L (98-107); COR CA(FOR HYPOALB) 8.7 mg/dL (8.5-10.1); COR NA(FOR HYPERGLY) 142 mmol/L (136-145); GLUCOSE 132 mg/dL (65-99); POTASSIUM 4.2 mmol/L (3.5-5.1); SODIUM 141 mmol/L (136-145); TOTAL PROTEIN 5.4 g/dL (6.4-8.2); eGFR NON BLACK RACES > 60 (>60)
--- NOTE | 2023-10-29 09:56 | DR.PROGNOT ---
HOSPITAL PROGRESS NOTE Progress Note for Day of: Progress Note Date: 10/29/23 Chief Complaint Chief Complaint: only mild abdominal pain, no nausea or vomiting. having several small BM, no bleeding . tolerating liquid diet . White count still elevated 15.7. with shift to the left, Hgb 10. albumin is 2. Magnesium is 1.8. Patient is afebrile, to [place] diet, out of bed ambulatory, obtain ALICE and sed rate, Past Medical Family Social History Allergies: Allergies metoclopramide [From Reglan] Allergy (Verified 10/24/23 10:21) metronidazole [From Flagyl] Allergy (Verified 10/24/23 10:21) Review Of Systems Changes in ROS: see HPI Vital Signs Vital Signs: Vital Signs Temperature 97.6 F Temperature 97.9 F Pulse Rate [Brachial] 50 Pulse Rate [Brachial] 47 Respiratory Rate 17 Respiratory Rate 20 Blood Pressure [Left Arm] 157/77 Blood Pressure [Left Arm] 135/71 O2 Sat by Pulse Oximetry 94 O2 Sat by Pulse Oximetry 96 Physical Exam Oriented: Normal Eyes: Normal Ear: Normal Nose: Normal Throat: Normal Respiratory: Normal Cardiovascular: Normal : Normal GI:Auscultation: Normal GI:Palpation: Normal GI: Tenderness: RLQ, LLQ and Mild Skin: Normal Musculoskeletal: Normal Psychiatric: Normal Mood Description: Calm and Appropriate Affect: Normal Speech Pattern: Clear and Appropriate Laboratory and Diagnostics 10/29/23 05:07 10/29/23 05:07 Labs: Laboratory WBC 15.7 X10^3/uL (3.6-10.0) H 10/29/23 05:07 RBC 3.55 X10^6/uL (3.5-5.4) 10/29/23 05:07 Hgb 10.4 g/dL (12.0-16.0) L 10/29/23 05:07 Hct 32.0 % (36.0-47.0) L 10/29/23 05:07 MCV 90.0 fL (80.0-100.0) 10/29/23 05:07 MCH 29.4 pg (27.0-34.0) 10/29/23 05:07 MCHC 32.6 g/dL (33.0-35.0) L 10/29/23 05:07 RDW 15.1 % (11.6-16.5) 10/29/23 05:07 Plt Count 367 X10^3/uL (150.0-450.0) 10/29/23 05:07 Plt Count Comment Adequate (ADEQUATE) 10/26/23 05:57 MPV 7.4 fL (7.4-11.0) 10/29/23 05:07 Neut % (Auto) 85.9 % (42.0-75.0) H 10/29/23 05:07 Lymph % (Auto) 9.4 % (21.0-51.0) L 10/29/23 05:07 [place] % (Auto) 4.6 % (0.0-13.0) 10/29/23 05:07 Eos % (Auto) 0.0 % (0.9-2.9) L 10/29/23 05:07 Baso % (Auto) 0.1 % (0.2-1.0) L 10/29/23 05:07 Neut # (Auto) 13.5 x10^3/uL (2.2-4.8) H 10/29/23 05:07 Lymph # (Auto) 1.5 X10^3/uL (1.3-2.9) 10/29/23 05:07 [place] # (Auto) 0.7 x10^3/uL (0.3-0.8) 10/29/23 05:07 Eos # (Auto) 0.0 x10^3/uL (0.0-0.2) 10/29/23 05:07 Baso # (Auto) 0.0 X10^3/uL (0.0-0.1) 10/29/23 05:07 Absolute Nucleated RBC 0.0 /100WBC 10/29/23 05:07 Total Counted 100 10/26/23 05:57 Neutrophils % (Manual) 86 % (39-76) H 10/26/23 05:57 Band Neutrophils % 5 % (0-10) 10/26/23 05:57 Lymphocytes % (Manual) 8 % (13-43) L 10/26/23 05:57 Monocytes % (Manual) 1 % (4-9) L 10/26/23 05:57 Plt Morphology Comment Normal (NORMAL) 10/26/23 05:57 RBC Morphology Normal (NORMAL) 10/26/23 05:57 ESR 10 MM/HOUR (0-20) 10/28/23 05:13 Sodium 141 mmol/L (136-145) 10/29/23 05:07 Corrected Sodium 142 mmol/L (136-145) 10/29/23 05:07 Potassium 4.2 mmol/L (3.5-5.1) 10/29/23 05:07 Chloride 111 mmol/L (98-107) H 10/29/23 05:07 Carbon Dioxide 21.8 mmol/L (21-32) 10/29/23 05:07 BUN 11 mg/dL (7-18) 10/29/23 05:07 Creatinine 0.80 mg/dL (0.55-1.02) 10/29/23 05:07 Est GFR (MDRD) Af Amer > 60 (>60) 10/29/23 05:07 Est GFR (MDRD) Non-Af > 60 (>60) 10/29/23 05:07 Glucose 132 mg/dL (65-99) H 10/29/23 05:07 Lactic Acid 0.7 mmol/L (0.4-2.0) 10/24/23 11:50 Calcium 7.6 mg/dL (8.5-10.1) L 10/29/23 05:07 Corrected Calcium 8.7 mg/dL (8.5-10.1) 10/29/23 05:07 Magnesium 2.7 mg/dL (2.0-2.9) 10/27/23 05:28 Total Bilirubin 0.40 mg/dL (0.2-1.0) 10/29/23 05:07 AST 34 Units/L (15-37) 10/29/23 05:07 ALT 46 Units/L (12-78) 10/29/23 05:07 Alkaline Phosphatase 53 Units/L (46-116) 10/29/23 05:07 Total Protein 5.4 g/dL (6.4-8.2) L 10/29/23 05:07 Albumin 2.6 g/dL (3.4-5.0) L 10/29/23 05:07 Globulin 2.8 g/dL (2.5-4.5) 10/29/23 05:07 Albumin/Globulin Ratio 0.9 Ratio (1.1-2.1) L 10/29/23 05:07 Lipase 27 Units/L (16-77) 10/24/23 09:48 Specimen Type Clean catch urine 10/27/23 09:15 Urine Color Pale yellow (YELLOW) 10/27/23 09:15 Urine Appearance Clear (CLEAR) 10/27/23 09:15 Urine pH 6.5 (5.0 - 8.0) 10/27/23 09:15 Ur Specific [place] 1.010 (1.000-1.030) 10/27/23 09:15 Urine Protein 1+ (NEGATIVE) 10/27/23 09:15 Urine Glucose (UA) Negative (NEGATIVE) 10/27/23 09:15 Urine Ketones Negative (NEGATIVE) 10/27/23 09:15 Urine Blood 5+ (NEGATIVE) 10/27/23 09:15 Urine Nitrite Negative (NEGATIVE) 10/27/23 09:15 Urine Bilirubin Negative (NEGATIVE) 10/27/23 09:15 Urine Urobilinogen Normal (NORMAL) 10/27/23 09:15 Ur Leukocyte Esterase Negative (NEGATIVE) 10/27/23 09:15 Urine RBC 10-20 /HPF (0-3) A 10/27/23 09:15 Urine WBC 0-2 /HPF (0-5) 10/27/23 09:15 Ur Squamous Epith Cells Rare /HPF (NEGATIVE) 10/27/23 09:15 Urine Bacteria Trace /HPF (NEGATIVE) 10/27/23 09:15 Ur Culture Indicated? No/not indicated 10/27/23 09:15 Assessment and Plan 1: Active Crohn disease with subsiding partial bowel obstruction. on soft diet today 2: Intra-abdominal abscess secondary to Crohn disease Continue IV antibiotics and close observation.. 4: Large ventral hernia. To observe. Problem Patient Problems: Patient Problems Intra-abdominal abscess (Acute) K65.1 Acute hypokalemia (Acute) E87.6 Partial small bowel obstruction (Acute) K56.600 Crohn disease (Chronic) K50.90
--- NOTE | 2023-10-29 11:28 | PCM.PROG ---
Progress Note Progress Note for Day of Date of Exam: 10/29/23 Subjective Subjective: Patient seen at bedside, no acute events overnight. She is feeling better. She is admitted for Crohn's flare up with subsiding partial bowel obstruction and intra-abdominal abscess secondary to Crohn disease. She denies any N/V/D, abdominal pain has improved. She is tolerating some PO intake. Dr Lyons has been following. Labs/imaging reviewed: -WBC 15.7 Hgb 10.4 Plan: follow surgery recommendations. Continue soft diet. Continue hydration, IV antibiotics and steroids. Ambulate as tolerated. Replace electrolytes as needed. Continue anti-emetics prn. Continue pain control. Monitor AM labs/imaging. Past Medical Family Social History Allergies: Allergies metoclopramide [From Reglan] Allergy (Verified 10/24/23 10:21) metronidazole [From Flagyl] Allergy (Verified 10/24/23 10:21) Vital Signs and I&O's Vital Signs: Vital Signs Temperature 97.6 F Temperature 97.9 F Pulse Rate [Brachial] 50 Pulse Rate [Brachial] 47 Respiratory Rate 17 Respiratory Rate 20 Blood Pressure [Left Arm] 157/77 Blood Pressure [Left Arm] 135/71 O2 Sat by Pulse Oximetry 94 O2 Sat by Pulse Oximetry 96 Intake and Output: Intake & Output 10/26/23 10/27/23 10/28/23 10/29/23 23:59 23:59 23:59 23:59 Intake Total 2585 / 2585 2846 / 2846 3237 / 3237 2009 Balance 2585 / 2585 2846 / 2846 3237 / 3237 2009 Physical Exam Oriented: Normal Eyes: Normal Ear: Normal Nose: Normal Throat: Normal Respiratory: Normal Cardiovascular: Normal Auscultation: Bowel Sounds: Normal Palpation: Normal Tenderness: Normal Skin: Normal Musculoskeletal: Normal Psychiatric: Normal Mood Description: Calm and Appropriate Affect: Normal Speech Pattern: Clear and Appropriate Laboratory and Diagnostics 10/29/23 05:07 10/29/23 05:07 Labs: Laboratory WBC 15.7 X10^3/uL (3.6-10.0) H 10/29/23 05:07 RBC 3.55 X10^6/uL (3.5-5.4) 10/29/23 05:07 Hgb 10.4 g/dL (12.0-16.0) L 10/29/23 05:07 Hct 32.0 % (36.0-47.0) L 10/29/23 05:07 MCV 90.0 fL (80.0-100.0) 10/29/23 05:07 MCH 29.4 pg (27.0-34.0) 10/29/23 05:07 MCHC 32.6 g/dL (33.0-35.0) L 10/29/23 05:07 RDW 15.1 % (11.6-16.5) 10/29/23 05:07 Plt Count 367 X10^3/uL (150.0-450.0) 10/29/23 05:07 Plt Count Comment Adequate (ADEQUATE) 10/26/23 05:57 MPV 7.4 fL (7.4-11.0) 10/29/23 05:07 Neut % (Auto) 85.9 % (42.0-75.0) H 10/29/23 05:07 Lymph % (Auto) 9.4 % (21.0-51.0) L 10/29/23 05:07 [place] % (Auto) 4.6 % (0.0-13.0) 10/29/23 05:07 Eos % (Auto) 0.0 % (0.9-2.9) L 10/29/23 05:07 Baso % (Auto) 0.1 % (0.2-1.0) L 10/29/23 05:07 Neut # (Auto) 13.5 x10^3/uL (2.2-4.8) H 10/29/23 05:07 Lymph # (Auto) 1.5 X10^3/uL (1.3-2.9) 10/29/23 05:07 [place] # (Auto) 0.7 x10^3/uL (0.3-0.8) 10/29/23 05:07 Eos # (Auto) 0.0 x10^3/uL (0.0-0.2) 10/29/23 05:07 Baso # (Auto) 0.0 X10^3/uL (0.0-0.1) 10/29/23 05:07 Absolute Nucleated RBC 0.0 /100WBC 10/29/23 05:07 Total Counted 100 10/26/23 05:57 Neutrophils % (Manual) 86 % (39-76) H 10/26/23 05:57 Band Neutrophils % 5 % (0-10) 10/26/23 05:57 Lymphocytes % (Manual) 8 % (13-43) L 10/26/23 05:57 Monocytes % (Manual) 1 % (4-9) L 10/26/23 05:57 Plt Morphology Comment Normal (NORMAL) 10/26/23 05:57 RBC Morphology Normal (NORMAL) 10/26/23 05:57 ESR 10 MM/HOUR (0-20) 10/28/23 05:13 Sodium 141 mmol/L (136-145) 10/29/23 05:07 Corrected Sodium 142 mmol/L (136-145) 10/29/23 05:07 Potassium 4.2 mmol/L (3.5-5.1) 10/29/23 05:07 Chloride 111 mmol/L (98-107) H 10/29/23 05:07 Carbon Dioxide 21.8 mmol/L (21-32) 10/29/23 05:07 BUN 11 mg/dL (7-18) 10/29/23 05:07 Creatinine 0.80 mg/dL (0.55-1.02) 10/29/23 05:07 Est GFR (MDRD) Af Amer > 60 (>60) 10/29/23 05:07 Est GFR (MDRD) Non-Af > 60 (>60) 10/29/23 05:07 Glucose 132 mg/dL (65-99) H 10/29/23 05:07 Lactic Acid 0.7 mmol/L (0.4-2.0) 10/24/23 11:50 Calcium 7.6 mg/dL (8.5-10.1) L 10/29/23 05:07 Corrected Calcium 8.7 mg/dL (8.5-10.1) 10/29/23 05:07 Magnesium 2.7 mg/dL (2.0-2.9) 10/27/23 05:28 Total Bilirubin 0.40 mg/dL (0.2-1.0) 10/29/23 05:07 AST 34 Units/L (15-37) 10/29/23 05:07 ALT 46 Units/L (12-78) 10/29/23 05:07 Alkaline Phosphatase 53 Units/L (46-116) 10/29/23 05:07 Total Protein 5.4 g/dL (6.4-8.2) L 10/29/23 05:07 Albumin 2.6 g/dL (3.4-5.0) L 10/29/23 05:07 Globulin 2.8 g/dL (2.5-4.5) 10/29/23 05:07 Albumin/Globulin Ratio 0.9 Ratio (1.1-2.1) L 10/29/23 05:07 Lipase 27 Units/L (16-77) 10/24/23 09:48 Specimen Type Clean catch urine 10/27/23 09:15 Urine Color Pale yellow (YELLOW) 10/27/23 09:15 Urine Appearance Clear (CLEAR) 10/27/23 09:15 Urine pH 6.5 (5.0 - 8.0) 10/27/23 09:15 Ur Specific [place] 1.010 (1.000-1.030) 10/27/23 09:15 Urine Protein 1+ (NEGATIVE) 10/27/23 09:15 Urine Glucose (UA) Negative (NEGATIVE) 10/27/23 09:15 Urine Ketones Negative (NEGATIVE) 10/27/23 09:15 Urine Blood 5+ (NEGATIVE) 10/27/23 09:15 Urine Nitrite Negative (NEGATIVE) 10/27/23 09:15 Urine Bilirubin Negative (NEGATIVE) 10/27/23 09:15 Urine Urobilinogen Normal (NORMAL) 10/27/23 09:15 Ur Leukocyte Esterase Negative (NEGATIVE) 10/27/23 09:15 Urine RBC 10-20 /HPF (0-3) A 10/27/23 09:15 Urine WBC 0-2 /HPF (0-5) 10/27/23 09:15 Ur Squamous Epith Cells Rare /HPF (NEGATIVE) 10/27/23 09:15 Urine Bacteria Trace /HPF (NEGATIVE) 10/27/23 09:15 Ur Culture Indicated? No/not indicated 10/27/23 09:15 Plan (1) Partial small bowel obstruction: Status: Acute (2) Acute hypokalemia: Status: Acute Plan: Replete per protocol. (3) Intra-abdominal abscess: Status: Acute (4) Crohn disease: Status: Chronic Qualifiers: Gastrointestinal tract location: unspecified location Digestive disease complication type: with abscess Qualified Code(s): K50.914 - Crohn's disease, unspecified, with abscess Plan: Takes Humira at home (5) Anemia: Status: Acute Qualifiers: Anemia type: unspecified type Qualified Code(s): D64.9 - Anemia, unspecified
[2023-10-30 05:46] LABS: BASOPHILS % (AUTO) 0.1 % (0.2-1.0); HEMOGLOBIN 10.5 g/dL (12.0-16.0); LYMPHOCYTES # (AUTO) 1.4 X10^3/uL (1.3-2.9); LYMPHOCYTES % (AUTO) 9.6 % (21.0-51.0); MEAN CORPUSCULAR HEMOGLOBIN 29.3 pg (27.0-34.0); MEAN CORPUSCULAR HGB CONC 32.8 g/dL (33.0-35.0); MEAN CORPUSCULAR VOLUME 89.4 fL (80.0-100.0); MEAN PLATELET VOLUME 7.2 fL (7.4-11.0); MONOCYTES # (AUTO) 0.8 x10^3/uL (0.3-0.8); MONOCYTES % (AUTO) 5.4 % (0.0-13.0); NEUTROPHILS # (AUTO) 12.2 x10^3/uL (2.2-4.8); NEUTROPHILS % (AUTO) 84.9 % (42.0-75.0); PLATELET COUNT 378 X10^3/uL (150.0-450.0); RED BLOOD COUNT 3.58 X10^6/uL (3.5-5.4); RED CELL DISTRIBUTION WIDTH 14.9 % (11.6-16.5); WHITE BLOOD COUNT 14.4 X10^3/uL (3.6-10.0)
[2023-10-30 06:05] LABS: ALANINE AMINOTRANSFERASE 77 Units/L (12-78); ALBUMIN 2.9 g/dL (3.4-5.0); ALKALINE PHOSPHATASE 54 Units/L (46-116); ASPARTATE AMINO TRANSFERASE 27 Units/L (15-37); BLOOD UREA NITROGEN 10 mg/dL (7-18); CALCIUM 7.8 mg/dL (8.5-10.1); CARBON DIOXIDE 23.1 mmol/L (21-32); CHLORIDE 106 mmol/L (98-107); COR CA(FOR HYPOALB) 8.7 mg/dL (8.5-10.1); COR NA(FOR HYPERGLY) 140 mmol/L (136-145); CREATININE 0.76 mg/dL (0.55-1.02); GLUCOSE 132 mg/dL (65-99); MAGNESIUM 1.5 mg/dL (2.0-2.9); POTASSIUM 3.3 mmol/L (3.5-5.1); SODIUM 139 mmol/L (136-145); TOTAL PROTEIN 5.7 g/dL (6.4-8.2); eGFR NON BLACK RACES > 60 (>60)
[2023-10-30] MEDS ORDERED: CONSULT PHARMACY - POTASSIUM & MAGNESIUM XX SCH (07:00)
[2023-10-30] MEDS: K-DUR TAB 20 MEQ PO SCH (08:18)
[2023-10-30] MEDS: MAG-OX TAB PO SCH (08:18)
[2023-10-30 09:25] VITALS: BP 187/94; PULSE 73; TEMP 97.9; O2SAT 95
[2023-10-30] MEDS: TYLENOL 325 MG TAB PO PRN (10:22)
[2023-10-30 11:27] VITALS: RESP 20
[2023-10-31 11:28] LABS: ANTI-NUCLEAR ANTIBODY TEST Detected (None Detected)
== END 2023-10-30 11:25 | disposition home or self-care (01) | DRG 385 ==
LOC: ER 09:26 → MED/SURG 13:03
PROVIDERS: ADMIT Internal Medicine; ATTEND Internal Medicine
DX: K66.0 Peritoneal adhesions (postprocedural) (postinfection); R79.89 Other specified abnormal findings of blood chemistry; K50.912 Crohn's disease, unspecified, with intestinal obstruction; K65.1 Peritoneal abscess; R11.2 Nausea with vomiting, unspecified; R73.09 Other abnormal glucose; D64.89 Other specified anemias; N83.291 Other ovarian cyst, right side; E87.6 Hypokalemia; Z60.8 Other problems related to social environment; K43.9 Ventral hernia without obstruction or gangrene; Z87.442 Personal history of urinary calculi; R10.84 Generalized abdominal pain; E83.42 Hypomagnesemia; E87.1 Hypo-osmolality and hyponatremia